=== PATIENT | female | born 1960 | race Caucasian/White ===

== ENCOUNTER 2022-02-28 18:04 | Outpatient (REF) | payer OTHER, SELFPAY ==
[2022-02-28 19:07] LABS: Influenza A PCR NEGATIVE (Negative); Influenza B PCR NEGATIVE (Negative); Resp Syncy Virus RNA Qual PCR NEGATIVE (Negative); SARS COV2 PCR INHOUSE NEGATIVE (Negative)
== END 2022-02-28 18:05 | disposition home or self-care (01) ==
LOC: HO.LNP 18:04
PROVIDERS: Visit Provider Internal Medicine
DX: Z20.822 Contact with and (suspected) exposure to COVID-19 (principal); R43.9 Unspecified disturbances of smell and taste
CPT/HCPCS: 0241U

== ENCOUNTER 2022-10-02 08:54 | Outpatient (AMB) | payer OTHER, SELFPAY ==
--- NOTE | 2022-10-02 09:44 | AM.OFFWIN_ITS ---
Intake Vital Signs 10/02/22 09:46 Height 5 ft 6 in BP 120/66 Blood Pressure Location Rt brachial Position Sitting Pulse 54 Pulse Source Pulse Oximeter Temp 96.7 F L Temp Source Temporal Artery Scan Pulse Oximetry (%) 98 Oxygen Delivery Method Room Air Intake Visit Reasons: EP, Left Leg Dog Bite, Med Review [phone] Intake Note: Pt is here c/o left leg dog bite. Pt is also requesting a refill on Synthroid, Folic acid and Amlodipine. Pt has a new pt appointment in October with a New Primary Care Doctor. Patient Tobacco Use Status: Never used Tobacco Allergies No Known Allergies Allergy (Verified 10/02/22 10:19) Medication List - Last Reconciled 10/02/22 by Rodriguez Christensen MD amlodipine (Norvasc) 5 mg PO DAILY benzonatate 100 mg PO BID-TID PRN cyclobenzaprine 10 mg PO TID PRN 7 days folic acid 10 mg PO DAILY folic acid 1 mg PO DAILY glipizide 5 mg PO DAILY hydrocortisone 1% (Anti-Itch (hydrocortisone)) 1 appl topical TID PRN hydroxyzine HCl 25 mg PO BEDTIME indapamide 2.5 mg PO QAM insulin NPH and regular human 100 unit/mL (70-30) (Humulin 70/30 U-100 Insulin) 98 units (0.98 mL) subcut DAILY insulin regular human (Humulin R Regular U-100 Insulin) 30 units subcut BID insulin syringe-needle U-100 (BD Insulin Syringe Ultra-Fine) Use 1 needle four times a day levothyroxine (Synthroid) 75 mcg PO DAILY levothyroxine 75 mcg PO DAILY losartan (Cozaar) 100 mg PO DAILY metformin 500 mg PO BID oseltamivir (Tamiflu) 75 mg PO BID 5 days sertraline (Zoloft) 25 mg PO DAILY Do you need a note to return to daycare/school/sports/work: No HPI EP, Left Leg Dog Bite, Med Review [phone] HPI Details 61-year-old female presents to the office for a sick visit. Patient is relocating from [place]. Patient had a dog bite on September 04, she receives stitches and antibiotics for the same. Now she would like the wound reviewed. In addition she would like to get some of her regular medications refilled. She is trying to establish care with a new provider and her appointment is in October. History of thyroid disease and diabetes. [facility] Social History Patient Tobacco Use Status: Never used Tobacco Physical Exam Vital Signs: Last Vital Signs Temp 96.7 F L 10/02/22 09:46 Pulse 54 10/02/22 09:46 BP 120/66 10/02/22 09:46 Pulse Ox 98 10/02/22 09:46 Oxygen Delivery Method Room Air 10/02/22 09:46 Const General: cooperative and healthy appearing Nutritional Appearance: well nourished Orientation/consciousness: patient oriented x3 Limitations: no limitations HEENT Head: Yes normal to inspection Eyes General: appearance normal, both eyes and all related structures Neck Neck: Yes normal visual inspection Chest Chest palpation & inspection: normal palpation of entire chest wall Resp Effort & Inspection: normal respiratory effort Neuro General: patient oriented x3 Extrem Other: Left foot: Dorsum: Healing wound. No surrounding erythema or tenderness. Assessment & Plan Assessment & Plan (1) Diabetes mellitus: Code(s): E11.9 - Type 2 diabetes mellitus without complications Plan: Synthroid, cholesterol medication and needles prescribed. Patient was encouraged to follow-up with her primary care in October. (2) Wound, open, foot: Code(s): S91.309A - Unspecified open wound, unspecified foot, initial encounter Plan: The wound should heal on its own. No further antibiotics are needed. Coding Level of Care Code Est Pt Level 4 (38646) Diagnoses Diabetes mellitus E11.9 Wound, open, foot S91.309A
[2022-10-02 09:46] VITALS: BP 120/66; PULSE 54; TEMP 35.9; O2SAT 98
== END 2022-10-02 10:29 | disposition home or self-care (01) ==
PROVIDERS: PCP Nurse Practitioner Family; Visit Provider Internal Medicine
DX: E11.9 Type 2 diabetes mellitus without complications (principal); S91.309A Unspecified open wound, unspecified foot, initial encounter
CPT/HCPCS: 99214

== ENCOUNTER 2022-11-03 09:19 | Outpatient (AMB) | payer OTHER, SELFPAY ==
--- NOTE | 2022-11-03 09:57 | MHC.OFFWIV ---
Intake Vital Signs 11/03/22 10:02 BP 122/72 Blood Pressure Location Rt brachial Position Sitting Pulse 60 Pulse Source Pulse Oximeter Pulse Oximetry (%) 97 Oxygen Delivery Method Room Air Intake Visit Reasons: EP, diabetic med review Intake Note: Patient here because she needs refills on diabetic meds as she does not have an appt with PCP until next month. Patient Tobacco Use Status: Never used Tobacco Allergies No Known Allergies Allergy (Verified 11/03/22 09:58) Do you need a note to return to daycare/school/sports/work: No PFSH Social History Patient Tobacco Use Status: Never used Tobacco Review of Systems Const Details: Constitutional : No Weight loss, No Fever, No Chills, No Fatigue, No Malaise ENT/Mouth : No sore throat, No Rhinorrhea Eyes: No Eye Pain, No Swelling, No Redness Cardiovascular : No Chest Pain, No SOB, No Dyspnea on Exertion, No Orthopnea, No Edema, No Palpitations Respiratory : No Cough, No Sputum, No Wheezing Gastrointestinal : No Nausea, No Vomiting, No Diarrhea, No Constipation, No abdominal Pain, No Hematochezia, No Melena Genitourinary : No Dysuria, No Urinary Frequency, No Hematuria, Musculoskeletal : No joint pain, No Myalgias, No Joint Swelling Skin : No Skin Lesions, No rash Neuro : No Weakness, No Numbness, No Dizziness, No Headache Psych : No Anxiety/Panic, No Depression All other systems reviewed and are negative All systems reviewed & are unremarkable except as noted in HPI and below Physical Exam Vital Signs: Last Vital Signs Pulse 60 11/03/22 10:02 BP 122/72 11/03/22 10:02 Pulse Ox 97 11/03/22 10:02 Oxygen Delivery Method Room Air 11/03/22 10:02 vss Appearance: Alert.? Oriented X3.? No acute distress.? Head: Normocephalic, atraumatic, no step-offs or deformities Eyes: Pupils equal, round and reactive to light.? Neck: Normal inspection.? Neck supple.? CVS: Pulses normal.? Respiratory: No respiratory distress. Skin: Skin warm and dry.? Normal skin color.? Normal skin turgor.? Extremities: No lower extremity edema.? No calf ttp. 5/5 strength to bilateral upper and lower extremities Neuro: Oriented X 3.? No motor deficit.? No sensory deficit. CN 2-12 intact Assessment & Plan Assessment & Plan (1) Medication refill: Code(s): Z76.0 - Encounter for issue of repeat prescription Plan Take your medications as prescribed. If you were prescribed antibiotics today, it is important that you take your medication to their entirety, do not skip any doses, do not finish them early. Follow-up with your primary care provider this week. Return to the emergency department with new or worsening symptoms. Such as fevers, chills, chest pain, shortness of breath, nausea, vomiting, dizziness, headache, vision changes, lethargy In case of emergency call 911 Medications: New glipizide 5 mg PO DAILY 30 tabs 0RF insulin lispro (Humalog KwikPen (U-100) Insulin) 8 units (0.08 mL) subcut TID 15 mL 0RF Changed From metformin 500 mg PO BID To metformin 500 mg PO BID 30 days 60 tabs 0RF Refilled ezetimibe 10 mg PO DAILY 30 tabs 1RF levothyroxine (Synthroid) 75 mcg PO DAILY 30 tabs 0RF insulin syringe-needle U-100 (BD Insulin Syringe Ultra-Fine) Use 1 needle four times a day 100 ea 6RF E11.9 - Type 2 diabetes mellitus without complications amlodipine (Norvasc) 5 mg PO DAILY 30 tabs 0RF losartan (Cozaar) 100 mg PO DAILY 30 tabs 0RF Coding Level of Care Code Est Pt Level 3 (56577) Diagnoses Medication refill Z76.0
[2022-11-03 10:02] VITALS: BP 122/72; PULSE 60; O2SAT 97
== END 2022-11-03 12:50 | disposition home or self-care (01) ==
PROVIDERS: PCP Nurse Practitioner Family; Visit Provider Physician Assistant
DX: Z76.0 Encounter for issue of repeat prescription (principal)
CPT/HCPCS: 99213

== ENCOUNTER 2022-11-06 09:16 | Outpatient (AMB) | payer OTHER, SELFPAY ==
[2022-11-06 09:29] VITALS: BP 146/68; PULSE 73; TEMP 36.8; O2SAT 98; BMI 30.8
--- NOTE | 2022-11-06 09:29 | AM.OFFWIN_ITS ---
Intake Vital Signs 11/06/22 09:29 Height 5 ft 6 in Weight 191 lb BMI 30.8 BP 146/68 H Blood Pressure Location Rt brachial Position Sitting Pulse 73 Pulse Source Pulse Oximeter Temp 98.2 F Temp Source Oral Pulse Oximetry (%) 98 Oxygen Delivery Method Room Air Intake Visit Reasons: MED review DM Medication Patient Tobacco Use Status: Never used Tobacco Allergies No Known Allergies Allergy (Verified 11/06/22 10:15) Medication List - Last Reconciled 11/06/22 by Rodriguez Christensen MD amlodipine (Norvasc) 5 mg PO DAILY benzonatate 100 mg PO BID-TID PRN cyclobenzaprine 10 mg PO TID PRN 7 days ezetimibe 10 mg PO DAILY folic acid 10 mg PO DAILY folic acid 1 mg PO DAILY glipizide 5 mg PO DAILY hydrocortisone 1% (Anti-Itch (hydrocortisone)) 1 appl topical TID PRN hydroxyzine HCl 25 mg PO BEDTIME indapamide 2.5 mg PO QAM insulin lispro (Humalog KwikPen (U-100) Insulin) 8 units (0.08 mL) subcut TID insulin NPH and regular human 100 unit/mL (70-30) (Humulin 70/30 U-100 Insulin) 98 units (0.98 mL) subcut DAILY insulin regular human (Humulin R Regular U-100 Insulin) 30 units subcut BID insulin syringe-needle U-100 (BD Insulin Syringe Ultra-Fine) Use 1 needle four times a day levothyroxine 75 mcg PO DAILY levothyroxine (Synthroid) 75 mcg PO DAILY losartan (Cozaar) 100 mg PO DAILY metformin 500 mg PO BID 30 days oseltamivir (Tamiflu) 75 mg PO BID 5 days pen needle, diabetic (Comfort EZ Pen [place]) As directed sertraline (Zoloft) 50 mg PO DAILY Do you need a note to return to daycare/school/sports/work: No HPI MED review DM Medication HPI Details 61-year-old female presents to the [facility] for a sick visit. She was seen last week for refill on her diabetes and thyroid medications. She is yet to establish care with a primary care provider. The needles and Synthroid were not prescribed correctly. Patient has to get a 90 day supply of Synthroid for the insurance to pay. Also she needed pen needles which are different than needles for syringes. Patient is now using the insulin pen. [facility] Social History Patient Tobacco Use Status: Never used Tobacco Physical Exam Vital Signs: Last Vital Signs Temp 98.2 F 11/06/22 09:29 Pulse 73 11/06/22 09:29 BP 146/68 H 11/06/22 09:29 Pulse Ox 98 11/06/22 09:29 Oxygen Delivery Method Room Air 11/06/22 09:29 BMI result Body Mass Index 30.8 Assessment & Plan Assessment & Plan (1) Diabetes mellitus: Code(s): E11.9 - Type 2 diabetes mellitus without complications Plan: Appropriate prescriptions were resent. Medications: New pen needle, diabetic (Comfort EZ Pen [place]) As directed 50 ea 0RF Refilled levothyroxine 75 mcg PO DAILY 90 caps 0RF Coding Level of Care Code Est Pt Level 3 (44589) Diagnoses Diabetes mellitus E11.9
== END 2022-11-06 10:19 | disposition home or self-care (01) ==
PROVIDERS: PCP Nurse Practitioner Family; Visit Provider Internal Medicine
DX: E11.9 Type 2 diabetes mellitus without complications (principal)
CPT/HCPCS: 99213

== ENCOUNTER 2022-12-13 08:18 | Outpatient (AMB) | payer OTHER, SELFPAY ==
[2022-12-13 08:36] VITALS: BP 124/62; PULSE 74; O2SAT 98; BMI 31.5
--- NOTE | 2022-12-13 08:36 | A.OFFPC_ITS ---
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) Allergies No Known Allergies Allergy (Verified 12/13/22 08:54) Medication List - Last Reconciled 12/13/22 by YONIS Whitney amlodipine (Norvasc) 5 mg PO DAILY ezetimibe 10 mg PO DAILY folic acid 1 mg PO DAILY glipizide 5 mg PO DAILY indapamide 2.5 mg PO QAM insulin glargine (Lantus Solostar U-100 Insulin) 18 units subcut QPM insulin lispro (Humalog KwikPen (U-100) Insulin) 8 units (0.08 mL) subcut TID insulin syringe-needle U-100 (BD Insulin Syringe Ultra-Fine) Use 1 needle four times a day levothyroxine (Synthroid) 75 mcg PO DAILY losartan (Cozaar) 100 mg PO DAILY metformin 500 mg PO BID 30 days pen needle, diabetic (Comfort EZ Pen [place]) As directed sertraline (Zoloft) 50 mg PO DAILY Tobacco use date assessed: 12/13/22 Dental Screening Dental Screen Date: 12/13/22 Did you have a dental visit in the last 12 months?: Yes Did you have a dental problem in the last 6 months where you did not have access to dental care?: No Was dental information given to patient?: Patient has dentist HPI 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 Previous PCP Dr. Thomas many years ago per patient. Medical history significant for diabetes, high cholesterol, anxiety, depression, hypertension, hypothyroidism. Patient reports that she is compliant with her medications and denies side effects. She checks her blood sugars at home although she does not remember numbers. Last eye exam 1 year ago, will refer for another diabetic eye exam. Patient denies shortness of breath or chest pain. Patient is a Lithuanian- speaking and her friend was helping with interpretation. Patient needs refills on her medications. [facility] Medical History Wound, open, foot Upper respiratory tract infection High cholesterol Anxiety Depression History of carpal tunnel syndrome Hypertension Surgical History H/O tubal ligation Family History Mother Hypertension Diabetes mellitus Arthritis Social History Housing: House Patient Tobacco Use Status: Never used Tobacco Current occupational status: unemployed Cognitive needs: No Hearing needs: No Vision needs: No Questionnaire PHQ-9 Over the last 2 weeks, how often have you been bothered by any of the following problems? 1. Little interest or pleasure in doing things: several days 2. Feeling down, depressed, or hopeless: several days 3. Trouble falling or staying asleep, or sleeping too much: several days 4. Feeling tired or having little energy: several days 5. Poor appetite or overeating: several days 6. Feeling bad about yourself - or that you are a failure or have let yourself or your family down: not at all 7. Trouble concentrating on things, such as reading the newspaper or watching television: several days 8. Moving or speaking so slowly that other people could have noticed. Or the opposite - being so fidgety or restless that you have been moving around a lot more than usual: several days 9. Thoughts that you would be better off or of hurting yourself in some way: not at all Total score: 7 Depression Screening Interpretation: Negative Depression Screening Done: Yes 66069 - PHQ-9 Billing: Yes Source: Developed by Drs. Giles Magallanes, Maye Mcfarlane, Jose M Trejo and colleagues, with an educational natacha from [employer]. Thrive Questionnaire Date Thrive assessed: 12/13/22 I am a: Patient What is your living situation today?: I have a steady place to live Within the past 12 months, did the food you bought not last and you didn't have the money to get more?: Never true Within the past 12 months, did you worry whether your food would run out before you got money to buy more?: Never true Do you have trouble paying for medicines?: No Do you have trouble getting transportation to medical appointments?: No Do you have trouble paying your heating and electricity bill?: No Do you have trouble taking care of your child, family member or friend?: No Do you have trouble with day-to-day activities such as bathing, preparing meals, shopping, managing finances, etc.?: No Are you currently unemployed and looking for a job?: No Are you interested in more education?: No Please select the resources that you would like help with: None Currently or been in a relationship where the following occur: no concerns reported AUDIT C Alcohol Use Questionnaire (AUDIT-C) 1. How often do you have a drink containing alcohol?: Never Total Score: 0 Score Reviewed/Action Taken: No YENI-7 AMB Questionnaire YENI-7 Date YENI - 7 assessed: 12/13/22 Feeling nervous, anxious, or on edge: 1 = Several days Not being able to stop or control worryin = Several days Worrying too much about different things: 1 = Several days Trouble relaxin = Several days Being so restless that it is hard to sit still: 1 = Several days Becoming easily annoyed or irritable: 1 = Several days Feeling afraid as if something awful might happen: 1 = Several days Total YENI-7 score (0-4 normal; 5-9 mild; 10-14 moderate; 15-21 severe): 7 Source: Developed by Drs. Giles Magallanes, Maye Mcfarlane, Jose M Trejo and colleagues, with an educational natacha from [employer]. YENI-7 Assessment Billing YENI-7 Assessment Tool: YENI-7 Assessment 27384 Review of Systems Const Denies body aches, Denies chills, Denies fever(s) and Denies headache(s) ENT Denies dizziness, Denies otalgia, Denies headache(s), Denies nasal discharge, Denies sinus pain and Denies sore throat Card Denies chest pain, Denies edema, Denies lightheadedness and Denies dyspnea Resp Denies cough, Denies dyspnea and Denies wheezing GI Denies abdominal pain Denies dysuria Musc Denies myalgias Skin/Breast Denies rash Neuro Denies dizziness and Denies headache(s) Aller/Immun Denies wheezing Physical exam (Primary Care) Vital Signs: Last Vital Signs Pulse 74 12/13/22 08:36 BP 124/62 12/13/22 08:36 Pulse Ox 98 12/13/22 08:36 Oxygen Delivery Method Room Air 12/13/22 08:36 BMI result Body Mass Index 31.5 Tobacco/Smoking Status: Tobacco use Status Tobacco use date assessed 12/13/22 12/13/22 08:38 Patient Tobacco Use Status Never used Tobacco 12/13/22 08:38 PHQ-9: PHQ-9 Score PHQ-9: Total score 7 12/13/22 08:53 Depression Screening Interpretation: Negative Thrive Assessment: Date of Thrive Assessment Date Thrive assessed 12/13/22 12/13/22 08:38 Currently or been in a relationship where the following occur: no concerns reported Const General: cooperative and no acute distress Orientation/consciousness: patient oriented x3 HENMT Head: Yes normocephalic and Yes atraumatic Ears: TM's normal bilaterally Face and sinus: Yes sinuses nontender Mouth: oropharynx normal and moist mucous membranes Throat: Yes posterior oropharynx normal Eyes General: appearance normal, both eyes and all related structures Pupils: Equal, round and reactive pupils present Neck Neck: Yes normal visual inspection, Yes full ROM and Yes no lymphadenopathy Thyroid: Thyroid normal Resp Effort & Inspection: normal respiratory effort and able to speak in complete sentences Auscultation: clear to auscultation bilaterally, no crackles, no rales, no rhonchi and no wheezes Cardio Rate: regular rate Rhythm: regular rhythm Heart sounds: S1 normal heart sound present, S2 normal heart sound present and no murmurs GI Palpation (GI): Soft to palpation, not firm, nontender, no guarding, not rigid and no hepatosplenomegaly Auscultation: normal bowel sounds Skin General skin exam: no rashes or lesions noted Neuro General: patient oriented x3 Cranial nerves: Yes Equal, round and reactive pupils present Gait exam (Neuro): Normal gait present Extrem General: Yes full ROM and No edema Results AMB Hemoglobin A1c AMB Hemoglobin A1c 12.4 % Last Edit by RADHIKA Santillan on 12/13/22 08:53 Results Reviewed Results Reviewed: Laboratory Last Values Hgb A1c (Clinic) 12.4 % (4.0-6.0) H 12/13/22 08:38 Assessment and Plan Assessment & Plan (1) Diabetes mellitus: Code(s): E11.9 - Type 2 diabetes mellitus without complications Plan: A1c 12.4 today, goal less than 7 Increase Lantus to 22 units at bedtime Continue Humalog, metformin, glipizide Reinforced low-carbohydrate diet Ophthalmology referral Endocrinology referral Patient declined referral for diabetes Education (2) Encounter to establish care: Code(s): Z76.89 - Persons encountering health services in other specified circumstances (3) Hypothyroidism: Code(s): E03.9 - Hypothyroidism, unspecified Plan: Continue levothyroxine 75 mcg daily Blood work ordered (4) Hypertension: Code(s): I10 - Essential (primary) hypertension Plan: Goal BP equal or less than 140/90 Continue losartan, idapamide, amlodipine Low-sodium diet (5) Depression: Code(s): F32.A - Depression, unspecified Qualifiers: Depression Type: other depression Qualified Code(s): F32.89 - Other specified depressive episodes Plan: Stable with sertraline 50 mg daily Counseling referral (6) Anxiety: Code(s): F41.9 - Anxiety disorder, unspecified Plan: Same as above (7) High cholesterol: Code(s): E78.00 - Pure hypercholesterolemia, unspecified Plan: On Zetia Low-cholesterol diet Plan Follow-up in 2 months for PE and labs Orders: Orders Vitamin B12 and Folate Today E11.9 - Type 2 diabetes mellitus without complications TSH reflex Free T4 Today E11.9 - Type 2 diabetes mellitus without complications Lipid Panel Today E78.00 - Pure hypercholesterolemia, unspecified AMB Hemoglobin A1c Today E11.9 - Type 2 diabetes mellitus without complications Vitamin D 25-OH Total Today E11.9 - Type 2 diabetes mellitus without complications Comprehensive [place]. Panel Fast Today E11.9 - Type 2 diabetes mellitus without complications Complete Blood Count Auto Diff Today E11.9 - Type 2 diabetes mellitus without complications Microalbumin, Random (w Creat) Today E11.9 - Type 2 diabetes mellitus without complications Referrals Endocrinology Referral E11.9 - Type 2 diabetes mellitus without complications Counseling Referral F32.A - Depression, unspecified, F41.9 - Anxiety disorder, unspecified Ophthalmology Referral E11.9 - Type 2 diabetes mellitus without complications Medications: New insulin glargine (Lantus Solostar U-100 Insulin) 22 units (0.22 mL) subcut QPM 15 mL 2RF E11.9 - Type 2 diabetes mellitus without complications glipizide 5 mg PO DAILY 90 tabs 0RF E11.9 - Type 2 diabetes mellitus without complications sertraline (Zoloft) 50 mg PO DAILY 90 tabs 0RF F32.A - Depression, unspecified, F41.9 - Anxiety disorder, unspecified pen needle, diabetic (BD Ultra-Fine [place] Pen Needle) As directed 100 ea 3RF E11.9 - Type 2 diabetes mellitus without complications Changed From metformin 500 mg PO BID 30 days 60 tabs 0RF E11.9 - Type 2 diabetes mellitus without complications To metformin 500 mg PO BID 90 days 180 tabs 0RF E11.9 - Type 2 diabetes mellitus without complications Refilled indapamide 2.5 mg PO QAM 90 tabs 0RF I10 - Essential (primary) hypertension losartan (Cozaar) 100 mg PO DAILY 90 tabs 0RF I10 - Essential (primary) hypertension amlodipine (Norvasc) 5 mg PO DAILY 90 tabs 0RF I10 - Essential (primary) hypertension ezetimibe 10 mg PO DAILY 90 tabs 1RF E78.00 - Pure hypercholesterolemia, unspecified levothyroxine (Synthroid) 75 mcg PO DAILY 90 tabs 0RF E03.9 - Hypothyroidism, unspecified Coding Level of Care Code New Pt Level 4 (18262) Diagnoses Diabetes mellitus E11.9 Encounter to establish care Z76.89 Hypothyroidism E03.9 Hypertension I10 Other depression F32.89 Depression Type: other depression Anxiety F41.9 High cholesterol E78.00 Additional Codes YENI-7 Assessment Billing - YENI-7 Assessment Tool: YENI-7 Assessment [id number] ([id number])
== END 2022-12-13 09:21 | disposition home or self-care (01) ==
PROVIDERS: PCP Nurse Practitioner Family; Visit Provider Nurse Practitioner Family
DX: E11.9 Type 2 diabetes mellitus without complications (principal); E03.9 Hypothyroidism, unspecified; I10 Essential (primary) hypertension; F32.89 Other specified depressive episodes; E78.00 Pure hypercholesterolemia, unspecified
CPT/HCPCS: 83036; 96127; 99204

== ENCOUNTER 2022-12-20 11:38 | Outpatient (REF) | payer OTHER, SELFPAY ==
[2022-12-20 11:52] LABS: MANUAL DIFF FLAG NO
[2022-12-20 12:09] LABS: Basophils Percent Auto 0.5 % (0-2); Eosinophils Absolute Auto 0.4 X10*3/uL (0.0-0.4); Eosinophils Percent Auto 5.8 % (0-4); Hematocrit 36.3 % (37.0-47.0); Hemoglobin 12.6 g/dl (12.0-16.0); Imm Gran Abs Auto 0.04 X10*3/uL (0.00-0.03); Imm Gran Pct Auto 0.5 % (0.0-0.4); Lymphocytes Absolute Auto 2.8 X10*3/uL (1.2-4.9); Lymphocytes Percent Auto 37.1 % (20-40); Mean Corpuscular HGB Conc 34.7 g/dl (31.0-35.0); Mean Corpuscular Hemoglobin 28.7 pg (27.0-33.0); Mean Corpuscular Volume 82.7 fL (80.0-98.0); Mean Platelet Volume 9.3 fL (9.4-12.3); Monocytes Absolute Auto 0.7 X10*3/uL (0.1-1.2); Neutrophils Absolute Auto 3.5 x10*3/uL (2.0-8.3); Neutrophils Percent Auto 47.1 % (45-73); Platelet Count 338 X10*3/uL (160-400); Red Blood Count 4.39 X10*6/uL (4.20-5.50); Red Cell Distribution Width 12.5 % (11.0-16.0); White Blood Count 7.4 X10*3/uL (4.8-10.8)
[2022-12-20 12:39] LABS: Alanine Aminotransferase 10 U/L (0-31); Albumin Level 3.9 g/dL (3.5-5.0); Alkaline Phosphatase 113 U/L (39-117); Anion Gap 14 (12-20); Aspartate Amino Transferase 15 U/L (5-31); Bilirubin Total 0.7 mg/dL (0.0-1.0); Blood Urea Nitrogen 19 mg/dL (9-16); Calcium 9.8 mg/dL (8.4-10.2); Carbon Dioxide 26 mmol/L (22-29); Chloride 103 mmol/L (96-108); Cholesterol 225 mg/dL (<200); Estimated Glomerular Filt Rate 45; Glucose Fasting 219 mg/dL (60-99); HDL Cholesterol 36 mg/dL (>40); LDL Cholesterol Calculated 142 mg/dL (<100); Potassium 4.4 mmol/L (3.3-5.1); Sodium 139 mmol/L (135-145); Total Protein 7.4 g/dL (6.5-8.0); Triglycerides 239 mg/dL (<150)
[2022-12-20 12:54] LABS: Vitamin D 25-OH Total 27.6 ng/mL (>30)
[2022-12-20 13:07] LABS: Folate 17.3 ng/mL (> or = 4.0); Vitamin B12 446 pg/mL (200-900)
[2022-12-20 13:58] LABS: Creatinine Urine 151.48 mg/dL; Microalbum/Creatinine Ratio Ur 314.2 ug/mg cr (<30)
== END 2022-12-20 11:39 | disposition home or self-care (01) ==
LOC: HO.LAB 11:38
PROVIDERS: PCP Nurse Practitioner Family; Visit Provider Nurse Practitioner Family
DX: E11.9 Type 2 diabetes mellitus without complications (principal); E78.00 Pure hypercholesterolemia, unspecified
CPT/HCPCS: 36415; 80053; 80061; 82043; 82306; 82570; 82607; 82746; 84443; 85025

== ENCOUNTER 2023-01-16 15:21 | Outpatient (AMB) | payer OTHER, SELFPAY ==
[2023-01-16 15:21] VITALS: BP 142/76; PULSE 72; O2SAT 98; BMI 32.6
--- NOTE | 2023-01-16 15:21 | MHC.OFFVIS ---
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 CV was accompanied by her daughter was able to translate. She has longstanding history of diabetes mellitus blood sugar has been poorly controlled. She has been noncompliant with her diet according to her daughter. Patient does not exercise. [facility] Medical History Wound, open, foot Upper respiratory tract infection High cholesterol Anxiety Depression History of carpal tunnel syndrome Hypertension Surgical History H/O tubal ligation Family History Mother Hypertension Diabetes mellitus Arthritis Social History Housing: House Patient Tobacco Use Status: Never used Tobacco Current occupational status: unemployed Cognitive needs: No Hearing needs: No Vision needs: No Review of Systems Const Denies anorexia, Denies fever(s) and Denies weakness Eyes Denies blurry vision Card Denies no additional complaints and Denies dyspnea Resp Reports no additional complaints, Reports cough and Denies dyspnea GI Denies melena and Denies diarrhea Denies hematuria Musc Denies tingling Skin/Breast Denies rash Neuro Denies focal weakness, Denies tingling, Denies tremor(s) and Denies weakness Physical Exam Vital Signs: Last Vital Signs Pulse 72 01/16/23 15:21 BP 142/76 H 01/16/23 15:21 Pulse Ox 98 01/16/23 15:21 Oxygen Delivery Method Room Air 01/16/23 15:21 BMI result Body Mass Index 32.6 Const General: comfortable Nutritional Appearance: well nourished Orientation/consciousness: patient oriented x3 HEENT Head: No normal to inspection Mouth: moist mucous membranes Neck Neck: Yes supple and Yes no JVD Resp Auscultation: clear to auscultation bilaterally, no rales and rub present Cardio Jugular venous distension: no JVD Palpation: no palpable S3 and no palpable S4 Heart sounds: no rubs GI Palpation (GI): Soft to palpation and nontender Percussion: No Fluid wave present General: Yes no CVA tenderness Back/Spine/Pelvis Back: no CVA tenderness Skin General skin exam: no rashes or lesions noted Neuro General: patient oriented x3 Extrem General: Yes no pedal edema and No clubbing Results Reviewed Results Reviewed: All lab results were reviewed. Serum creatinine 1.2 with EGFR of 40 mL/minute. Urine microalbumin creatinine ratio 314 Assessment & Plan Assessment & Plan (1) CKD (chronic kidney disease): Code(s): N18.9 - Chronic kidney disease, unspecified Plan: Middle-aged woman with longstanding diabetes mellitus hypertension with mild CKD. She has stage III CKD most likely due to hypertensive diabetic kidney disease. Goal also slow the progression of renal disease. Continue with Dominick inhibition. She will benefit from SGLT-2 inhibitor. Discussed importance of tight control blood sugar and blood pressure. Continue to avoid nephrotoxic agents including NSAIDs. (2) Microalbuminuria: Code(s): R80.9 - Proteinuria, unspecified Plan: Due to underlying diabetic kidney disease. Continue with Dominick inhibitors (3) Hypertension: Code(s): I10 - Essential (primary) hypertension Plan: Initial blood pressure was elevated but repeat blood pressure was acceptable. Goal is to maintain blood pressure less than 130/80. Continue current regimen. She should stay on low-sodium diet and she requires weight loss which we had discussed Orders: Orders Blood Urea Nitrogen 4 Weeks N18.9 - Chronic kidney disease, unspecified Creatinine 4 Weeks N18.9 - Chronic kidney disease, unspecified Calcium 4 Weeks N18.9 - Chronic kidney disease, unspecified Electrolytes 4 Weeks N18.9 - Chronic kidney disease, unspecified US renal BI 4 Weeks N18.9 - Chronic kidney disease, unspecified Coding Level of Care Code New Pt Level 5 (96059) Diagnoses CKD (chronic kidney disease) N18.9 Microalbuminuria R80.9 Hypertension I10
== END 2023-01-16 15:48 | disposition home or self-care (01) ==
PROVIDERS: PCP Nurse Practitioner Family; Visit Provider Internal Medicine Hypertension Specialist
DX: I12.9 Hypertensive chronic kidney disease with stage 1 through stage 4 chronic kidney disease, or unspecified chronic kidney disease (principal); E11.22 Type 2 diabetes mellitus with diabetic chronic kidney disease; N18.30 Chronic kidney disease, stage 3 unspecified; R80.9 Proteinuria, unspecified
CPT/HCPCS: 99204

== ENCOUNTER → 2023-01-16 15:21 | Outpatient (BNVA) | payer OTHER, SELFPAY | PROVIDERS: PCP Nurse Practitioner Family; Visit Provider Internal Medicine Hypertension Specialist | DX: I12.9 Hypertensive chronic kidney disease with stage 1 through stage 4 chronic kidney disease, or unspecified chronic kidney disease (principal); N18.9 Chronic kidney disease, unspecified; R80.9 Proteinuria, unspecified | CPT/HCPCS: 99202 ==

== ENCOUNTER 2023-02-16 09:35 | Outpatient (REF) | payer OTHER, SELFPAY ==
--- NOTE | ~2023-02-16 | US_ITS ---
EXAMINATION: US RETROPERITONEAL LIMITED (RENAL ONLY) CLINICAL INFORMATION: Chronic kidney disease, unspecified. COMPARISON: None available. TECHNIQUE: Real-time imaging of the kidneys. FINDINGS: RIGHT KIDNEY: 9.6 x 4.9 x 5.2 cm (SAG x AP x TRV). The kidney is normal in size, contour, and echogenicity. Renal cortical thickness is normal. No calculi or focal parenchymal lesions. No hydronephrosis. LEFT KIDNEY: 10.4 x 5.5 x 5.8 cm (SAG x AP x TRV). The kidney is normal in size, contour, and echogenicity. Renal cortical thickness is normal. No calculi or focal parenchymal lesions. No hydronephrosis. US/US renal BI IMPRESSION: Normal renal ultrasound.
== END 2023-02-16 09:36 | disposition home or self-care (01) ==
LOC: HO.US 09:35
PROVIDERS: PCP Nurse Practitioner Family; Visit Provider Internal Medicine Hypertension Specialist
DX: N18.9 Chronic kidney disease, unspecified (principal)
CPT/HCPCS: 76775

== ENCOUNTER 2023-02-27 11:01 | Outpatient (AMB) | payer OTHER, SELFPAY ==
--- NOTE | 2023-02-27 11:04 | HO.NEPHOV ---
HPI HPI Comments History of Present Illness Details Middle-aged woman with a history of longstanding diabetes mellitus hypertension has been referred for evaluation of CKD and proteinuria. CV was accompanied by her daughter was able to translate. She has longstanding history of diabetes mellitus blood sugar has been poorly controlled. She has been noncompliant with her diet according to her daughter. Patient does not exercise. 02/27/23 Here for follow up No new issues Gave up soda Labs not done yet PFS Medical History Wound, open, foot Upper respiratory tract infection High cholesterol Anxiety Depression History of carpal tunnel syndrome Hypertension Surgical History H/O tubal ligation Family History Mother Hypertension Diabetes mellitus Arthritis Social History Housing: House Patient Tobacco Use Status: Never used Tobacco Current occupational status: unemployed Cognitive needs: No Hearing needs: No Vision needs: No Vital Signs 02/27/23 11:05 Height 5 ft 6 in Weight 207 lb 8 oz BMI 33.5 BP 150/70 H Blood Pressure Location Rt brachial Position Sitting Pulse 66 Pulse Source Pulse Oximeter Pulse Oximetry (%) 98 Oxygen Delivery Method Room Air Physical Exam Vital Signs: Last Vital Signs Pulse 66 02/27/23 11:05 BP 150/70 H 02/27/23 11:05 Pulse Ox 98 02/27/23 11:05 Oxygen Delivery Method Room Air 02/27/23 11:05 BMI result Body Mass Index 33.5 Const General: comfortable Nutritional Appearance: well nourished Orientation/consciousness: patient oriented x3 HEENT Head: No normal to inspection Mouth: moist mucous membranes Neck Neck: Yes supple and Yes no JVD Resp Auscultation: clear to auscultation bilaterally, no rales and rub present Cardio Jugular venous distension: no JVD Palpation: no palpable S3 and no palpable S4 Heart sounds: no rubs GI Palpation (GI): Soft to palpation and nontender Percussion: No Fluid wave present General: Yes no CVA tenderness Back/Spine/Pelvis Back: no CVA tenderness Skin General skin exam: no rashes or lesions noted Neuro General: patient oriented x3 Extrem General: Yes no pedal edema and No clubbing Assessment & Plan Assessment & Plan (1) Microalbuminuria: Code(s): R80.9 - Proteinuria, unspecified Plan: Due to underlying diabetic kidney disease. Continue with ARB (2) CKD (chronic kidney disease): Code(s): N18.9 - Chronic kidney disease, unspecified Plan: Middle-aged woman with longstanding diabetes mellitus hypertension with mild CKD. She has stage III CKD most likely due to hypertensive diabetic kidney disease. Goal also slow the progression of renal disease. Continue with Dominick inhibition. She will benefit from SGLT-2 inhibitor. Discussed importance of tight control blood sugar and blood pressure. Continue to avoid nephrotoxic agents including NSAIDs. (3) Hypertension: Code(s): I10 - Essential (primary) hypertension Plan: Initial blood pressure was elevated but repeat blood pressure was acceptable. Goal is to maintain blood pressure less than 130/80. Continue current regimen. She should stay on low-sodium diet and she requires weight loss which we had discussed Orders: Orders Electrolytes Today N18.9 - Chronic kidney disease, unspecified, R80.9 - Proteinuria, unspecified Blood Urea Nitrogen Today N18.9 - Chronic kidney disease, unspecified, R80.9 - Proteinuria, unspecified Creatinine Today N18.9 - Chronic kidney disease, unspecified, R80.9 - Proteinuria, unspecified Calcium Today N18.9 - Chronic kidney disease, unspecified, R80.9 - Proteinuria, unspecified UA and rflx microscopic Today N18.9 - Chronic kidney disease, unspecified, R80.9 - Proteinuria, unspecified Total Protein Urine Random Today N18.9 - Chronic kidney disease, unspecified, R80.9 - Proteinuria, unspecified Creatinine Urine Today N18.9 - Chronic kidney disease, unspecified, R80.9 - Proteinuria, unspecified Coding Level of Care Code Est Pt Level 4 (18964) Diagnoses Microalbuminuria R80.9 CKD (chronic kidney disease) N18.9 Hypertension I10 Results Reviewed Results Reviewed: Jan 2023: RIGHT KIDNEY: 9.6 x 4.9 x 5.2 cm (SAG x AP x TRV). The kidney is normal in size, contour, and echogenicity. Renal cortical thickness is normal. No calculi or focal parenchymal lesions. No hydronephrosis. LEFT KIDNEY: 10.4 x 5.5 x 5.8 cm (SAG x AP x TRV). The kidney is normal in size, contour, and echogenicity. Renal cortical thickness is normal. No calculi or focal parenchymal lesions. No hydronephrosis. US/US renal BI IMPRESSION: Normal renal ultrasound. Nephrology Results: Hgb 12.6 g/dl (12.0-16.0) 12/20/22 WBC 7.4 X10*3/uL (4.8-10.8) 12/20/22 Plt Count 338 X10*3/uL (160-400) 12/20/22 Sodium 139 mmol/L (135-145) 12/20/22 Potassium 4.4 mmol/L (3.3-5.1) 12/20/22 Chloride 103 mmol/L (96-108) 12/20/22 Carbon Dioxide 26 mmol/L (22-29) 12/20/22 BUN 19 mg/dL (9-16) H 12/20/22 Creatinine 1.21 mg/dL (0.5-1.4) 12/20/22 Calcium 9.8 mg/dL (8.4-10.2) 12/20/22 Urine Creatinine 151.48 mg/dL 12/20/22 Renal US 02/16/23
[2023-02-27 11:05] VITALS: BP 150/70; PULSE 66; O2SAT 98; BMI 33.5
== END 2023-02-27 11:23 | disposition home or self-care (01) ==
PROVIDERS: PCP Nurse Practitioner Family; Visit Provider Internal Medicine Hypertension Specialist
DX: R80.9 Proteinuria, unspecified (principal); I12.9 Hypertensive chronic kidney disease with stage 1 through stage 4 chronic kidney disease, or unspecified chronic kidney disease; N18.9 Chronic kidney disease, unspecified
CPT/HCPCS: 99214

== ENCOUNTER 2023-02-27 11:01 | Outpatient (REF) | payer OTHER, SELFPAY ==
[2023-02-27 13:33] LABS: Anion Gap 12 (12-20); Blood Urea Nitrogen 28 mg/dL (9-16); Calcium 10.2 mg/dL (8.4-10.2); Carbon Dioxide 26 mmol/L (22-29); Chloride 103 mmol/L (96-108); Estimated Glomerular Filt Rate 41; Potassium 4.2 mmol/L (3.3-5.1); Sodium 137 mmol/L (135-145)
[2023-02-27 15:38] LABS: Appearance Urine Clear; Color Urine Yellow; Glucose Urine UA Negative (Negative); Leukocyte Esterase Urine Negative (Negative); Nitrite Urine Negative (Negative); PH 5.5 (5.0-9.0); Specific Gravity - Urine 1.015 (1.005-1.025); UMIC TRIGGER UA YES; Urine Blood Negative (Negative); Urine Ketones Negative (Negative); Urine Protein 100 (2+) mg/dL (Neg-Trace)
[2023-02-27 15:55] LABS: Bacteria Urine None Seen (None Seen); Hyaline Casts Urine 0-2 /LPF (0-2); Other Crystals Urine Present; RBC Urine 0-2 /HPF (0-2); Squamous Epithelial Cell Urine 0-2 /HPF (0-2); WBC Urine 0-5 /HPF (0-5)
[2023-02-27 16:37] LABS: Creatinine Urine 87.02 mg/dL; Total Protein Urine Random 59 mg/dL (<12)
== END 2023-02-27 11:02 | disposition home or self-care (01) ==
LOC: HO.LAB 11:01
PROVIDERS: PCP Nurse Practitioner Family; Visit Provider Internal Medicine Hypertension Specialist
DX: R80.9 Proteinuria, unspecified (principal); I12.9 Hypertensive chronic kidney disease with stage 1 through stage 4 chronic kidney disease, or unspecified chronic kidney disease; N18.9 Chronic kidney disease, unspecified
CPT/HCPCS: 36415; 80051; 81001; 82310; 82565; 82570; 84156; 84520; 99212

== ENCOUNTER 2023-07-19 08:46 | Outpatient (REF) | payer OTHER, SELFPAY ==
[2023-07-19 09:28] LABS: Appearance Urine Cloudy; Color Urine Yellow; Glucose Urine UA Negative (Negative); Leukocyte Esterase Urine Moderate (2+) (Negative); Nitrite Urine Negative (Negative); PH 6.5 (5.0-9.0); Specific Gravity - Urine 1.015 (1.005-1.025); UMIC TRIGGER UA YES; Urine Blood Negative (Negative); Urine Ketones Negative (Negative); Urine Protein 100 (2+) mg/dL (Neg-Trace)
[2023-07-19 09:58] LABS: Anion Gap 13 (12-20); Blood Urea Nitrogen 18 mg/dL (9-16); Calcium 9.3 mg/dL (8.4-10.2); Carbon Dioxide 27 mmol/L (22-29); Chloride 106 mmol/L (96-108); Estimated Glomerular Filt Rate 42; Potassium 3.7 mmol/L (3.3-5.1); Sodium 142 mmol/L (135-145)
[2023-07-19 10:00] LABS: Creatinine Urine 127.73 mg/dL; Total Protein Urine Random 110 mg/dL (<12)
[2023-07-19 10:16] LABS: Bacteria Urine 2+ (None Seen); Hyaline Casts Urine 0-2 /LPF (0-2); RBC Urine 0-2 /HPF (0-2); WBC Urine 0-5 /HPF (0-5)
== END 2023-07-19 08:47 | disposition home or self-care (01) ==
LOC: HO.LAB 08:46
PROVIDERS: PCP Internal Medicine; Visit Provider Internal Medicine Hypertension Specialist
DX: N18.9 Chronic kidney disease, unspecified (principal); R80.9 Proteinuria, unspecified
CPT/HCPCS: 36415; 80051; 81001; 82310; 82565; 82570; 84156; 84520; 99212

== ENCOUNTER 2023-07-19 11:22 | Outpatient (AMB) | payer OTHER, SELFPAY ==
--- NOTE | 2023-07-19 11:29 | HO.NEPHOV ---
Vital Signs 07/19/23 11:30 Height 5 ft 6 in Weight 210 lb BMI 33.9 BP 146/64 H Blood Pressure Location Rt brachial Position Sitting Pulse 70 Pulse Source Pulse Oximeter Pulse Oximetry (%) 97 Oxygen Delivery Method Room Air Intake Visit Reasons: CKD May FU/ Confirmed Ammonium Nitrate Neutralizer Required: No Accompanied by: Daughter Allergies No Known Allergies Allergy (Verified 07/19/23 11:32) HPI Comments Details: Middle-aged woman with a history of longstanding diabetes mellitus hypertension has been referred for evaluation of CKD and proteinuria. CV was accompanied by her daughter was able to translate. She has longstanding history of diabetes mellitus blood sugar has been poorly controlled. She has been noncompliant with her diet according to her daughter. Patient does not exercise. Doing better today. She does not drink soda anymore. Metformin has been discontinued. No new issues today [facility] Medical History Wound, open, foot Upper respiratory tract infection High cholesterol Anxiety Depression History of carpal tunnel syndrome Hypertension Surgical History H/O tubal ligation Family History Mother Hypertension Diabetes mellitus Arthritis Social History Housing: House Patient Tobacco Use Status: Never used Tobacco Current occupational status: unemployed Cognitive needs: No Hearing needs: No Vision needs: No Physical Exam Vital Signs: Last Vital Signs Pulse 70 07/19/23 11:30 BP 146/64 H 07/19/23 11:30 Pulse Ox 97 07/19/23 11:30 Oxygen Delivery Method Room Air 07/19/23 11:30 BMI result Body Mass Index 33.9 Const General: comfortable Nutritional Appearance: well nourished Orientation/consciousness: patient oriented x3 HEENT Head: No normal to inspection Mouth: moist mucous membranes Neck Neck: Yes supple and Yes no JVD Resp Auscultation: clear to auscultation bilaterally, no rales and rub present Cardio Jugular venous distension: no JVD Palpation: no palpable S3 and no palpable S4 Heart sounds: no rubs GI Palpation (GI): Soft to palpation and nontender Percussion: No Fluid wave present General: Yes no CVA tenderness Back/Spine/Pelvis Back: no CVA tenderness Skin General skin exam: no rashes or lesions noted Neuro General: patient oriented x3 Extrem General: Yes no pedal edema and No clubbing Results Reviewed Nephrology Results: Hgb 12.6 g/dl (12.0-16.0) 12/20/22 WBC 7.4 X10*3/uL (4.8-10.8) 12/20/22 Plt Count 338 X10*3/uL (160-400) 12/20/22 Sodium 142 mmol/L (135-145) 07/19/23 Potassium 3.7 mmol/L (3.3-5.1) 07/19/23 Chloride 106 mmol/L (96-108) 07/19/23 Carbon Dioxide 27 mmol/L (22-29) 07/19/23 BUN 18 mg/dL (9-16) H 07/19/23 Creatinine 1.28 mg/dL (0.5-1.4) 07/19/23 Calcium 9.3 mg/dL (8.4-10.2) 07/19/23 Urine Protein 100 (2+) mg/dL (Neg-Trace) H 07/19/23 Urine Creatinine 127.73 mg/dL 07/19/23 Renal US 02/16/23 Assessment & Plan Assessment & Plan (1) CKD (chronic kidney disease): Code(s): N18.9 - Chronic kidney disease, unspecified Category: Medical Plan: Middle-aged woman with longstanding diabetes mellitus hypertension with mild CKD. She has stage III CKD most likely due to hypertensive diabetic kidney disease. Goal also slow the progression of renal disease. Continue with Dominick inhibition. She will benefit from SGLT-2 inhibitor. Discussed importance of tight control blood sugar and blood pressure. Continue to avoid nephrotoxic agents including NSAIDs. . (2) Microalbuminuria: Code(s): R80.9 - Proteinuria, unspecified Category: Medical Plan: Due to underlying diabetic kidney disease. Continue with ARB . (3) Hypertension: Code(s): I10 - Essential (primary) hypertension Category: Medical Plan: Initial blood pressure was elevated but repeat blood pressure was acceptable. Goal is to maintain blood pressure less than 130/80. Continue current regimen. She should stay on low-sodium diet and she requires weight loss which we had discussed . Orders: Orders Basic Metabolic Panel 4 Months N18.9 - Chronic kidney disease, unspecified Total Protein Urine Random 4 Months N18.9 - Chronic kidney disease, unspecified Creatinine Urine 4 Months N18.9 - Chronic kidney disease, unspecified Coding Level of Care Code Est Pt Level 4 (42597) Diagnoses CKD (chronic kidney disease) N18.9 Microalbuminuria R80.9 Hypertension I10
[2023-07-19 11:30] VITALS: BP 146/64; PULSE 70; O2SAT 97; BMI 33.9
== END 2023-07-19 11:51 | disposition home or self-care (01) ==
PROVIDERS: PCP Nurse Practitioner Family; Visit Provider Internal Medicine Hypertension Specialist
DX: I12.9 Hypertensive chronic kidney disease with stage 1 through stage 4 chronic kidney disease, or unspecified chronic kidney disease (principal); N18.9 Chronic kidney disease, unspecified; R80.9 Proteinuria, unspecified
CPT/HCPCS: 99214

== ENCOUNTER 2023-07-26 09:01 | Outpatient (AMB) | payer OTHER, SELFPAY ==
--- NOTE | 2023-07-26 09:03 | A.OFFPC_ITS ---
Vital Signs 07/26/23 09:06 Height 5 ft 6 in Weight 209 lb BMI 33.7 BP 130/72 Blood Pressure Location Lt brachial Position Sitting Pulse 75 Pulse Source Pulse Oximeter Pulse Oximetry (%) 96 Oxygen Delivery Method Room Air Intake Visit Reasons: PE w/ labs- needs A1C Intake Note: Patient is here today for a physical. Ambulance Officer Required: Yes Ambulance Officer Language: Farmworker Machine Name: Sarah (Daughter) Information Interpreted: non-clinical & clinical Transformation Analyst: Present Accompanied by: Daughter Allergies No Known Allergies Allergy (Verified 07/26/23 09:05) Tobacco use date assessed: 07/26/23 Dental Screening Dental Screen Date: 07/26/23 Did you have a dental visit in the last 12 months?: Yes Did you have a dental problem in the last 6 months where you did not have access to dental care?: No Was dental information given to patient?: Patient has dentist HPI PE w/ labs- needs A1C HPI Details 62-year-old female presents to the offic e wishing to establish her care. She has also requesting an annual physical. Patient has poorly controlled diabetes. She is accompanied on this visit by her daughter. Patient is complaining of a trigger finger in the right hand. When she makes a fist and opens her fingers she feels a clicking sound in the right index finger which is painful. vp information technology stiffness present. Not compliant with diet or exercise. [facility] Medical History (Updated 07/26/23 @ 09:59 by Rodriguez Christensen MD) CKD (chronic kidney disease) Diabetes mellitus High cholesterol Anxiety Depression History of carpal tunnel syndrome Hypertension Surgical History H/O tubal ligation Family History Mother Hypertension Diabetes mellitus Arthritis Other Mental health disorder Social History Housing: House Alcohol intake: current Alcohol intake frequency: a few times a month Patient Tobacco Use Status: Never used Tobacco e-Cigarette/Vaping Use: Never Used Second Hand Smoke Exposure: No service: No Current occupational status: unemployed Cognitive needs: No Hearing needs: No Vision needs: No Questionnaire PHQ-9 Over the last 2 weeks, how often have you been bothered by any of the following problems? 1. Little interest or pleasure in doing things: several days 2. Feeling down, depressed, or hopeless: several days 3. Trouble falling or staying asleep, or sleeping too much: several days 4. Feeling tired or having little energy: several days 5. Poor appetite or overeating: not at all 6. Feeling bad about yourself - or that you are a failure or have let yourself or your family down: not at all 7. Trouble concentrating on things, such as reading the newspaper or watching television: several days 8. Moving or speaking so slowly that other people could have noticed. Or the opposite - being so fidgety or restless that you have been moving around a lot more than usual: not at all 9. Thoughts that you would be better off or of hurting yourself in some way: not at all Total score: 5 Depression Screening Interpretation: Positive Depression Screening Done: Yes Source: Developed by Drs. Giles Magallanes, Maye Mcfarlane, Jose M Trejo and colleagues, with an educational natacha from [employer]. Thrive Questionnaire Date Thrive assessed: 07/26/23 I am a: Patient What is your living situation today?: I have a steady place to live Within the past 12 months, did the food you bought not last and you didn't have the money to get more?: Never true Within the past 12 months, did you worry whether your food would run out before you got money to buy more?: Never true Do you have trouble paying for medicines?: No Do you have trouble getting transportation to medical appointments?: No Do you have trouble paying your heating and electricity bill?: No Do you have trouble taking care of your child, family member or friend?: No Do you have trouble with day-to-day activities such as bathing, preparing meals, shopping, managing finances, etc.?: No Are you currently unemployed and looking for a job?: No Are you interested in more education?: No Currently or been in a relationship where the following occur: no concerns reported THRIVE Score: 0 AUDIT C Alcohol Use Questionnaire (AUDIT-C) 1. How often do you have a drink containing alcohol?: Never Total Score: 0 YENI-7 AMB Questionnaire YENI-7 Date YENI - 7 assessed: 07/26/23 Feeling nervous, anxious, or on edge: 1 = Several days Not being able to stop or control worryin = Several days Worrying too much about different things: 1 = Several days Trouble relaxin = Several days Being so restless that it is hard to sit still: 0 = Not at all Becoming easily annoyed or irritable: 0 = Not at all Feeling afraid as if something awful might happen: 0 = Not at all Total YENI-7 score (0-4 normal; 5-9 mild; 10-14 moderate; 15-21 severe): 4 Source: Developed by Drs. Giles Magallanes, Maye Mcfarlane, Jose M Trejo and colleagues, with an educational natacha from [employer]. Physical exam (Primary Care) Vital Signs: Last Vital Signs Pulse 75 07/26/23 09:06 BP 130/72 07/26/23 09:06 Pulse Ox 96 07/26/23 09:06 Oxygen Delivery Method Room Air 07/26/23 09:06 BMI result Body Mass Index 33.7 Tobacco/Smoking Status: Tobacco use Status Tobacco use date assessed 07/26/23 07/26/23 09:22 Patient Tobacco Use Status Never used Tobacco 07/26/23 09:22 e-Cigarette/Vaping Use Never Used 07/26/23 09:22 PHQ-9: PHQ-9 Score PHQ-9: Total score 5 07/26/23 09:27 Depression Screening Interpretation: Positive Thrive Assessment: Date of Thrive Assessment Date Thrive assessed 07/26/23 07/26/23 09:22 Currently or been in a relationship where the following occur: no concerns reported Const General: cooperative and healthy appearing Nutritional Appearance: well nourished Orientation/consciousness: patient oriented x3 Limitations: no limitations HENMT Head: Yes normal to inspection Eyes General: appearance normal, both eyes and all related structures Neck Neck: Yes normal visual inspection Chest Chest palpation & inspection: normal palpation of entire chest wall Resp Effort & Inspection: normal respiratory effort Neuro General: patient oriented x3 Results AMB Hemoglobin A1c AMB Hemoglobin A1c 10.1 % Last Edit by RADHIKA Swartz on 07/26/23 09:2 6 Results Reviewed Results Reviewed: Laboratory Last Values Hgb A1c (Clinic) 10.1 % (4.0-6.0) H 07/26/23 09:03 Assessment and Plan Assessment & Plan (1) Diabetes mellitus: Code(s): E11.9 - Type 2 diabetes mellitus without complications Plan: Poor blood sugar control. Lantus dosage increased to 30 units. Short-acting insulin increased to 10 units 3 times daily. (2) CKD (chronic kidney disease): Code(s): N18.9 - Chronic kidney disease, unspecified Plan: Kidney functions are deteriorating. Nephrology note reviewed. Farxiga added to the regimen. (3) Annual physical exam: Code(s): Z00.00 - Encounter for general adult medical examination without abnormal findings Plan: Screening mammogram ordered. Patient had a colonoscopy 5 years ago in [place]. She has scheduled for an annual Pap exam at in a few months. Orders: Orders AMB Hemoglobin A1c Today E11.9 - Type 2 diabetes mellitus without complications Basic Metabolic Panel Today E11.9 - Type 2 diabetes mellitus without complications Complete Blood Count no Diff Today E11.9 - Type 2 diabetes mellitus without complications Lipid Panel Today E11.9 - Type 2 diabetes mellitus without complications Thyroid Stimulating Hormone Today E11.9 - Type 2 diabetes mellitus without complications MM screening mammo BI Today Z12.31 - Encounter for screening mammogram for malignant neoplasm of breast Liver Panel Today E11.9 - Type 2 diabetes mellitus without complications UA and rflx microscopic Today E11.9 - Type 2 diabetes mellitus without complications Medications: New dapagliflozin propanediol (Farxiga) 10 mg PO DAILY 90 tabs 1RF Changed From insulin glargine (Lantus Solostar U-100 Insulin) 22 units (0.22 mL) subcut QPM 15 mL 2RF E11.9 - Type 2 diabetes mellitus without complications To insulin glargine (Lantus Solostar U-100 Insulin) 30 units (0.3 mL) subcut QPM 15 mL 2RF E11.9 - Type 2 diabetes mellitus without complications From insulin lispro (Humalog KwikPen (U-100) Insulin) 8 units (0.08 mL) subcut TID 15 mL 0RF To insulin lispro (Humalog KwikPen (U-100) Insulin) 10 units (0.1 mL) subcut TID 15 mL 0RF Refilled sertraline (Zoloft) 50 mg PO DAILY 90 tabs 1RF F32.A - Depression, unspecified, F41.9 - Anxiety disorder, unspecified insulin syringe-needle U-100 (BD Insulin Syringe Ultra-Fine) Use 1 needle four times a day 100 ea 6RF E11.9 - Type 2 diabetes mellitus without complications amlodipine (Norvasc) 5 mg PO DAILY 90 tabs 3RF I10 - Essential (primary) hypertension folic acid 1 mg PO DAILY 90 tabs 3RF levothyroxine (Synthroid) 75 mcg PO DAILY 90 tabs 0RF E03.9 - Hypothyroidism, unspecified cholecalciferol (vitamin D3) 25 mcg PO DAILY 90 tabs 3RF R79.89 - Other specified abnormal findings of blood chemistry pen needle, diabetic (Comfort EZ Pen [place]) As directed 50 ea 0RF pen needle, diabetic (BD Ultra-Fine Chen Pen Needle) As directed 100 ea 3RF E11.9 - Type 2 diabetes mellitus without complications losartan (Cozaar) 100 mg PO DAILY 90 tabs 3RF I10 - Essential (primary) hypertension ezetimibe 10 mg PO DAILY 90 tabs 1RF E78.00 - Pure hypercholesterolemia, unspecified indapamide 2.5 mg PO QAM 90 tabs 3RF I10 - Essential (primary) hypertension Coding Level of Care Code Est Pt Level 4 (32057) Est Pt Prev Care 40-64y(00178) Diagnoses Diabetes mellitus E11.9 CKD (chronic kidney disease) N18.9 Annual physical exam Z00.00
[2023-07-26 09:06] VITALS: BP 130/72; PULSE 75; O2SAT 96; BMI 33.7
== END 2023-07-26 09:46 | disposition home or self-care (01) ==
PROVIDERS: PCP Internal Medicine; Visit Provider Internal Medicine
DX: Z00.00 Encounter for general adult medical examination without abnormal findings (principal); E11.22 Type 2 diabetes mellitus with diabetic chronic kidney disease; N18.30 Chronic kidney disease, stage 3 unspecified; M65.321 Trigger finger, right index finger
CPT/HCPCS: 83036; 99214; 99396

== ENCOUNTER 2024-03-07 08:45 | Outpatient (REF) | payer OTHER, SELFPAY ==
[2024-03-07 09:43] LABS: Hematocrit 36.2 % (37.0-47.0); Hemoglobin 12.4 g/dl (12.0-16.0); Mean Corpuscular HGB Conc 34.3 g/dl (31.0-35.0); Mean Corpuscular Hemoglobin 28.4 pg (27.0-33.0); Mean Platelet Volume 10.1 fL (9.4-12.3); Platelet Count 310 X10*3/uL (160-400); Red Blood Count 4.36 X10*6/uL (4.20-5.50); White Blood Count 8.6 X10*3/uL (4.8-10.8)
[2024-03-07 09:55] LABS: Appearance Urine Cloudy; Color Urine Yellow; Glucose Urine UA 100 mg/dL (Negative); Leukocyte Esterase Urine Small (1+) (Negative); Nitrite Urine Negative (Negative); PH 5.5 (5.0-9.0); UMIC TRIGGER UA YES; Urine Blood Trace (Negative); Urine Ketones Negative (Negative); Urine Protein 300 (3+) mg/dL (Neg-Trace)
[2024-03-07 10:00] LABS: Bacteria Urine 3+ (None Seen); Hyaline Casts Urine 0-2 /LPF (0-2); RBC Urine 0-2 /HPF (0-2)
[2024-03-07 10:30] LABS: Creatinine Urine 113.02 mg/dL
[2024-03-07 10:37] LABS: Alanine Aminotransferase 11 U/L (0-31); Albumin Level 3.6 g/dL (3.5-5.0); Alkaline Phosphatase 116 U/L (39-117); Anion Gap 9 (12-20); Aspartate Amino Transferase 15 U/L (5-31); Bilirubin Direct 0.1 mg/dL (0.0-0.5); Bilirubin Total 0.4 mg/dL (0.0-1.0); Blood Urea Nitrogen 19 mg/dL (9-16); Calcium 8.8 mg/dL (8.4-10.2); Carbon Dioxide 25 mmol/L (22-29); Chloride 108 mmol/L (96-108); Cholesterol 156 mg/dL (<200); Estimated Glomerular Filt Rate 42; Glucose Random 217 mg/dL (60-115); HDL Cholesterol 40 mg/dL (>40); LDL Cholesterol Calculated 86 mg/dL (<100); Potassium 3.9 mmol/L (3.3-5.1); Sodium 138 mmol/L (135-145); Total Protein 7.1 g/dL (6.5-8.0); Triglycerides 153 mg/dL (<150)
[2024-03-07 10:41] LABS: Total Protein Urine Random 224 mg/dL (<12)
[2024-03-07 10:46] LABS: Thyroid Stimulating Hormone 2.14 uIU/mL (0.32-4.0)
== END 2024-03-07 08:46 | disposition home or self-care (01) ==
LOC: HO.LAB 08:45
PROVIDERS: Absent Provider Internal Medicine Hypertension Specialist; PCP Internal Medicine; Visit Provider Internal Medicine
DX: N18.9 Chronic kidney disease, unspecified (principal); E11.9 Type 2 diabetes mellitus without complications
CPT/HCPCS: 36415; 80048; 80061; 80076; 81001; 82570; 84156; 84443; 85027

== ENCOUNTER 2024-03-10 14:10 | Outpatient (AMB) | payer OTHER, SELFPAY ==
[2024-03-10 14:13] VITALS: BP 150/70; PULSE 71; O2SAT 98; BMI 33.6
--- NOTE | 2024-03-10 14:13 | HO.NEPHOV_ITS ---
Vital Signs 03/10/24 14:13 03/10/24 14:27 Height 5 ft 6 in Weight 208 lb BMI 33.6 BP 150/70 H 140/70 H Blood Pressure Location Lt brachial Lt brachial Position Sitting Sitting Pulse 71 Pulse Source Pulse Oximeter Pulse Oximetry (%) 98 Oxygen Delivery Method Room Air Intake Visit Reasons: FU-Conf Shipping Services Sales Representative Required: No Accompanied by: Daughter Allergies No Known Allergies Allergy (Verified 03/10/24 14:15) Medication List - Last Reconciled 03/10/24 by Leonardo Robbins MD amlodipine (Norvasc) 5 mg PO DAILY blood-glucose sensor (FreeStyle Griffin 2 Plus Sensor device) As directed cholecalciferol (vitamin D3) 25 mcg PO DAILY dapagliflozin propanediol (Farxiga) 10 mg PO DAILY ezetimibe 10 mg PO DAILY folic acid 1 mg PO DAILY [Freestyle Griffin 2 As directed] [Freestyle griffin 2 test strips As directed] indapamide 2.5 mg PO QAM insulin glargine (Lantus Solostar U-100 Insulin) 30 units (0.3 mL) subcut QPM insulin lispro (Humalog KwikPen (U-100) Insulin) 10 units (0.1 mL) subcut TID insulin syringe-needle U-100 (BD Insulin Syringe Ultra-Fine) Use 1 needle four times a day levothyroxine (Synthroid) 75 mcg PO DAILY losartan (Cozaar) 100 mg PO DAILY pen needle, diabetic (Comfort EZ Pen [place]) As directed pen needle, diabetic (BD Ultra-Fine Chen Pen Needle) As directed sertraline (Zoloft) 50 mg PO DAILY HPI Comments Details: Middle-aged woman with a history of longstanding diabetes mellitus hypertension has been referred for evaluation of CKD and proteinuria. CV was accompanied by her daughter was able to translate. She has longstanding history of diabetes mellitus blood sugar has been poorly controlled. She has been noncompliant with her diet according to her daughter. Patient does not exercise. Doing better today. She does not drink soda anymore. Metformin has been discontinued. No new issues today 03/10/24 Doing well. Farxiga was added - but she has not started it yet- ? why She ran out of losartan for the past 1 month [facility] Medical History (Updated 07/26/23 @ 09:59 by Rodriguez Christensen MD) CKD (chronic kidney disease) Diabetes mellitus High cholesterol Anxiety Depression History of carpal tunnel syndrome Hypertension Surgical History H/O tubal ligation Family History Mother Hypertension Diabetes mellitus Arthritis Other Mental health disorder Social History Housing: House Alcohol intake: current Alcohol intake frequency: a few times a month Patient Tobacco Use Status: Never used Tobacco e-Cigarette/Vaping Use: Never Used Second Hand Smoke Exposure: No service: No Current occupational status: unemployed Cognitive needs: No Hearing needs: No Vision needs: No Physical Exam Vital Signs: Last Vital Signs Pulse 71 03/10/24 14:13 BP 140/70 H 03/10/24 14:27 Pulse Ox 98 03/10/24 14:13 Oxygen Delivery Method Room Air 03/10/24 14:13 BMI result Body Mass Index 33.6 Comfortable Neck supple no JVD. Lungs entry equal no rales. Heart S1-S2 heard no gallop or rub. Abdomen soft nontender. Neuro alert awake oriented. No asterixis. Extremities no edema. Results Reviewed Nephrology Results: Hgb 12.4 g/dl (12.0-16.0) 03/07/24 WBC 8.6 X10*3/uL (4.8-10.8) 03/07/24 Plt Count 310 X10*3/uL (160-400) 03/07/24 Sodium 138 mmol/L (135-145) 03/07/24 Potassium 3.9 mmol/L (3.3-5.1) 03/07/24 Chloride 108 mmol/L (96-108) 03/07/24 Carbon Dioxide 25 mmol/L (22-29) 03/07/24 BUN 19 mg/dL (9-16) H 03/07/24 Creatinine 1.29 mg/dL (0.5-1.4) 03/07/24 Calcium 8.8 mg/dL (8.4-10.2) 03/07/24 Urine Protein 300 (3+) mg/dL (Neg-Trace) H 03/07/24 Urine Creatinine 113.02 mg/dL 03/07/24 Renal US 02/16/23 Assessment & Plan Assessment & Plan (1) CKD (chronic kidney disease): Code(s): N18.9 - Chronic kidney disease, unspecified Category: Medical Plan: Middle-aged woman with longstanding diabetes mellitus hypertension with mild CKD. She has stage III CKD most likely due to hypertensive diabetic kidney disease. Goal also slow the progression of renal disease. Continue with Dominick inhibition. She will benefit from SGLT-2 inhibitor. Restarted Farxiga Discussed importance of tight control blood sugar and blood pressure. Continue to avoid nephrotoxic agents including NSAIDs. . (2) Microalbuminuria: Code(s): R80.9 - Proteinuria, unspecified Category: Medical Plan: Due to underlying diabetic kidney disease. Continue with ARB Refilled losartan . (3) Hypertension: Code(s): I10 - Essential (primary) hypertension Category: Medical Plan: Initial blood pressure was elevated but repeat blood pressure was acceptable. Goal is to maintain blood pressure less than 130/80. Continue current regimen. She should stay on low-sodium diet and she requires weight loss which we had discussed Blood pressure is suboptimal today because she did not take losartan. Once we restart losartan expect the blood pressure to optimize. Shall watch . Orders: Orders Basic Metabolic Panel 4 Months N18.9 - Chronic kidney disease, unspecified Medications: Refilled dapagliflozin propanediol (Farxiga) 10 mg PO DAILY 90 tabs 1RF losartan (Cozaar) 100 mg PO DAILY 90 tabs 3RF I10 - Essential (primary) hypertension Coding Level of Care Code Est Pt Level 4 (57339) Diagnoses CKD (chronic kidney disease) N18.9 Microalbuminuria R80.9 Hypertension I10
[2024-03-10 14:27] VITALS: BP 140/70
== END 2024-03-10 14:30 | disposition home or self-care (01) ==
PROVIDERS: PCP Internal Medicine; Visit Provider Internal Medicine Hypertension Specialist
DX: I12.9 Hypertensive chronic kidney disease with stage 1 through stage 4 chronic kidney disease, or unspecified chronic kidney disease (principal); N18.9 Chronic kidney disease, unspecified; R80.9 Proteinuria, unspecified
CPT/HCPCS: 99214

== ENCOUNTER → 2024-03-10 14:10 | Outpatient (BNVA) | payer OTHER, SELFPAY | PROVIDERS: PCP Internal Medicine; Visit Provider Internal Medicine Hypertension Specialist | DX: E11.22 Type 2 diabetes mellitus with diabetic chronic kidney disease (principal); I12.9 Hypertensive chronic kidney disease with stage 1 through stage 4 chronic kidney disease, or unspecified chronic kidney disease; N18.30 Chronic kidney disease, stage 3 unspecified; R80.9 Proteinuria, unspecified | CPT/HCPCS: 99212 ==

== ENCOUNTER 2024-03-11 15:12 | Outpatient (AMB) | payer OTHER, SELFPAY ==
--- NOTE | 2024-03-11 15:13 | MHC.OFFVIS ---
Vital Signs 03/11/24 15:16 Height 5 ft 6 in Weight 208 lb 12.444 oz BMI 33.7 BP 132/72 Blood Pressure Location Rt brachial Position Sitting Pulse 72 Pulse Source Pulse Oximeter Intake Visit Reasons: DM Intake Note: New patient present today for T2DM. Last Diabetic Eye exam: Has an appointment in June 2024, Has yearly appointments Last Podiatry Visit: Does not see a Nursing Home Physician Random Glucose: 100 mg/dl HgA1C: 9.4% 03/11/2024 Automated Access Systems Technician Required: Yes Automated Access Systems Technician Language: Gold Wheel Blocker And Polisher Services: Automated Access Systems Technician Offered & Declined Information Interpreted: non-clinical & clinical Accompanied by: Daughter Allergies No Known Allergies Allergy (Verified 03/11/24 15:18) Medication List - Last Reconciled 03/11/24 by NARCISA Whelan amlodipine (Norvasc) 5 mg PO DAILY blood sugar diagnostic (FreeStyle Lite Strips) As directed to check glucose 3 times daily. blood-glucose meter (FreeStyle Lite Meter kit) As directed to check blood glucose 3 times daily. blood-glucose meter,continuous (FreeStyle Griffin 3 [place]) Use daily to monitor blood glucose levels continuously. blood-glucose sensor (FreeStyle Griffin 3 Plus Sensor device) Apply 1 new sensor every 14-15 days as directed to monitor blood glucose continuously. cholecalciferol (vitamin D3) 25 mcg PO DAILY dapagliflozin propanediol (Farxiga) 10 mg PO DAILY ezetimibe 10 mg PO DAILY folic acid 1 mg PO DAILY glucose (Dex4 Glucose Quick Dissolve) 16 grams (4 x 4 gram) PO Q15M PRN indapamide 2.5 mg PO QAM insulin glargine (Lantus Solostar U-100 Insulin) 36 units subcut QPM insulin lispro (Humalog KwikPen (U-100) Insulin) 10 units subcut TID insulin syringe-needle U-100 (BD Insulin Syringe Ultra-Fine) Use 1 needle four times a day lancets (FreeStyle Lancets) Use to monitor blood glucose 3 times daily. levothyroxine (Synthroid) 75 mcg PO DAILY losartan (Cozaar) 100 mg PO DAILY pen needle, diabetic (Comfort EZ Pen [place]) As directed pen needle, diabetic (BD Ultra-Fine Chen Pen Needle) As directed semaglutide (Ozempic) 0.25 mg (0.368 mL) subcut QWEEK sertraline (Zoloft) 50 mg PO DAILY HPI Comments Details: This is a 63-year-old female with a past medical history of type 2 diabetes, hyperlipidemia, hypertension, CKD III, depression with anxiety, hypothyroidism and obesity presenting for diabetic management. This is her initial consult. She is here with her daughter, Estelle, who interprets. She declined an staff occupational therapist. She was diagnosed with diabetes some 15 years ago. Her mother and sister had type 2 diabetes. Hemoglobin a1c 9.4% today 03/11/2024. She does not have a glucometer or sensor. Current medication regimen: Farxiga 10 mg daily, Lantus 36 units every evening, Humalog 10 units 3 times daily before meals Past medication: Metformin discontinued due to side effects. Compliance issues: Farxiga was originally prescribed by her PCP, but it was never dispensed from the pharmacy. Her director craft center prescribed it yesterday, and they picked it up. She took her 1st dose this morning. She sometimes administers Humalog after she eats. Diet: Breakfast-coffee with some sugar, coffee with milk, sometimes bread Lunch-rice and milk, singaporean noodle soap, salad Dinner-rice, beans Snacks/desserts: cheeto and corn snacks, cereal with milk Sometimes soda and juice Drinks a lot of water Hypoglycemia symptoms: occasional episodes where she feels weak and hungry Hyperglycemia symptoms: thirsty, blurry vision Eye exam: [facility] Microvascular complications: neuropathy in both feet (pins and needles), nephropathy (CKD III, microalbuminuria), retinopathy (OU nonproliferative retinopathy) Macrovascular complications: none Hypertension: treated with amlodipine 5 mg, indapamide 2.5 mg, losartan 100 mg. Hyperlipidemia: treated with Zetia 10 mg. LDL at goal <100. ROS: Constitutional: No unexplained weight loss, fever, chills, fatigue or night sweats. Respiratory: No shortness of breath, cough or sputum production. Cardiovascular: No chest pain, chest pressure or chest discomfort. No palpitations or pedal edema. Gastrointestinal: No anorexia, nausea, vomiting or diarrhea. No abdominal pain or blood in stool. Neurologic: +neuropathy in her feet. No headache, dizziness or syncope. Skin: No rash or wounds. Endocrine: No cold or heat intolerance. No polyuria or polydipsia. Physical exam: Constitutional: Alert, in no distress. Eyes: Pupils are equal, round and reactive to light. Extraocular muscles intact. Neck: Supple, Full range of motion. No lymphadenopathy. No palpable thyroid masses. Respiratory: Clear to auscultation. Cardiovascular: S1 S2 regular. No murmurs. Right foot: Warm and well perfused. No clubbing, cyanosis or edema. Palpable DP pulse. Decreased vibratory sensation. Intact sensation to monofilament. No open wounds. Left foot: Warm and well perfused. No clubbing, cyanosis or edema. Palpable DP pulse. Decreased vibratory sensation. Intact sensation to monofilament. No open wounds. [facility] Medical History (Updated 03/11/24 @ 16:22 by NARCISA Whelan) At risk for foot problem Type II diabetes with termite helper use of insulin CKD (chronic kidney disease) Diabetes mellitus High cholesterol Anxiety Depression History of carpal tunnel syndrome Hypertension Surgical History H/O tubal ligation Family History Mother Hypertension Diabetes mellitus Arthritis Other Mental health disorder Social History Housing: House Alcohol intake: current Alcohol intake frequency: a few times a month Patient Tobacco Use Status: Never used Tobacco e-Cigarette/Vaping Use: Never Used Second Hand Smoke Exposure: No service: No Current occupational status: unemployed Cognitive needs: No Hearing needs: No Vision needs: No Physical Exam Vital Signs: Last Vital Signs Pulse 72 03/11/24 15:16 BP 132/72 03/11/24 15:16 BMI result Body Mass Index 33.7 Results AMB Hemoglobin A1c AMB Hemoglobin A1c 9.4 % Last Edit by RADHIKA Mcgraw on 03/11/24 15:44 Results Reviewed Results Reviewed: Laboratory Last Values Glucose (Clinic) 100 mg/dL (60-115) 03/11/24 15:31 Laboratory Tests 12/13/22 12/20/22 12/20/22 08:38 11:51 Unknown Creatinine Estimated GFR Hgb A1c (Clinic) 12.4 H AST ALT Triglycerides Cholesterol LDL Cholesterol, Calc HDL Cholesterol Vitamin B12 446 TSH Urine Creatinine Urine Microalbumin 476.0 Microalb/Creat Ratio 314.2 H 07/19/23 07/26/23 03/07/24 09:02 09:03 08:12 Creatinine 1.28 Estimated GFR 42 Hgb A1c (Clinic) 10.1 H AST ALT Triglycerides Cholesterol LDL Cholesterol, Calc HDL Cholesterol Vitamin B12 TSH Urine Creatinine 113.02 Urine Microalbumin Microalb/Creat Ratio 03/07/24 09:13 Creatinine 1.29 Estimated GFR 42 Hgb A1c (Clinic) AST 15 ALT 11 Triglycerides 153 H Cholesterol 156 LDL Cholesterol, Calc 86 HDL Cholesterol 40 L Vitamin B12 TSH 2.14 Urine Creatinine Urine Microalbumin Microalb/Creat Ratio Assessment & Plan Assessment & Plan (1) Type II diabetes with termite helper use of insulin: Code(s): E11.9 - Type 2 diabetes mellitus without complications; Z79.4 - termite helper (current) use of insulin Category: Medical Plan In summary this is a 63-year-old female with uncontrolled type 2 diabetes on basal bolus insulin and Farxiga started today. Ordered Maison [employer] Lite glucometer and supplies. Patient will be able to qualify for a CGM given insulin dependence. Ordered Griffin 3 Plus. Discussed lifestyle modifications and diabetic diet. Referred to public health educator and dietitian. Refer to podiatry for neuropathy and foot care. Continue Lantus 36 units in the evening. Administer Humalog 10 units 15 minutes before meals. Continue Farxiga 10 mg daily. Denies contraindications to GLP 1. Start Ozempic 0.25 mg weekly. Patient advised not to start Ozempic until she is using the glucometer or CGM. Reviewed treatment of hypo/hyperglycemia. Written instructions given in Kyrgyz and [place]an. If you experience low blood sugar, treat this by eating a chewable fruit candy like skittles or jelly beans (about 8 pieces), 4 ounces (1/2 cup) of fruit juice (not diet), 1 tablespoon of honey or 4 glucose tablets. If your blood sugar is under 50, take double the amount of one of the above. Recheck your blood sugar in 15 minutes. Follow up in 3-4 weeks for type 2 diabetes. Orders: Orders AMB Hemoglobin A1c Today E11.9 - Type 2 diabetes mellitus without complications Referrals Diabetes Education Referral E11.65 - Type 2 diabetes mellitus with hyperglycemia Podiatry Referral E11.9 - Type 2 diabetes mellitus without complications, Z79.4 - termite helper (current) use of insulin, Z91.89 - Other specified personal risk factors, not elsewhere classified Switch Inspector Nutrition Referral E11.65 - Type 2 diabetes mellitus with hyperglycemia Medications: New blood-glucose meter (FreeStyle Lite Meter kit) As directed to check blood glucose 3 times daily. 1 ea 0RF glucose (Dex4 Glucose Quick Dissolve) until symptoms of low blood sugar are controlled 16 grams (4 x 4 gram) PO Q15M PRN 10 tabs 3RF hypoglycemia blood-glucose sensor (FreeStyle Griffin 3 Plus Sensor device) Apply 1 new sensor every 14-15 days as directed to monitor blood glucose continuously. 2 ea 11RF blood-glucose meter,continuous (FreeStyle Griffin 3 [place]) Use daily to monitor blood glucose levels continuously. 1 ea 0RF blood sugar diagnostic (FreeStyle Lite Strips) As directed to check glucose 3 times daily. 200 ea 5RF lancets (FreeStyle Lancets) Use to monitor blood glucose 3 times daily. 200 ea 5RF semaglutide (Ozempic) for 4 weeks 0.25 mg (0.368 mL) subcut QWEEK 3 mL 0RF Discontinued [Freestyle Griffin 2] Discontinued Reason: Doctor's Order As directed 1 ea 0RF [Freestyle griffin 2 test strips] Discontinued Reason: Doctor's Order As directed 1 ea 0RF blood-glucose sensor (FreeStyle Griffin 2 Plus Sensor device) Discontinued Reason: Doctor's Order As directed 1 ea 5RF E11.9 - Type 2 diabetes mellitus without complications Patient Instructions: Continue Lantus 36 units in the evening. Administer Humalog 10 units 15 minutes before meals. Restart Farxiga 10 mg daily. Start Ozempic 0.25 mg weekly. This may need a prior authorizaiton. I sent libre3 sensors and reader to the pharmacy. It may require a prior authorization. You should be able to pickle pumper the glucose meter, lancets and test strips. If you experience low blood sugar, treat this by eating a chewable fruit candy like skittles or jelly beans (about 8 pieces), 4 ounces (1/2 cup) of fruit juice (not diet), 1 tablespoon of honey or 4 glucose tablets. If your blood sugar is under 50, take double the amount of one of the above. Recheck your blood sugar in 15 minutes. You will be contacted to schedule an appointment with the public health educator and android platform developer. Continuar con Lantus 36 unidades por la noche. Administrar Humalog 10 unidades 15 minutos antes de las comidas. Reinicie Farxiga 10 mg al d?a. Inicie Ozempic con 0,25 mg semanales. Parc puede necesitar alda autorizaci?n previa. Envi? sensores y lector libre3 a la farmacia. Puede requerir alda autorizaci?n previa. Deber?a poder coger el medidor de glucosa, las lancetas y las tiras reactivas. Si experimenta un nivel bajo de az?car en la jessa, tr?telo comiendo un natasha de fruta masticable sivakumar bolos o gominolas (aproximadamente 8 piezas), 4 onzas (1/2 taza) de jugo de fruta (no diet?marcia), 1 cucharada de miel o 4 tabletas de glucosa. . Si andre nivel de az?car en jessa es inferior a 50, tome el doble de daya de los anteriores. Vuelva a controlar andre nivel de az?car en la jessa en 15 minutos. Se le comunicar? para programar alda gwendolyn con el educador en diabetes y el dietista. Coding Level of Care Code New Pt Level 5 (68520) Complex EM visit Add On G2211 Diagnoses Type II diabetes with termite helper use of insulin E11.9; Z79.4 Time Spent (min) 61 Comment Chart review, direct patient care, completing documentation
[2024-03-11 15:16] VITALS: BP 132/72; PULSE 72; BMI 33.7
[2024-03-11 15:36] LABS: Glucose, Whole Blood 100 mg/dL (60-115)
--- OUTSIDE RECORDS SUMMARY | 2024-03-11 17:09 | XMS_ITS | Encounter Summary ---
Author Organization [facility] Address [address] [place] [address] Care Team Providers Care Police Shift Commander Name Role Phone Charity Hughes MD Primary Care Provider [phone] Reason for Visit * Reason Onset Date Comments PRIOR AUTHORIZATION 02/11/2024 Encounter Details Date Type Department Care Team ([facility] Contact Info) Description 02/11/2024 Telephone Endocrinology - [place] [address] [place] [address] Domi Novoa PA [address] [place] [address] PRIOR AUTHORIZATION Social History Tobacco Use Types Packs/Day Years Used Date Smoking Tobacco: Former Alcohol Use Standard Drinks/Week Comments Never 0 (1 standard drink = 0.6 oz pur e alcohol) Sex and Gender Information Value Date Recorded Sex Assigned at Not on file Gender Identity Not on file Sexual Orientation Not on file documented as of this encounter Progress Notes * Ana Rivers - 02/27/2024 3:06 PM EST Message left on to call back and book a follow up, overdue to see Domi Novoa. * NARCISA Lentz - 02/25/2024 9:33 PM EST Patient not seen since January of 2023, needs visit schedule for PA to be done, please call patient and schedule appt. * Roslyn Forrest - 02/11/2024 12:12 PM EST Prior Authorization for Medication-do not complete and send this encounter unless you have the fax from the pharmacy. Is this a Cover My Meds request: Yes -- Trejo Code [id number] Name of Medication Freestyle Griffin 2 Sensor Dose of Medication What is the RX # from the faxed refill? How does patient take this med? Use one sensor every 14 days What Pharmacy did the fax come from: Not listed on fax Pharmacy fax #: Not listed on fax documented in this encounter Plan of Treatment Upcoming Encounters Date Type Department Care Team (Late st Contact Info) Description 06/04/2024 11:15 AM EDT Office Visit Obstetrics & Gynecology - [address] [id number] Marivel Betzaida, [facility] [address] [place] [id number] documented as of this encounter Visit Diagnoses Not on filedocumented in this encounter Care Teams Police Shift Commander Relationship Specialty Start Date End Date Charity Hughes MD [address] [place] [address] , [facility] [address] [facility] D[facility] [place], [place] PCP - General Internal Medicine 10/12/21 documented as of this encounter
--- OUTSIDE RECORDS SUMMARY | 2024-03-11 17:09 | XMS_ITS | Clinical Summary ---
Author Organization [facility] Address [address] [place] [address] Care Team Providers Care Ditto Machine Operator Name Role Phone Charity Hughes MD Primary Care Provider [phone] Allergies No known active allergies Medications Medication Sig Dispensed Refills Start Date End Date Status metFORMIN (GLUCOPHAGE) 500 mg tablet TAKE 1 TABLET BY MOUTH TWICE A DAY 10/16/2023 Active pen needle, diabetic 32 gauge x 5/32 needle USE UP TO 4 TIMES A DAY WITH INSULIN PEN. 10/03/2023 Active flash glucose scanning reader (FreeStyle Griffin 2 Ault) misc by Does not apply route. Active sertraline (ZOLOFT) 50 mg tablet Take 1 Tablet by mouth daily. 12/13/2022 Active levothyroxine (SYNTHROID, LEVOTHROID) 75 mcg tablet Take 1 Tablet by mouth daily. 12/13/2022 Active folic acid (FOLVITE) 1 mg tablet Take 1 Tablet by mouth daily. 01/02/2023 Active cholecalciferol (VITAMIN D-3) 25 mcg (1,000 unit) tablet Take 1 Tablet by mouth daily. 01/02/2023 Active ezetimibe (ZETIA) 10 mg tablet Take 1 Tablet by mouth daily. 12/13/2022 Active flash glucose sensor (FreeStyle Griffin 2 Sensor) kit 1 Each by Does not apply route See Admin Instructions. Use one sensor every 14 days. 02/08/2023 Active insulin glargine-yfgn 100 unit/mL (3 mL) injection Inject 24 Units into the skin at bedtime. 02/08/2023 Active insulin lispro (HumaLOG KwikPen) 100 unit/mL injection pen Inject 4-16 Units into the skin 3 times daily. <70: 0 units, 71-100: 4 units, 101-150: 6 units, 151-200: 8 units, 201-250: 10 units, 251-300: 12 units, 301-350: 14 units, 351-400: 15 units, >400: 16 units and call me 02/08/2023 Active amLODIPine (NORVASC) 5 mg tablet Take 1 Tablet by mouth daily. 10/31/2021 Active hydrOXYzine HCL (ATARAX) 25 mg tablet TAKE 1 TABLET BY MOUTH EVERYDAY AT BEDTIME 10/31/2021 Active indapamide (LOZOL) 2.5 mg tablet TAKE 1 TABLET BY MOUTH EVERY DAY IN THE MORNING 12/09/2021 Active losartan (COZAAR) 100 mg tablet Take 1 Tablet by mouth daily. 10/31/2021 Active Active Problems Problem Noted Date Diagnosed Date Type 2 diabetes mellitus wit h diabetic nephropathy, with long-term current use of insulin 01/30/2024 Encounters Date Type Department Care Team Description 02/11/2024 Telephone [id number] [place] [address] Domi Novoa PA PRIOR AUTHORIZATION from Last 3 Months Surgical History Surgery Date Site/Laterality Comments TUBAL LIGATION PROCEDURE: HISTORICAL TUBAL LIGATION CHOLECYSTECTOMY PROCEDURE: FL CHOLECYSTECTOMY Medical History Medical History Date Comments DM (diabetes mellitus) (CMS/HCC) DX:DM (diabetes mellitus) (HCC) HTN (hypertension) DX:HTN (hyper tension) Disorder of thyroid DX:Disorder of thyroid Social History Tobacco Use Types Packs/Day Years Used Date Smoking Tobacco: Former Alcohol Use Standard Drinks/Week Comments Never 0 (1 standard drink = 0.6 oz pur e alcohol) Sex and Gender Information Value Date Recorded Sex Assigned at Not on file Gender Identity Not on file Sexual Orientation Not on file Obstetrics History Last Filed Vital Signs Vital Sign Reading Time Taken Comments Blood Pressure 130/72 02/08/2023 10:53 AM EST Pulse 64 02/08/2023 10:53 AM EST Temperature - - Respiratory Rate - - Oxygen Saturation - - Inhaled Oxygen Concentration - - Weight 93.4 kg (206 lb) 02/08/2023 10:53 AM EST Height 167.6 cm (5' 6 ) 12/19/2021 10:14 AM EDT Body Mass Index 33.25 12/19/2021 10:14 AM EDT Plan of Treatment Upcoming Encounters Date Type Department Care Team ([facility] st Contact Info) Description 06/04/2024 11:15 AM EDT Office Visit Obstetrics & Gynecology - [address] [address] Betzaida Orta, CNM [address] [place] [address] Health Maintenance Due Date Last Done Comments Breast Cancer Screening 1960 Diabetes: Annual GFR (Glomer ular Filtration Rate) 1960 Pneumococcal Vaccine: Pediat rics (0 to 5 Years) and At-Risk Patients (6 to 64 Years) (1 of 2 - PCV) 12/27/1967 Diabetes: Annual Foot Exam 12/27/1971 Diabetes: Annual Retina Eye Exam 12/27/1971 DTaP,Tdap,and Td Vaccines (1 - Tdap) 1980 Zoster Vaccines (1 of 2) 12/27/2011 RSV Immunization Patients 60 + Years Old (1 - Risk 60-74 years 1-dose series) 2021 Cholesterol Screening (Lipid Panel) 01/22/2022 Colorectal Cancer Screening: Colonoscopy 01/22/2022 Depression Screening 01/22/2022 Social Influencers of Health Screening 01/22/2022 COVID-19 Vaccine ( - 2023-2 5 season) 2023 Influenza Vaccine (#1) 2023 Diabetes: Annual Urine Albumin-Creatinine Ratio (uACR) 12/03/2023 Diabetes: Blood Sugar Contro l Test (HGBA1C) 12/03/2023 Cervical Cancer Screening: HPV 12/20/2027 12/19/2022 HIV Screening Completed 12/19/2021 Hepatitis C Screening Completed 12/19/2021 HIB Vaccines Aged Out No longer eligi ble based on patient's age to complete this topic HPV Vaccines Aged Out No longer eligi ble based on patient's age to complete this topic Hepatitis A Vaccines Aged Out No long er eligible based on patient's age to complete this topic Hepatitis B Vaccines Aged Out No long er eligible based on patient's age to complete this topic IPV Vaccines Aged Out No longer eligi ble based on patient's age to complete this topic MMR Vaccines Aged Out No longer eligi ble based on patient's age to complete this topic Meningococcal ACWY Vaccine Aged Out N o longer eligible based on patient's age to complete this topic RSV Immunization Patients Un jolene 20 months Aged Out No longer eligible b ased on patient's age to complete this topic Varicella Vaccines Aged Out No longer eligible based on patient's age to complete this topic Procedures Procedure Name Priority Date/Time Associated Diagnosis Comments HPV Routine 12/19/2022 HEPATITIS C SCREENING Routine 12/19/2021 HIV SCREENING Routine 12/19/2021 from Last 3 Months or Most Recently Relevant to Health Maintenance Results * Cervical Cancer Screening: HPV (12/19/2022) Cervical Cancer Screening: HPV abstracted, no interpretation Historical Provider [facility] * HIV Screening (12/19/2021) HIV Screening abstracted Historical Provider [facility] * Hepatitis C Screening (12/19/2021) Hepatitis C Screening abstracted Historical Provider [facility] from Last 3 Months or Most Recently Relevant to Health Maintenance Care Teams Ditto Machine Operator Relationship Specialty Start Date End Date Charity Hughes MD [address] [place] [address] , [address] [facility] [place] [facility] PCP - General Internal Medicine 10/12/21
== END 2024-03-11 16:20 | disposition home or self-care (01) ==
PROVIDERS: PCP Internal Medicine; Visit Provider Physician Assistant Medical
DX: E11.9 Type 2 diabetes mellitus without complications (principal); Z79.4 Long term (current) use of insulin

== ENCOUNTER → 2024-03-11 15:12 | Outpatient (BNVA) | payer OTHER, SELFPAY | PROVIDERS: PCP Internal Medicine; Visit Provider Physician Assistant Medical | DX: E11.22 Type 2 diabetes mellitus with diabetic chronic kidney disease (principal); E11.65 Type 2 diabetes mellitus with hyperglycemia; I12.9 Hypertensive chronic kidney disease with stage 1 through stage 4 chronic kidney disease, or unspecified chronic kidney disease; N18.30 Chronic kidney disease, stage 3 unspecified; E78.5 Hyperlipidemia, unspecified; E03.9 Hypothyroidism, unspecified; E66.9 Obesity, unspecified; Z68.33 Body mass index [BMI] 33.0-33.9, adult; Z79.4 Long term (current) use of insulin | CPT/HCPCS: 82947; 83036; 99202 ==

== ENCOUNTER 2024-04-01 09:39 | Outpatient (AMB) | payer OTHER, SELFPAY ==
--- NOTE | 2024-04-01 10:09 | MHC.AMDMED ---
Intake Intake Visit Reasons: Type 2 diabetes mellitus with hyperglycemia Instructional Support Specialist Required: Yes Instructional Support Specialist Services: Instructional Support Specialist Offered & Declined Instructional Support Specialist Name: Pt's Daughter Information Interpreted: non-clinical & clinical Accompanied by: Daughter Allergies No Known Allergies Allergy (Verified 03/11/24 15:18) HPI Comprehensive Diabetes Asmnt Most Recent Diabetes Results: Microalb/Creat Ratio 314.2 ug/mg cr (<30) H 12/20/22 Cholesterol 156 mg/dL (<200) 03/07/24 HDL Cholesterol 40 mg/dL (>40) L 03/07/24 Triglycerides 153 mg/dL (<150) H 03/07/24 Creatinine 1.29 mg/dL (0.5-1.4) 03/07/24 Blood Urea Nitrogen 19 mg/dL (9-16) H 03/07/24 Sodium 138 mmol/L (135-145) 03/07/24 Potassium 3.9 mmol/L (3.3-5.1) 03/07/24 Chloride 108 mmol/L (96-108) 03/07/24 Carbon Dioxide 25 mmol/L (22-29) 03/07/24 Calcium 8.8 mg/dL (8.4-10.2) 03/07/24 AST 15 U/L (5-31) 03/07/24 ALT 11 U/L (0-31) 03/07/24 Total Protein 7.1 g/dL (6.5-8.0) 03/07/24 Albumin 3.6 g/dL (3.5-5.0) 03/07/24 [facility] Medical History (Updated 03/11/24 @ 16:22 by NARCISA Whelan) At risk for foot problem Type II diabetes with custodial use of insulin CKD (chronic kidney disease) Diabetes mellitus High cholesterol Anxiety Depression History of carpal tunnel syndrome Hypertension Surgical History H/O tubal ligation Family History Mother Hypertension Diabetes mellitus Arthritis Other Mental health disorder Social History Housing: House Alcohol intake: current Alcohol intake frequency: a few times a month Patient Tobacco Use Status: Never used Tobacco e-Cigarette/Vaping Use: Never Used Second Hand Smoke Exposure: No service: No Current occupational status: unemployed Cognitive needs: No Hearing needs: No Vision needs: No Assessment & Plan Assessment & Plan (1) Type II diabetes with intermediate teacher use of insulin: Code(s): E11.9 - Type 2 diabetes mellitus without complications; Z79.4 - MCFP (current) use of insulin Plan: Diabetes self-management education and support participation record Assessment/scale: 1= needs instructed? 2= needs review? 3= comprehend keep point? 4= demonstrates understanding/ competent? NC= Not Covered Topics Learning Objective: Initial visit Initial or post srvc Initial or post srvc Initial or post srvc Initial or post srvc Initial or post srvc Post srvc Comments Pre Edu-assessment/plan Outcome or reassess Outcome or reassess Outcome or reassess Outcome or reassess Outcome or reassess Outcome or reassess Diabetes pathophysiology 1 Healthy eating 1 Being active 1 Taking medication 1 Monitoring glucose 1 Acute complication Chronic complicated 1 Lifestyle and healthy coping 1 Diabetes distress in support ?Diabetes pathophysiology: ?Defined diabetes med identify own type of diabetes; list 3 options for treating diabetes Healthy eating: ?Described effect of type, amount and ?timing of food on blood glucose; list 3 methods for planning meal Being active: ?State effect of exercise on blood glucose level Taking medication: ?State effect of diabetes medications on diabetes; name diabetes medications taking, action and side effects Monitoring glucose: ?Identify recommended blood glucose targets and personal target Acute complication: ?List symptoms and treatment of hyper and hypoglycemia, DKA, sick day guidelines and guidelines for severe weather or situations of crisis and diabetes supply manage Chronic complication: ?To find the relationship of blood glucose levels to long-term complications of diabetes in screening and preventative measures Lifestyle and healthy coping: ?Described lifestyle and healthy coping strategies to rule out diabetes self-management Diabetes to stress and support: ?Recognize Diabetes to stress and be able to identified support options Learning objectives: The patient was provided with verbal and written education on the following topics as outlined below. The patient met all learning objectives and was able to verbalize understanding and provide teach back of education topics discussed . The patient was provided with the opportunity to ask questions and all questions were answered. Patient Assessment Assess patient education level/literacy/barriers Patient reports having diabetes for approximately 15 years, last A1c on 03/11/2024 9.4% Patient is currently on Trulicity 0.75 mg/dL weekly Lantus 36 units daily Humalog prescribed 10 units t.i.d., at today's visit reports she takes Humalog 18 units 15 minutes before meals Patient is also on Farxiga 10 mg daily, this was prescribed by design engineering specialist Patient has several episodes of postprandial hypoglycemia, recommended to patient and her daughter that she reduce Humalog dose to 16 units before meals, if she continues to have postprandial hypoglycemia reduce again to 14 units Explained to portion the importance of keeping meals consistent with carbohydrate when using fixed dose of Humalog What is Diabetes? Pathophysiology How the body produces and uses insulin Identify type of DM Risk factors Signs of Diabetes Brief overview of Diabetes Management Monitoring blood sugar Following a meal plan Regular exercise Maintaining a healthy weight Taking medication as needed Members of the care team (PCP, RN, MA, RD, CDE, dining room captain) Blood glucose monitoring When/how often to test Target blood sugar ranges Patient uses freestyle Griffin 3 Patient's average glucose for the past 2 weeks 165 mg/dL Above target 31% At target 68% Below target 1% Introduction to Nutrition Importance of healthy diet in managing DM Diet is personalized to individual preference Review patient?s regular diet/food preferences Who prepares meals/does food shopping/ Dining out?/ Barriers? How diet effects glucose Eating 3 balanced meals a day with small, healthy snacks between meals Review food groups Carbohydrates: What is a carbohydrate/Which food/food groups are considered carbohydrates Effect of carbohydrates on blood glucose Portion sizes Reading food labels Basic carb counting (if applicable per nursing assessment) Plate method Meal planning Recommendations: Follow plate method, consistent carbs and read nutritional labels. Smart Goal: Patient will identify foods and current meal plan that contain carbohydrates Educational Materials: The patient was provided with the following written educational materials: Planning Healthy Meals Handout Patient Response to instructions: Comprehension of Instructions: Fair Readiness to make changes: Contemplation How confident they feel about making changes: fair Portions of this note were created using voice recognition software, please excuse any words or phrases that may have been misinterpreted. Patient Instructions: Incluir actividad diaria regular. ADA recomienda 30 minutos de ejercicio 5 d?as a la semana. P?rdida de peso, hable con el PCP o el cardi?logo antes de comenzar un nuevo plan. Mida el nivel de az?car en la jessa seg?n las indicaciones; Ayuno y comida m?s arielle de 2hpp. Observe las tendencias en los resultados. Utilice los resultados y eval?e c?mo los alimentos, la actividad f?twan y los medicamentos afectan los resultados de az?car en la jessa. Lleve el gluc?metro o CGM a la pr?xima visita. Conocer los medicamentos para la diabetes, andre acci?n, los efectos secundarios, la eficacia, la toxicidad, la dosis prescrita, el momento y la frecuencia de administraci?n apropiados, el efecto de las dosis olvidadas y retrasadas y las instrucciones de almacenamiento, viaje y seguridad. T?cnicas de resoluci?n de problemas para el seguimiento de episodios de hipo/hiperglucemia y tratamientos. Reducir los comportamientos de reducci?n de riesgos, dejar de fumar, ex?menes regulares de ojos, pies y dentales. Coding Level of Care Code Est Pt Level 1 (29683) Diagnoses Type II diabetes with custodial use of insulin E11.9; Z79.4
== END 2024-04-01 10:18 | disposition home or self-care (01) ==
PROVIDERS: PCP Internal Medicine; Visit Provider Registered Nurse Diabetes Educator
DX: E11.9 Type 2 diabetes mellitus without complications (principal); Z79.4 Long term (current) use of insulin

== ENCOUNTER → 2024-04-01 09:39 | Outpatient (BNVA) | payer OTHER, SELFPAY | PROVIDERS: PCP Internal Medicine; Visit Provider Registered Nurse Diabetes Educator | DX: E11.9 Type 2 diabetes mellitus without complications (principal); Z79.4 Long term (current) use of insulin | CPT/HCPCS: 99211 ==

== ENCOUNTER 2024-04-08 09:01 | Outpatient (AMB) | payer OTHER, SELFPAY ==
--- NOTE | 2024-04-08 09:12 | MHC.OFFVIS ---
Vital Signs 04/08/24 09:19 Height 5 ft 6 in Weight 207 lb 10.807 oz BMI 33.5 BP 132/70 Blood Pressure Location Lt brachial Position Sitting Pulse 61 Pulse Source Pulse Oximeter Pulse Oximetry (%) 96 Oxygen Delivery Method Room Air Intake Visit Reasons: Type II diabetes Intake Note: Patient present today to follow up on Type 2 Diabetes Mellitus. Last Diabetic Eye exam: Has an appointment in June 2024, Has yearly appointments Last Podiatry Visit: Does not see a Railroad Wheels And Axle Inspector Random Glucose: 191 mg/dl HgA1C: 9.4% 03/11/2024 Supervisor Concrete Block Plant Required: Yes Supervisor Concrete Block Plant Language: Sales Ledger Administrator Services: Supervisor Concrete Block Plant Offered & Declined Information Interpreted: non-clinical & clinical Accompanied by: Daughter Allergies No Known Allergies Allergy (Verified 04/08/24 09:20) HPI Comments Details: This is a 63-year-old female with a past medical history of type 2 diabetes, hyperlipidemia, hypertension, CKD III, depression with anxiety, hypothyroidism and obesity presenting for diabetic management. She is here with her daughter, sEtelle, who interprets. She declined an verification clerk. She was diagnosed with diabetes some 15 years ago. Her mother and sister had type 2 diabetes. Hemoglobin a1c 9.4% 03/11/2024. Reviewed Griffin 3 download CGM active 87% Average glucose 142 G AR 6.7% Glucose variability 34.1% High 15% Very high 4% Target range 78% Low 3% Very low 0% There is a pattern of postprandial hypoglycemia in the late morning, afternoon and evening. Current medication regimen: Farxiga 10 mg daily, Trulicity 0.75 mg, Lantus 36 units every evening, Humalog 14 (reduced from 18) units 3 times daily before meals Past medication: Metformin discontinued due to side effects. Compliance issues: none Hypoglycemia symptoms: Shaky, weak, hungry. Her insurance would not cover glucose tablets, so they purchased glucose gel which effectively treats episodes. Hyperglycemia symptoms: none recently (previously blurry vision and polydipsia) Eye exam: [facility] Microvascular complications: neuropathy in both feet (pins and needles), nephropathy (CKD III, microalbuminuria), retinopathy (OU nonproliferative retinopathy) Macrovascular complications: none Hypertension: treated with amlodipine 5 mg, indapamide 2.5 mg, losartan 100 mg. Hyperlipidemia: treated with Zetia 10 mg. LDL at goal <100. ROS: Constitutional: No unexplained weight loss, fever, chills, fatigue or night sweats. Respiratory: No shortness of breath, cough or sputum production. Cardiovascular: No chest pain, chest pressure or chest discomfort. No palpitations or pedal edema. Gastrointestinal: No anorexia, nausea, vomiting or diarrhea. No abdominal pain or blood in stool. Neurologic: +neuropathy in her feet. No headache, dizziness or syncope. Skin: No rash or wounds. Endocrine: No cold or heat intolerance. No polyuria or polydipsia. Physical exam: Constitutional: Alert, in no distress. Respiratory: Clear to auscultation. Cardiovascular: S1 S2 regular. No murmurs. 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 CKD (chronic kidney disease) Diabetes mellitus High cholesterol Anxiety Depression History of carpal tunnel syndrome Hypertension Surgical History H/O tubal ligation Family History Mother Hypertension Diabetes mellitus Arthritis Other Mental health disorder Social History Housing: House Alcohol intake: current Alcohol intake frequency: a few times a month Patient Tobacco Use Status: Never used Tobacco e-Cigarette/Vaping Use: Never Used Second Hand Smoke Exposure: No service: No Current occupational status: unemployed Cognitive needs: No Hearing needs: No Vision needs: No Physical Exam Vital Signs: BMI result Body Mass Index 33.5 Office Procedures Glucose Monitoring Details Details: See [facility] [address] - Glucose monitoring, continuous-physician I&R Procedure code (CPT) selection complete Results Reviewed Results Reviewed: Laboratory Tests 12/13/22 12/20/22 12/20/22 08:38 11:51 Unknown Creatinine Estimated GFR Hgb A1c (Clinic) 12.4 H AST ALT Triglycerides Cholesterol LDL Cholesterol, Calc HDL Cholesterol Vitamin B12 446 TSH Urine Creatinine Urine Microalbumin 476.0 Microalb/Creat Ratio 314.2 H 07/19/23 07/26/23 03/07/24 09:02 09:03 08:12 Creatinine 1.28 Estimated GFR 42 Hgb A1c (Clinic) 10.1 H AST ALT Triglycerides Cholesterol LDL Cholesterol, Calc HDL Cholesterol Vitamin B12 TSH Urine Creatinine 113.02 Urine Microalbumin Microalb/Creat Ratio 03/07/24 09:13 Creatinine 1.29 Estimated GFR 42 Hgb A1c (Clinic) AST 15 ALT 11 Triglycerides 153 H Cholesterol 156 LDL Cholesterol, Calc 86 HDL Cholesterol 40 L Vitamin B12 TSH 2.14 Urine Creatinine Urine Microalbumin Microalb/Creat Ratio Assessment & Plan Assessment & Plan (1) Type II diabetes with 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 Patient is seeing nutrition educator and dietitian. Place new referral to Podiatry at [facility] for neuropathy and foot care. [facility] podiatry does not take her insurance. Continue Lantus 36 units in the evening. Decrease Humalog to 10 units 15 minutes before meals. If episodes of hypoglycemia persist decrease to 6 units 3 times a day before meals. Continue Farxiga 10 mg daily. Continue Trulicity 0.75 mg weekly. Reviewed treatment of hypo/hyperglycemia. She has written instructions in Nepalese and Wallisian. If you experience low blood sugar, treat this by eating a chewable fruit candy like skittles or jelly beans (about 8 pieces), 4 ounces (1/2 cup) of fruit juice (not diet), 1 tablespoon of honey or 4 glucose tablets or 15 g packet of glucose gel. If your blood sugar is under 55, take double the amount of one of the above. Recheck your blood sugar in 15 minutes. Follow up in 2 weeks for type 2 diabetes. Orders: Orders AMB Glucose Monitoring Today E11.9 - Type 2 diabetes mellitus without complications Medications: New dextrose (TRUEplus Glucose) until symptoms of low blood sugar are controlled 15 grams (32 mL) PO Q15M PRN 128 mL 3RF hypoglycemia Patient Instructions: Continue Lantus 36 units nightly Continue Farxiga 10 mg daily Continue Trulicity 0.75 mg weekly Decrease Humalog to 10 units Administer 15 minutes before meals three times daily If you have further episodes of blood sugar under 70, decrease Humalog to 6 units before meals Continuar Lantus 36 unidades todas las noches. Continuar con Farxiga 10 mg al d?a Continuar con Trulicity 0.75 mg semanalmente Disminuir Humalog a 10 unidades. Administrar 15 minutos antes de las comidas david veces al d?a. Si tiene m?s episodios de az?car en jessa por debajo de 70, reduzca Humalog a 6 unidades antes de las comidas. Coding Level of Care Code Est Pt Level 4 (97456) Diagnoses Type II diabetes with buttermilk drier operator use of insulin E11.9; Z79.4 CPT Codes Details - CPT: 29362 - Glucose monitoring, continuous-physician I&R ([id number])
[2024-04-08 09:19] VITALS: BP 132/70; PULSE 61; O2SAT 96; BMI 33.5
[2024-04-08 09:29] LABS: Glucose, Whole Blood 191 mg/dL (60-115)
--- OUTSIDE RECORDS SUMMARY | 2024-04-08 09:30 | XMS_ITS | Clinical Summary ---
Author Organization [facility] Address [address] [place] [address] Care Team Providers Care Surgical Scrub Technician Name Role Phone Cahrity Hughes MD Primary Care Provider [phone] Allergies No known active allergies Medications metFORMIN (GLUCOPHAGE) 500 mg tablet TAKE 1 TABLET BY MOUTH TWICE A DAY 10/16/2023 Active pen needle, diabetic 32 gauge x 5/32 needle USE UP TO 4 TIMES A DAY WITH INSULIN PEN. 10/03/2023 Active flash glucose scanning reader (FreeStyle Griffin 2 Craig) misc by Does not apply route. Active [...] Type Department Care Team Description 02/11/[address] [address] Domi Novoa PA PRIOR AUTHORIZATION from Last 3 Months Surgical History Surgery Date Site/Laterality Comments TUBAL LIGATION PROCEDURE: HISTORICAL TUBAL LIGATION CHOLECYSTECTOMY PROCEDURE: MO CHOLECYSTECTOMY Medical History Medical History Date Comments DM (diabetes mellitus) (CMS/HCC) DX:DM (diabetes mellitus) (HCC) HTN (hypertension) DX:HTN (hyper tension) Disorder of thyroid DX:Disorder of thyroid Social History Tobacco Use Types Packs/Day Years Used Date Smoking Tobacco: Former Alcohol Use Standard Drinks/Week Comments Never 0 (1 standard drink = 0.6 oz pur e alcohol) Comments Unknown Sex and Gender Information Value Date Recorded Sex Assigned at Not on file Legal Sex Female 2:27 AM EST Gender Identity Not on file Sexual Orientation [...] EDT Office Visit Obstetrics & Gynecology - [address] [address] Betzaida Orta, CNM [address] [place] [address] Health Maintenance Due Date Last Done Comments Breast Cancer Screening 1961 Diabetes: Annual GFR (Glomer ular Filtration Rate) 1961 Diabetes: Annual Foot Exam 12/27/1971 Diabetes: Annual Retina Eye Exam 12/27/1971 DTaP,Tdap,and Td Vaccines (1 - Tdap) 1980 Pneumococcal Vaccine: 50+ Ye ars (1 of 2 - PCV) 1980 Pneumococcal Vaccine: Pediat rics (0 to 5 Years) and At-Risk Patients (6 to 64 Years) (1 of 2 - PCV) 1980 Zoster Vaccines (1 of 2) 12/27/2011 RSV Immunization Patients 60 + Years Old (1 - Risk 60-74 years 1-dose series) 2021 Cholesterol Screening (Lipid Panel) 01/22/2022 Colorectal Cancer Screening: Colonoscopy 01/22/2022 Depression Screening 01/22/2022 Social Influencers of Health Screening 01/22/2022 COVID-19 Vaccine (1 - 2023-2 5 season) 2023 Influenza Vaccine [...] patient's age to complete this topic Meningococcal B Vacine Aged Out No lo nger eligible based on patient's age to complete [...] Results * Cervical Cancer Screening: HPV (12/19/2022) Pathologist [facility] Cervical Cancer Screening: HPV abstracted, no interpretation [facility] Provider HEALTH MAINTENANCE Final Result * HIV Screening (12/19/2021) [facility] HIV Screening abstracted [facility] Provider HEALTH MAINTENANCE Final Result * Hepatitis C Screening (12/19/2021) Pathologist [facility] Hepatitis C Screening abstracted [facility] Provider HEALTH MAINTENANCE Final Result from Last 3 Months or Most Recently Relevant to Health Maintenance Care Teams Surgical Scrub Technician Relationship Specialty Start Date End Date Charity Hughes MD [address] [place] [address] , [address] [facility] Physician [facility] D/B/A: [facility] [place] [facility] PCP - General Internal Medicine 10/12/21
--- OUTSIDE RECORDS SUMMARY | 2024-04-08 09:30 | XMS_ITS | Encounter Summary ---
Author Organization [facility] Address [address] [place] [address] Care Team Providers Care Set Up Mechanic Coating Machines Name Role Phone Charity Hughes MD Primary Care Provider [phone] Reason for Visit * Reason Onset Date Comments PRIOR AUTHORIZATION 02/11/2024 Encounter Details Date Type Department Care Team ([facility] Contact Info) Description 02/11/2024 Telephone Endocrinology - [address] [place] [address] Domi Novoa PA [address] [place] [address] PRIOR AUTHORIZATION Social History Tobacco Use Types [...] My Meds request: Yes -- Trejo Code [id number] Name of Medication Freestyle Griffin 2 Sensor [...] EDT Office Visit Obstetrics & Gynecology - [address] [phone] Betzaida Orta, [facility] [address] [place] [id number] documented as of this encounter Visit Diagnoses Not on filedocumented in this encounter Care Teams Set Up Mechanic Coating Machines Relationship Specialty Start Date End Date Charity Hughes MD [address] [place] [address] , [address] Physician Associ D[facility]B/A: [facility] [place] PCP - General Internal Medicine 10/12/21 documented as of this encounter
== END 2024-04-08 09:47 | disposition home or self-care (01) ==
PROVIDERS: PCP Internal Medicine; Visit Provider Physician Assistant Medical
DX: E11.9 Type 2 diabetes mellitus without complications (principal); Z79.4 Long term (current) use of insulin

== ENCOUNTER → 2024-04-08 09:01 | Outpatient (BNVA) | payer OTHER, SELFPAY | PROVIDERS: PCP Internal Medicine; Visit Provider Physician Assistant Medical | DX: E11.22 Type 2 diabetes mellitus with diabetic chronic kidney disease (principal); E78.5 Hyperlipidemia, unspecified; I12.9 Hypertensive chronic kidney disease with stage 1 through stage 4 chronic kidney disease, or unspecified chronic kidney disease; N18.30 Chronic kidney disease, stage 3 unspecified; E66.9 Obesity, unspecified; Z68.33 Body mass index [BMI] 33.0-33.9, adult; Z79.4 Long term (current) use of insulin | CPT/HCPCS: 82947; 99212 ==

== ENCOUNTER 2024-05-02 09:03 | Outpatient (AMB) | payer OTHER, SELFPAY ==
--- NOTE | 2024-05-02 09:08 | MHC.OFFVIS ---
Vital Signs 05/02/24 09:11 Height 5 ft 6 in Weight 207 lb 0.225 oz BMI 33.4 BP 116/60 Blood Pressure Location Rt brachial Position Sitting Pulse 67 Pulse Source Pulse Oximeter Pulse Oximetry (%) 96 Oxygen Delivery Method Room Air Intake Visit Reasons: Type II diabetes Intake Note: Patient present today to follow up on Type 2 Diabetes Mellitus. Last Diabetic Eye exam: Has an appointment in June 2024, Has yearly appointments Last Podiatry Visit: Does not see a Drywall Taper Helper Random Glucose: 71 mg/dl 9:18 am, 63 mg/dL, 09:31 AM, 89 mg/dl 9:49am. HgA1C: 9.4% 03/11/2025 Geospatial Image Analyst Required: Yes Geospatial Image Analyst Language: Cigarette Packing Machine Operator Services: Geospatial Image Analyst Offered & Declined Accompanied by: Daughter Allergies No Known Allergies Allergy (Verified 05/02/24 09:12) HPI Comments Details: This is a 63-year-old female with a past medical history of type 2 diabetes, hyperlipidemia, hypertension, CKD III, depression with anxiety, hypothyroidism and obesity presenting for diabetic management. She is here with her daughter, Estelle, who interprets. She declined an molded goods operator. Her blood sugar initially was 71. She denied symptoms of hypoglycemia. She told me she took 10 units of insulin this morning, but she did not eat or drink anything. She was given francesca any, and CGM alerted to low glucose. Blood glucose was rechecked and was 63. She reported feeling hot. She was diagnosed with diabetes some 15 years ago. Her mother and sister had type 2 diabetes. Hemoglobin a1c 9.4% 03/11/2024. Reviewed LP Amina 3 download CGM active 64% Average glucose 162 mg/dL GMI 7.2% Glucose variability 34.6% Very high 7% High 23% Target range 68% Low 2% Very low 0% There is a pattern of postprandial hypoglycemia. She also experiences hyperglycemia overnight and in the afternoon. Current medication regimen: Farxiga 10 mg daily, Trulicity 0.75 mg, Lantus 30 units (she decreased from 36 due to low sugars) every evening, Humalog 10 units 3 times daily before meals. Past medication: Metformin discontinued due to side effects. Compliance issues: She has been administering Humalog sometimes even when she does not eat a meal. Hypoglycemia symptoms: Shaky, weak, hungry. Her insurance would not cover glucose tablets, so they purchased glucose gel which treats episodes. She will also treat with juice or soda. Hyperglycemia symptoms: none recently (previously blurry vision and polydipsia) Eye exam: [facility] Microvascular complications: neuropathy in both feet (pins and needles), nephropathy (CKD III, microalbuminuria), retinopathy (OU nonproliferative retinopathy) Macrovascular complications: none Hypertension: treated with amlodipine 5 mg, indapamide 2.5 mg, losartan 100 mg. Hyperlipidemia: treated with Zetia 10 mg. LDL at goal <100. ROS: Constitutional: No unexplained weight loss, fever, chills, fatigue or night sweats. Respiratory: No shortness of breath, cough or sputum production. Cardiovascular: No chest pain, chest pressure or chest discomfort. No palpitations or pedal edema. Gastrointestinal: No anorexia, nausea, vomiting or diarrhea. No abdominal pain or blood in stool. Neurologic: +neuropathy in her feet. No headache, dizziness or syncope. Skin: No rash or wounds. Endocrine: No cold or heat intolerance. No polyuria or polydipsia. Physical exam: Constitutional: Alert, in no distress. Eyes: Pupils are equal, round and reactive to light. Extraocular muscles intact. Neck: Supple, Full range of motion. No lymphadenopathy. Respiratory: Clear to auscultation. Cardiovascular: S1 S2 regular. No murmurs Neurologic: No focal neurological deficits. Skin: Warm and dry Extremities: Warm and well perfused. No clubbing, cyanosis or edema. Psychiatric: Normal mood and affect [facility] Medical History (Updated 05/02/24 @ 12:48 by NARCISA Whelan) Hypoglycemia At risk for foot problem Type II diabetes with fpc use of insulin CKD (chronic kidney disease) Diabetes mellitus High cholesterol Anxiety Depression History of carpal tunnel syndrome Hypertension Surgical History H/O tubal ligation Family History Mother Hypertension Diabetes mellitus Arthritis Other Mental health disorder Social History Housing: House Alcohol intake: current Alcohol intake frequency: a few times a month Patient Tobacco Use Status: Never used Tobacco e-Cigarette/Vaping Use: Never Used Second Hand Smoke Exposure: No service: No Current occupational status: unemployed Cognitive needs: No Hearing needs: No Vision needs: No Physical Exam Vital Signs: Last Vital Signs Pulse 67 05/02/24 09:11 BP 116/60 05/02/24 09:11 Pulse Ox 96 05/02/24 09:11 Oxygen Delivery Method Room Air 05/02/24 09:11 BMI result Body Mass Index 33.4 Office Procedures Glucose Monitoring Details Details: See HPI 24019 - Glucose monitoring, continuous-physician I&R Procedure code (CPT) selection complete Results Reviewed Results Reviewed: Laboratory Last Values Glucose (Clinic) 89 mg/dL (60-115) 05/02/24 09:49 Laboratory Tests 12/13/22 12/20/22 12/20/22 08:38 11:51 Unknown Creatinine Estimated GFR Hgb A1c (Clinic) 12.4 H AST ALT Triglycerides Cholesterol LDL Cholesterol, Calc HDL Cholesterol Vitamin B12 446 TSH Urine Creatinine Urine Microalbumin 476.0 Microalb/Creat Ratio 314.2 H 07/19/23 07/26/23 03/07/24 09:02 09:03 08:12 Creatinine 1.28 Estimated GFR 42 Hgb A1c (Clinic) 10.1 H AST ALT Triglycerides Cholesterol LDL Cholesterol, Calc HDL Cholesterol Vitamin B12 TSH Urine Creatinine 113.02 Urine Microalbumin Microalb/Creat Ratio 03/07/24 09:13 Creatinine 1.29 Estimated GFR 42 Hgb A1c (Clinic) AST 15 ALT 11 Triglycerides 153 H Cholesterol 156 LDL Cholesterol, Calc 86 HDL Cholesterol 40 L Vitamin B12 TSH 2.14 Urine Creatinine Urine Microalbumin Microalb/Creat Ratio Assessment & Plan Assessment & Plan (1) Type II diabetes with terminal worker use of insulin: Code(s): E11.9 - Type 2 diabetes mellitus without complications; Z79.4 - 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 Decrease Lantus to 24 units every evening. Do not administer Humalog before meals unless blood sugar before eating is >180. If blood sugar is >180 before eating administer 5 units of Humalog 15 minutes before eating. If you are still getting low sugars stop using Humalog. Increase Trulicity to 1.5 mg weekly. Continue Farxiga 10 mg daily. Reviewed treatment of hypo/hyperglycemia. She has written instructions in Ghanaian and Jamaican. If you experience low blood sugar, treat this by eating a chewable fruit candy like skittles or jelly beans (about 8 pieces), 4 ounces (1/2 cup) of fruit juice (not diet), 1 tablespoon of honey or 4 glucose tablets or 15 g packet of glucose gel. If your blood sugar is under 55, take double the amount of one of the above. Recheck your blood sugar in 15 minutes. Follow up in 2 weeks for type 2 diabetes. (2) Hypoglycemia: Code(s): E16.2 - Hypoglycemia, unspecified Category: Medical Plan: Her blood sugar initially was 71. She denied symptoms of hypoglycemia. She told me she took 10 units of insulin this morning, but she did not eat or drink anything. She was given francesca any, and CGM alerted to low glucose. Blood glucose was rechecked and was 63. She reported feeling hot. She was given an additional can of francesca any, Stanislaw crackers and for glucose tablets. After 15 minutes her blood sugar increased to 89. Symptoms of hypoglycemia resolved. Educated patient that if she administers Humalog she needs to eat. It should only be administered about 15 minutes before meals. She understands. Orders: Orders AMB Glucose Monitoring Today E11.9 - Type 2 diabetes mellitus without complications Medications: New dulaglutide (Trulicity) 1.5 mg (0.5 mL) subcut QWEEK 2 mL 1RF Discontinued dulaglutide (Trulicity) Discontinued Reason: Doctor's Order 0.75 mg (0.5 mL) subcut QWEEK 2 mL 3RF Patient Instructions: Decrease Lantus to 24 units in the evening. Do not administer Humalog before meals unless blood sugar before eating is >180. If blood sugar is >180 before eating administer 5 units of Humalog 15 minutes before eating. If you are still getting low sugars stop using Humalog. Increase Trulicity to 1.5 mg weekly. Continue Farxiga 10 mg daily. Coding Level of Care Code Est Pt Level 5 (75218) Diagnoses Type II diabetes with fpc use of insulin E11.9; Z79.4 Hypoglycemia E16.2 CPT Codes Details - CPT: 63759 - Glucose monitoring, continuous-physician I&R ([id number]) Time Spent (min) 45 Comment Direct patient care and documentation
[2024-05-02 09:11] VITALS: BP 116/60; PULSE 67; O2SAT 96; BMI 33.4
[2024-05-02 09:22] LABS: Glucose, Whole Blood 71 mg/dL (60-115)
[2024-05-02 09:35] LABS: Glucose, Whole Blood 63 mg/dL (60-115)
--- OUTSIDE RECORDS SUMMARY | 2024-05-02 09:36 | XMS_ITS | Clinical Summary ---
Author Organization [facility] Address [address] [place] [address] Care Team Providers Care Member Of Parliament Name Role Phone Charity Hughes MD Primary Care Provider [phone] Allergies No known active allergies Medications metFORMIN (GLUCOPHAGE) 500 mg tablet TAKE 1 TABLET BY MOUTH TWICE A DAY 10/16/2023 Active pen needle, diabetic 32 gauge x 5/32 needle USE UP TO 4 TIMES A DAY WITH INSULIN PEN. 10/03/2023 Active flash glucose scanning reader (FreeStyle Griffin 2 [place]) misc by Does not apply route. Active [...] Type Department Care Team Description 02/11/[address] [address] Domi Novoa PA PRIOR AUTHORIZATION from Last 3 Months Surgical History Surgery Date Site/Laterality Comments TUBAL LIGATION PROCEDURE: HISTORICAL TUBAL LIGATION CHOLECYSTECTOMY PROCEDURE: NE CHOLECYSTECTOMY Medical History Medical History Date Comments [...] EDT Office Visit Obstetrics & Gynecology - [address] [address] Betzaida Orta, CNM [address] [place] [address] Health Maintenance Due Date Last Done Comments [...] * Cervical Cancer Screening: HPV (12/19/2022) Pathologist [facility] Cervical Cancer Screening: HPV abstracted, no interpretation [facility] Provider MD HEALTH MAINTENANCE Final Result * HIV Screening (12/19/2021) [facility] HIV Screening abstracted [facility] Provider MD HEALTH MAINTENANCE Final Result * Hepatitis C Screening (12/19/2021) Pathologist [facility] Hepatitis C Screening abstracted [facility] Provider HEALTH MAINTENANCE Final Result from Last 3 Months or Most Recently Relevant to Health Maintenance Insurance [facility] Care Teams Member Of Parliament Relationship Specialty Start Date End Date Charity Hughes MD 2 [facility] , [address] Physician Associ D/B/A: [facility] [place] [facility] PCP - General Internal Medicine 10/12/21
[2024-05-02 09:53] LABS: Glucose, Whole Blood 89 mg/dL (60-115)
== END 2024-05-02 09:50 | disposition home or self-care (01) ==
LOC: HO.ENCR 09:04
PROVIDERS: PCP Internal Medicine; Visit Provider Physician Assistant Medical
DX: E11.649 Type 2 diabetes mellitus with hypoglycemia without coma (principal); Z79.4 Long term (current) use of insulin

== ENCOUNTER → 2024-05-02 09:03 | Outpatient (BNVA) | payer OTHER, SELFPAY | PROVIDERS: PCP Internal Medicine; Visit Provider Physician Assistant Medical | DX: E11.22 Type 2 diabetes mellitus with diabetic chronic kidney disease (principal); E11.649 Type 2 diabetes mellitus with hypoglycemia without coma; I12.9 Hypertensive chronic kidney disease with stage 1 through stage 4 chronic kidney disease, or unspecified chronic kidney disease; E78.5 Hyperlipidemia, unspecified; E03.9 Hypothyroidism, unspecified; E66.9 Obesity, unspecified; N18.30 Chronic kidney disease, stage 3 unspecified; Z68.33 Body mass index [BMI] 33.0-33.9, adult | CPT/HCPCS: 82947; 99212 ==

== ENCOUNTER 2024-05-23 15:35 | Outpatient (AMB) | payer OTHER, SELFPAY ==
--- NOTE | 2024-05-23 15:37 | MHC.OFFVIS ---
Vital Signs 05/23/24 15:41 Height 5 ft 6 in Weight 204 lb 12.951 oz BMI 33.1 BP 106/64 Blood Pressure Location Lt brachial Position Sitting Pulse 65 Pulse Source Pulse Oximeter Pulse Oximetry (%) 95 Oxygen Delivery Method Room Air Intake Visit Reasons: Type II diabetes Intake Note: Patient present today to follow up on Type 2 Diabetes Mellitus. Last Diabetic Eye exam: Has an appointment in June 2024, Has yearly appointments Last Podiatry Visit: Does not see a wine cellar stock clerk Random Glucose: 59 mg/dl 3:47 pm, 108 4:14 mg/dl HgA1C: 9.4% 03/11/2024 Data Technician Required: Yes Data Technician Language: Hotel Associate Services: Data Technician Offered & Declined Accompanied by: Daughter Allergies No Known Allergies Allergy (Verified 05/02/24 09:12) HPI Comments Details: This is a 63-year-old female with a past medical history of type 2 diabetes, hyperlipidemia, hypertension, CKD III, depression with anxiety, hypothyroidism and obesity presenting for diabetic management. She is here with her daughter, Estelle, who interprets. She declined an bucket wash operator. Her initial blood sugar today is 59. She denied symptoms of hypoglycemia. Patient says she ate pancakes a few hours ago and had a coffee today, but that is all she has eaten. She was diagnosed with diabetes some 15 years ago. Her mother and sister had type 2 diabetes. Hemoglobin a1c 9.4% 03/11/2024. Reviewed Griffin 3 download CGM active 64% Average glucose 162 mg/dL GMI 7.2% Glucose variability 34.6% Very high 7% High 23% Target range 68% Low 2% Very low 0% Reviewed Griffin 3 download CGM active 72% Average glucose 159 Glucose management indicator 7.1% Glucose variability 36.8% Very high 8% High 20% Target range 71% Low 1% Very low 0% Patient has hyperglycemia occasionally between 09:00 and 21:00. She experiences hypoglycemia between 2 and 15:00 and overnight. Current medication regimen: Farxiga 10 mg daily, Trulicity 1.5 mg, Lantus 24 units (she decreased from 36 due to low sugars) every evening, Humalog 5 units 3 times daily before meals if blood sugars over 180. Past medication: Metformin discontinued due to side effects. Compliance issues: She did not decrease Lantus so she is still taking 30 units every evening. Hypoglycemia symptoms: In the past shaky, weak and hungry. Her insurance would not cover glucose tablets, so they purchased glucose gel which treats episodes. She will also treat with juice or soda. Hyperglycemia symptoms: none recently (previously blurry vision and polydipsia) Eye exam: [facility] Microvascular complications: neuropathy in both feet (pins and needles), nephropathy (CKD III, microalbuminuria), retinopathy (OU nonproliferative retinopathy) Macrovascular complications: none Hypertension: treated with amlodipine 5 mg, indapamide 2.5 mg, losartan 100 mg. Hyperlipidemia: treated with Zetia 10 mg. LDL at goal <100. ROS: Constitutional: No unexplained weight loss, fever, chills, fatigue or night sweats. Respiratory: No shortness of breath, cough or sputum production. Cardiovascular: No chest pain, chest pressure or chest discomfort. No palpitations or pedal edema. Gastrointestinal: No anorexia, nausea, vomiting or diarrhea. No abdominal pain or blood in stool. Neurologic: +neuropathy in her feet. No headache, dizziness or syncope. Skin: No rash or wounds. Endocrine: No cold or heat intolerance. No polyuria or polydipsia. Physical exam: Constitutional: Alert, in no distress. Eyes: Pupils are equal, round and reactive to light. Extraocular muscles intact. Neck: Supple, Full range of motion. No lymphadenopathy. Respiratory: Clear to auscultation. Cardiovascular: S1 S2 regular. No murmurs Neurologic: No focal neurological deficits. Skin: Warm and dry Extremities: Warm and well perfused. No clubbing, cyanosis or edema. Psychiatric: Normal mood and affect [facility] Medical History (Updated 05/02/24 @ 12:48 by NARCISA Whelan) Hypoglycemia At risk for foot problem Type II diabetes with long term acute care registered nurse use of insulin CKD (chronic kidney disease) Diabetes mellitus High cholesterol Anxiety Depression History of carpal tunnel syndrome Hypertension Surgical History H/O tubal ligation Family History Mother Hypertension Diabetes mellitus Arthritis Other Mental health disorder Social History Housing: House Alcohol intake: current Alcohol intake frequency: a few times a month Patient Tobacco Use Status: Never used Tobacco e-Cigarette/Vaping Use: Never Used Second Hand Smoke Exposure: No service: No Current occupational status: unemployed Cognitive needs: No Hearing needs: No Vision needs: No Physical Exam Vital Signs: Last Vital Signs Pulse 65 05/23/24 15:41 BP 106/64 05/23/24 15:41 Pulse Ox 95 05/23/24 15:41 Oxygen Delivery Method Room Air 05/23/24 15:41 BMI result Body Mass Index 33.1 Office Procedures Glucose Monitoring Details Details: See [facility] [address] - Glucose monitoring, continuous-physician I&R Procedure code (CPT) selection complete Results Reviewed Results Reviewed: Laboratory Last Values Glucose (Clinic) 108 mg/dL (60-115) 05/23/24 16:14 Laboratory Tests 12/13/22 12/20/22 12/20/22 08:38 11:51 Unknown Creatinine Estimated GFR Hgb A1c (Clinic) 12.4 H AST ALT Triglycerides Cholesterol LDL Cholesterol, Calc HDL Cholesterol Vitamin B12 446 TSH Urine Creatinine Urine Microalbumin 476.0 Microalb/Creat Ratio 314.2 H 07/19/23 07/26/23 03/07/24 09:02 09:03 08:12 Creatinine 1.28 Estimated GFR 42 Hgb A1c (Clinic) 10.1 H AST ALT Triglycerides Cholesterol LDL Cholesterol, Calc HDL Cholesterol Vitamin B12 TSH Urine Creatinine 113.02 Urine Microalbumin Microalb/Creat Ratio 03/07/24 09:13 Creatinine 1.29 Estimated GFR 42 Hgb A1c (Clinic) AST 15 ALT 11 Triglycerides 153 H Cholesterol 156 LDL Cholesterol, Calc 86 HDL Cholesterol 40 L Vitamin B12 TSH 2.14 Urine Creatinine Urine Microalbumin Microalb/Creat Ratio Assessment & Plan Assessment & Plan (1) Type II diabetes with retirement use of insulin: Code(s): E11.9 - Type 2 diabetes mellitus without complications; Z79.4 - terminal superintendent (current) use of insulin Category: Medical Plan: Patient is seeing extension educator and dietitian. Decrease Lantus to 20 units every evening. Do not administer Humalog before meals unless blood sugar before eating is > 200. If blood sugar is > 200 before eating administer 4 units of Humalog 15 minutes before eating. Continue Trulicity to 1.5 mg weekly. Continue Farxiga 10 mg daily. Reviewed treatment of hypo/hyperglycemia. She has written instructions in Serbian and Hebrew. If you experience low blood sugar, treat this by eating a chewable fruit candy like skittles or jelly beans (about 8 pieces), 4 ounces (1/2 cup) of fruit juice (not diet), 1 tablespoon of honey or 4 glucose tablets or 15 g packet of glucose gel. If your blood sugar is under 55, take double the amount of one of the above. Recheck your blood sugar in 15 minutes. Requested follow up in 2 weeks, but they wanted to schedule in 4 weeks so I will see her in a month for diabetes. (2) Hypoglycemia: Code(s): E16.2 - Hypoglycemia, unspecified Category: Medical Plan: Her blood sugar initially was 59. She denied symptoms of hypoglycemia. She was given francesca any and for glucose tablets. After 15 minutes her blood sugar increase to 108. They were advised to call if she has continued episodes of hypoglycemia after decreasing insulin. Orders: Orders AMB Glucose Monitoring Today E11.9 - Type 2 diabetes mellitus without complications Medications: New alcohol swabs 1 pad topical QID 200 ea 5RF E11.9 - Type 2 diabetes mellitus without complications, Z79.4 - intermediate (current) use of insulin Changed From insulin glargine (Lantus Solostar U-100 Insulin) 36 units subcut QPM E11.9 - Type 2 diabetes mellitus without complications To insulin glargine (Lantus Solostar U-100 Insulin) 20 units (0.2 mL) subcut .every evening 15 mL 5RF E11.9 - Type 2 diabetes mellitus without complications From insulin lispro (Humalog KwikPen (U-100) Insulin) 10 units (0.1 mL) subcut TID 15 mL 3RF To insulin lispro (Humalog KwikPen (U-100) Insulin) 4 units (0.04 mL) subcut TID 15 mL 5RF Refilled blood-glucose sensor (FreeStyle Griffin 3 Plus Sensor device) Apply 1 new sensor every 14-15 days as directed to monitor blood glucose continuously. 2 ea 11RF dulaglutide (Trulicity) 1.5 mg (0.5 mL) subcut QWEEK 2 mL 1RF lancets (FreeStyle Lancets) Use to monitor blood glucose 3 times daily. 200 ea 5RF Patient Instructions: Decrease Lantus to 20 units every evening. Do not administer Humalog before meals unless blood sugar before eating is >200. If blood sugar is >200 before eating administer 4 units of Humalog 15 minutes before eating. Continue Trulicity to 1.5 mg weekly. Continue Farxiga 10 mg daily. Reduzca la dosis de Lantus a 20 unidades cada noche. No administre Humalog antes de las comidas, a menos que andre nivel de glucosa en jessa antes de comer sea >200. Si andre nivel de glucosa en jessa es >200 antes de comer, administre 4 unidades de Humalog 15 minutos antes de comer. Contin?e con Trulicity a 1,5 mg semanales. Contin?e con Farxiga 10 mg diarios. Coding Level of Care Code Est Pt Level 4 (77549) Diagnoses Type II diabetes with retirement use of insulin E11.9; Z79.4 Hypoglycemia E16.2 CPT Codes Details - CPT: 45456 - Glucose monitoring, continuous-physician I&R ([id number])
[2024-05-23 15:41] VITALS: BP 106/64; PULSE 65; O2SAT 95; BMI 33.1
[2024-05-23 16:18] LABS: Glucose, Whole Blood 59 mg/dL (60-115)
[2024-05-23 16:18] LABS: Glucose, Whole Blood 108 mg/dL (60-115)
--- OUTSIDE RECORDS SUMMARY | 2024-05-23 16:45 | XMS_ITS | Clinical Summary ---
Author Organization [facility] Address [address] [place] [address] Care Team Providers Care Associate Doctor Name Role Phone Charity Hughes MD Primary Care Provider Allergies No known active allergies Medications metFORMIN (GLUCOPHAGE) 500 mg tablet TAKE 1 TABLET BY MOUTH TWICE A DAY 10/16/2023 Active pen needle, diabetic 32 gauge x 5/32 needle USE UP TO 4 TIMES A DAY WITH INSULIN PEN. 10/03/2023 Active flash glucose scanning reader (FreeStyle Griffin 2 [place]) misc by Does not apply route. Active [...] with long-term current use of insulin 01/30/2024 Surgical History Surgery Date Site/Laterality Comments TUBAL LIGATION PROCEDURE: HISTORICAL TUBAL LIGATION CHOLECYSTECTOMY PROCEDURE: NC CHOLECYSTECTOMY Medical History Medical History Date Comments [...] Office Visit Obstetrics & Gynecology - [address] [id number] Betzaida Orat, CNM [address] [place] [address] Health Maintenance Due Date Last Done Comments [...] Vaccines (1 of 2) 12/27/2011 RSV Immunization Adult Patie nts (1 - Risk 60-74 years 1-dose series) [...] Cervical Cancer Screening: HPV abstracted, no interpretation [facility] Provider HEALTH MAINTENANCE Final Result * HIV Screening (12/19/2021) Pathologist [facility] HIV Screening abstracted [facility] Provider MD HEALTH MAINTENANCE Final Result * Hepatitis C Screening (12/19/2021) Hepatitis C Screening abstracted [facility] Provider HEALTH MAINTENANCE Final Result from Last 3 Months or Most Recently Relevant to Health Maintenance Insurance [facility] [facility] Care Teams Associate Doctor Relationship Specialty Start Date End Date Charity Hughes MD [address] [place] [address] , [address] [facility] D/B[facility]A: [facility] [place] PCP - General Internal Medicine 10/12/21
== END 2024-05-23 16:17 | disposition home or self-care (01) ==
LOC: HO.ENCR 15:35
PROVIDERS: PCP Internal Medicine; Visit Provider Physician Assistant Medical
DX: E11.9 Type 2 diabetes mellitus without complications (principal); Z79.4 Long term (current) use of insulin; E16.2 Hypoglycemia, unspecified

== ENCOUNTER → 2024-05-23 15:35 | Outpatient (BNVA) | payer OTHER, SELFPAY | PROVIDERS: PCP Internal Medicine; Visit Provider Physician Assistant Medical | DX: E11.649 Type 2 diabetes mellitus with hypoglycemia without coma (principal); Z79.4 Long term (current) use of insulin | CPT/HCPCS: 82947; 99212 ==

== ENCOUNTER 2024-05-27 19:40 | Inpatient (IN) | payer OTHER, SELFPAY ==
[2024-05-27] VITALS (9 sets, daily range): BP systolic 143–177; BP diastolic 57–79; PULSE 93–106; RESP 18–25; TEMP 37.3–38.8; O2SAT 92–98; BMI 31.3
--- NOTE | ~2024-05-27 | US_ITS ---
EXAMINATION: US LOWER EXTREMITY VEINS BILATERAL HISTORY: b/l PE COMPARISON: There are no prior studies for comparison. TECHNIQUE: Duplex and color Doppler sonographic examination of the deep venous system of the bilateral lower extremities was performed. FINDINGS: The right common femoral, superficial femoral, and popliteal veins are patent demonstrating normal compressibility, spontaneous flow, and augmentation. There is a septation in the mid femoral vein suggestive of previous thrombosis. There is a normal color and spectral Doppler waveform appearance of the visualized deep venous system above the knee. The posterior tibial and peroneal veins are patent. The left common femoral, superficial femoral, and popliteal veins are patent demonstrating normal compressibility, spontaneous flow, and augmentation. There is a normal color and spectral Doppler waveform appearance of the visualized deep venous system above the knee. The posterior tibial and peroneal veins are patent. US/US venous duplex LE BI IMPRESSION: Findings suggestive of previous thrombus in the right mid femoral vein. No evidence of acute DVT in the bilateral lower extremities. Electronically signed by: Giles Min MD 05/29/2024 11:08 AM EDT
--- NOTE | ~2024-05-27 | XR_ITS ---
CLINICAL HISTORY: cough, shortness of breath 2 view chest x-ray Comparison: None Findings: Mild interstitial prominence in both lungs and possible tiny bilateral pleural effusions. Heart size is normal. No acute fracture. IMPRESSION: Mild interstitial prominence in both lungs and possible tiny bilateral pleural effusions. Findings are concerning for pulmonary vascular congestion /mild pulmonary edema. This document has been electronically signed by: Carlitos Marino MD on 05/27/2024 20:37:36
--- NOTE | ~2024-05-27 | NM_ITS ---
EXAMINATION: NM LUNG PERFUSION HISTORY: sob. TECHNIQUE: A pulmonary perfusion scan was performed following the intravenous administration of 4.0 mCi technetium 99m-MAA. The patient was imaged in multiple projections. COMPARISON: Correlation is made with PA and lateral views of the chest performed 05/27/2024. FINDINGS: There is a segmental perfusion defect involving the superior segment of the right lower lobe. Additional segmental perfusion defects is seen in the basilar segments of the right lower lobe. The left lung demonstrates heterogeneous uptake with a subsegmental perfusion defect involving the apical posterior segment of the upper lobe. No definite segmental perfusion defect is seen on the left. NM/NM pul perfusion IMPRESSION: Multiple segmental perfusion defects on the right and an additional subsegmental perfusion defect on the left, as described. It is not possible to determine whether these regions are normally ventilated without a ventilation scan. However, findings are highly suspicious for PE given clear lungs on the accompanying chest x-ray. Electronically signed by: Giles Min MD 05/28/2024 10:47 AM EDT
--- NOTE | 2024-05-27 19:43 | ED_ITS ---
HPI - General Adult General Chief complaint: General Medical Stated complaint: high blood sugar/shaking and dizzy Time Seen by Provider: 05/27/24 21:56 Source: patient and family Limitations: language barrier History of Present Illness ED Provider: Jennifer Victoria PA-C HPI narrative: 63-year-old female with a history of hypertension, hyperlipidemia, diabetes, hypothyroidism, chronic kidney disease who presents with cough and cold symptoms times 2-3 days. Associated shortness of breath with productive cough, poor oral intake. Patient notes her blood sugars have been elevated as well. Denies chest pain, nausea vomiting. Unknown if she had fevers at home. Related Data Previous Rx's ?Medication ?Instructions ?Recorded amlodipine 5 mg tablet (Norvasc) 5 mg PO DAILY #90 tabs 07/26/23 cholecalciferol (vitamin D3) 25 25 mcg PO DAILY #90 tabs 07/26/23 mcg (1,000 unit) tablet insulin syringe-needle U-100 0.5 #100 ea 07/26/23 mL 31 gauge x 5/16 (BD Insulin Syringe Ultra-Fine) pen needle, diabetic 32 gauge x #50 ea 07/26/2302/22 (Comfort EZ Pen [place]) pen needle, diabetic 32 gauge x #100 ea 07/26/23 (BD Ultra-Fine Chen Pen Needle) sertraline 50 mg tablet (Zoloft) 50 mg PO DAILY #90 tabs 07/26/23 indapamide 2.5 mg tablet 2.5 mg PO QAM #90 tabs 02/29/24 dapagliflozin propanediol 10 mg 10 mg PO DAILY #90 tabs 03/10/24 tablet (Farxiga) losartan 100 mg tablet (Cozaar) 100 mg PO DAILY #90 tabs 03/10/24 blood sugar diagnostic (FreeStyle #200 ea 03/11/24 Lite Strips) blood-glucose meter (FreeStyle #1 ea 03/11/24 Lite Meter kit) blood-glucose,fluid designer,cont #1 ea 03/11/24 (FreeStyle Griffin 3 [place]) glucose 4 gram chewable tablet 16 g (4 x 4 gram) PO Q15M PRN 03/11/24 (Dex4 Glucose Quick Dissolve) hypoglycemia #10 tabs atorvastatin 10 mg tablet (Lipitor) 10 mg PO BEDTIME 90 days #90 tabs 03/18/24 dextrose 15 gram/32 mL oral gel 15 g (32 mL) PO Q15M PRN 04/08/24 packet (TRUEplus Glucose) hypoglycemia #128 mL ezetimibe 10 mg tablet 10 mg PO DAILY #90 tabs 04/13/24 folic acid 1 mg tablet 1 mg PO DAILY #90 tabs 04/23/24 levothyroxine 75 mcg tablet 75 mcg PO DAILY #90 tabs 04/23/24 (Synthroid) alcohol swabs 1 pad topical QID #200 ea 05/23/24 blood-glucose sensor (FreeStyle #2 ea 05/23/24 Griffin 3 Plus Sensor device) dulaglutide 1.5 mg/0.5 mL 1.5 mg (0.5 mL) subcut QWEEK #2 mL 05/23/24 subcutaneous pen injector (Trulicity) insulin glargine 100 unit/mL (3 20 unit (0.2 mL) subcut .every 05/23/24 mL) subcutaneous pen (Lantus evening #15 mL Solostar U-100 Insulin) insulin lispro 100 unit/mL 4 unit (0.04 mL) subcut TID #15 mL 05/23/24 subcutaneous pen (Humalog KwikPen (U-100) Insulin) lancets 28 gauge (FreeStyle #200 ea 05/23/24 Lancets) Allergies Allergy/AdvReac Type Severity Reaction Status Date / Time No Known Allergies Allergy Verified 05/27/24 19:47 Review of Systems 2 Review of Systems: Yes all other systems are reviewed and are negative Constitutional: Constitutional: Reports fatigue, Denies fever(s) and Reports malaise Cardiovascular: Cardiovascular: Denies chest pain and Reports dyspnea Respiratory: Respiratory: Reports chest congestion, Reports cough, Reports dyspnea and Denies wheezing Gastrointestinal: Gastrointestinal: Denies abdominal pain, Denies diarrhea, Denies nausea and Denies vomiting Endocrine: Endocrine: Reports fatigue Allergic/Immunologic: Allergic/Immunologic: Denies wheezing PMFSH Past Medical History Attestation statement: The following information was validated with the patient. Medical History (Updated 05/28/24 @ 03:31 by NARCISA Hinds) Hypoglycemia At risk for foot problem Type II diabetes with shelter use of insulin CKD (chronic kidney disease) Diabetes mellitus High cholesterol Anxiety Depression History of carpal tunnel syndrome Hypertension Surgical History H/O tubal ligation Family History Family History Mother Hypertension Diabetes mellitus Arthritis Other Mental health disorder Social History Social History Housing: House Alcohol intake: current Alcohol intake frequency: a few times a month Patient Tobacco Use Status: Never used Tobacco Smoked in Last 30 Days: No e-Cigarette/Vaping Use: Never Used Second Hand Smoke Exposure: No Advance Directives: No Advance Directives Information Provided: No Do you have a plan to hurt others: No Plan service: No Current occupational status: unemployed Cognitive needs: No Hearing needs: No Vision needs: No Physical Exam ED Vital Signs: Vital Signs - 24 hr 05/27/24 19:42 05/27/24 20:23 05/27/24 21:57 Temperature 99.3 F Pulse Rate 106 H 98 104 H Respiratory Rate 20 18 21 H Blood Pressure 152/79 H 151/69 H 174/73 H Pulse Oximetry 92 93 92 Oxygen Delivery Method Room Air Room Air Oxygen Flow Rate 05/27/24 22:00 05/27/24 22:34 05/27/24 22:51 Temperature 102 F H Pulse Rate 99 97 105 H Respiratory Rate 24 H 25 H 19 Blood Pressure 173/79 H 177/66 H 155/75 H Pulse Oximetry 98 98 96 Oxygen Delivery Method Nasal Cannula Nasal Cannula Nasal Cannula Oxygen Flow Rate 5 5 5 05/27/24 23:18 05/27/24 23:29 05/27/24 23:44 Temperature 99.1 F 100.9 F H Pulse Rate 96 93 93 Respiratory Rate 24 H 25 H 18 Blood Pressure 154/64 H 153/57 H 143/65 H Pulse Oximetry 95 96 93 Oxygen Delivery Method Nasal Cannula Nasal Cannula Nasal Cannula Oxygen Flow Rate 5 5 2 05/28/24 00:11 05/28/24 01:19 Temperature Pulse Rate 88 80 Respiratory Rate 20 24 H Blood Pressure 142/65 H 144/62 H Pulse Oximetry 93 95 Oxygen Delivery Method Nasal Cannula Nasal Cannula Oxygen Flow Rate 2 2 BMI result Body Mass Index 31.3 Const Other: Alert ill-appearing Orientation/consciousness: patient oriented x3 Resp Other: Tachypneic, crackles posterior monteiro, active wet cough, no wheeze Cardio Other: Normal peripheral perfusion Skin Other: Warm dry no rash Neuro General: patient oriented x3, gait normal, no focal motor deficits and CN's II- XI intact bilaterally Psych Other: Cooperative Course Reevaluation(s) Reevaluation #1: sepsis identified just picking up the patient, blood cultures and lactic acid already in process, adding weight based IV fluid and antibiotics Time: 22:01 Reevaluation #2: I am d/c some of the IVF boluses, she is hypertensive, CrCl is 23, she can not receive unnecessary boluses of fluid given her new acute kidney injury Time: 22:38 Medications Administered Discontinued Medications Generic Name Dose Route Start Last Admin Trade Name Freq PRN Reason Stop Dose Admin Acetaminophen 975 mg 05/27/24 22:11 05/27/24 22:27 Acetaminophen 325 Mg Tablet PO 05/27/24 22:12 975 mg ONCE ONE Administration Ceftriaxone Sodium 2 gm 05/27/24 22:02 05/27/24 22:27 Ceftriaxone Sodium 2 Gm Vial IVPUSH 05/27/24 22:03 2 gm ONCE ONE Administration Lactated Ringer's 2,556 mls @ 2,556 mls/hr 05/27/24 21:59 05/27/24 22:58 Lr 30 ml/kg infuse over 1 hr (2556 ml) 05/27/24 22:58 Not Given IV .Q1H ONE Azithromycin 500 mg/ Sodium 250 mls @ 125 mls/hr 05/27/24 22:02 05/27/24 22:27 Chloride IV 05/28/24 00:01 125 mls/hr ONCE ONE Administration Lactated Ringer's 1,000 mls @ 999 mls/hr 05/27/24 22:45 05/27/24 23:17 Lr IV 05/27/24 23:45 Infused .Q1H1M MILLI Infusion Medical Decision Making Medical Decision Making [facility] Narrative: 63-year-old female with a history of hypertension, hyperlipidemia, diabetes, hypothyroidism, chronic kidney disease who presents with cough and cold symptoms times 2-3 days. Associated shortness of breath with productive cough, poor oral intake. Patient notes her blood sugars have been elevated as well. Denies chest pain, nausea vomiting. Unknown if she had fevers at home. Problem: Diabetes, chronic kidney disease History: Per patient I have considered the following differential diagnoses: Sepsis, pneumonia, PE, bronchitis, viral syndrome Plan:sepsis identified. The patient has a acute kidney injury, she was hypoxic she is febrile. in addition to screening labs, blood cultures and lactic acid already in process, viral panel pending, chest x-ray obtained. The read indicates pleural effusion with a pulmonary edema, her clinical picture states otherwise. She is febrile rectally, with a an active productive cough. She has no history of heart failure, furthermore the cardiac silhouette is normal. This is not consistent with new failure. adding weight based IV fluid and antibiotics. We will add a D-dimer to rule out PE. Adding on a VBG as well. I have independently reviewed the following tests: Labs: Leukocytosis with left shift, not anemic, corrected serum sodium 139, no gap, acute kidney injury noted at 2.13, glucose 452, lactic acid 2.5, repeat 2.1, beta hydroxy 0.52, dimer 830 Chest x-ray: MPRESSION: Mild interstitial prominence in both lungs and possible tiny bilateral pleural effusions. Findings are concerning for pulmonary vascular congestion /mild pulmonary edema. Given the patient's acute kidney injury and she is also diabetic, with poor creatinine clearance, she will have to be admitted for a V/Q scan. Lab Data 05/27/24 20:03 05/27/24 20:03 Labs: Lab Results 05/27/24 05/27/24 05/27/24 Range/Units 20:03 20:10 22:34 WBC 13.4 H (4.8-10.8) X10*3/uL RBC 4.23 (4.20-5.50) X10*6/uL Hgb 12.0 (12.0-16.0) g/dl Hct 34.5 L (37.0-47.0) % MCV 81.6 (80.0-98.0) fL MCH 28.4 (27.0-33.0) pg MCHC 34.8 (31.0-35.0) g/dl RDW 13.4 (11.0-16.0) % Plt Count 258 (160-400) X10*3/uL MPV 9.6 (9.4-12.3) fL Immature Gran % (Auto) 0.8 H (0.0-0.4) % Neut % (Auto) 78.2 H (45-73) % Lymph % (Auto) 9.0 L (20-40) % [place] % (Auto) 11.8 H (2-11) % Eos % (Auto) 0.0 (0-4) % Baso % (Auto) 0.2 (0-2) % Lymph # (Auto) 1.2 (1.2-4.9) X10*3/uL [place] # (Auto) 1.6 H (0.1-1.2) X10*3/uL Eos # (Auto) 0.0 (0.0-0.4) X10*3/uL Baso # (Auto) 0.0 (0.0-0.2) X10*3/uL Abs Immat Gran (auto) 0.11 H (0.00-0.03) X10*3/uL Absolute Neuts (auto) 10.5 H (2.0-8.3) x10*3/uL Absolute Nucleated RBC 0.000 (0.0-0.012) X10*3/uL Nucleated RBC % (auto) 0.0 (0.0-0.2) /100WBC Smear Tech's Comments VERIFIED D-Dimer High Sensitivty NG/ML VBG pH 7.40 (7.32-7.43) VBG pCO2 38 mmHg VBG pO2 32 mmHg VBG HCO3 23 (22-26) mmol/L VBG O2 Saturation 43.0 % VBG Base Excess -0.6 mmol/L Sodium 131 L (135-145) mmol/L Potassium 4.3 (3.3-5.1) mmol/L Chloride 98 (96-108) mmol/L Carbon Dioxide 21 L (22-29) mmol/L Anion Gap 16 (12-20) BUN 46 H (9-16) mg/dL Creatinine 2.13 H (0.5-1.4) mg/dL Estim Creat Clear Calc 29.5 Estimated GFR 23 Random Glucose 452 H* (60-115) mg/dL Lactic Acid 2.5 H* (0.5-2.0) mmol/L Lactic Acid F/U @ 2Hr 2.1 H* (0.5-2.0) mmol/L Lactic Acid F/U @ 4Hr (0.5-2.0) mmol/L Calcium 9.2 (8.4-10.2) mg/dL Total Bilirubin 0.8 (0.0-1.0) mg/dL AST 19 (5-31) U/L ALT 10 (0-31) U/L Alkaline Phosphatase 127 H (39-117) U/L Total Protein 7.8 (6.5-8.0) g/dL Albumin 3.8 (3.5-5.0) g/dL Lipase 25 (8-78) U/L Beta-Hydroxybutyrate 0.52 H (0.02-0.27) mmol/L Influenza Type A (PCR) NEGATIVE (Negative) Influenza Type B (PCR) NEGATIVE (Negative) RSV RNA Qual (PCR) NEGATIVE (Negative) SARS-CoV-2 RNA (RT-PCR) NEGATIVE (Negative) S. pyogenes GrpA ONESIMO Negative (Negative) 05/27/24 05/28/24 Range/Units 23:27 01:23 WBC (4.8-10.8) X10*3/uL RBC (4.20-5.50) X10*6/uL Hgb (12.0-16.0) g/dl Hct (37.0-47.0) % MCV (80.0-98.0) fL MCH (27.0-33.0) pg MCHC (31.0-35.0) g/dl RDW (11.0-16.0) % Plt Count (160-400) X10*3/uL MPV (9.4-12.3) fL Immature Gran % (Auto) (0.0-0.4) % Neut % (Auto) (45-73) % Lymph % (Auto) (20-40) % [place] % (Auto) (2-11) % Eos % (Auto) (0-4) % Baso % (Auto) (0-2) % Lymph # (Auto) (1.2-4.9) X10*3/uL [place] # (Auto) (0.1-1.2) X10*3/uL Eos # (Auto) (0.0-0.4) X10*3/uL Baso # (Auto) (0.0-0.2) X10*3/uL Abs Immat Gran (auto) (0.00-0.03) X10*3/uL Absolute Neuts (auto) (2.0-8.3) x10*3/uL Absolute Nucleated RBC (0.0-0.012) X10*3/uL Nucleated RBC % (auto) (0.0-0.2) /100WBC Smear Tech's Comments D-Dimer High Sensitivty 830 NG/ML VBG pH (7.32-7.43) VBG pCO2 mmHg VBG pO2 mmHg VBG HCO3 (22-26) mmol/L VBG O2 Saturation % VBG Base Excess mmol/L Sodium (135-145) mmol/L Potassium (3.3-5.1) mmol/L Chloride (96-108) mmol/L Carbon Dioxide (22-29) mmol/L Anion Gap (12-20) BUN (9-16) mg/dL Creatinine (0.5-1.4) mg/dL Estim Creat Clear Calc Estimated GFR Random Glucose (60-115) mg/dL Lactic Acid (0.5-2.0) mmol/L Lactic Acid F/U @ 2Hr (0.5-2.0) mmol/L Lactic Acid F/U @ 4Hr 1.1 (0.5-2.0) mmol/L Calcium (8.4-10.2) mg/dL Total Bilirubin (0.0-1.0) mg/dL AST (5-31) U/L ALT (0-31) U/L Alkaline Phosphatase (39-117) U/L Total Protein (6.5-8.0) g/dL Albumin (3.5-5.0) g/dL Lipase (8-78) U/L Beta-Hydroxybutyrate (0.02-0.27) mmol/L Influenza Type A (PCR) (Negative) Influenza Type B (PCR) (Negative) RSV RNA Qual (PCR) (Negative) SARS-CoV-2 RNA (RT-PCR) (Negative) S. pyogenes GrpA ONESIMO (Negative) Discharge Plan Discharge Clinical Impression: Hypoxia, Pneumonia, Sepsis, Acute kidney injury Patient Disposition: Admitted As Inpatient
[2024-05-27 20:14] LABS: VBG Base Excess -0.6 mmol/L; VBG HCO3 23 mmol/L (22-26); VBG pCO2 38 mmHg; VBG pO2 32 mmHg
[2024-05-27 20:14] LABS: Basophils Percent Auto 0.2 % (0-2); Hematocrit 34.5 % (37.0-47.0); Imm Gran Abs Auto 0.11 X10*3/uL (0.00-0.03); Imm Gran Pct Auto 0.8 % (0.0-0.4); Lymphocytes Absolute Auto 1.2 X10*3/uL (1.2-4.9); MANUAL DIFF FLAG SCAN; Mean Corpuscular HGB Conc 34.8 g/dl (31.0-35.0); Mean Corpuscular Hemoglobin 28.4 pg (27.0-33.0); Mean Corpuscular Volume 81.6 fL (80.0-98.0); Mean Platelet Volume 9.6 fL (9.4-12.3); Monocytes Absolute Auto 1.6 X10*3/uL (0.1-1.2); Monocytes Percent Auto 11.8 % (2-11); Neutrophils Absolute Auto 10.5 x10*3/uL (2.0-8.3); Neutrophils Percent Auto 78.2 % (45-73); Platelet Count 258 X10*3/uL (160-400); Red Blood Count 4.23 X10*6/uL (4.20-5.50); Red Cell Distribution Width 13.4 % (11.0-16.0); SCAN SMEAR FLAG 1; White Blood Count 13.4 X10*3/uL (4.8-10.8)
[2024-05-27 20:15] LABS: Venous Blood Gas Refer to POC result
[2024-05-27 20:21] LABS: IDNOW Serial# 58CA691E; Strep A Nucleic Acid Negative (Negative)
--- NOTE | 2024-05-27 20:21 | PC.NURSE ---
Per daughter, patient started with cough on Sunday which progressively got worse over the weekend. Patient has been struggling with high blood sugar this week. c/o malaise, and dizziness. Also not eating with elevated blood sugar. Respirations even and non-labored. Pox 94%
[2024-05-27 20:32] LABS: Lactic Acid 2.5 mmol/L (0.5-2.0)
[2024-05-27 20:33] LABS: Alanine Aminotransferase 10 U/L (0-31); Albumin Level 3.8 g/dL (3.5-5.0); Alkaline Phosphatase 127 U/L (39-117); Anion Gap 16 (12-20); Aspartate Amino Transferase 19 U/L (5-31); Bilirubin Total 0.8 mg/dL (0.0-1.0); Blood Urea Nitrogen 46 mg/dL (9-16); Calcium 9.2 mg/dL (8.4-10.2); Carbon Dioxide 21 mmol/L (22-29); Chloride 98 mmol/L (96-108); Creatinine Clr Calc Pharmacy 29.5; Estimated Glomerular Filt Rate 23; Glucose Random 452 mg/dL (60-115); Lipase 25 U/L (8-78); Potassium 4.3 mmol/L (3.3-5.1); Sodium 131 mmol/L (135-145); Total Protein 7.8 g/dL (6.5-8.0)
--- OUTSIDE RECORDS SUMMARY | 2024-05-27 20:34 | XMS_ITS | Clinical Summary ---
Author Organization [facility] Address [address] [place] [address] Phone Care Team Providers Care Propeller Tester Name Role Phone Charity Hughes MD Primary Care Provider [phone] Allergies No known active allergies Medications metFORMIN (GLUCOPHAGE) 500 mg tablet TAKE 1 TABLET BY MOUTH TWICE A DAY 10/16/2023 Active pen needle, diabetic 32 gauge x 5/32 needle USE UP TO 4 TIMES A DAY WITH INSULIN PEN. 10/03/2023 Active flash glucose scanning reader (FreeStyle Griffin 2 [place]) misc by Does not apply route. Active [...] LIGATION PROCEDURE: HISTORICAL TUBAL LIGATION CHOLECYSTECTOMY PROCEDURE: [place] CHOLECYSTECTOMY Medical History Medical History Date Comments [...] EDT Office Visit Obstetrics & Gynecology - [address] [place] [address] Betzaida Orta, CNM [address] [place] [address] Health Maintenance Due Date Last Done Comments [...] age to complete this topic Meningococcal B Vaccine Aged Out No l onger eligible based on patient's age to complete [...] * Cervical Cancer Screening: HPV (12/19/2022) Pathologist [facility] Cervical Cancer Screening: HPV abstracted, no interpretation [facility] Provider HEALTH MAINTENANCE Final Result * HIV Screening (12/19/2021) [facility] HIV Screening abstracted [facility] Provider HEALTH MAINTENANCE Final Result * Hepatitis C Screening (12/19/2021) Pathologist [facility] Hepatitis C Screening abstracted [facility] Provider HEALTH MAINTENANCE Final Result from Last 3 Months or Most Recently Relevant to Health Maintenance Insurance [facility] Care Teams Propeller Tester Relationship Specialty Start Date End Date Charity Hughes MD [address] [place] [address] , [address] [facility] D[facility]A: [facility] [place] [facility] PCP - General Internal Medicine 10/12/21
[2024-05-27 20:35] LABS: Beta-Hydroxybutyrate 0.52 mmol/L (0.02-0.27)
[2024-05-27 20:49] LABS: Influenza A PCR NEGATIVE (Negative); Influenza B PCR NEGATIVE (Negative); Resp Syncy Virus RNA Qual PCR NEGATIVE (Negative); SARS COV2 PCR INHOUSE NEGATIVE (Negative)
[2024-05-27 20:54] LABS: SLIDE REVIEW VERIFIED
[2024-05-27 22:09] LABS: Reflex Lactate? Lactic Acid Added
[2024-05-27] MEDS: Lactated Ringers 1,000 ML 999 ML IV (22:16)
[2024-05-27] MEDS: Acetaminophen 325 MG TABLET 975 MG PO (22:27)
[2024-05-27] MEDS: cefTRIAXone sodium 2 GM VIAL IVPUSH (22:27)
[2024-05-27] MEDS: Azithromycin 500 MG in 0.9 % Sodium Chloride 250 ML 125 MG IV (22:27)
--- NOTE | 2024-05-27 22:53 | PC.NURSE ---
30 ml/kg sepsis fluid bolus discontinued per provider and patient will received the initial liter of fluids.
[2024-05-27 23:10] LABS: ~Lactic Acid-LAB USE ONLY 2.1 mmol/L (0.5-2.0)
[2024-05-27 23:47] LABS: D Dimer High Sensitivity 830 NG/ML
[2024-05-28] VITALS (11 sets, daily range): BP systolic 142–188; BP diastolic 62–85; PULSE 76–102; RESP 16–28; TEMP 36.3–37.1; O2SAT 93–97
[2024-05-28 00:37] LABS: Reflex Lactate? 2 Y
[2024-05-28 01:59] LABS: ~Lactic Acid-LAB USE ONLY 1.1 mmol/L (0.5-2.0)
[2024-05-28] MEDS: Lactated Ringers 1,000 ML 80 ML IVCONT (04:24)
[2024-05-28 05:23] LABS: Hematocrit 33.7 % (37.0-47.0); Hemoglobin 11.2 g/dl (12.0-16.0); Mean Corpuscular HGB Conc 33.2 g/dl (31.0-35.0); Mean Corpuscular Hemoglobin 27.7 pg (27.0-33.0); Mean Corpuscular Volume 83.4 fL (80.0-98.0); Mean Platelet Volume 9.7 fL (9.4-12.3); Platelet Count 236 X10*3/uL (160-400); Red Blood Count 4.04 X10*6/uL (4.20-5.50); Red Cell Distribution Width 13.4 % (11.0-16.0)
--- NOTE | 2024-05-28 05:34 | PM.IMHP ---
History of Present Illness Date of Service: 05/28/24 Chief Complaint: cough 63-year-old female with a past medical history of HTN, HLD, dm, CKD, anxiety, depression, hypothyroidism presented to the hospital today with a chief complaint of cough and shortness of breath. Patient reports that over the past 2-3 days she has been not feeling well; has been having cough with productive sputum. Reports that she has been short of breath especially on exertion. Denies any orthopnea or PND. Denies any fevers and chills. Denies any sick contacts. Day reports that she has a lot of cough and she has posttussive chest discomfort. Mentioned that she developed fevers of she came to the ER. Denies any GI or symptoms. Review of all other systems is negative except mentioned above ER course: Per ER team, patient on presentation was mildly hypoxic; chest x-ray showed findings concerning for CHF versus pneumonia. Empirically covered antibiotics. Also noted CHANTALE on CKD. D-dimer elevated. Patient was febrile in the ER. Blood cultures were sent. 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 CKD (chronic kidney disease) Diabetes mellitus High cholesterol Anxiety Depression History of carpal tunnel syndrome Hypertension Family History Mother Hypertension Diabetes mellitus Arthritis Other Mental health disorder Surgical History H/O tubal ligation Social History Housing: House Alcohol intake: current Alcohol intake frequency: a few times a month Patient Tobacco Use Status: Never used Tobacco Smoked in Last 30 Days: No e-Cigarette/Vaping Use: Never Used Second Hand Smoke Exposure: No Advance Directives: No Advance Directives Information Provided: No Do you have a plan to hurt others: No Plan service: No Current occupational status: unemployed Cognitive needs: No Hearing needs: No Vision needs: No Meds Allergies Allergy/AdvReac Type Severity Reaction Status Date / Time No Known Allergies Allergy Verified 05/27/24 19:47 Active Medications: Current Medications Acetaminophen (Acetaminophen 325 Mg Tablet) 650 mg PO Q6H PRN PRN Reason: Pain, Mild 1-3,fever,headache Calcium Carbonate (Calcium Carbonate 750 Mg Tab.Chew) 750 mg PO Q4H PRN PRN Reason: Heartburn Enoxaparin Sodium (Enoxaparin Sodium 30 Mg/0.3 Ml Syringe) 30 mg SUBCUT Q24H [facility] Lactated Ringer's (Lr) 1,000 mls @ 80 mls/hr IVCONT .[id number] [facility] Last Admin: 05/28/24 04:24 Dose: 80 mls/hr Levothyroxine Sodium (Levothyroxine Sodium 75 Mcg Tablet) 75 mcg PO DAILY@0600 [facility] Magnesium Hydroxide (Milk Of Magnesia 30 Ml Oral.Susp) 30 ml PO DAILY PRN PRN Reason: Constipation Melatonin (Melatonin 3 Mg Tablet) 6 mg PO BEDTIME PRN PRN Reason: Insomnia Sertraline HCl (Sertraline Hcl 50 Mg Tablet) 50 mg PO DAILY [facility] Sodium Chloride (0.9 % Sodium Chloride Flush 3 Ml Syringe) 3 ml IVFLUSH QSHIFT [facility] Physical Exam Vital Signs and Narrative: Vital Signs: Last Vital Signs Temp 98.7 F 05/28/24 05:30 Pulse 91 05/28/24 05:30 Resp 21 H 05/28/24 05:30 BP 160/72 H 05/28/24 05:30 Pulse Ox 96 05/28/24 05:30 O2 Del Method Nasal Cannula 05/28/24 05:30 O2 Flow Rate 2 05/28/24 05:30 BMI result Body Mass Index 31.3 Gen: Appears be in no acute distress HEENT: NCAT, Moist mucosa. Pulmonary: Coarse breath sounds CVS: Normal S1-S2 Abdomen: BS+, Soft, Nontender Extremities: Warm well perfused Neuro: Alert and awake. Results Labs 05/28/24 04:54 05/27/24 20:03 Labs: Laboratory Results - last 24 hr 05/27/24 05/27/24 05/27/24 20:03 20:10 22:34 MCV 81.6 MCH 28.4 MCHC 34.8 RDW 13.4 Plt Count 258 MPV 9.6 Immature Gran % (Auto) 0.8 H Neut % (Auto) 78.2 H Lymph % (Auto) 9.0 L Hopkins % (Auto) 11.8 H Eos % (Auto) 0.0 Baso % (Auto) 0.2 Lymph # (Auto) 1.2 Hopkins # (Auto) 1.6 H Eos # (Auto) 0.0 Baso # (Auto) 0.0 Abs Immat Gran (auto) 0.11 H Absolute Neuts (auto) 10.5 H Absolute Nucleated RBC 0.000 Nucleated RBC % (auto) 0.0 Smear Tech's Comments VERIFIED D-Dimer High Sensitivty VBG pH 7.40 VBG pCO2 38 VBG pO2 32 VBG HCO3 23 VBG O2 Saturation 43.0 VBG Base Excess -0.6 Anion Gap 16 Estim Creat Clear Calc 29.5 Estimated GFR 23 Random Glucose 452 H* Lactic Acid 2.5 H* Lactic Acid F/U @ 2Hr 2.1 H* Lactic Acid F/U @ 4Hr Calcium 9.2 Total Bilirubin 0.8 AST 19 ALT 10 Alkaline Phosphatase 127 H Total Protein 7.8 Albumin 3.8 Lipase 25 Beta-Hydroxybutyrate 0.52 H Influenza Type A (PCR) NEGATIVE Influenza Type B (PCR) NEGATIVE RSV RNA Qual (PCR) NEGATIVE SARS-CoV-2 RNA (RT-PCR) NEGATIVE S. pyogenes GrpA ONESIMO Negative 05/27/24 05/28/24 05/28/24 23:27 01:23 04:54 MCV 83.4 MCH 27.7 MCHC 33.2 RDW 13.4 Plt Count 236 MPV 9.7 Immature Gran % (Auto) Neut % (Auto) Lymph % (Auto) Hopkins % (Auto) Eos % (Auto) Baso % (Auto) Lymph # (Auto) Hopkins # (Auto) Eos # (Auto) Baso # (Auto) Abs Immat Gran (auto) Absolute Neuts (auto) Absolute Nucleated RBC 0.000 Nucleated RBC % (auto) 0.0 Smear Tech's Comments D-Dimer High Sensitivty 830 VBG pH VBG pCO2 VBG pO2 VBG HCO3 VBG O2 Saturation VBG Base Excess Anion Gap Estim Creat Clear Calc Estimated GFR Random Glucose Lactic Acid Lactic Acid F/U @ 2Hr Lactic Acid F/U @ 4Hr 1.1 Calcium Total Bilirubin AST ALT Alkaline Phosphatase Total Protein Albumin Lipase Beta-Hydroxybutyrate Influenza Type A (PCR) Influenza Type B (PCR) RSV RNA Qual (PCR) SARS-CoV-2 RNA (RT-PCR) S. pyogenes GrpA ONESIMO Assessment and Plan (1) Acute kidney injury: Status: Acute Plan 56-year-old female with a past medical history of HTN, HLD, anxiety, depression presented to the hospital with a chief complaint of abdominal pain. admitted for following sepsis: Patient was febrile, tachycardic, has leukocytosis and lactic acidosis. Received 30 cc/kg IV fluids in the ER. Shortness of breath: Likely in the setting of pneumonia. Chest x-ray showed findings concerning for pneumonia versus CHF. Empirically added ceftriaxone and azithromycin ProBNP pending Echocardiogram Elevated [id number]-iegui-ficw obtain V/Q scan. CHANTALE on CKD: Baseline creatinine around 1.2 Creatinine on presentation is 2.3 Likely prerenal Patient received IV fluids in the ER. Lactic acidosis: Improving Diabetes /hyperglycemia: Insulin sliding scale. Monitor fingerstick glucose. DVT prophylaxis: Lovenox Code status: Full code Quality Stroke Does the patient have a stroke diagnosis?: No VTE Prior VTE?: No VTE Risk Level:: Medical - moderate - high VTE Device Contraindication: Treatment Not Indicated VTE Drug Contraindication: N/A - Med Ordered
[2024-05-28 05:45] LABS: Alanine Aminotransferase 7 U/L (0-31); Albumin Level 3.4 g/dL (3.5-5.0); Alkaline Phosphatase 124 U/L (39-117); Anion Gap 15 (12-20); Aspartate Amino Transferase 28 U/L (5-31); Bilirubin Total 0.5 mg/dL (0.0-1.0); Blood Urea Nitrogen 44 mg/dL (9-16); Calcium 9.1 mg/dL (8.4-10.2); Carbon Dioxide 23 mmol/L (22-29); Chloride 103 mmol/L (96-108); Creatinine Clr Calc Pharmacy 33.6; Estimated Glomerular Filt Rate 27; Glucose Random 276 mg/dL (60-115); Potassium 3.9 mmol/L (3.3-5.1); Sodium 137 mmol/L (135-145); Total Protein 7.2 g/dL (6.5-8.0)
[2024-05-28 06:44] LABS: Lactic Acid 1.2 mmol/L (0.5-2.0)
--- NOTE | 2024-05-28 07:00 | CA_ITS ---
Transthoracic Echocardiogram Patient (Last, First, Middle): Charlee Patten, Gender: Female Date of : 1960 Age: 63 Procedure Date: 05/28/2024 Procedure Type: Transthoracic Echocardiogram Location: ER Height: 165.1 cm Weight: 84.82 kg BSA: 1.92 m2 Heart Rate: 100 bpm BP: 160 / 72 mmHg Cardiology Fellow: [facility] Referring MD: Philippe Sahni MD Symptoms: ?chf Study Quality: Adequate ECG Rhythm: Sinus Conclusions: - Normal left ventricular cavity size. There is moderately increased left ventricular wall thickness. The left ventricular systolic function is hyperdynamic. The visually estimated ejection fraction is >70%. - E/E prime ratio is between 8 and 15 consistent with indeterminate filling pressures. - Normal right ventricular cavity size and systolic function. - The inferior vena cava is collapsed, consistent with reduced intravascular volume. Findings Procedure Information Contrast agent, definity, is being given per protocol without apparent complications. Left Ventricle Normal left ventricular cavity size. There is moderately increased left ventricular wall thickness. The left ventricular systolic function is hyperdynamic. The visually estimated ejection fraction is >70%. Abnormal diastolic function is noted. Spectral Doppler is indicative of an impaired relaxation filling pattern. E/E prime ratio is between 8 and 15 consistent with indeterminate filling pressures. Right Ventricle Normal right ventricular cavity size and systolic function. Atria The left atrium is normal in size. The right atrium is normal in size. Aortic Valve Normal aortic valve structure and function. There is no aortic valve stenosis. There is no aortic valve regurgitation. Mitral Valve The mitral valve appears normal. There is no mitral valve regurgitation. There is no mitral valve stenosis. Tricuspid Valve The right ventricular systolic pressure is 40 mmHg. Low right atrial pressure. Mild pulmonary hypertension is present. Great Vessels All visible segments of the aorta are normal in size. Venous The inferior vena cava is collapsed, consistent with reduced intravascular volume. Pericardium/Pleural Prominent epicardial adipose tissue noted. There is no evidence of pericardial effusion. Prior Study Comparison No prior study available for comparison. Measurements 2D Linear Measurements IVSd: 1.29 0.6-0.9/0.6-1.0 cm LVIDd: 3.73 3.9-5.3/4.2-5.9 cm LVIDd Index: 1.94 2.4-3.2/2.2-3.1 cm/m2 LVIDs: 2.19 2.0-3.6 cm LVPWd: 1.26 0.7-1.1 cm LA Diam: 3.30 2.7-3.8/3.0-4.0 cm LAIDs Index: 1.72 1.5-2.3 cm/m2 LV Mass: 203.61 67-162/88-224 g LV Mass Index: 106.05 43-95/49-115 g/m2 LVOT Diam: 2.00 3.0+(-)1.3 cm Mitral Valve MV Pk E: 0.67 MV PK A: 1.29 MV Decel Time: 187.00 E/A: 0.50 E'Lateral: 7.94 E'Medial: 5.77 E/E' Med: 11.70 E/E' Lat: 8.50 PHT: 55.00 MVA PHT: 4.00 Decel Jessamine: 3.59 Aortic Valve AoV Pk Zaki: 2.01 AoV Mn Zaki: 1.25 AoV VTI: 0.30 AoV Pk Grad: 16.00 Aov Mn Grad: 8.00 LIZZ Cont.VTI: 2.17 LVOT LVOT Pk Zaki: 1.48 LVOT Mn Zaki: 0.94 LVOT VTI: 0.21 LVOT Pk Grad: 9.00 LVOT Mn Grad: 4.00 LVOT Diam: 2.00 LVOT Area: 3.14 Diastolic Function MV Pk E: 0.67 MV Pk A: 1.29 E/A: 0.50 E'Medial: 5.77 E/E' Med: 11.70 E' Laterial: 7.94 E/E' Lat: 8.50 Right Ventricle TAPSE (mm): 24.00 TVS' Zaki: 21.20 Tricuspid Valve TR Pk Zaki: 2.60 TR Pk Grad: 27.00 RA Press: 3.00 RVSP: 40.00 Great Vessels Aorta Sinus of Valsalva: 2.80 2.0-3.5 cm Pulmonary Valve PV Pk Zaki: 1.48 Peak PV Grad: 9.00 Updated in Other Vendor System with Status of Final Aleksandar Williamson MD electronically signed on 05/28/2024 2:09:05 PM with status of Final
[2024-05-28 07:24] LABS: Glucose, Whole Blood 245 mg/dL (60-115)
--- NOTE | 2024-05-28 07:33 | P.EN_ITS ---
Event Note Date of Service: 05/28/24 Event Note: 56-year-old female with a past medical history of HTN, HLD, anxiety, depression presented to the hospital with a chief complaint of abdominal pain. admitted for following Admitted this morning due to shortness of breath and cough. History obtained via language interpreter. At present patient complaining of sore throat, denies fever complaining of cough, provide history of dyspnea on exertion Vitals stable fever resolved mild tachypnea. Sepsis/likely due to pneumonia: Fever 102, tachycardic, has leukocytosis and lactic acidosis. Received 30 cc/kg IV fluids in the ER. Influenza, RSV, SARS negative Chest x-ray showed mild interstitial prominence in both lungs and possible tiny bilateral pleural effusion findings concerning for pulmonary vascular congestion/mild pulmonary edema on empiric iv ceftriaxone and azithromycin Clinically appears euvolemic WBC normalized, fever resolved ProBNP pending Echocardiogram showed EF greater than 70, normal right ventricular cavity size and systolic function, inferior vena cava is collapse consistent with reduced intravascular volume, abnormal diastolic function is noted No pericardial effusion Elevated D-dimer- V/Q scan highly suspicious for PE given clear lungs. Will place on Lovenox 1 mg per kg b.i.d. monitor renal function Add cough medication/cough drops Doppler study lower extremity CHANTALE on CKD 3: Baseline creatinine around 1.2 Creatinine on presentation 2.3 improved to 1.87 Likely prerenal , IV fluids hold nephrotoxins Acute Lactic acidosis: Resolved Hypertension elevated blood pressure will hold indapamide and losartan, give Norvasc 5 mg follow BP Diabetes /hyperglycemia: blood sugars 276 cont. Insulin sliding scale. Monitor fingerstick glucose, resume Lantus, hold Farxiga, Trulicity and scheduled pre meal insulin. DVT prophylaxis: Lovenox Code status: Full code Time Spent With Patient Time: Total time managing care of this patient today ____ minutes.
[2024-05-28] MEDS: 0.9 % Sodium Chloride Flush 3 ML SYRINGE IVFLUSH ×3 (07:44→21:48)
[2024-05-28] MEDS: Insulin Lispro 100 UNIT/ML 3 ML VIAL SUBCUT ×4 (07:44→21:42)
[2024-05-28] MEDS: Enoxaparin Sodium 40 MG/0.4 ML SYRINGE SUBCUT (08:22)
[2024-05-28] MEDS: Sertraline HCL 50 MG TABLET PO (08:23)
--- NOTE | 2024-05-28 10:00 | MHC.CM.PN ---
Attempted to meet with patient in regards to discharge planning. Patient currently at test. No family present. Will attempt to meet again. Continue to monitor for d/c needs.
--- NOTE | 2024-05-28 10:25 | PC.NURSE ---
pt back from vq scan, pharmacy aware that some meds are not verified and they are working on the med rec currently
[2024-05-28] MEDS: Acetaminophen 325 MG TABLET 650 MG PO ×2 (10:38→21:39)
--- NOTE | 2024-05-28 10:54 | PHA.MEDREC ---
Addendum entered by Trinidad Del Cid amber 05/28/24 11:13: REVIEWED Original Note: Pharmacy Consult ? Medication Reconciliation Pharmacy has completed the medication reconciliation. Tried to speak with patient through certified court/medical interpreter service, however Patient couldn't speak due to her throat hearting. Spoke to patient's daughter Estelle [phone] over the phone and she was able to confirm all of her mothers medications. Daughter states she brought in a list of patients medications. Daughter states patient is no longer taking Amlodipine 5 mg ( now on Losartan 100 mg ), Vitamin D2 1,000mg, and sertraline 50 mg. Daughter confirmed Trulicity 1.5 mg every Sunday, last dose 05/25/24, Lantus Solostar 20 units at bedtime, and Insulin lispro 5 unit PRN sugar >250.
[2024-05-28 11:36] LABS: Glucose, Whole Blood 276 mg/dL (60-115)
[2024-05-28] MEDS: Levothyroxine Sodium 75 MCG TABLET PO (11:44)
[2024-05-28] MEDS: Folic Acid 1 MG TABLET PO (11:44)
[2024-05-28] MEDS: Ezetimibe 10 MG TABLET PO (11:44)
--- NOTE | 2024-05-28 12:03 | MHC.CM.PN ---
Addendum entered by Patricia Perez 05/28/24 15:08: Copy of HCP obtained from PCP;s office. Original Note: Met with patient and professor of geography in regards to discharge planning. Patient is having difficulty speaking d/t laryngitis. Patient lives with her daughter, ambulates independently and had no services prior to coming to the hospital. No services anticipated to be needed because it does not appear patient is homebound. PCP verified. Patient is unsure if she has a HCP and requested CM speak with her daughter, Frida. Frida will transport patient home when medically stable. Spoke with Estelle via telephone at [phone]. Estelle states patient completed a HCP at her PCP's office. T/W is attempting to obtain a copy. Continue to monitor for d/c needs.
[2024-05-28] MEDS: Throat Lozenge, Medicated LOZENGE 1 LOZENGE MUCOUS MEM (16:00)
[2024-05-28] MEDS: amLODIPine Besylate 5 MG TABLET PO (16:00)
[2024-05-28] MEDS: guaiFENesin DM 200/20/10 ML 10 ML SYRUP PO ×2 (16:00→21:38)
[2024-05-28] MEDS: Lactated Ringers 1,000 ML 100 ML IVCONT (16:00)
[2024-05-28 16:18] LABS: INTERNATIONAL NORM RATIO 1.2 (0.9-1.1); Prothrombin Time 13.8 SEC (10.9-12.4)
[2024-05-28 16:20] LABS: Partial Thromboplastin Time 29.7 SEC (26.0-36.8)
[2024-05-28 16:37] LABS: Glucose, Whole Blood 232 mg/dL (60-115)
[2024-05-28] MEDS: Enoxaparin Sodium 100 MG/ML SYRINGE 90 MG SUBCUT (17:10)
[2024-05-28 21:17] LABS: Glucose, Whole Blood 316 mg/dL (60-115)
[2024-05-28] MEDS: Atorvastatin Calcium 10 MG TABLET PO (21:38)
[2024-05-28] MEDS: Melatonin 3 MG TABLET 6 MG PO (21:38)
[2024-05-28] MEDS: Azithromycin 500 MG in 0.9 % Sodium Chloride 250 ML 125 MG IV (21:41)
[2024-05-28] MEDS: cefTRIAXone sodium 1 GM VIAL IVPUSH (21:41)
[2024-05-28] MEDS: Insulin Glargine,Hum.rec.anlog 100 UNIT/ML 10 ML VIAL 20 UNIT SUBCUT (21:41)
[2024-05-29] VITALS (7 sets, daily range): BP systolic 135–165; BP diastolic 64–79; PULSE 62–78; RESP 16–20; TEMP 36.2–37.1; O2SAT 91–96
[2024-05-29] MEDS: Levothyroxine Sodium 75 MCG TABLET PO (06:17)
[2024-05-29 06:22] LABS: NT-proBNP 881 pg/mL (<125)
[2024-05-29] MEDS: Acetaminophen 325 MG TABLET 650 MG PO (06:25)
[2024-05-29] MEDS: Enoxaparin Sodium 100 MG/ML SYRINGE 90 MG SUBCUT ×2 (06:25→18:10)
[2024-05-29 07:13] LABS: Hematocrit 32.4 % (37.0-47.0); Hemoglobin 11.1 g/dl (12.0-16.0); Mean Corpuscular HGB Conc 34.3 g/dl (31.0-35.0); Mean Corpuscular Hemoglobin 28.5 pg (27.0-33.0); Mean Corpuscular Volume 83.1 fL (80.0-98.0); Mean Platelet Volume 9.7 fL (9.4-12.3); Platelet Count 254 X10*3/uL (160-400); Red Cell Distribution Width 13.5 % (11.0-16.0); White Blood Count 9.1 X10*3/uL (4.8-10.8)
[2024-05-29 07:30] LABS: Anion Gap 14 (12-20); Blood Urea Nitrogen 49 mg/dL (9-16); Calcium 9.2 mg/dL (8.4-10.2); Carbon Dioxide 24 mmol/L (22-29); Chloride 105 mmol/L (96-108); Creatinine Clr Calc Pharmacy 39.5; Estimated Glomerular Filt Rate 33; Glucose Random 222 mg/dL (60-115); Potassium 3.8 mmol/L (3.3-5.1); Sodium 139 mmol/L (135-145)
[2024-05-29 07:55] LABS: Glucose, Whole Blood 249 mg/dL (60-115)
[2024-05-29] MEDS: Insulin Lispro 100 UNIT/ML 3 ML VIAL SUBCUT ×3 (08:07→16:42)
[2024-05-29] MEDS: Sertraline HCL 50 MG TABLET PO (08:09)
[2024-05-29] MEDS: Ezetimibe 10 MG TABLET PO (08:09)
[2024-05-29] MEDS: guaiFENesin DM 200/20/10 ML 10 ML SYRUP PO ×4 (08:09→22:04)
[2024-05-29] MEDS: Folic Acid 1 MG TABLET PO (08:09)
[2024-05-29] MEDS: oxyCODONE HCl Immed Release 5 MG TABLET PO ×2 (08:10→22:25)
--- NOTE | 2024-05-29 09:41 | P.PNIM_ITS ---
Subjective Subjective Date of Service: 05/29/24 Interval History: Being followed for PE Complaining of shortness of breath cough productive of minimal phlegm lower rib discomfort with coughing denies fever, no chills, tolerating diet, sore throat has improved. Tolerating diet No acute events overnight Review of Systems All other system reviewed and are negative Physical Exam 2 Vital Signs: Vital Signs: Last Vital Signs Temp 97.4 F 05/29/24 07:51 Pulse 78 05/29/24 07:51 Resp 20 05/29/24 07:51 BP 153/67 H 05/29/24 07:51 Pulse Ox 94 05/29/24 07:51 O2 Del Method Nasal Cannula 05/29/24 07:51 O2 Flow Rate 2 05/29/24 07:51 BMI result Body Mass Index 31.3 Const: Other: General resting comfortably in no acute distress. Neck no JVD. CVS regular rate rhythm, Respiratory lungs coarse breath sounds, diminished at bases, no respiratory distress. Gastrointestinal abdomen soft, non tender, bowel sounds audible Extremities no edema. Neuro non focal Skin no rash Appropriate affect Objective Data Active Medications Acetaminophen (Acetaminophen 325 Mg Tablet) 650 mg PO Q6H PRN PRN Reason: Pain, Mild 1-3,fever,headache Last Admin: 05/29/24 06:25 Dose: 650 mg Documented By: MENDEZ Atorvastatin Calcium (Atorvastatin Calcium 10 Mg Tablet) 10 mg PO BEDTIME [facility] Last Admin: 05/28/24 21:38 Dose: 10 mg Documented By: VENTURA Benzocaine (Throat Lozenge, Medicated Lozenge) 1 lozenge MUCOUS MEM Q2H PRN PRN Reason: Sore Throat Last Admin: 05/28/24 16:00 Dose: 1 lozenge Documented By: DANILO Calcium Carbonate (Calcium Carbonate 750 Mg Tab.Chew) 750 mg PO Q4H PRN PRN Reason: Heartburn Ceftriaxone Sodium (Ceftriaxone Sodium 1 Gm Vial) 1 gm IVPUSH Q24H [facility] Last Admin: 05/28/24 21:41 Dose: 1 gm Documented By: VENTURA Dextrose (Dextrose 50 % 25 Gm/50 Ml Syringe) 25 gm IVPUSH Q15M PRN; Protocol PRN Reason: per Hypoglycemia Standing Ord. Ezetimibe (Ezetimibe 10 Mg Tablet) 10 mg PO DAILY [facility] Last Admin: 05/29/24 08:09 Dose: 10 mg Documented By: MENDEZ Enoxaparin Sodium (Enoxaparin Sodium 100 Mg/Ml Syringe) 90 mg 1 mg/kg (90 mg) SUBCUT Q12H [facility] Last Admin: 05/29/24 06:25 Dose: 90 mg Documented By: MENDEZ Folic Acid (Folic Acid 1 Mg Tablet) 1 mg PO DAILY [facility] Last Admin: 05/29/24 08:09 Dose: 1 mg Documented By: MENDEZ Glucose (Glucose Gel 15 Gm Gel..Gram.) 15 gm PO Q15M PRN; Protocol PRN Reason: per Hypoglycemia Standing Ord. Guaifenesin/Dextromethorphan (Guaifenesin Dm 200/20/10 Ml 10 Ml Syrup) 10 ml PO QID [facility] Last Admin: 05/29/24 08:09 Dose: 10 ml Documented By: MENDEZ Azithromycin 500 mg/ Sodium (Chloride) 250 mls @ 125 mls/hr IV Q24H [facility] Last Infusion: 05/29/24 00:11 Dose: Infused Documented By: VENTURA Insulin Glargine (Insulin Glargine,Hum.Rec.Anlog 100 Unit/Ml 10 Ml Vial) 20 unit SUBCUT BEDTIME [facility] Last Admin: 05/28/24 21:41 Dose: 20 unit Documented By: VENTURA Insulin Human Lispro (Insulin Lispro 100 Unit/Ml 3 Ml Vial) 0 unit SUBCUT QIDACHS [facility]; Protocol Last Admin: 05/29/24 08:07 Dose: 4 unit Documented By: MENDEZ Levothyroxine Sodium (Levothyroxine Sodium 75 Mcg Tablet) 75 mcg PO DAILY@0600 [facility] Last Admin: 05/29/24 06:17 Dose: 75 mcg Documented By: MENDEZ Magnesium Hydroxide (Milk Of Magnesia 30 Ml Oral.Susp) 30 ml PO DAILY PRN PRN Reason: Constipation Melatonin (Melatonin 3 Mg Tablet) 6 mg PO BEDTIME PRN PRN Reason: Insomnia Last Admin: 05/28/24 21:38 Dose: 6 mg Documented By: VENTURA Oxycodone HCl (Oxycodone Hcl Immed Release 5 Mg Tablet) 5 mg PO Q6H PRN PRN Reason: Pain, Moderate(Pain Scale 4-6) Last Admin: 05/29/24 08:10 Dose: 5 mg Documented By: MENDEZ Sertraline HCl (Sertraline Hcl 50 Mg Tablet) 50 mg PO DAILY [facility] Last Admin: 05/29/24 08:09 Dose: 50 mg Documented By: MENDEZ Sodium Chloride (0.9 % Sodium Chloride Flush 3 Ml Syringe) 3 ml IVFLUSH QSHIFT [facility] Last Admin: 05/29/24 08:35 Dose: Not Given Documented By: MENDEZ Non-Admin Reason: Previously Administered Labs 05/29/24 07:00 05/29/24 07:00 Labs: Laboratory Results - last 24 hr 05/28/24 05/28/24 05/28/24 04:54 11:30 16:01 MCV MCH MCHC RDW Plt Count MPV Absolute Nucleated RBC Nucleated RBC % (auto) PT 13.8 H INR 1.2 H APTT 29.7 Anion Gap Estim Creat Clear Calc Estimated GFR POC Glucose 276 H Random Glucose Calcium NT-Pro-B Natriuret Pep 881 H 05/28/24 05/28/24 05/29/24 16:33 21:09 07:00 MCV 83.1 MCH 28.5 MCHC 34.3 RDW 13.5 Plt Count 254 MPV 9.7 Absolute Nucleated RBC 0.000 Nucleated RBC % (auto) 0.0 PT INR APTT Anion Gap 14 Estim Creat Clear Calc 39.5 Estimated GFR 33 POC Glucose 232 H 316 H Random Glucose 222 H Calcium 9.2 NT-Pro-B Natriuret Pep 05/29/24 07:46 MCV MCH MCHC RDW Plt Count MPV Absolute Nucleated RBC Nucleated RBC % (auto) PT INR APTT Anion Gap Estim Creat Clear Calc Estimated GFR POC Glucose 249 H Random Glucose Calcium NT-Pro-B Natriuret Pep Microbiology Microbiology Results: Microbiology 05/27/24 21:26 Blood Culture - Preliminary Blood - Venous No growth after 24 hours. 05/27/24 20:03 Blood Culture - Preliminary Blood - Venous No growth after 24 hours. Assessment and Plan (1) Acute kidney injury: Status: Acute (2) Sepsis: Status: Acute (3) Pneumonia: Status: Acute (4) Hypoxia: Status: Acute (5) Pulmonary emboli: Status: Acute Plan 56-year-old female with a past medical history of HTN, HLD, anxiety, depression presented to the hospital with a chief complaint of shortness of breath and cough of 2-3 days' duration, shortness of breath worse with exertion with no associated orthopnea and PND and admitted for following medical issues Sepsis/likely due to pneumonia: Fever 102, tachycardic, has leukocytosis and lactic acidosis. Received 30 cc/kg IV fluids in the ER. Influenza, RSV, SARS negative Chest x-ray showed mild interstitial prominence in both lungs and possible tiny bilateral pleural effusion findings concerning for pulmonary vascular congestion/mild pulmonary edema ,on iv ceftriaxone and azithromycin For clinical pneumonia, appears euvolemic WBC normalized, fever resolved ProBNP 881 Echocardiogram showed EF greater than 70, normal right ventricular cavity size and systolic function, inferior vena cava is collapse consistent with reduced intravascular volume, abnormal diastolic function is noted No pericardial effusion Elevated D-dimer- V/Q scan highly suspicious for bilateral subsegmental PE, given clear lungs. on Lovenox 1 mg per kg b.i.d. monitor renal function Continue cough medication/cough drops Bilateral subsegmental PE Sedentary lifestyle, no recent prolonged embolization, quit smoking in January, not on hormone replacement therapy. Continue Lovenox subQ 90 mg b.i.d. Doppler study lower extremity showed history of previous thrombus in the right mid femoral vein, no evidence of acute DVT in bilateral lower extremities. Outpatient Hematology follow-up CHANTALE on CKD 3: Baseline creatinine around 1.2 , Creatinine on presentation 2.3 improved to 1.87 >1.59. Likely prerenal , dc ivf, encourage po intake Acute Lactic acidosis: Resolved Hypertension indapamide and losartan on hold due to chantale , started Norvasc 5 mg daily, follow BP Diabetes /hyperglycemia: blood sugars 200s cont. Insulin sliding scale, Monitor fingerstick glucose, on Lantus, hold Farxiga, Trulicity and scheduled pre meal insulin. DVT prophylaxis: Lovenox subq Code status: Full code In my clinical judgment patient requires continued inpatient hospitalization for management of Quality Stroke Does the patient have a stroke diagnosis?: No VTE Prior VTE?: No VTE Risk Level:: Medical - moderate - high VTE Device Contraindication: Treatment Not Indicated VTE Drug Contraindication: N/A - Med Ordered
[2024-05-29] MEDS: amLODIPine Besylate 5 MG TABLET PO (10:54)
[2024-05-29 11:43] LABS: Glucose, Whole Blood 255 mg/dL (60-115)
[2024-05-29 16:36] LABS: Glucose, Whole Blood 217 mg/dL (60-115)
[2024-05-29 17:01] LABS: INTERNATIONAL NORM RATIO 1.2 (0.9-1.1); Prothrombin Time 13.5 SEC (10.9-12.4)
[2024-05-29] MEDS: 0.9 % Sodium Chloride Flush 3 ML SYRINGE IVFLUSH ×2 (18:10→22:05)
[2024-05-29 21:17] LABS: Glucose, Whole Blood 149 mg/dL (60-115)
[2024-05-29] MEDS: Azithromycin 500 MG in 0.9 % Sodium Chloride 250 ML 125 MG IV (22:03)
[2024-05-29] MEDS: cefTRIAXone sodium 1 GM VIAL IVPUSH (22:04)
[2024-05-29] MEDS: Insulin Glargine,Hum.rec.anlog 100 UNIT/ML 10 ML VIAL 20 UNIT SUBCUT (22:04)
[2024-05-29] MEDS: Atorvastatin Calcium 10 MG TABLET PO (22:04)
[2024-05-30] VITALS (9 sets, daily range): BP systolic 148–173; BP diastolic 69–78; PULSE 66–84; RESP 16–18; TEMP 36–37.3; O2SAT 87–97
[2024-05-30] MEDS: Enoxaparin Sodium 100 MG/ML SYRINGE 90 MG SUBCUT ×2 (05:10→17:28)
[2024-05-30] MEDS: Levothyroxine Sodium 75 MCG TABLET PO (05:10)
[2024-05-30 08:01] LABS: Glucose, Whole Blood 170 mg/dL (60-115)
[2024-05-30 08:16] LABS: Anion Gap 13 (12-20); Blood Urea Nitrogen 45 mg/dL (9-16); Calcium 8.7 mg/dL (8.4-10.2); Carbon Dioxide 25 mmol/L (22-29); Chloride 104 mmol/L (96-108); Creatinine Clr Calc Pharmacy 47.3; Estimated Glomerular Filt Rate 40; Glucose Random 163 mg/dL (60-115); Potassium 3.4 mmol/L (3.3-5.1); Sodium 139 mmol/L (135-145)
[2024-05-30 08:32] LABS: Thyroid Stimulating Hormone 0.18 uIU/mL (0.32-4.0)
[2024-05-30] MEDS: guaiFENesin DM 200/20/10 ML 10 ML SYRUP PO ×4 (09:30→20:42)
[2024-05-30] MEDS: amLODIPine Besylate 5 MG TABLET PO (09:30)
[2024-05-30] MEDS: Folic Acid 1 MG TABLET PO (09:30)
[2024-05-30] MEDS: 0.9 % Sodium Chloride Flush 3 ML SYRINGE IVFLUSH ×3 (09:30→20:43)
[2024-05-30] MEDS: Sertraline HCL 50 MG TABLET PO (09:30)
[2024-05-30] MEDS: Ezetimibe 10 MG TABLET PO (09:30)
--- NOTE | 2024-05-30 10:56 | P.PNIM_ITS ---
Subjective Subjective Date of Service: 05/30/24 Interval History: Being followed for bilateral subsegmental PE and clinical pneumonia Feeling better this morning less shortness of breath and cough On 4 L of oxygen finger oximetry 96-97%, not on home O2 rib pain with coughing improving, no fevers, no chills Review of Systems All other system reviewed and are negative Physical Exam 2 Vital Signs: Vital Signs: Last Vital Signs Temp 99 F 05/30/24 07:23 Pulse 73 05/30/24 07:23 Resp 16 05/30/24 07:23 BP 148/69 H 05/30/24 07:23 Pulse Ox 95 05/30/24 07:23 O2 Del Method Nasal Cannula 05/30/24 07:23 O2 Flow Rate 3 05/30/24 07:23 BMI result Body Mass Index 31.3 Const: Other: General resting comfortably in no acute distress. Neck no JVD. CVS regular rate rhythm, Respiratory lungs coarse breath sounds, diminished at bases, no respiratory distress, no crackles. Gastrointestinal abdomen soft, non tender, bowel sounds audible Extremities no edema. Neuro non focal Skin no rash Appropriate affect Objective Data Active Medications Acetaminophen (Acetaminophen 325 Mg Tablet) 650 mg PO Q6H PRN PRN Reason: Pain, Mild 1-3,fever,headache Last Admin: 05/29/24 06:25 Dose: 650 mg Documented By: MENDEZ Amlodipine Besylate (Amlodipine Besylate 5 Mg Tablet) 5 mg PO DAILY [facility]; Protocol Last Admin: 05/30/24 09:30 Dose: 5 mg Documented By: GUILLERMO Atorvastatin Calcium (Atorvastatin Calcium 10 Mg Tablet) 10 mg PO BEDTIME [facility] Last Admin: 05/29/24 22:04 Dose: 10 mg Documented By: ROSALVA Benzocaine (Throat Lozenge, Medicated Lozenge) 1 lozenge MUCOUS MEM Q2H PRN PRN Reason: Sore Throat Last Admin: 05/28/24 16:00 Dose: 1 lozenge Documented By: DANILO Calcium Carbonate (Calcium Carbonate 750 Mg Tab.Chew) 750 mg PO Q4H PRN PRN Reason: Heartburn Ceftriaxone Sodium (Ceftriaxone Sodium 1 Gm Vial) 1 gm IVPUSH Q24H [facility] Last Admin: 05/29/24 22:04 Dose: 1 gm Documented By: ROSALVA Dextrose (Dextrose 50 % 25 Gm/50 Ml Syringe) 25 gm IVPUSH Q15M PRN; Protocol PRN Reason: per Hypoglycemia Standing Ord. Ezetimibe (Ezetimibe 10 Mg Tablet) 10 mg PO DAILY [facility] Last Admin: 05/30/24 09:30 Dose: 10 mg Documented By: GUILLERMO Enoxaparin Sodium (Enoxaparin Sodium 100 Mg/Ml Syringe) 90 mg 1 mg/kg (90 mg) SUBCUT Q12H [facility] Last Admin: 05/30/24 05:10 Dose: 90 mg Documented By: ROSALVA Folic Acid (Folic Acid 1 Mg Tablet) 1 mg PO DAILY [facility] Last Admin: 05/30/24 09:30 Dose: 1 mg Documented By: GUILLERMO Glucose (Glucose Gel 15 Gm Gel..Gram.) 15 gm PO Q15M PRN; Protocol PRN Reason: per Hypoglycemia Standing Ord. Guaifenesin/Dextromethorphan (Guaifenesin Dm 200/20/10 Ml 10 Ml Syrup) 10 ml PO QID [facility] Last Admin: 05/30/24 09:30 Dose: 10 ml Documented By: GUILLERMO Azithromycin 500 mg/ Sodium (Chloride) 250 mls @ 125 mls/hr IV Q24H [facility] Last Infusion: 05/30/24 00:14 Dose: Infused Documented By: ROSALVA Insulin Glargine (Insulin Glargine,Hum.Rec.Anlog 100 Unit/Ml 10 Ml Vial) 20 unit SUBCUT BEDTIME [facility] Last Admin: 05/29/24 22:04 Dose: 20 unit Documented By: ROSALVA Insulin Human Lispro (Insulin Lispro 100 Unit/Ml 3 Ml Vial) 0 unit SUBCUT QIDACHS [facility]; Protocol Last Admin: 05/30/24 09:22 Dose: Not Given Documented By: GUILLERMO Non-Admin Reason: No Insulin Coverage Levothyroxine Sodium (Levothyroxine Sodium 75 Mcg Tablet) 75 mcg PO DAILY@0600 [facility] Last Admin: 05/30/24 05:10 Dose: 75 mcg Documented By: ROSALVA Magnesium Hydroxide (Milk Of Magnesia 30 Ml Oral.Susp) 30 ml PO DAILY PRN PRN Reason: Constipation Melatonin (Melatonin 3 Mg Tablet) 6 mg PO BEDTIME PRN PRN Reason: Insomnia Last Admin: 05/28/24 21:38 Dose: 6 mg Documented By: VENTURA Oxycodone HCl (Oxycodone Hcl Immed Release 5 Mg Tablet) 5 mg PO Q6H PRN PRN Reason: Pain, Moderate(Pain Scale 4-6) Last Admin: 05/29/24 22:25 Dose: 5 mg Documented By: ROSALVA Sertraline HCl (Sertraline Hcl 50 Mg Tablet) 50 mg PO DAILY [facility] Last Admin: 05/30/24 09:30 Dose: 50 mg Documented By: GUILLERMO Sodium Chloride (0.9 % Sodium Chloride Flush 3 Ml Syringe) 3 ml IVFLUSH QSHIFT [facility] Last Admin: 05/30/24 09:30 Dose: 3 ml Documented By: GUILLERMO Labs 05/29/24 07:00 05/30/24 06:28 Labs: Laboratory Results - last 24 hr 05/29/24 05/29/24 05/29/24 11:16 15:54 16:32 Hold Purple Top PT 13.5 H INR 1.2 H Anion Gap Estim Creat Clear Calc Estimated GFR POC Glucose 255 H 217 H Random Glucose Calcium TSH 05/29/24 05/30/24 05/30/24 21:12 06:28 07:26 Hold Purple Top SEE NOTE PT INR Anion Gap 13 Estim Creat Clear Calc 47.3 Estimated GFR 40 POC Glucose 149 H 170 H Random Glucose 163 H Calcium 8.7 TSH 0.18 L Microbiology Microbiology Results: Microbiology 05/27/24 21:26 Blood Culture - Preliminary Blood - Venous No growth after 48 hours. 05/27/24 20:03 Blood Culture - Preliminary Blood - Venous No growth after 48 hours. Assessment and Plan (1) Pulmonary emboli: Status: Acute (2) Acute kidney injury: Status: Acute Plan 56-year-old female with a past medical history of HTN, HLD, anxiety, depression presented to the hospital with a chief complaint of shortness of breath and cough of 2-3 days' duration, shortness of breath worse with exertion with no associated orthopnea and PND and admitted for following medical issues Sepsis/likely due to pneumonia: Fever 102, tachycardic, leukocytosis and lactic acidosis. Received 30 cc/kg IV fluids in the ER. Influenza, RSV, SARS negative Chest x-ray showed mild interstitial prominence in both lungs and possible tiny bilateral pleural effusion findings concerning for pulmonary vascular congestion/mild pulmonary edema ,on iv ceftriaxone and azithromycin For clinical pneumonia, appears euvolemic WBC normalized, fever resolved ProBNP 881 likely elevated due to PE, no history of CHF Echocardiogram showed EF greater than 70, normal right ventricular cavity size and systolic function, inferior vena cava is collapse consistent with reduced intravascular volume, abnormal diastolic function is noted No pericardial effusion Elevated D-dimer- V/Q scan highly suspicious for bilateral subsegmental PE, given clear lungs. on Lovenox 1 mg per kg b.i.d. monitor renal function Continue cough medication/cough drops Bilateral subsegmental PE Sedentary lifestyle, no recent prolonged embolization, quit smoking in January, not on hormone replacement therapy. Unprovoked PE Continue Lovenox subQ 90 mg b.i.d. transition to Eliquis upon discharge Doppler study lower extremity showed evidence of previous thrombus in the right mid femoral vein, no evidence of acute DVT in bilateral lower extremities. Outpatient Hematology follow-up CHANTALE on CKD 3: Baseline creatinine around 1.2 , Creatinine on presentation 2.3 improved to 1.87 >1.59 > 1.33. Likely prerenal , dc ivf, encourage po intake Acute hypoxic respiratory failure likely due to PE will wean oxygen not on home O2 Acute Lactic acidosis: Resolved Hypothyroidism, TSH 0.18 , free T4 1.4 will lower dose of dose of Synthroid to 50 mcg daily, currently on 75 mcg daily, repeat TSH in 6 weeks. Hypertension indapamide and losartan on hold due to chantale , started Norvasc 5 mg daily, follow BP,will dc on norvasc and low dose losartan Diabetes /hyperglycemia: blood sugars 200s cont. Insulin sliding scale, Monitor fingerstick glucose, on Lantus, Farxiga, Trulicity and scheduled pre meal insulin on hold DVT prophylaxis: Lovenox subq Disposition lift on 4th floor , at baseline was ambulating without assisted device and was able to climb 4 flights of stairs without difficulty obtain PT eval. Code status: Full code In my clinical judgment patient requires continued inpatient hospitalization for management of Quality Stroke Does the patient have a stroke diagnosis?: No VTE Prior VTE?: No VTE Risk Level:: Medical - moderate - high VTE Device Contraindication: Treatment Not Indicated VTE Drug Contraindication: N/A - Med Ordered
[2024-05-30 11:40] LABS: Free T4 (Free Thyroxine) 1.46 ng/dL (0.71-1.85)
[2024-05-30 11:58] LABS: Glucose, Whole Blood 272 mg/dL (60-115)
[2024-05-30] MEDS: Insulin Lispro 100 UNIT/ML 3 ML VIAL SUBCUT ×2 (12:07→20:42)
[2024-05-30] MEDS: oxyCODONE HCl Immed Release 5 MG TABLET PO (15:34)
--- NOTE | 2024-05-30 15:38 | MHC.CM.PN ---
EMR reviewed and per MD rounds, pt is not medically cleared for discharge due to management of sepsis due to pneumonia.
[2024-05-30 16:44] LABS: Glucose, Whole Blood 135 mg/dL (60-115)
[2024-05-30 20:19] LABS: Glucose, Whole Blood 210 mg/dL (60-115)
[2024-05-30] MEDS: Atorvastatin Calcium 10 MG TABLET PO (20:42)
[2024-05-30] MEDS: cefTRIAXone sodium 1 GM VIAL IVPUSH (20:42)
[2024-05-30] MEDS: Insulin Glargine,Hum.rec.anlog 100 UNIT/ML 10 ML VIAL 20 UNIT SUBCUT (20:42)
[2024-05-30] MEDS: Azithromycin 500 MG in 0.9 % Sodium Chloride 250 ML 125 MG IV (20:44)
[2024-05-31 03:50] VITALS: BP 162/70; PULSE 75; RESP 14; TEMP 36.8; O2SAT 95
[2024-05-31] MEDS: Enoxaparin Sodium 100 MG/ML SYRINGE 90 MG SUBCUT (06:11)
[2024-05-31] MEDS: Levothyroxine Sodium 50 MCG TABLET PO (06:11)
[2024-05-31 07:34] LABS: Glucose, Whole Blood 144 mg/dL (60-115)
[2024-05-31 08:00] VITALS: BP 176/79; PULSE 74; RESP 16; TEMP 37.2; O2SAT 96
[2024-05-31] MEDS: amLODIPine Besylate 5 MG TABLET PO (09:46)
[2024-05-31] MEDS: Sertraline HCL 50 MG TABLET PO (09:46)
[2024-05-31] MEDS: Folic Acid 1 MG TABLET PO (09:46)
[2024-05-31] MEDS: 0.9 % Sodium Chloride Flush 3 ML SYRINGE IVFLUSH ×2 (09:46→16:34)
[2024-05-31] MEDS: guaiFENesin DM 200/20/10 ML 10 ML SYRUP PO ×4 (09:46→21:24)
[2024-05-31] MEDS: Ezetimibe 10 MG TABLET PO (09:46)
[2024-05-31] MEDS: Acetaminophen 325 MG TABLET 650 MG PO (09:53)
[2024-05-31 11:19] VITALS: BP 162/73; PULSE 68; RESP 16; TEMP 36.3; O2SAT 99
[2024-05-31 11:26] LABS: Glucose, Whole Blood 262 mg/dL (60-115)
[2024-05-31] MEDS: Insulin Lispro 100 UNIT/ML 3 ML VIAL SUBCUT ×3 (12:58→21:23)
--- NOTE | 2024-05-31 14:17 | HO.PM.IMPN ---
Subjective Subjective Date of Service: 05/31/24 Interval History: No acute issues overnight. Breathing at baseline. Weaning off O2 Review of Systems Denies chest pain Denies shortness of breath Denies nausea vomiting diarrhea Denies fever chills Physical Exam Vital Signs: Vital Signs: Last Vital Signs Temp 97.4 F 05/31/24 11:19 Pulse 68 05/31/24 11:19 Resp 16 05/31/24 11:19 BP 162/73 H 05/31/24 11:19 Pulse Ox 99 05/31/24 11:19 O2 Del Method Nasal Cannula 05/31/24 11:19 O2 Flow Rate 1 05/31/24 11:19 BMI result Body Mass Index 31.3 Const: Other: Awake alert oriented x3 in no acute distress Resp: Other: Diffuse expiratory wheezes throughout no rhonchi noted Cardio: Other: No S4; positive S1-S2; no S3 murmurs rubs or gallops GI: Other: Soft nontender nondistended normoactive bowel sounds Extrem: Other: No edema bilaterally Objective Data Active Medications Acetaminophen (Acetaminophen 325 Mg Tablet) 650 mg PO Q6H PRN PRN Reason: Pain, Mild 1-3,fever,headache Last Admin: 05/31/24 09:53 Dose: 650 mg Documented By: PETER Albuterol/Ipratropium (Albuterol/Iprat 2.5/0.5mg 3 Ml Ampul.Neb) 3 ml INHALE RQ4H WHILE AWAKE PRN PRN Reason: Wheezing Amlodipine Besylate (Amlodipine Besylate 5 Mg Tablet) 5 mg PO DAILY [facility]; Protocol Last Admin: 05/31/24 09:46 Dose: 5 mg Documented By: PETER Apixaban (Apixaban 5 Mg Tablet) 10 mg PO BID [facility] Stop: 06/07/24 21:01 Atorvastatin Calcium (Atorvastatin Calcium 10 Mg Tablet) 10 mg PO BEDTIME [facility] Last Admin: 05/30/24 20:42 Dose: 10 mg Documented By: ANTOINC Benzocaine (Throat Lozenge, Medicated Lozenge) 1 lozenge MUCOUS MEM Q2H PRN PRN Reason: Sore Throat Last Admin: 05/28/24 16:00 Dose: 1 lozenge Documented By: DANILO Calcium Carbonate (Calcium Carbonate 750 Mg Tab.Chew) 750 mg PO Q4H PRN PRN Reason: Heartburn Ceftriaxone Sodium (Ceftriaxone Sodium 1 Gm Vial) 1 gm IVPUSH Q24H [facility] Last Admin: 05/30/24 20:42 Dose: 1 gm Documented By: ANGELA Dextrose (Dextrose 50 % 25 Gm/50 Ml Syringe) 25 gm IVPUSH Q15M PRN; Protocol PRN Reason: per Hypoglycemia Standing Ord. Ezetimibe (Ezetimibe 10 Mg Tablet) 10 mg PO DAILY [facility] Last Admin: 05/31/24 09:46 Dose: 10 mg Documented By: PETER Folic Acid (Folic Acid 1 Mg Tablet) 1 mg PO DAILY [facility] Last Admin: 05/31/24 09:46 Dose: 1 mg Documented By: PETER Glucose (Glucose Gel 15 Gm Gel..Gram.) 15 gm PO Q15M PRN; Protocol PRN Reason: per Hypoglycemia Standing Ord. Guaifenesin/Dextromethorphan (Guaifenesin Dm 200/20/10 Ml 10 Ml Syrup) 10 ml PO QID [facility] Last Admin: 05/31/24 12:58 Dose: 10 ml Documented By: PETER Azithromycin 500 mg/ Sodium (Chloride) 250 mls @ 125 mls/hr IV Q24H [facility] Last Infusion: 05/30/24 23:01 Dose: Infused Documented By: ANGELA Insulin Glargine (Insulin Glargine,Hum.Rec.Anlog 100 Unit/Ml 10 Ml Vial) 20 unit SUBCUT BEDTIME [facility] Last Admin: 05/30/24 20:42 Dose: 20 unit Documented By: ANGELA Insulin Human Lispro (Insulin Lispro 100 Unit/Ml 3 Ml Vial) 0 unit SUBCUT QIDACHS [facility]; Protocol Last Admin: 05/31/24 12:58 Dose: 10 unit Documented By: PETER Levothyroxine Sodium (Levothyroxine Sodium 50 Mcg Tablet) 50 mcg PO DAILY@0600 [facility] Last Admin: 05/31/24 06:11 Dose: 50 mcg Documented By: ANGELA Magnesium Hydroxide (Milk Of Magnesia 30 Ml Oral.Susp) 30 ml PO DAILY PRN PRN Reason: Constipation Melatonin (Melatonin 3 Mg Tablet) 6 mg PO BEDTIME PRN PRN Reason: Insomnia Last Admin: 05/28/24 21:38 Dose: 6 mg Documented By: VENTURA Oxycodone HCl (Oxycodone Hcl Immed Release 5 Mg Tablet) 5 mg PO Q6H PRN PRN Reason: Pain, Moderate(Pain Scale 4-6) Last Admin: 05/30/24 15:34 Dose: 5 mg Documented By: GUILLERMO Sertraline HCl (Sertraline Hcl 50 Mg Tablet) 50 mg PO DAILY [facility] Last Admin: 05/31/24 09:46 Dose: 50 mg Documented By: PETER Sodium Chloride (0.9 % Sodium Chloride Flush 3 Ml Syringe) 3 ml IVFLUSH QSHIFT [facility] Last Admin: 05/31/24 09:46 Dose: 3 ml Documented By: PETER Labs 05/29/24 07:00 05/30/24 06:28 Labs: Laboratory Results - last 24 hr 05/30/24 05/30/24 05/31/24 16:21 20:15 07:15 POC Glucose 135 H 210 H 144 H 05/31/24 11:16 POC Glucose 262 H Assessment and Plan (1) Pneumonia: Status: Acute (2) Pulmonary emboli: Status: Acute Plan 56-year-old female with a past medical history of HTN, HLD, anxiety, depression presented to the hospital with a chief complaint of shortness of breath and cough of 2-3 days' duration, shortness of breath worse with exertion with no associated orthopnea and PND and admitted for following medical issues 1.Sepsis/likely due to pneumonia(sepsis resolved) -ceftriaxone/azithromycin (4) -add prednisone taper... Complete taper as outpatient 2.Bilateral subsegmental PE -DC Lovenox and favor Eliquis 10 mg b.i.d. x7 days then Eliquis 5 mg BID -outpatient follow up 3.CHANTALE on CKD 3 -responded to volume -follow renal/divalents 4.Hypertension -add losartan 50 mg daily -continue other current therapies -adjust as indicated 5.Diabetes Type II -acceptable control on current therapy -lispro correctional scale -adjust as indicated Full code Eloquis Quality Stroke Does the patient have a stroke diagnosis?: No VTE Prior VTE?: No VTE Risk Level:: Medical - moderate - high VTE Device Contraindication: Treatment Not Indicated VTE Drug Contraindication: N/A - Med Ordered
[2024-05-31] MEDS: Losartan Potassium 50 MG TABLET PO (15:06)
[2024-05-31 15:40] VITALS: BP 163/73; PULSE 71; RESP 18; TEMP 36.7; O2SAT 94
[2024-05-31 16:04] LABS: Glucose, Whole Blood 328 mg/dL (60-115)
[2024-05-31 19:18] VITALS: BP 169/80; PULSE 80; RESP 20; TEMP 37.1; O2SAT 98
[2024-05-31 20:36] LABS: Glucose, Whole Blood 201 mg/dL (60-115)
[2024-05-31] MEDS: Insulin Glargine,Hum.rec.anlog 100 UNIT/ML 10 ML VIAL 20 UNIT SUBCUT (21:23)
[2024-05-31] MEDS: Azithromycin 500 MG in 0.9 % Sodium Chloride 250 ML 125 MG IV (21:24)
[2024-05-31] MEDS: Atorvastatin Calcium 10 MG TABLET PO (21:25)
[2024-05-31] MEDS: cefTRIAXone sodium 1 GM VIAL IVPUSH (21:25)
[2024-05-31] MEDS: Milk of Magnesia 30 ML ORAL.SUSP PO (21:41)
[2024-05-31 23:18] VITALS: BP 150/70; PULSE 75; RESP 16; TEMP 37.3; O2SAT 96
[2024-06-01] MEDS: 0.9 % Sodium Chloride Flush 3 ML SYRINGE IVFLUSH ×2 (00:36→07:47)
[2024-06-01 03:28] VITALS: BP 158/76; PULSE 75; RESP 16; TEMP 37.1; O2SAT 94
[2024-06-01] MEDS: Levothyroxine Sodium 50 MCG TABLET PO (05:29)
[2024-06-01 07:09] VITALS: BP 166/74; PULSE 70; RESP 16; TEMP 36.8; O2SAT 96
[2024-06-01 07:12] LABS: Glucose, Whole Blood 168 mg/dL (60-115)
[2024-06-01] MEDS: guaiFENesin DM 200/20/10 ML 10 ML SYRUP PO (07:40)
[2024-06-01] MEDS: Insulin Lispro 100 UNIT/ML 3 ML VIAL SUBCUT (07:40)
[2024-06-01] MEDS: Folic Acid 1 MG TABLET PO (07:40)
[2024-06-01] MEDS: Apixaban 5 MG TABLET 10 MG PO (07:41)
[2024-06-01] MEDS: amLODIPine Besylate 5 MG TABLET PO (07:41)
[2024-06-01] MEDS: Losartan Potassium 50 MG TABLET PO (07:42)
[2024-06-01] MEDS: Ezetimibe 10 MG TABLET PO (07:42)
[2024-06-01] MEDS: Sertraline HCL 50 MG TABLET PO (07:42)
[2024-06-01 07:44] LABS: Basophils Absolute Auto 0.1 X10*3/uL (0.0-0.2); Basophils Percent Auto 0.7 % (0-2); Eosinophils Absolute Auto 0.2 X10*3/uL (0.0-0.4); Eosinophils Percent Auto 2.3 % (0-4); Hematocrit 29.9 % (37.0-47.0); Hemoglobin 9.6 g/dl (12.0-16.0); Imm Gran Pct Auto 3.8 % (0.0-0.4); Lymphocytes Absolute Auto 2.2 X10*3/uL (1.2-4.9); MANUAL DIFF FLAG SCAN; Mean Corpuscular HGB Conc 32.1 g/dl (31.0-35.0); Mean Corpuscular Hemoglobin 27.6 pg (27.0-33.0); Mean Corpuscular Volume 85.9 fL (80.0-98.0); Mean Platelet Volume 9.6 fL (9.4-12.3); Monocytes Absolute Auto 1.6 X10*3/uL (0.1-1.2); Monocytes Percent Auto 14.8 % (2-11); Neutrophils Percent Auto 57.4 % (45-73); Platelet Count 341 X10*3/uL (160-400); Red Blood Count 3.48 X10*6/uL (4.20-5.50); Red Cell Distribution Width 13.2 % (11.0-16.0); SCAN SMEAR FLAG 1; White Blood Count 10.5 X10*3/uL (4.8-10.8)
[2024-06-01 07:58] LABS: Alanine Aminotransferase 13 U/L (0-31); Albumin Level 2.8 g/dL (3.5-5.0); Alkaline Phosphatase 119 U/L (39-117); Anion Gap 12 (12-20); Aspartate Amino Transferase 25 U/L (5-31); Bilirubin Total 0.5 mg/dL (0.0-1.0); Blood Urea Nitrogen 32 mg/dL (9-16); Calcium 8.4 mg/dL (8.4-10.2); Carbon Dioxide 26 mmol/L (22-29); Chloride 105 mmol/L (96-108); Creatinine Clr Calc Pharmacy 62.2; Estimated Glomerular Filt Rate 56; Glucose Fasting 181 mg/dL (60-99); Potassium 3.3 mmol/L (3.3-5.1); Sodium 140 mmol/L (135-145); Total Protein 6.7 g/dL (6.5-8.0)
[2024-06-01 08:14] LABS: SLIDE REVIEW VERIFIED
[2024-06-01 10:51] VITALS: RESP 18
[2024-06-01 10:53] VITALS: BP 152/68; PULSE 74; TEMP 37; O2SAT 92
[2024-06-01 11:11] LABS: Glucose, Whole Blood 203 mg/dL (60-115)
--- NOTE | 2024-06-01 11:32 | PM.DS ---
DS: Providers Provider Date of Service: 06/01/24 Date of admission: 05/28/24 03:13 Date of discharge: 06/01/24 Primary care physician: Rodriguez Christensen MD DS: Diagnosis Discharge Diagnosis (1) Pneumonia: Status: Acute (2) Pulmonary emboli: Status: Acute DS: Summary Hospital Course Hospital Course: 63-year-old female with a past medical history of HTN, HLD, dm, CKD, anxiety, depression, hypothyroidism presented to the hospital today with a chief complaint of cough and shortness of breath. Patient reports that over the past 2-3 days she has been not feeling well; has been having cough with productive sputum. Reports that she has been short of breath especially on exertion. Denies any orthopnea or PND. Denies any fevers and chills. Denies any sick contacts. Day reports that she has a lot of cough and she has posttussive chest discomfort. Mentioned that she developed fevers of she came to the ER. Denies any GI or symptoms. Hospital Course Patient admitted to telemetry. CTA demonstrated a submassive PE. Patient was started on Lovenox and empiric antibiotics covered. Patient received a 2D echo while in-house which did not demonstrate any right ventricular strain pattern. She did well in response to antibiotics and her oxygen was subsequently weaned. She was switch to p.o. Eliquis without issue and on the day of discharge was satting without issue on room air. At this point in time she is medically acceptable for discharge to home. Time Attestation Discharge Coordination Time (in mins): 35 Quality: Safe Use of Opioids Does Pt have an Active Cancer Diagnosis on the Problem List?: No Quality: Stroke Does the patient have a stroke diagnosis?: No Physical Exam Vital Signs: Vital Signs: Last Vital Signs Temp 98.6 F 06/01/24 10:53 Pulse 74 06/01/24 10:53 Resp 18 06/01/24 10:51 BP 152/68 H 06/01/24 10:53 Pulse Ox 92 06/01/24 10:53 O2 Del Method Room Air 06/01/24 10:53 O2 Flow Rate 1 06/01/24 07:09 BMI result Body Mass Index 31.3 Const: Other: Awake alert oriented x3 in no acute distress Resp: Other: Diffuse expiratory wheezes throughout no rhonchi noted Cardio: Other: No S4; positive S1-S2; no S3 murmurs rubs or gallops GI: Other: Soft nontender nondistended normoactive bowel sounds Extrem: Other: No edema bilaterally DS: Data Data Completed and Pending Labs on day of discharge: Laboratory Results - last 24 hr 05/31/24 05/31/24 06/01/24 16:01 20:32 06:09 WBC 10.5 RBC 3.48 L Hgb 9.6 L Hct 29.9 L MCV 85.9 MCH 27.6 MCHC 32.1 RDW 13.2 Plt Count 341 D MPV 9.6 Immature Gran % (Auto) 3.8 H Neut % (Auto) 57.4 Lymph % (Auto) 21.0 [facility] % (Auto) 14.8 H Eos % (Auto) 2.3 Baso % (Auto) 0.7 Lymph # (Auto) 2.2 [facility] # (Auto) 1.6 H Eos # (Auto) 0.2 Baso # (Auto) 0.1 Abs Immat Gran (auto) 0.40 H Absolute Neuts (auto) 6.0 Absolute Nucleated RBC 0.000 Nucleated RBC % (auto) 0.0 Smear Tech's Comments VERIFIED Sodium 140 Potassium 3.3 Chloride 105 Carbon Dioxide 26 Anion Gap 12 BUN 32 H Creatinine 1.01 Estim Creat Clear Calc 62.2 Estimated GFR 56 POC Glucose 328 H 201 H Fasting Glucose 181 H Calcium 8.4 Total Bilirubin 0.5 AST 25 ALT 13 Alkaline Phosphatase 119 H Total Protein 6.7 Albumin 2.8 L 06/01/24 06/01/24 07:08 11:07 WBC RBC Hgb Hct MCV MCH MCHC RDW Plt Count MPV Immature Gran % (Auto) Neut % (Auto) Lymph % (Auto) [facility] % (Auto) Eos % (Auto) Baso % (Auto) Lymph # (Auto) [facility] # (Auto) Eos # (Auto) Baso # (Auto) Abs Immat Gran (auto) Absolute Neuts (auto) Absolute Nucleated RBC Nucleated RBC % (auto) Smear Tech's Comments Sodium Potassium Chloride Carbon Dioxide Anion Gap BUN Creatinine Estim Creat Clear Calc Estimated GFR POC Glucose 168 H 203 H Fasting Glucose Calcium Total Bilirubin AST ALT Alkaline Phosphatase Total Protein Albumin Preliminary micro results at discharge 05/27/24 21:26 Blood Culture - Preliminary Blood - Venous No growth after 48 hours. 05/27/24 20:03 Blood Culture - Preliminary Blood - Venous No growth after 48 hours. Discharge Plan Discharge Anticipated Discharge Date/Time: 06/01/24 11:15 Patient Disposition: Home Health Service Discharge Diagnosis: Acute pulmonary emboli Referrals: Rodriguez Christensen MD [Primary Care Provider] - 1 Week Discharge Medications: New amlodipine 5 mg Tablet 5 mg PO DAILY Qty: 30 0RF Protocol: Hold for SBP< HOLD for SBP < : 90 levothyroxine 50 mcg Tablet 50 mcg PO DAILY@0600 Qty: 30 0RF cefuroxime axetil 500 mg tablet 500 mg PO BID 7 Days Qty: 14 0RF prednisone 20 mg tablet See Rx Instructions .Route .COMPLEX Qty: 18 0RF Rx Instructions: 20 mg orally; 3 tabs daily for 3 days, 2 tabs daily for 3 days, 1 tab daily for 3 days Eliquis 5 mg tablet See Rx Instructions .ROUTE .COMPLEX Qty: 70 0RF Rx Instructions: 5 mg tabs:Two tabs (10 mg) q.12 hours x1 week; then 1 tab (5 mg) p.o. b.i.d. Continued atorvastatin [Lipitor] 10 mg tablet 10 mg PO BEDTIME 90 Days Qty: 90 1RF ezetimibe 10 mg tablet 10 mg PO DAILY Qty: 90 1RF folic acid 1 mg tablet 1 mg PO DAILY Qty: 90 3RF insulin glargine [Lantus Solostar U-100 Insulin] 100 unit/mL (3 mL) insulin pen 20 unit subcut BEDTIME dapagliflozin propanediol [Farxiga] 10 mg tablet 10 mg PO DAILY Trulicity 1.5 mg/0.5 mL pen injector 1.5 mg subcut GAGNON indapamide 2.5 mg tablet 2.5 mg PO DAILY insulin lispro [Humalog KwikPen Insulin] 100 unit/mL insulin pen 5 unit subcut TID PRN (Reason: for sugar >205 ) (DME) pen needle, diabetic [Comfort EZ Pen [place]] 32 gauge x 1/4 needle See Rx Instructions .ROUTE .MEDSUPPLY Qty: 50 0RF Rx Instructions: As directed (DME) pen needle, diabetic [BD Ultra-Fine Chen Pen Needle] 32 gauge x 5/32 needle See Rx Instructions .MEDSUPPLY Qty: 100 3RF Rx Instructions: As directed (DME) insulin syringe-needle U-100 [BD Insulin Syringe Ultra-Fine] 0.5 mL 31 gauge x 5/16 syringe See Rx Instructions .Route Qty: 100 6RF Rx Instructions: Use 1 needle four times a day losartan [Cozaar] 100 mg tablet 100 mg PO DAILY Qty: 90 3RF (DME) lancets [FreeStyle Lancets] 28 gauge misc See Rx Instructions .ROUTE .MEDSUPPLY Qty: 200 5RF Rx Instructions: Use to monitor blood glucose 3 times daily. (DME) FreeStyle Griffin 3 Plus Sensor Device See Rx Instructions .ROUTE .MEDSUPPLY Qty: 2 11RF Rx Instructions: Apply 1 new sensor every 14-15 days as directed to monitor blood glucose continuously. (DME) FreeStyle Griffin 3 [place] Misc See Rx Instructions .ROUTE .MEDSUPPLY Qty: 1 0RF Rx Instructions: Use daily to monitor blood glucose levels continuously. (DME) blood-glucose meter [FreeStyle Lite Meter] Kit See Rx Instructions .ROUTE .MEDSUPPLY Qty: 1 0RF Rx Instructions: As directed to check blood glucose 3 times daily. (DME) FreeStyle Lite Strips Strip See Rx Instructions .ROUTE .MEDSUPPLY Qty: 200 5RF Rx Instructions: As directed to check glucose 3 times daily. glucose [Dex4 Glucose Quick Dissolve] 4 gram tablet,chewable 16 g PO Q15M PRN (Reason: hypoglycemia) Qty: 10 3RF Rx Instructions: until symptoms of low blood sugar are controlled TRUEplus Glucose 15 gram/32 mL gel in packet 15 g PO Q15M PRN (Reason: hypoglycemia) Qty: 128 3RF Rx Instructions: until symptoms of low blood sugar are controlled Discontinued levothyroxine 75 mcg tablet 75 mcg PO DAILY@0600 Discharge Orders: Discharge Order (Routine); Ordered 06/01/24 Ordered By: Eduardo Menard Diet: Advance to usual diet Activity on Discharge: As tolerated Stand Alone Forms: Patient Portal Discharge page Print Language: Macedonian Care Plan Goals: Continue Eliquis as ordered. Follow instructions on label. You have been prescribed a prednisone taper as well as antibiotics. You need to complete these as outlined. Your thyroid dose has been reduced; take the new meds daily as ordered. Follow up with the PCP next available Health Concerns: Resume all other previous medications; amlodipine has been added for your blood pressure. Your PCP can decide going forward what if anything else is needed Plan of Treatment: [facility] will follow you for your saturations Assessment: See discharge summary
--- NOTE | 2024-06-01 11:38 | W.MHC.F2F ---
Service Date Service Date: 06/01/24 Encounter Date of encounter: 06/01/24 Encounter: Acute hospitalization Reasons for Services Signs and symptoms assessed: Assess respiratory status and med compliance Reason for shelter: medication management, teach disease management and other (Monitor oxygen saturation) Homebound: Leaving the home is medically contraindicated at this time without the asist of a device and/or another person due th the listed conditions above and below. Reason homebound: shortness of breath at rest and weakness related to hospital stay Certification: Based on the above findings, I certify that this patient is confined to the home and needs intermittent shelter care, physical therapy and/or speech therapy, or continues to need occupational therapy. The patient is under my care, and I have initiated the establishment of the plan of care. The patient will be followed by a physician who will periodically review the plan of care. Time Spent With Patient Time: Total time managing care of this patient today ____ minutes.
--- NOTE | 2024-06-01 11:46 | MHC.CM.PN ---
Pt has been medically cleared for DC, she will go home via family transport, and have home health services from [facility].
== END 2024-06-01 12:00 | disposition home health service (06) | DRG 720 ==
LOC: HO.ED 20:49 → HO.EDOVER 05-28 03:16 → HO.IMC 05-28 19:49
PROVIDERS: Hospitalist; Physician Assistant; Physician Assistant Medical; Admitting Provider Hospitalist; Emergency Provider Emergency Medicine; PCP Internal Medicine; Visit Provider Hospitalist
DX: A41.9 Sepsis, unspecified organism (principal); I26.94 Multiple subsegmental thrombotic pulmonary emboli without acute cor pulmonale; E87.21 Acute metabolic acidosis; J91.8 Pleural effusion in other conditions classified elsewhere; N17.9 Acute kidney failure, unspecified; E11.22 Type 2 diabetes mellitus with diabetic chronic kidney disease; I12.9 Hypertensive chronic kidney disease with stage 1 through stage 4 chronic kidney disease, or unspecified chronic kidney disease; N18.30 Chronic kidney disease, stage 3 unspecified; E11.65 Type 2 diabetes mellitus with hyperglycemia; Z20.822 Contact with and (suspected) exposure to COVID-19; Z87.891 Personal history of nicotine dependence; Z79.4 Long term (current) use of insulin; Z79.85 Long-term (current) use of injectable non-insulin antidiabetic drugs; Z79.890 Hormone replacement therapy; Z79.899 Other long term (current) drug therapy
CPT/HCPCS: 0241U; 36415; 71046; 78580; 80048; 80053; 82010; 82803; 82947; 83605; 83690; 83880; 84439; 84443; 85025; 85027; 85379; 85610; 85730; 87040; 87651; 93306; 93970; 97161; 99285; A9540; J0456; J0696; J1650; J7120; Q9957

== ENCOUNTER → 2024-05-27 19:43 | Outpatient (BNV) | payer OTHER, SELFPAY | PROVIDERS: PCP Internal Medicine; Visit Provider Student in an Organized Health Care Education/Training Program | DX: R05.9 Cough, unspecified (principal); R06.02 Shortness of breath | CPT/HCPCS: 71046 ==

== ENCOUNTER 2024-05-28 03:13 | Outpatient (BNV) | payer OTHER, SELFPAY | END 2024-05-28 10:05 | PROVIDERS: Admitting Provider Hospitalist; Emergency Provider Emergency Medicine; PCP Internal Medicine; Visit Provider Radiology Diagnostic Radiology | DX: J90 Pleural effusion, not elsewhere classified (principal) | CPT/HCPCS: 78580 ==

== ENCOUNTER 2024-05-28 03:13 | Outpatient (BNV) | payer OTHER, SELFPAY | END 2024-05-29 10:23 | PROVIDERS: Admitting Provider Hospitalist; Emergency Provider Emergency Medicine; PCP Internal Medicine; Visit Provider Radiology Diagnostic Radiology | DX: I82.411 Acute embolism and thrombosis of right femoral vein (principal) | CPT/HCPCS: 93970 ==

== ENCOUNTER 2024-05-28 03:13 | Outpatient (BNV) | payer OTHER, SELFPAY | END 2024-05-28 07:00 | PROVIDERS: Admitting Provider Hospitalist; Emergency Provider Emergency Medicine; PCP Internal Medicine; Visit Provider Internal Medicine Cardiovascular Disease | DX: I27.20 Pulmonary hypertension, unspecified (principal); I42.8 Other cardiomyopathies | CPT/HCPCS: 93306 ==

== ENCOUNTER → 2024-05-28 03:13 | Outpatient (BNV) | payer OTHER, SELFPAY | PROVIDERS: Admitting Provider Hospitalist; Emergency Provider Emergency Medicine; PCP Internal Medicine; Visit Provider Hospitalist | DX: J18.9 Pneumonia, unspecified organism (principal); I26.99 Other pulmonary embolism without acute cor pulmonale | CPT/HCPCS: 99233; 99239; G0180 ==

== ENCOUNTER 2024-06-11 07:27 | Outpatient (REF) | payer OTHER, SELFPAY ==
[2024-06-11 08:45] LABS: Anion Gap 15 (12-20); Blood Urea Nitrogen 40 mg/dL (9-16); Calcium 9.6 mg/dL (8.4-10.2); Carbon Dioxide 24 mmol/L (22-29); Chloride 102 mmol/L (96-108); Estimated Glomerular Filt Rate 36; Glucose Random 252 mg/dL (60-115); Potassium 3.9 mmol/L (3.3-5.1); Sodium 137 mmol/L (135-145)
[2024-06-11 08:56] LABS: Appearance Urine Cloudy; Color Urine Yellow; Glucose Urine UA >=1000 mg/dL (Negative); Leukocyte Esterase Urine Small (1+) (Negative); Nitrite Urine Negative (Negative); Specific Gravity - Urine 1.025 (1.005-1.025); UMIC TRIGGER UA YES; Urine Blood Negative (Negative); Urine Ketones Negative (Negative); Urine Protein 30 (1+) mg/dL (Neg-Trace)
[2024-06-11 09:11] LABS: Bacteria Urine 2+ (None Seen); Hyaline Casts Urine 0-2 /LPF (0-2); RBC Urine 0-2 /HPF (0-2); WBC Urine 0-5 /HPF (0-5)
== END 2024-06-11 07:28 | disposition home or self-care (01) ==
LOC: HO.LAB 07:27
PROVIDERS: PCP Internal Medicine; Visit Provider Internal Medicine Hypertension Specialist
DX: E11.9 Type 2 diabetes mellitus without complications (principal); R80.9 Proteinuria, unspecified; N18.9 Chronic kidney disease, unspecified
CPT/HCPCS: 36415; 80048; 81001

== ENCOUNTER 2024-06-12 11:26 | Outpatient (AMB) | payer OTHER, SELFPAY ==
[2024-06-12 11:25] VITALS: BP 134/88; PULSE 66; O2SAT 98; BMI 31.6
--- NOTE | 2024-06-12 11:25 | HO.NEPHOV ---
Vital Signs 06/12/24 11:25 Height 5 ft 6 in Weight 196 lb BMI 31.6 BP 134/88 Blood Pressure Location Rt brachial Position Sitting Pulse 66 Pulse Source Pulse Oximeter Pulse Oximetry (%) 98 Oxygen Delivery Method Room Air Intake Visit Reasons: CKD/ Conf Accompanied by: Daughter Allergies No Known Allergies Allergy (Verified 06/12/24 11:28) Medication List - Last Reconciled 06/12/24 by Leonardo Robbins MD amlodipine 5 mg PO DAILY amlodipine 5 mg See Protocol PO DAILY apixaban (Eliquis) 5 mg tabs:Two tabs (10 mg) q.12 hours x1 week; then 1 tab (5 mg) p.o. b.i.d. atorvastatin (Lipitor) 10 mg PO BEDTIME 90 days blood sugar diagnostic (FreeStyle Lite Strips) As directed to check glucose 3 times daily. blood-glucose meter (FreeStyle Lite Meter kit) As directed to check blood glucose 3 times daily. blood-glucose sensor (FreeStyle Griffin 3 Plus Sensor device) Apply 1 new sensor every 14-15 days as directed to monitor blood glucose continuously. blood-glucose,real estate closing coordinator,cont (FreeStyle Griffin 3 [place]) Use daily to monitor blood glucose levels continuously. dapagliflozin propanediol (Farxiga) 10 mg PO DAILY dextrose (TRUEplus Glucose) 15 grams (32 mL) PO Q15M PRN dulaglutide (Trulicity) 1.5 mg subcut GAGNON ezetimibe 10 mg PO DAILY folic acid 1 mg PO DAILY glucose (Dex4 Glucose Quick Dissolve) 16 grams (4 x 4 gram) PO Q15M PRN indapamide 2.5 mg PO DAILY insulin glargine (Lantus Solostar U-100 Insulin) 20 units subcut BEDTIME insulin lispro (Humalog KwikPen (U-100) Insulin) 5 units subcut TID PRN insulin syringe-needle U-100 (BD Insulin Syringe Ultra-Fine) Use 1 needle four times a day lancets (FreeStyle Lancets) Use to monitor blood glucose 3 times daily. levothyroxine 50 mcg PO DAILY losartan (Cozaar) 100 mg PO DAILY pen needle, diabetic (Comfort EZ Pen [place]) As directed pen needle, diabetic (BD Ultra-Fine Chen Pen Needle) As directed HPI Comments Details: Middle-aged woman with a history of longstanding diabetes mellitus hypertension has been referred for evaluation of CKD and proteinuria. CV was accompanied by her daughter was able to translate. She has longstanding history of diabetes mellitus blood sugar has been poorly controlled. She has been noncompliant with her diet according to her daughter. Patient does not exercise. Doing better today. She does not drink soda anymore. Metformin has been discontinued. No new issues today 03/10/24 Doing well. Farxiga was added - but she has not started it yet- ? why She ran out of losartan for the past 1 month 06/12/24 REcently in ER with dyspnea VQ scan showed VQ mismatch- NOw on Eliquis Still has cough NO urinary sypmtoms. NO edema PFSH Medical History Pulmonary emboli Pneumonia Hypoglycemia At risk for foot problem Type II diabetes with intermission coordinator use of insulin CKD (chronic kidney disease) Diabetes mellitus High cholesterol Anxiety Depression History of carpal tunnel syndrome Hypertension Surgical History H/O tubal ligation Family History Mother Hypertension Diabetes mellitus Arthritis Other Mental health disorder Social History Household Members: Children Housing: Apartment Alcohol intake: current Alcohol intake frequency: a few times a month Patient Tobacco Use Status: Never used Tobacco e-Cigarette/Vaping Use: Never Used Second Hand Smoke Exposure: No service: No Current occupational status: unemployed Cognitive needs: No Hearing needs: No Vision needs: No Physical Exam Vital Signs: Last Vital Signs Pulse 66 06/12/24 11:25 BP 134/88 06/12/24 11:25 Pulse Ox 98 06/12/24 11:25 Oxygen Delivery Method Room Air 06/12/24 11:25 BMI result Body Mass Index 31.6 Comfortable Neck supple no JVD. Lungs entry equal no rales. Heart S1-S2 heard no gallop or rub. Abdomen soft nontender. Neuro alert awake oriented. No asterixis. Extremities no edema. Results Reviewed Nephrology Results: Hgb 9.6 g/dl (12.0-16.0) L 06/01/24 WBC 10.5 X10*3/uL (4.8-10.8) 06/01/24 Plt Count 341 X10*3/uL (160-400) 06/01/24 Sodium 137 mmol/L (135-145) 06/11/24 Potassium 3.9 mmol/L (3.3-5.1) 06/11/24 Chloride 102 mmol/L (96-108) 06/11/24 Carbon Dioxide 24 mmol/L (22-29) 06/11/24 BUN 40 mg/dL (9-16) H 06/11/24 Creatinine 1.48 mg/dL (0.5-1.4) H 06/11/24 Calcium 9.6 mg/dL (8.4-10.2) 06/11/24 Urine Protein 30 (1+) mg/dL (Neg-Trace) H 06/11/24 Assessment & Plan Assessment & Plan (1) CKD (chronic kidney disease): Code(s): N18.9 - Chronic kidney disease, unspecified Category: Medical Plan: Middle-aged woman with longstanding diabetes mellitus hypertension with mild CKD. She has stage III CKD most likely due to hypertensive diabetic kidney disease. Superimposed CHANTALE ? hypoperfusion Goal also slow the progression of renal disease. Continue with Dominick inhibition. She will benefit from SGLT-2 inhibitor. on Farxiga Increase PO fluids Recheck labs in 1 weeks Discussed importance of tight control blood sugar and blood pressure. Continue to avoid nephrotoxic agents including NSAIDs. . (2) Microalbuminuria: Code(s): R80.9 - Proteinuria, unspecified Category: Medical Plan: Due to underlying diabetic kidney disease. Continue with ARB . (3) Hypertension: Code(s): I10 - Essential (primary) hypertension Category: Medical Plan: blood pressure was acceptable. Goal is to maintain blood pressure less than 130/80. Continue current regimen. She should stay on low-sodium diet and she requires weight loss which we had discussed . Coding Level of Care Code Est Pt Level 4 (27413) Diagnoses CKD (chronic kidney disease) N18.9 Microalbuminuria R80.9 Hypertension I10
--- OUTSIDE RECORDS SUMMARY | 2024-06-12 13:44 | XMS_ITS | Clinical Summary ---
Author Organization [facility] Address [address] [place] [address] Phone Care Team Providers Care Hot Oiler Name Role Phone Charity Hughes MD Primary Care Provider [phone] Allergies No known active allergies Medications metFORMIN (GLUCOPHAGE) 500 mg tablet TAKE 1 TABLET BY MOUTH TWICE A DAY 10/16/2023 Active pen needle, diabetic 32 gauge x 5/32 needle USE UP TO 4 TIMES A DAY WITH INSULIN PEN. 10/03/2023 Active flash glucose scanning reader (FreeStyle Griffin 2 [place]) misc by Does not apply route. Active [...] nephropathy, with long-term current use of insulin ([facility] V24, [facility] V28) 01/30/2024 Surgical History Surgery Date Site/Laterality Comments TUBAL LIGATION PROCEDURE: HISTORICAL TUBAL LIGATION CHOLECYSTECTOMY PROCEDURE: [place] CHOLECYSTECTOMY Medical History Medical History Date Comments DM (diabetes mellitus) ([facility] V24, [facility] V28) DX:DM (diabetes mellitus) (H CC) HTN (hypertension) DX:HTN (hyper tension) Disorder of [...] Sexual Orientation Not on file Obstetrics History Para Term AB IAB SAB Ectopic Multiple Livin g Live Births 14 4 4 Date Outcome GA Total Labor Labor/2nd/3rd Weight Sex Type Anes PTL [place] A1 A5 Name Clin Term Term Term Term Last Filed Vital Signs Vital Sign Reading [...] 12/19/2021 10:14 AM EDT Plan of Treatment Health Maintenance Due Date Last Done Comments [...] Vaccine ( - 2023-2 5 season) 2023 Diabetes: Annual Urine Albumin-Creatinine Ratio (uACR) 12/03/2023 Diabetes: Blood Sugar Contro l Test (HGBA1C) 12/03/2023 Influenza Vaccine (Season Ended) 2024 Cervical Cancer Screening: HPV 12/20/2027 12/19/2022 HIV [...] Cervical Cancer Screening: HPV abstracted, no interpretation [facility] Provider HEALTH MAINTENANCE Final Result * HIV Screening (12/19/2021) Pathologist [facility] HIV Screening abstracted [facility] Provider HEALTH MAINTENANCE Final Result * Hepatitis C Screening (12/19/2021) Pathologist [facility] Hepatitis C Screening abstracted [facility] Provider HEALTH MAINTENANCE Final Result from Last 3 Months or Most Recently Relevant to Health Maintenance Insurance [facility] [facility] Care Teams Hot Oiler Relationship Specialty Start Date End Date Charity Hughes MD [address] [place] [address] , [address] [facility] D/B/A: [facility] [place] [facility] PCP - General Internal Medicine 10/12/21
== END 2024-06-12 11:41 | disposition home or self-care (01) ==
LOC: HO.HKA 11:27
PROVIDERS: PCP Internal Medicine; Visit Provider Internal Medicine Hypertension Specialist
DX: R80.9 Proteinuria, unspecified (principal); I12.9 Hypertensive chronic kidney disease with stage 1 through stage 4 chronic kidney disease, or unspecified chronic kidney disease; E11.22 Type 2 diabetes mellitus with diabetic chronic kidney disease; N18.2 Chronic kidney disease, stage 2 (mild)
CPT/HCPCS: 99214

== ENCOUNTER → 2024-06-12 11:26 | Outpatient (BNVA) | payer OTHER, SELFPAY | PROVIDERS: PCP Internal Medicine; Visit Provider Internal Medicine Hypertension Specialist | DX: I12.9 Hypertensive chronic kidney disease with stage 1 through stage 4 chronic kidney disease, or unspecified chronic kidney disease (principal); N18.9 Chronic kidney disease, unspecified; R80.9 Proteinuria, unspecified | CPT/HCPCS: 96127; 99212 ==

== ENCOUNTER 2024-06-12 13:04 | Outpatient (AMB) | payer OTHER, SELFPAY ==
--- NOTE | 2024-06-12 13:28 | A.OFFPC_ITS ---
Vital Signs 06/12/24 13:29 Height 5 ft 6 in Weight 195 lb BMI 31.5 BP 120/72 Blood Pressure Location Rt brachial Position Sitting Pulse 71 Pulse Source Pulse Oximeter Temp 97.1 F Temp Source Temporal Artery Scan Pulse Oximetry (%) 98 Oxygen Delivery Method Room Air Intake Visit Reasons: [facility] 06/01 cough and high sugar Intake Note: Patient is here to follow-up after a visit the emergency department at [facility] on 05/27/24 [employer] Required: No Intermediate Manager: Present Accompanied by: Daughter Allergies No Known Allergies Allergy (Verified 06/12/24 17:21) Medication List - Last Reconciled 06/12/24 by Roslyn Horne PA-C albuterol sulfate 90 mcg/actuation 1 inh inhalation QID PRN amlodipine 5 mg PO DAILY amlodipine 5 mg See Protocol PO DAILY apixaban (Eliquis) 5 mg tabs:Two tabs (10 mg) q.12 hours x1 week; then 1 tab (5 mg) p.o. b.i.d. apixaban (Eliquis) 5 mg PO BID 90 days atorvastatin (Lipitor) 10 mg PO BEDTIME 90 days blood sugar diagnostic (FreeStyle Lite Strips) As directed to check glucose 3 times daily. blood-glucose meter (FreeStyle Lite Meter kit) As directed to check blood glucose 3 times daily. blood-glucose sensor (FreeStyle Griffin 3 Plus Sensor device) Apply 1 new sensor every 14-15 days as directed to monitor blood glucose continuously. blood-glucose,allergy nurse,cont (FreeStyle Griffin 3 [place]) Use daily to monitor blood glucose levels continuously. dapagliflozin propanediol (Farxiga) 10 mg PO DAILY dextrose (TRUEplus Glucose) 15 grams (32 mL) PO Q15M PRN dulaglutide (Trulicity) 1.5 mg subcut GAGNON ezetimibe 10 mg PO DAILY folic acid 1 mg PO DAILY glucose (Dex4 Glucose Quick Dissolve) 16 grams (4 x 4 gram) PO Q15M PRN indapamide 2.5 mg PO DAILY insulin glargine (Lantus Solostar U-100 Insulin) 20 units subcut BEDTIME insulin lispro (Humalog KwikPen (U-100) Insulin) 5 units subcut TID PRN insulin syringe-needle U-100 (BD Insulin Syringe Ultra-Fine) Use 1 needle four times a day lancets (FreeStyle Lancets) Use to monitor blood glucose 3 times daily. levothyroxine 50 mcg PO DAILY losartan (Cozaar) 100 mg PO DAILY pen needle, diabetic (Comfort EZ Pen [place]) As directed pen needle, diabetic (BD Ultra-Fine Chen Pen Needle) As directed Tobacco use date assessed: 06/12/24 Dental Screening Dental Screen Date: 06/12/24 Did you have a dental visit in the last 12 months?: Yes Did you have a dental problem in the last 6 months where you did not have access to dental care?: No Was dental information given to patient?: Patient has dentist HPI [facility] 06/01 cough and high sugar HPI Details The patient is a 63-year-old female presenting with a follow-up visit after being hospitalized for a pulmonary embolism. The embolism was identified during a hospital stay following an emergency room evaluation. The management plan initiated at the hospital included Eliquis at 5 mg taken twice daily for anticoagulation. The patient was discharged on this regimen with a starter package available but now needs continued therapy for six months or more. There have been changes in her thyroid medication for hypothyroidism?from 75 mcg to 50 mcg?and clarification regarding dosage adjustments is required. The underlying reason for adjustment has not been fully communicated, but it was suggested during hospitalization. This patient also has Type 2 Diabetes Mellitus with prednisone-induced elevations in glucose levels. 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 She noted a weight loss of about 6 pounds on follow-up, but denied gastrointestinal symptoms or non-specific signs relating to significant blood changes, maintaining no overt blood loss or sudden weight-related challenges post-hospital discharge. Social History - Exercise: Engages in walking regularly as part of her physical activity. COUNT INCLUDES THE [facility] Medical History (Updated 06/12/24 @ 17:25 by Roslyn Horne PA-C) Hospital discharge follow-up Pulmonary emboli Anticoagulated on Eliquis Pneumonia Hypoglycemia At risk for foot problem Type II diabetes with intermediate use of insulin CKD (chronic kidney disease) Diabetes mellitus High cholesterol Anxiety Depression History of carpal tunnel syndrome Hypertension Surgical History H/O tubal ligation Family History Mother Hypertension Diabetes mellitus Arthritis Other Mental health disorder Social History Household Members: Children Housing: Apartment Alcohol intake: current Alcohol intake frequency: a few times a month Patient Tobacco Use Status: Never used Tobacco e-Cigarette/Vaping Use: Never Used Second Hand Smoke Exposure: No service: No Current occupational status: unemployed Cognitive needs: No Hearing needs: No Vision needs: No Questionnaire PHQ-9 Over the last 2 weeks, how often have you been bothered by any of the following problems? 1. Little interest or pleasure in doing things: not at all 2. Feeling down, depressed, or hopeless: not at all 3. Trouble falling or staying asleep, or sleeping too much: not at all 4. Feeling tired or having little energy: not at all 5. Poor appetite or overeating: not at all 6. Feeling bad about yourself - or that you are a failure or have let yourself or your family down: not at all 7. Trouble concentrating on things, such as reading the newspaper or watching television: not at all 8. Moving or speaking so slowly that other people could have noticed. Or the opposite - being so fidgety or restless that you have been moving around a lot more than usual: not at all 9. Thoughts that you would be better off or of hurting yourself in some way: not at all Total score: 0 Depression Screening Interpretation: Negative Depression Screening Done: Yes 55689 - PHQ-9 Billing: Yes Source: Developed by Drs. Giles Magallanes, Maye Mcfarlane, Jose M Trejo and colleagues, with an educational natacha from [employer]. Thrive Questionnaire Date Thrive assessed: 05/28/24 AUDIT C Alcohol Use Questionnaire (AUDIT-C) 1. How often do you have a drink containing alcohol?: Never Total Score: 0 Score Reviewed/Action Taken: No YENI-7 AMB Questionnaire YENI-7 Date YENI - 7 assessed: 06/12/24 Feeling nervous, anxious, or on edge: 0 = Not at all Not being able to stop or control worryin = Not at all Worrying too much about different things: 0 = Not at all Trouble relaxin = Not at all Being so restless that it is hard to sit still: 0 = Not at all Becoming easily annoyed or irritable: 0 = Not at all Feeling afraid as if something awful might happen: 0 = Not at all Total YENI-7 score (0-4 normal; 5-9 mild; 10-14 moderate; 15-21 severe): 0 Source: Developed by Drs. Giles Magallanes, Maye Mcfarlane, Jose M Trejo and colleagues, with an educational natacha from [employer]. YENI-7 Assessment Billing YENI-7 Assessment Tool: YENI-7 Assessment 24145 Review of Systems Const Details: - General: Reports weight loss of approximately 6 pounds. - Cardiovascular: Denies chest pain or edema. - Respiratory: Currently asymptomatic, denies breathing difficulties post- hospitalization. - Gastrointestinal: Denies gastrointestinal bleeding or changes in bowel habits. - Endocrine: Reports elevated blood sugar levels, attributed to prednisone use. Physical exam (Primary Care) Vital Signs: Last Vital Signs Temp 97.1 F 06/12/24 13:29 Pulse 71 06/12/24 13:29 BP 120/72 06/12/24 13:29 Pulse Ox 98 06/12/24 13:29 Oxygen Delivery Method Room Air 06/12/24 13:29 Care Plan Goal for BP management: <130/90 at Goal BMI result Body Mass Index 31.5 Tobacco/Smoking Status: Tobacco use Status Tobacco use date assessed 06/12/24 06/12/24 13:32 Patient Tobacco Use Status Never used Tobacco 06/12/24 13:32 e-Cigarette/Vaping Use Never Used 06/12/24 13:32 PHQ-9: PHQ-9 Score PHQ-9: Total score 0 06/12/24 13:42 Depression Screening Interpretation: Negative Thrive Assessment: Date of Thrive Assessment Date Thrive assessed 05/28/24 06/12/24 13:32 Const Other: Appearance: Alert. Oriented X3. No acute distress. Head: Normal external exam. Normocephalic. Atraumatic. Eyes: Pupils are equal, round, and reactive to light. Extraocular movements intact. Conjunctiva and sclera normal. Eyelids normal. Ears: External auditory canal normal. Tympanic membranes normal. Throat: Pharynx normal. Uvula midline. Moist mucous membranes. Neck: Normal inspection. Neck supple. Full range of motion. Cardiovascular: Normal heart rate and rhythm. Heart sound normal. No murmurs noted. Pulses normal throughout. Her heart didn't show any right ventricular strain pattern. Respiratory: No respiratory distress. Painless inspiration. Breath sounds normal. No wheezes/rales/rhonchi noted. Chest nontender. No accessory muscle usage noted or decreased air movement noted. Abdomen: Soft and nontender. Bowel sounds normal in all 4 quadrants. No distention noted. No organomegaly noted. No visible injury noted. Back: No costovertebral angle tenderness. Full range of motion noted. Skin: Skin warm and dry. Normal skin color. Normal skin turgor. No rashes/lesions/lacerations noted. Extremities: No lower extremity edema. Extremities exhibit normal range of motion. Extremities nontender. No swelling or pain in the legs. Neuro: Oriented X 3. No motor deficit. No sensory deficit. Reflexes normal. Coding Level of Care Code Est Pt Level 4 (93172) Complex EM visit Add On G2211 Diagnoses Hospital discharge follow-up Z09 Pulmonary emboli I26.99 Anticoagulated on Eliquis Z79.01 Hypothyroidism E03.9 Hypertension I10 Type II diabetes with intermediate use of insulin E11.9; Z79.4 Additional Codes YENI-7 Assessment Billing - YENI-7 Assessment Tool: YENI-7 Assessment 25790 ([id number]) PHQ-9 - 69218 - PHQ-9 Billing: Yes ([id number]) Assessment & Plan Assessment & Plan (1) Hospital discharge follow-up: Code(s): Z09 - Encounter for follow-up examination after completed treatment for conditions other than malignant neoplasm Category: Medical (2) Pulmonary emboli: Code(s): I26.99 - Other pulmonary embolism without acute cor pulmonale Category: Medical Plan: Continued Eliquis treatment for anticoagulation is critical to managing her pulmonary embolism. Adherence to dosing schedules and the importance of monitoring for symptoms of bleeding or further embolic events were emphasized. Condition is new in stable will continue to monitor. (3) Anticoagulated on Eliquis: Code(s): Z79.01 - prison (current) use of anticoagulants Category: Medical Plan: Patient to continue Eliquis for pulmonary embolism and patient to follow-up with oncology/hematology. Pulmonary embolism is new unstable continue to monitor. (4) Hypothyroidism: Code(s): E03.9 - Hypothyroidism, unspecified Category: Medical Plan: Updated levothyroxine dosing from 75 mcg to 50 mcg is part of her therapy, with a recommended follow-up on thyroid function tests to refine her care. Condition is chronic and stable continue to monitor. (5) Hypertension: Code(s): I10 - Essential (primary) hypertension Category: Medical Plan: Amlodipine is maintained, and blood pressure will be monitored in subsequent visits, with the possibility of modifying the regimen based on evolving health needs. Condition is chronic and stable continue to monitor. 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 Condition is chronic and stable continue to monitor. Plan Plan Patient was informed and verbally consented to the use of an ambient scribe for clinic note documentation during this visit. 1. Pulmonary Embolism Continued Eliquis treatment for anticoagulation is critical to managing her pulmonary embolism. Adherence to dosing schedules and the importance of monitoring for symptoms of bleeding or further embolic events were emphasized. 2. Type 2 Diabetes Mellitus Coordination with her graphic design assistant is ongoing to manage steroid-induced glucose fluctuations, ensuring careful oversight regarding insulin adjustments. 3. Hypothyroidism Updated levothyroxine dosing from 75 mcg to 50 mcg is part of her therapy, with a recommended follow-up on thyroid function tests to refine her care. 4. Essential Hypertension Amlodipine is maintained, and blood pressure will be monitored in subsequent visits, with the possibility of modifying the regimen based on evolving health needs. 5. Prednisone-Induced Hyperglycemia The plan includes addressing hyperglycemia further with her medical team to balance steroid effects and diabetes treatment strategies. Throughout the visit, I discussed with the patient her diagnosis of pulmonary embolism and the necessity of continuing Eliquis therapy. The importance of medication adherence was highlighted to prevent recurrence. The management of her Type 2 Diabetes Mellitus was addressed, with particular focus on the effects of prednisone on her blood glucose levels. Coordination with her graphic design assistant was suggested for potential insulin adjustments, and no changes were made during this visit. We clarified her thyroid medication dosage to resolve any discrepancies, and the aspect of reducing her levothyroxine was confirmed following hospital instructions. I advised monitoring her condition through regular check-ups to adjust medication as required and emphasized follow-up appointments for comprehensive care, including attention to renal function assessed by nephrology. Orders: Orders MM screening mammo BI Today Z12.31 - Encounter for screening mammogram for malignant neoplasm of breast Referrals Hematology & Oncology Referral I26.99 - Other pulmonary embolism without acute cor pulmonale, Z79.01 - intermediate designer (current) use of anticoagulants Medications: New apixaban (Eliquis) 5 mg PO BID 90 days 180 tabs 1RF albuterol sulfate 90 mcg/actuation 1 inh inhalation QID PRN 6.7 grams 0RF shortness of breath or wheezing Patient Instructions: - Continue taking Eliquis 5 mg twice daily for 90 days, and check blood regularly. - Monitor blood sugar levels and report major fluctuations. - Follow up with your graphic design assistant regarding diabetes management. - Maintain your current blood pressure therapy and monitor as discussed. - Stick to the adjusted levothyroxine dosage and regularly update me about thyroid test results. - Schedule regular follow-ups to evaluate your overall treatment and make necessary adjustments.
[2024-06-12 13:29] VITALS: BP 120/72; PULSE 71; TEMP 36.2; O2SAT 98; BMI 31.5
--- OUTSIDE RECORDS SUMMARY | 2024-06-12 15:24 | XMS_ITS | Clinical Summary ---
Author Organization [facility] Address [address] [place] [address] Phone Care Team Providers Care Forge Operator Helper Name Role Phone Cahrity Hughes MD Primary Care Provider [phone] Allergies No known active allergies Medications metFORMIN (GLUCOPHAGE) 500 mg tablet TAKE 1 TABLET BY MOUTH TWICE A DAY 10/16/2023 Active pen needle, diabetic 32 gauge x 5/32 needle USE UP TO 4 TIMES A DAY WITH INSULIN PEN. 10/03/2023 Active flash glucose scanning reader (FreeStyle Griffin 2 [place]) misc by Does not apply route. Active [...] current use of insulin ([facility] V24, [facility] V28) 01/30/2024 Surgical History Surgery Date Site/Laterality Comments TUBAL LIGATION PROCEDURE: HISTORICAL TUBAL LIGATION CHOLECYSTECTOMY PROCEDURE: [place] CHOLECYSTECTOMY Medical History Medical History Date Comments DM (diabetes mellitus) ([facility] V24, [facility] V28) DX:DM (diabetes mellitus) (H [...] Cervical Cancer Screening: HPV abstracted, no interpretation [facility] Provider HEALTH MAINTENANCE Final Result * HIV Screening (12/19/2021) Pathologist [facility] HIV Screening abstracted [facility] Provider HEALTH MAINTENANCE Final Result * Hepatitis C Screening (12/19/2021) Pathologist [facility] Hepatitis C Screening abstracted [facility] Provider HEALTH MAINTENANCE Final Result from Last 3 Months or Most Recently Relevant to Health Maintenance Insurance [facility] [place] [address] Care Teams Forge Operator Helper Relationship Specialty Start Date End Date Charity Hughes MD [address] [place] [address] , [address] [facility] Physician Associ D/B/A: [facility] [place] [facility] PCP - General Internal Medicine 10/12/21
== END 2024-06-12 14:12 | disposition home or self-care (01) ==
LOC: HO.HMCH 13:05
PROVIDERS: PCP Internal Medicine; Visit Provider Physician Assistant Medical
DX: E11.9 Type 2 diabetes mellitus without complications (principal); I26.99 Other pulmonary embolism without acute cor pulmonale; Z79.4 Long term (current) use of insulin; Z09 Encounter for follow-up examination after completed treatment for conditions other than malignant neoplasm; Z79.01 Long term (current) use of anticoagulants; E03.9 Hypothyroidism, unspecified; I10 Essential (primary) hypertension

== ENCOUNTER 2024-06-18 15:48 | Outpatient (REF) | payer OTHER, SELFPAY ==
[2024-06-18 16:15] LABS: Appearance Urine Clear; Color Urine Yellow; Glucose Urine UA >=1000 mg/dL (Negative); Leukocyte Esterase Urine Small (1+) (Negative); Nitrite Urine Negative (Negative); Specific Gravity - Urine >= 1.030 (1.005-1.025); UMIC TRIGGER UA YES; Urine Blood Negative (Negative); Urine Ketones Negative (Negative); Urine Protein 30 (1+) mg/dL (Neg-Trace)
[2024-06-18 16:17] LABS: Bacteria Urine Trace (None Seen); Hyaline Casts Urine 0-2 /LPF (0-2); RBC Urine 0-2 /HPF (0-2)
== END 2024-06-18 15:49 | disposition home or self-care (01) ==
LOC: HO.LAB 15:48
PROVIDERS: PCP Internal Medicine; Visit Provider Internal Medicine Hypertension Specialist
DX: R80.9 Proteinuria, unspecified (principal); N18.9 Chronic kidney disease, unspecified
CPT/HCPCS: 81001

== ENCOUNTER 2024-06-20 15:29 | Outpatient (AMB) | payer OTHER, SELFPAY ==
--- OUTSIDE RECORDS SUMMARY | 2024-06-20 15:31 | XMS_ITS | Clinical Summary ---
Author Organization [facility] Address [address] [place] [address] Phone Care Team Providers Care Pipe Finishing Supervisor Name Role Phone Charity Hughes MD Primary Care Provider [phone] Allergies No known active allergies Medications metFORMIN (GLUCOPHAGE) 500 mg tablet TAKE 1 TABLET BY MOUTH TWICE A DAY 10/16/2023 Active pen needle, diabetic 32 gauge x 5/32 needle USE UP TO 4 TIMES A DAY WITH INSULIN PEN. 10/03/2023 Active flash glucose scanning reader (FreeStyle Griffin 2 [place]) misc by Does not apply route. Active [...] nephropathy, with long-term current use of insulin ([facility] V24, [facility] V28) 01/30/2024 Surgical History Surgery Date Site/Laterality Comments TUBAL LIGATION PROCEDURE: HISTORICAL TUBAL LIGATION CHOLECYSTECTOMY PROCEDURE: [place] CHOLECYSTECTOMY Medical History Medical History Date Comments DM (diabetes mellitus) ([facility] V24, [facility] V28) DX:DM (diabetes mellitus) (H CC) HTN [...] Cervical Cancer Screening: HPV abstracted, no interpretation [facility] Provider HEALTH MAINTENANCE Final Result * HIV Screening (12/19/2021) Pathologist [facility] HIV Screening abstracted [facility] Provider HEALTH MAINTENANCE Final Result * Hepatitis C Screening (12/19/2021) Pathologist [facility] Hepatitis C Screening abstracted [facility] Provider HEALTH MAINTENANCE Final Result from Last 3 Months or Most Recently Relevant to Health Maintenance Insurance [facility]AN Care Teams Pipe Finishing Supervisor Relationship Specialty Start Date End Date Charity Hughes MD [address] [place] [address] , [address] [facility] Physician Associ D/B/A: [facility] [place] [facility] PCP - General Internal Medicine 10/12/21
--- NOTE | 2024-06-20 15:36 | A.OFFVIS_ITS ---
Vital Signs 06/20/24 15:37 Height 5 ft 6 in Weight 202 lb 6.15 oz BMI 32.7 BP 122/52 L Blood Pressure Location Lt brachial Position Sitting Pulse 60 Pulse Source Pulse Oximeter Pulse Oximetry (%) 97 Oxygen Delivery Method Room Air Intake Visit Reasons: Type II diabetes Intake Note: Patient present today to follow up on Type 2 Diabetes Mellitus. Last Diabetic Eye exam: 06/2023 Last Podiatry Visit: Does not see a business change manager Random Glucose: 147 mg/dl HgA1C: 9.6% Supervisor Microwave Required: No Accompanied by: Grand Child Allergies No Known Allergies Allergy (Verified 06/20/24 15:43) Medication List - Last Reconciled 06/20/24 by NARCISA Whelan albuterol sulfate 90 mcg/actuation 1 inh inhalation QID PRN amlodipine 5 mg PO DAILY apixaban (Eliquis) 5 mg PO BID 90 days atorvastatin (Lipitor) 10 mg PO BEDTIME 90 days blood sugar diagnostic (FreeStyle Lite Strips) As directed to check glucose 3 times daily. blood-glucose meter (FreeStyle Lite Meter kit) As directed to check blood glucose 3 times daily. blood-glucose sensor (FreeStyle Griffin 3 Plus Sensor device) Apply 1 new sensor every 14-15 days as directed to monitor blood glucose continuously. blood-glucose,u.s. representative,cont (FreeStyle Griffin 3 [place]) Use daily to monitor blood glucose levels continuously. dapagliflozin propanediol (Farxiga) 10 mg PO DAILY dextrose (TRUEplus Glucose) 15 grams (32 mL) PO Q15M PRN dulaglutide (Trulicity) 3 mg (0.5 mL) subcut QWEEK ezetimibe 10 mg PO DAILY folic acid 1 mg PO DAILY glucose (Dex4 Glucose Quick Dissolve) 16 grams (4 x 4 gram) PO Q15M PRN indapamide 2.5 mg PO DAILY insulin glargine (Lantus Solostar U-100 Insulin) 10 units subcut BEDTIME insulin lispro (Humalog KwikPen (U-100) Insulin) subcutaneously 3 times a day PRN; per sliding scale insulin syringe-needle U-100 (BD Insulin Syringe Ultra-Fine) Use 1 needle four times a day lancets (FreeStyle Lancets) Use to monitor blood glucose 3 times daily. levothyroxine 50 mcg PO DAILY losartan (Cozaar) 100 mg PO DAILY pen needle, diabetic (Comfort EZ Pen [place]) As directed pen needle, diabetic (BD Ultra-Fine Chen Pen Needle) As directed HPI Comments Details: This is a 63-year-old female with a past medical history of type 2 diabetes, hyperlipidemia, hypertension, CKD III, depression with anxiety, hypothyroidism and obesity presenting for diabetic management. She is here with her granddaughter, Isaac, who interprets. 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 She was diagnosed with diabetes some 15 years ago. Her mother and sister had type 2 diabetes. Hemoglobin A1c 9.6% today 06/20/2024. Reviewed Griffin 3 download Average glucose 265 G IN 9.6% Glucose variability 33.9% Very high 51% High 30% Target range 19% 0% hypoglycemia She has a pattern of hyperglycemia throughout the day with worsening in the afternoon, evening and overnight. Data shows that her blood sugars are improving during the past week. She was recently hospitalized and diagnosed with bilateral pulmonary emboli and pneumonia. She is anticoagulated now on Eliquis and refer to Hematology. She was on prednisone, and her daughter Estelle called the office because her blood sugars were very high on this medicine. She temporarily increased Lantus to 26 units and began following a sliding scale of Humalog. She is doing better since then. She is off prednisone. Current medication regimen: Farxiga 10 mg daily, Trulicity 1.5 mg, Lantus 10 units every evening, Humalog per sliding scale: blood sugar under 150- give 0 units blood sugar 150-199- give 2 units blood sugar 200-249- give 4 units blood sugar 250-299 - give 6 units blood sugar 300-349- give 8 units blood sugar 350-399- give 10 units blood sugar >400 give 12 units Past medication: Metformin discontinued due to side effects. Hypoglycemia symptoms: Denies hypoglycemia since prior to hospitalization. Hyperglycemia symptoms: Blurry vision and polydipsia Eye exam: [facility] Microvascular complications: neuropathy in both feet (pins and needles), nephropathy (CKD III, microalbuminuria), retinopathy (OU nonproliferative retinopathy) Followed by Nephrology. Macrovascular complications: none ROS: Constitutional: No unexplained weight loss, fever, chills, fatigue or night sweats. Respiratory: Denies shortness of breath, hemoptysis, sputum production and wheezing. +residual dry cough. Cardiovascular: No chest pain, chest pressure or chest discomfort. No palpitations or pedal edema. Gastrointestinal: No anorexia, nausea, vomiting or diarrhea. No abdominal pain or blood in stool. Neurologic: +neuropathy in her feet. No headache, dizziness or syncope. Skin: No rash or wounds. Endocrine: No cold or heat intolerance. No polyuria or polydipsia. Physical exam: Constitutional: Alert, in no distress. Eyes: Pupils are equal, round and reactive to light. Extraocular muscles intact. Neck: Supple, Full range of motion. No lymphadenopathy. Respiratory: Clear to auscultation. Cardiovascular: S1 S2 regular. No murmurs Neurologic: No focal neurological deficits. Skin: Warm and dry Extremities: Warm and well perfused. No clubbing, cyanosis or edema. Psychiatric: Normal mood and affect [facility] Medical History (Updated 06/12/24 @ 17:25 by Roslyn Horne PA-C) Hospital discharge follow-up Pulmonary emboli Anticoagulated on Eliquis Pneumonia Hypoglycemia At risk for foot problem Type II diabetes with mcc use of insulin CKD (chronic kidney disease) Diabetes mellitus High cholesterol Anxiety Depression History of carpal tunnel syndrome Hypertension Surgical History H/O tubal ligation Family History Mother Hypertension Diabetes mellitus Arthritis Other Mental health disorder Social History Household Members: Children Housing: Apartment Alcohol intake: current Alcohol intake frequency: a few times a month Patient Tobacco Use Status: Never used Tobacco e-Cigarette/Vaping Use: Never Used Second Hand Smoke Exposure: No service: No Current occupational status: unemployed Cognitive needs: No Hearing needs: No Vision needs: No Physical Exam Vital Signs: Last Vital Signs Pulse 60 06/20/24 15:37 BP 122/52 L 06/20/24 15:37 Pulse Ox 97 06/20/24 15:37 Oxygen Delivery Method Room Air 06/20/24 15:37 BMI result Body Mass Index 32.7 Office Procedures Glucose Monitoring Details Details: see [facility] [address] - Glucose monitoring, continuous-physician I&R Procedure code (CPT) selection complete Results AMB Hemoglobin A1c AMB Hemoglobin A1c 9.6 % Last Edit by RADHIKA Carrasquillo on 06/20/24 15:54 Results Reviewed Results Reviewed: Laboratory Tests 12/13/22 12/20/22 12/20/22 08:38 11:51 Unknown Creatinine Estimated GFR Hgb A1c (Clinic) 12.4 H AST ALT Triglycerides Cholesterol LDL Cholesterol, Calc HDL Cholesterol Vitamin B12 446 TSH Urine Creatinine Urine Microalbumin 476.0 Microalb/Creat Ratio 314.2 H 07/19/23 07/26/23 03/07/24 09:02 09:03 08:12 Creatinine 1.28 Estimated GFR 42 Hgb A1c (Clinic) 10.1 H AST ALT Triglycerides Cholesterol LDL Cholesterol, Calc HDL Cholesterol Vitamin B12 TSH Urine Creatinine 113.02 Urine Microalbumin Microalb/Creat Ratio 03/07/24 09:13 Creatinine 1.29 Estimated GFR 42 Hgb A1c (Clinic) AST 15 ALT 11 Triglycerides 153 H Cholesterol 156 LDL Cholesterol, Calc 86 HDL Cholesterol 40 L Vitamin B12 TSH 2.14 Urine Creatinine Urine Microalbumin Microalb/Creat Ratio Laboratory Tests 06/11/24 07:56 Creatinine 1.48 H Estimated GFR 36 Assessment & Plan Assessment & Plan (1) Type II diabetes with mcc use of insulin: Code(s): E11.9 - Type 2 diabetes mellitus without complications; Z79.4 - care home (current) use of insulin Category: Medical Plan: In summary this is a 63-year-old female with a past medical history of uncontrolled type 2 diabetes with complications who was recently hospitalized with pulmonary emboli in his anticoagulated now on Eliquis. She was treated with prednisone during hospitalization which caused hyperglycemia. Blood sugars are improving. Patient is seeing clinical educator and dietitian. Continue Lantus 10 units in the evening. Continue Trulicity and increase to 3 mg weekly. Continue Farxiga 10 mg daily. Administer Humalog three times a day 15 minutes before meals Follow Humalog sliding scale: Blood sugar under 150: do not give humalog blood sugar 150-199- give 2 units blood sugar 200-249- give 4 units blood sugar 250-299 - give 6 units blood sugar 300-349- give 8 units blood sugar 350-399- give 10 units blood sugar >400 give 12 units Reviewed treatment of hypo/hyperglycemia. She has written instructions in Scottish and Mauritian. If you experience low blood sugar, treat this by eating a chewable fruit candy like skittles or jelly beans (about 8 pieces), 4 ounces (1/2 cup) of fruit juice (not diet), 1 tablespoon of honey or 4 glucose tablets or 15 g packet of glucose gel. If your blood sugar is under 55, take double the amount of one of the above. Recheck your blood sugar in 15 minutes. She will follow up at the end of the month for re-evaluation, and then she is leaving for [place] until the end of summer. Orders: Orders AMB Glucose Monitoring Today NARCISA Whelan E11.9 - Type 2 diabetes mellitus without complications AMB Hemoglobin A1c Today NARCISA Whelan E11.9 - Type 2 diabetes mellitus without complications, Z13.9 - Encounter for screening, unspecified, Z79.4 - care home (current) use of insulin Medications: New dulaglutide (Trulicity) 3 mg (0.5 mL) subcut QWEEK 2 mL 5RF NARCISA Whelan Changed From insulin glargine (Lantus Solostar U-100 Insulin) 20 units (0.2 mL) subcut BEDTIME 15 mL 2RF To insulin glargine (Lantus Solostar U-100 Insulin) 10 units subcut BEDTIME Rodriguez Christensen MD Patient Instructions: Continue Lantus 10 units in the evening. Continue Trulicity and increase to 3 mg weekly. Continue Farxiga 10 mg daily. Administer Humalog three times a day 15 minutes before meals Follow Humalog sliding scale: Blood sugar under 150: do not give humalog blood sugar 150-199- give 2 units blood sugar 200-249- give 4 units blood sugar 250-299 - give 6 units blood sugar 300-349- give 8 units blood sugar 350-399- give 10 units blood sugar >400 give 12 units Reviewed treatment of hypo/hyperglycemia. She has written instructions in Scottish and Mauritian. If you experience low blood sugar, treat this by eating a chewable fruit candy like skittles or jelly beans (about 8 pieces), 4 ounces (1/2 cup) of fruit juice (not diet), 1 tablespoon of honey or 4 glucose tablets or 15 g packet of glucose gel. If your blood sugar is under 55, take double the amount of one of the above. Recheck your blood sugar in 15 minutes. Coding Level of Care Code Est Pt Level 4 (65173) Diagnoses Type II diabetes with mcc use of insulin E11.9; Z79.4 CPT Codes Details - CPT: 92025 - Glucose monitoring, continuous-physician I&R ([id number])
[2024-06-20 15:37] VITALS: BP 122/52; PULSE 60; O2SAT 97; BMI 32.7
[2024-06-20 15:51] LABS: Glucose, Whole Blood 147 mg/dL (60-115)
== END 2024-06-20 16:09 | disposition home or self-care (01) ==
LOC: HO.ENCR 15:29
PROVIDERS: PCP Internal Medicine; Visit Provider Physician Assistant Medical
DX: Z13.9 Encounter for screening, unspecified (principal); E11.9 Type 2 diabetes mellitus without complications; Z79.4 Long term (current) use of insulin

== ENCOUNTER → 2024-06-20 15:29 | Outpatient (BNVA) | payer OTHER, SELFPAY | PROVIDERS: PCP Internal Medicine; Visit Provider Physician Assistant Medical | DX: E11.22 Type 2 diabetes mellitus with diabetic chronic kidney disease (principal); N18.30 Chronic kidney disease, stage 3 unspecified; E03.9 Hypothyroidism, unspecified; E66.9 Obesity, unspecified; Z68.32 Body mass index [BMI] 32.0-32.9, adult | CPT/HCPCS: 82947; 83036; 99212 ==

== ENCOUNTER → 2024-07-09 12:57 | Outpatient (BNV) | payer OTHER, SELFPAY | PROVIDERS: PCP Internal Medicine; Referring Provider Internal Medicine; Visit Provider Internal Medicine | DX: I26.99 Other pulmonary embolism without acute cor pulmonale (principal) | CPT/HCPCS: 99204 ==

== ENCOUNTER 2024-07-18 10:50 | Outpatient (AMB) | payer OTHER, SELFPAY ==
--- NOTE | 2024-07-18 10:53 | A.OFFVIS_ITS ---
Vital Signs 07/18/24 10:54 Height 5 ft 5 in Weight 199 lb 8.293 oz BMI 33.2 BP 110/60 Blood Pressure Location Rt brachial Position Sitting Pulse 76 Pulse Source Pulse Oximeter Pulse Oximetry (%) 97 Oxygen Delivery Method Room Air Intake Visit Reasons: T2DM Intake Note: Patient present today to follow up on Type 2 Diabetes Mellitus. Last Diabetic Eye exam: 06/2023 Last Podiatry Visit: Does not see a supervisor car and yard Random Glucose: 144 mg/dl HgA1C: 9.6% 06/20/2024 Triage Registered Nurse Services: Triage Registered Nurse Present Accompanied by: Daughter Allergies Seasonal Allergies Allergy (Verified 07/18/24 10:55) Sneezing HPI Comments Details: This is a 63-year-old female with a past medical history of type 2 diabetes, hyperlipidemia, hypertension, CKD III, depression with anxiety, hypothyroidism and obesity presenting for diabetic management. She is here with her daughter, Estelle, who interprets. She declined an interpreter for the deaf. She was diagnosed with diabetes some 15 years ago. Her mother and sister had type 2 diabetes. Hemoglobin A1c 9.6% today 06/20/2024. Reviewed glucometer download Reviewed Fave Mediastyle Griffin 3 CGM active 80% Average glucose 200 G MT 8.1% Very high 26% High 29% Target range 41% Low 4% She experiences both hypoglycemia and hyperglycemia. She had one low of 53 at noon this week. She remains off prednisone following a recent hospitalization. Current medication regimen: Farxiga 10 mg daily, Trulicity 1.5 mg, Lantus 10 units every evening, Humalog per sliding scale: blood sugar under 150- give 0 units blood sugar 150-199- give 2 units blood sugar 200-249- give 4 units blood sugar 250-299 - give 6 units blood sugar 300-349- give 8 units blood sugar 350-399- give 10 units blood sugar >400 give 12 units She has not been following her medication regimen. She is not taking Lantus every night. She is also not following the sliding scale of insulin. Estelle says she is administering 5 units sometimes and other times giving herself 18 units when her sugar is high. Past medication: Metformin discontinued due to side effects. Hypoglycemia symptoms: Shakiness, sweating Hyperglycemia symptoms: Blurry vision and polydipsia Eye exam: [facility] Microvascular complications: neuropathy in both feet (pins and needles), nephropathy (CKD III, microalbuminuria), retinopathy (OU nonproliferative retinopathy) Followed by Nephrology. Macrovascular complications: none ROS: Constitutional: No unexplained weight loss, fever, chills, fatigue or night sweats. Respiratory: Denies shortness of breath, hemoptysis, sputum production and wheezing. +dry cough. Cardiovascular: No chest pain, chest pressure or chest discomfort. No palpitations or pedal edema. Gastrointestinal: No anorexia, nausea, vomiting or diarrhea. No abdominal pain or blood in stool. Neurologic: +neuropathy in her feet. No headache, dizziness or syncope. Skin: No rash or wounds. Endocrine: No cold or heat intolerance. No polyuria or polydipsia. Physical exam: Constitutional: Alert, in no distress. Eyes: Pupils are equal, round and reactive to light. Extraocular muscles intact. Neck: Supple, Full range of motion. No lymphadenopathy. Respiratory: Clear to auscultation. Cardiovascular: S1 S2 regular. No murmurs Neurologic: No focal neurological deficits. Skin: Warm and dry Extremities: Warm and well perfused. No clubbing, cyanosis or edema. Psychiatric: Normal mood and affect [facility] Medical History Hospital discharge follow-up Pulmonary emboli Anticoagulated on Eliquis Pneumonia Hypoglycemia At risk for foot problem Type II diabetes with [facility] use of insulin CKD (chronic kidney disease) Diabetes mellitus High cholesterol Anxiety Depression History of carpal tunnel syndrome Hypertension Surgical History H/O tubal ligation Family History Mother Diabetes mellitus Arthritis Hypertension Other Esophageal abnormality Mental health disorder Social History Household Members: Children Housing: Apartment Alcohol intake: current Alcohol intake frequency: a few times a month Patient Tobacco Use Status: Former Tobacco user Tobacco use type: Cigarette e-Cigarette/Vaping Use: Never Used Second Hand Smoke Exposure: No service: No Current occupational status: unemployed Cognitive needs: No Hearing needs: No Vision needs: No Physical Exam Vital Signs: Last Vital Signs Pulse 76 07/18/24 10:54 BP 110/60 07/18/24 10:54 Pulse Ox 97 05/30/25 10:54 Oxygen Delivery Method Room Air 07/18/24 10:54 BMI result Body Mass Index 33.2 Results Reviewed Results Reviewed: Laboratory Tests 12/13/22 12/20/22 12/20/22 08:38 11:51 Unknown Creatinine Estimated GFR Hgb A1c (Clinic) 12.4 H AST ALT Triglycerides Cholesterol LDL Cholesterol, Calc HDL Cholesterol Vitamin B12 446 TSH Urine Creatinine Urine Microalbumin 476.0 Microalb/Creat Ratio 314.2 H 07/19/23 07/26/23 03/07/24 09:02 09:03 08:12 Creatinine 1.28 Estimated GFR 42 Hgb A1c (Clinic) 10.1 H AST ALT Triglycerides Cholesterol LDL Cholesterol, Calc HDL Cholesterol Vitamin B12 TSH Urine Creatinine 113.02 Urine Microalbumin Microalb/Creat Ratio 03/07/24 09:13 Creatinine 1.29 Estimated GFR 42 Hgb A1c (Clinic) AST 15 ALT 11 Triglycerides 153 H Cholesterol 156 LDL Cholesterol, Calc 86 HDL Cholesterol 40 L Vitamin B12 TSH 2.14 Urine Creatinine Urine Microalbumin Microalb/Creat Ratio Laboratory Tests 06/11/24 07:56 Creatinine 1.48 H Estimated GFR 36 Assessment & Plan Assessment & Plan (1) Type II diabetes with exterminator helper use of insulin: Code(s): E11.9 - Type 2 diabetes mellitus without complications; Z79.4 - [facility] (current) use of insulin Category: Medical Plan: In summary this is a 63-year-old female with a past medical history of uncontrolled type 2 diabetes with complications who was recently hospitalized with pulmonary emboli in his anticoagulated now on Eliquis. She was treated with prednisone during hospitalization which caused hyperglycemia. Blood sugars are improving. Patient is seeing development educator and dietitian. Strongly encouraged compliance with her medications and eating 3 meals daily. Switch Lantus to Tresiba 10 units nightly due to propensity for hypoglycemia. Continue Trulicity 3 mg weekly. Continue Farxiga 10 mg daily. Administer Humalog three times a day 15 minutes before meals Follow Humalog sliding scale: Blood sugar under 150: do not give humalog blood sugar 150-199- give 2 units blood sugar 200-249- give 4 units blood sugar 250-299 - give 6 units blood sugar 300-349- give 8 units blood sugar 350-399- give 10 units blood sugar >400 give 12 units Reviewed treatment of hypo/hyperglycemia. She has written instructions in Icelandic and Samoan. She is leaving for a trip to [place] until the end of September. She will schedule a follow up in October. Set reminder to have the nurse call her next week to check in before she leaves. Medications: New insulin degludec (Tresiba FlexTouch U-200 insulin) Replaces Lantus. 10 units (0.05 mL) subcut BEDTIME 9 mL 5RF insulin degludec (Tresiba FlexTouch U-200 insulin) Replaces Lantus. 10 units (0.05 mL) subcut BEDTIME 9 mL 5RF dapagliflozin propanediol (Farxiga) 10 mg PO DAILY 90 tabs 0RF Changed From insulin lispro (Humalog KwikPen (U-100) Insulin) subcutaneously 3 times a day PRN; per sliding scale for sugar >150 To insulin lispro (Humalog KwikPen (U-100) Insulin) subcutaneously 3 times a day PRN; per sliding scale blood sugar under 150- give 0 units blood sugar 150-199- give 2 units blood sugar 200-249- give 4 units blood sugar 250-299 - give 6 units blood sugar 300-349- give 8 units blood sugar 350-399- give 10 units blood sugar >400 give 12 units 15 mL 5RF for sugar >150 Refilled dulaglutide (Trulicity) 3 mg (0.5 mL) subcut QWEEK 2 mL 5RF Patient Instructions: Continue Lantus 10 units in the evening. When you get Tresiba, stop Lantus and start Tresiba 10 units nightly. Continue Trulicity and increase to 3 mg weekly. Continue Farxiga 10 mg daily. Administer Humalog three times a day 15 minutes before meals Follow Humalog sliding scale: Blood sugar under 150: do not give humalog blood sugar 150-199- give 2 units blood sugar 200-249- give 4 units blood sugar 250-299 - give 6 units blood sugar 300-349- give 8 units blood sugar 350-399- give 10 units blood sugar >400 give 12 units Coding Level of Care Code Est Pt Level 4 (85443) Diagnoses Type II diabetes with [facility] use of insulin E11.9; Z79.4
[2024-07-18 10:54] VITALS: BP 110/60; PULSE 76; O2SAT 97; BMI 33.2
[2024-07-18 11:08] LABS: Glucose, Whole Blood 144 mg/dL (60-115)
--- OUTSIDE RECORDS SUMMARY | 2024-07-18 11:41 | XMS_ITS | Clinical Summary ---
Author Organization [facility] Address [address] [place] [address] Phone Care Team Providers Care Ice Guard Inspector Name Role Phone Charity Hughes MD Primary Care Provider [phone] Allergies No known active allergies Medications metFORMIN (GLUCOPHAGE) 500 mg tablet TAKE 1 TABLET BY MOUTH TWICE A DAY 10/16/2023 Active pen needle, diabetic 32 gauge x 5/32 needle USE UP TO 4 TIMES A DAY WITH INSULIN PEN. 10/03/2023 Active flash glucose scanning reader (FreeStyle Griffin 2 [place]) misc by Does not apply route. Active [...] nephropathy, with long-term current use of insulin ([facility] V24, [facility] V28) 01/30/2024 Surgical History Surgery Date Site/Laterality Comments TUBAL LIGATION PROCEDURE: HISTORICAL TUBAL LIGATION CHOLECYSTECTOMY PROCEDURE: CA CHOLECYSTECTOMY Medical History Medical History Date Comments DM (diabetes mellitus) ([facility] V24, [facility] V28) DX:DM (diabetes mellitus) (H CC) HTN [...] Cervical Cancer Screening: HPV abstracted, no interpretation [facility] Provider HEALTH MAINTENANCE Final Result * HIV Screening (12/19/2021) Pathologist [facility] HIV Screening abstracted [facility] Provider HEALTH MAINTENANCE Final Result * Hepatitis C Screening (12/19/2021) Pathologist [facility] Hepatitis C Screening abstracted [facility] Provider HEALTH MAINTENANCE Final Result from Last 3 Months or Most Recently Relevant to Health Maintenance Insurance [facility] Care Teams Ice Guard Inspector Relationship Specialty Start Date End Date Charity Hughes MD [address] [place] [address] , [address] [facility] D/B/A: [facility] [place] [facility] PCP - General Internal Medicine 10/12/21
== END 2024-07-18 11:35 | disposition home or self-care (01) ==
LOC: HO.ENCR 10:50
PROVIDERS: PCP Internal Medicine; Visit Provider Physician Assistant Medical
DX: E11.9 Type 2 diabetes mellitus without complications (principal); Z79.4 Long term (current) use of insulin

== ENCOUNTER → 2024-07-18 10:50 | Outpatient (BNVA) | payer OTHER, SELFPAY | PROVIDERS: PCP Internal Medicine; Visit Provider Physician Assistant Medical | DX: E11.9 Type 2 diabetes mellitus without complications (principal); Z79.4 Long term (current) use of insulin | CPT/HCPCS: 82947; 99212 ==

== ENCOUNTER 2024-07-24 10:36 | Outpatient (AMB) | payer OTHER, SELFPAY ==
[2024-07-24 10:42] VITALS: BP 130/70; PULSE 58; O2SAT 96; BMI 32.8
--- NOTE | 2024-07-24 10:42 | HO.NEPHOV ---
Vital Signs 07/24/24 10:42 Height 5 ft 5 in Weight 197 lb BMI 32.8 BP 130/70 Blood Pressure Location Rt brachial Position Sitting Pulse 58 Pulse Source Pulse Oximeter Pulse Oximetry (%) 96 Oxygen Delivery Method Room Air Intake Visit Reasons: FU/ Conf Foundry Tender Required: No Foundry Tender Services: Foundry Tender Offered & Declined (Daughter will translate ) Allergies Seasonal Allergies Allergy (Verified 07/24/24 14:54) Sneezing Medication List - Last Reconciled 07/24/24 by Leonardo Robbins MD albuterol sulfate 90 mcg/actuation 1 inh inhalation QID PRN amlodipine 5 mg PO DAILY apixaban (Eliquis) 5 mg PO BID atorvastatin (Lipitor) 10 mg PO BEDTIME 90 days blood sugar diagnostic (FreeStyle Lite Strips) As directed to check glucose 3 times daily. blood-glucose meter (FreeStyle Lite Meter kit) As directed to check blood glucose 3 times daily. blood-glucose sensor (Maidou InternationalStyle Griffin 3 Plus Sensor device) Apply 1 new sensor every 14-15 days as directed to monitor blood glucose continuously. blood-glucose,coagulating drying supervisor,cont (FreeStyle Griffin 3 [place]) Use daily to monitor blood glucose levels continuously. dapagliflozin propanediol (Farxiga) 10 mg PO DAILY dextrose (TRUEplus Glucose) 15 grams (32 mL) PO Q15M PRN dulaglutide (Trulicity) 3 mg (0.5 mL) subcut QWEEK ezetimibe 10 mg PO DAILY folic acid 1 mg PO DAILY glucose (Dex4 Glucose Quick Dissolve) 16 grams (4 x 4 gram) PO Q15M PRN indapamide 2.5 mg PO DAILY insulin degludec (Tresiba FlexTouch U-200 insulin) 10 units (0.05 mL) subcut BEDTIME insulin lispro (Humalog KwikPen (U-100) Insulin) subcutaneously 3 times a day PRN; per sliding scale blood sugar under 150- give 0 units blood sugar 150-199- give 2 units blood sugar 200-249- give 4 units blood sugar 250-299 - give 6 units blood sugar 300-349- give 8 units blood sugar 350-399- give 10 units blood sugar >400 give 12 units insulin syringe-needle U-100 (BD Insulin Syringe Ultra-Fine) Use 1 needle four times a day lancets (FreeStyle Lancets) Use to monitor blood glucose 3 times daily. levothyroxine 50 mcg PO DAILY losartan (Cozaar) 100 mg PO DAILY pen needle, diabetic (Comfort EZ Pen [place]) As directed pen needle, diabetic (BD Ultra-Fine Chen Pen Needle) As directed HPI Comments Details: Middle-aged woman with a history of longstanding diabetes mellitus hypertension has been referred for evaluation of CKD and proteinuria. Charlee was accompanied by her daughter was able to translate. She has longstanding history of diabetes mellitus blood sugar has been poorly controlled. She has been noncompliant with her diet according to her daughter. Patient does not exercise. Doing better today. She does not drink soda anymore. Metformin has been discontinued. No new issues today 03/10/24 Doing well. Farxiga was added - but she has not started it yet- ? why She ran out of losartan for the past 1 month 06/12/24 REcently in ER with dyspnea VQ scan showed VQ mismatch- NOw on Eliquis Still has cough NO urinary sypmtoms. NO edema 07/24/24 63-year-old female presenting with chronic kidney disease, diabetes, and hypertension management. She reports that her kidney function remains low based on recent bloodwork, with no noted changes in urinary output or medication alterations. Her diabetes management, involving an insulin pump, is stable with reported blood glucose levels ranging from 120-180 mg/dL. Hypertension is managed with losartan without recent modifications to the treatment regimen. There are no new or worsening symptoms related to her chronic conditions reported at this time. [facility] Medical History Hospital discharge follow-up Pulmonary emboli Anticoagulated on Eliquis Pneumonia Hypoglycemia At risk for foot problem Type II diabetes with moth exterminator use of insulin CKD (chronic kidney disease) Diabetes mellitus High cholesterol Anxiety Depression History of carpal tunnel syndrome Hypertension Surgical History H/O tubal ligation Family History Mother Diabetes mellitus Arthritis Hypertension Other Esophageal abnormality Mental health disorder Social History Household Members: Children Housing: Apartment Alcohol intake: current Alcohol intake frequency: a few times a month Patient Tobacco Use Status: Former Tobacco user Tobacco use type: Cigarette e-Cigarette/Vaping Use: Never Used Second Hand Smoke Exposure: Yes service: No Current occupational status: unemployed Cognitive needs: No Hearing needs: No Vision needs: No Physical Exam Vital Signs: Last Vital Signs Pulse 58 07/24/24 10:42 BP 130/70 07/24/24 10:42 Pulse Ox 96 07/24/24 10:42 Oxygen Delivery Method Room Air 07/24/24 10:42 BMI result Body Mass Index 32.8 Comfortable Neck supple no JVD. Lungs entry equal no rales. Heart S1-S2 heard no gallop or rub. Abdomen soft nontender. Neuro alert awake oriented. No asterixis. Extremities no edema. Results Reviewed Nephrology Results: Hgb 11.6 g/dl (12.0-16.0) L 07/09/24 WBC 9.4 X10*3/uL (4.8-10.8) 07/09/24 Plt Count 372 X10*3/uL (160-400) 07/09/24 Urine Protein 30 (1+) mg/dL (Neg-Trace) H 06/18/24 Assessment & Plan Assessment & Plan (1) CKD (chronic kidney disease): Code(s): N18.9 - Chronic kidney disease, unspecified Category: Medical Plan: Middle-aged woman with longstanding diabetes mellitus hypertension with mild CKD. She has stage III CKD most likely due to hypertensive diabetic kidney disease. Goal also slow the progression of renal disease. Continue with Dominick inhibition. She will benefit from SGLT-2 inhibitor. on Cr is up to 1.48 as of May _ this may be related ot hypoperfusion vs due to SGLT-2 inh Recheck today Increase PO fluid intake Avoid hypotension and NSAIDS REassured Shall follow closely . (2) Microalbuminuria: Code(s): R80.9 - Proteinuria, unspecified Category: Medical Plan: Due to underlying diabetic kidney disease. Continue with ARB . (3) Hypertension: Code(s): I10 - Essential (primary) hypertension Category: Medical Plan: blood pressure was acceptable. Goal is to maintain blood pressure less than 130/80. Continue current regimen. She should stay on low-sodium diet and she requires weight loss which we had discussed . Orders: Orders Basic Metabolic Panel Today N18.9 - Chronic kidney disease, unspecified Basic Metabolic Panel 2 Months N18.9 - Chronic kidney disease, unspecified Coding Level of Care Code Est Pt Level 4 (89342) Diagnoses CKD (chronic kidney disease) N18.9 Microalbuminuria R80.9 Hypertension I10
--- OUTSIDE RECORDS SUMMARY | 2024-07-24 12:27 | XMS_ITS | Clinical Summary ---
Author Organization [facility] Address [address] [place] [address] Phone Care Team Providers Care Long Winder Tender Name Role Phone Charity Hughes MD Primary Care Provider [phone] Allergies No known active allergies Medications metFORMIN (GLUCOPHAGE) 500 mg tablet TAKE 1 TABLET BY MOUTH TWICE A DAY 10/16/2023 Active pen needle, diabetic 32 gauge x 5/32 needle USE UP TO 4 TIMES A DAY WITH INSULIN PEN. 10/03/2023 Active flash glucose scanning reader (FreeStyle Griffin 2 [place]) misc by Does not apply route. Active [...] nephropathy, with long-term current use of insulin ([facility] V24, [facility] V28) 01/30/2024 Surgical History Surgery Date Site/Laterality Comments TUBAL LIGATION PROCEDURE: HISTORICAL TUBAL LIGATION CHOLECYSTECTOMY PROCEDURE: [place] CHOLECYSTECTOMY Medical History Medical History Date Comments DM (diabetes mellitus) ([facility] V24, [facility] V28) DX:DM (diabetes mellitus) (H [...] Cervical Cancer Screening: HPV abstracted, no interpretation [facility] Provider HEALTH MAINTENANCE Final Result * HIV Screening (12/19/2021) Pathologist [facility] HIV Screening abstracted [facility] Provider HEALTH MAINTENANCE Final Result * Hepatitis C Screening (12/19/2021) Pathologist [facility] Hepatitis C Screening abstracted [facility] Provider HEALTH MAINTENANCE Final Result from Last 3 Months or Most Recently Relevant to Health Maintenance Insurance [facility] Care Teams Long Winder Tender Relationship Specialty Start Date End Date Charity Hughes MD [address] [place] [address] , [address] [facility] Physician Associ D/B/A: [facility] [place] [facility] PCP - General Internal Medicine 10/12/21
== END 2024-07-24 10:55 | disposition home or self-care (01) ==
LOC: HO.HKA 10:37
PROVIDERS: PCP Internal Medicine; Visit Provider Internal Medicine Hypertension Specialist
DX: I12.9 Hypertensive chronic kidney disease with stage 1 through stage 4 chronic kidney disease, or unspecified chronic kidney disease (principal); N18.9 Chronic kidney disease, unspecified; R80.9 Proteinuria, unspecified
CPT/HCPCS: 99214

== ENCOUNTER → 2024-07-24 10:36 | Outpatient (BNVA) | payer OTHER, SELFPAY | PROVIDERS: PCP Internal Medicine; Visit Provider Internal Medicine Hypertension Specialist | DX: I12.9 Hypertensive chronic kidney disease with stage 1 through stage 4 chronic kidney disease, or unspecified chronic kidney disease (principal); I26.99 Other pulmonary embolism without acute cor pulmonale; E11.22 Type 2 diabetes mellitus with diabetic chronic kidney disease; N18.30 Chronic kidney disease, stage 3 unspecified; E03.9 Hypothyroidism, unspecified; R80.9 Proteinuria, unspecified | CPT/HCPCS: 99212 ==

== ENCOUNTER 2024-07-24 14:43 | Outpatient (AMB) | payer OTHER, SELFPAY ==
--- NOTE | 2024-07-24 14:49 | MHC.PC.OV ---
Vital Signs 07/24/24 14:54 Height 5 ft 5 in Weight 194 lb 2 oz BMI 32.3 BP 140/60 H Blood Pressure Location Lt brachial Position Sitting Pulse 56 Pulse Source Pulse Oximeter Temp 97.1 F Temp Source Temporal Artery Scan Pulse Oximetry (%) 98 Oxygen Delivery Method Room Air Intake Visit Reasons: Follow Up Intake Note: Patient is here to follow up on DM, CKD, HTN, Hypothyroidism. Cement Mason Required: Yes Cement Mason Language: Housing Counselor Name: Estelle (daughter) Information Interpreted: non-clinical & clinical (pt decline presser and shaper knitted goods service, prefer daughter to translate for her.) Senior Consumer Insights Consultant: Present Accompanied by: Daughter Allergies Seasonal Allergies Allergy (Verified 07/24/24 14:54) Sneezing Tobacco use date assessed: 07/24/24 Dental Screening Dental Screen Date: 06/12/24 [facility] Medical History Hospital discharge follow-up Pulmonary emboli Anticoagulated on Eliquis Pneumonia Hypoglycemia At risk for foot problem Type II diabetes with care home use of insulin CKD (chronic kidney disease) Diabetes mellitus High cholesterol Anxiety Depression History of carpal tunnel syndrome Hypertension Surgical History H/O tubal ligation Family History Mother Diabetes mellitus Arthritis Hypertension Other Esophageal abnormality Mental health disorder Social History Household Members: Children Housing: Apartment Alcohol intake: current Alcohol intake frequency: a few times a month Patient Tobacco Use Status: Former Tobacco user Tobacco use type: Cigarette e-Cigarette/Vaping Use: Never Used Second Hand Smoke Exposure: Yes service: No Current occupational status: unemployed Cognitive needs: No Hearing needs: No Vision needs: No Questionnaire PHQ-9 Over the last 2 weeks, how often have you been bothered by any of the following problems? 1. Little interest or pleasure in doing things: several days 2. Feeling down, depressed, or hopeless: not at all 3. Trouble falling or staying asleep, or sleeping too much: several days 4. Feeling tired or having little energy: more than half the days 5. Poor appetite or overeating: not at all 6. Feeling bad about yourself - or that you are a failure or have let yourself or your family down: not at all 7. Trouble concentrating on things, such as reading the newspaper or watching television: more than half the days 8. Moving or speaking so slowly that other people could have noticed. Or the opposite - being so fidgety or restless that you have been moving around a lot more than usual: several days 9. Thoughts that you would be better off or of hurting yourself in some way: not at all Total score: 7 Depression Screening Interpretation: Positive Depression Screening Done: Yes Source: Developed by Drs. Giles Magallanes, Maye Mcfarlane, Jose M Trejo and colleagues, with an educational natacha from [employer]. Thrive Questionnaire Date Thrive assessed: 05/28/24 I am a: Patient What is your living situation today?: I choose not to answer this question Within the past 12 months, did the food you bought not last and you didn't have the money to get more?: Never true Within the past 12 months, did you worry whether your food would run out before you got money to buy more?: Never true Do you have trouble paying for medicines?: I choose not to answer this question Do you have trouble getting transportation to medical appointments?: No Do you have trouble paying your heating and electricity bill?: I choose not to answer this question Do you have trouble taking care of your child, family member or friend?: I choose not to answer this question Do you have trouble with day-to-day activities such as bathing, preparing meals, shopping, managing finances, etc.?: I choose not to answer this question Are you currently unemployed and looking for a job?: No Are you interested in more education?: No Please select the resources that you would like help with: None Currently or been in a relationship where the following occur: I choose not to answer THRIVE Score: 0 AUDIT C Alcohol Use Questionnaire (AUDIT-C) 1. How often do you have a drink containing alcohol?: Never Total Score: 0 YENI-7 AMB Questionnaire YENI-7 Date YENI - 7 assessed: 07/24/24 Feeling nervous, anxious, or on edge: 1 = Several days Not being able to stop or control worryin = Several days Worrying too much about different things: 1 = Several days Trouble relaxin = Several days Being so restless that it is hard to sit still: 1 = Several days Becoming easily annoyed or irritable: 0 = Not at all Feeling afraid as if something awful might happen: 1 = Several days Total YENI-7 score (0-4 normal; 5-9 mild; 10-14 moderate; 15-21 severe): 6 Source: Developed by Drs. Giles Magallanes, Maye Mcfarlane, Jose M Trejo and colleagues, with an educational natacha from [employer]. Physical exam (Primary Care) Vital Signs: Last Vital Signs Temp 97.1 F 07/24/24 14:54 Pulse 56 07/24/24 14:54 BP 140/60 H 07/24/24 14:54 Pulse Ox 98 07/24/24 14:54 Oxygen Delivery Method Room Air 07/24/24 14:54 BMI result Body Mass Index 32.3 Tobacco/Smoking Status: Tobacco use Status Tobacco use date assessed 07/24/24 07/24/24 15:03 Patient Tobacco Use Status Former Tobacco user 07/24/24 14:50 Tobacco use type Cigarette 07/24/24 14:50 e-Cigarette/Vaping Use Never Used 07/24/24 14:50 PHQ-9: PHQ-9 Score PHQ-9: Total score 7 07/24/24 15:05 Depression Screening Interpretation: Positive Thrive Assessment: Date of Thrive Assessment Date Thrive assessed 05/28/24 07/24/24 14:50 Currently or been in a relationship where the following occur: I choose not to answer Coding Level of Care Code Est Pt Level 4 (11504) Complex EM visit Add On G2211 Diagnoses Pulmonary emboli I26.99 Diabetes mellitus E11.9 Assessment & Plan Assessment & Plan (1) Pulmonary emboli: Code(s): I26.99 - Other pulmonary embolism without acute cor pulmonale Category: Medical Plan: Travelling to [facility] Wants a three month supply. Prescription written. (2) Diabetes mellitus: Code(s): E11.9 - Type 2 diabetes mellitus without complications Category: Medical Plan: Very poor control. Patient sees an data communications technician. They are adjusting her medications. Agreed to sign the handicapped license form. Plan History of Present Illness - The patient is a 63-year-old female presenting for prescription refills for anticoagulation and diabetes management in preparation for travel. - The anticoagulation regimen for atrial fibrillation, currently on Eliquis, requires an extended supply for anticipated travel and stay in [place]. - Recent hospitalization has exacerbated uncontrolled diabetes, demonstrated by increased blood glucose levels. Adjustments include an increased dose of Trulicity and a new prescription for fast-acting insulin Humalog. - Breathing difficulties during physical activity point towards possible COPD, impacting the patient's functional mobility. - The patient currently follows with a sales professional bilingual indicating concerns of possible chronic kidney disease. Social History - The patient does not drive and relies on friend or family support for transportation needs. - The patient has expressed plans to travel to [place], impacting medical management due to travel duration. Review of Systems - Cardiovascular: Reports atrial fibrillation requiring anticoagulation. - Endocrine: Reports poor glycemic control post-hospitalization. - Respiratory: Reports breathing difficulties and exacerbated coughing with walking. Physical Exam General: Cooperative and healthy appearing Nutritional Appearance: Well nourished Orientation/consciousness: Patient oriented x3 Limitations: No limitations Head: Normal to inspection General: Appearance normal, both eyes and all related structures Neck: Normal visual inspection Chest: Normal palpation of entire chest wall Respiratory: Patient experiences difficulty breathing and coughing when walking. ormal respiratory effort Neurology: Patient oriented x3 Results Plan 1. Atrial Fibrillation - Extend Eliquis prescription to cover the travel duration. 2. Type 2 Diabetes Mellitus - Maintain increased Trulicity dose; prescribe Humalog. - Regular blood glucose monitoring advised. 3. Possible Chronic Obstructive Pulmonary Disease Copd - Assessment of mobility limitations and symptom management upon return. 4. Chronic Kidney Disease Suspected - Nephrology follow-up as per current routine; pre-travel blood work for kidney function. Discussion Notes During the visit, we discussed the need to extend the prescription for Eliquis to ensure adequate anticoagulation management during the patient?s two-month stay in [place]. This adjustment will entail a prescription of 180 tablets. I also addressed the patient's concerns about poorly controlled diabetes post-hospitalization; we reviewed her current regimen and agreed to continue with the adjusted dose of Trulicity as per the hr specialist?s recommendation and prescribed Humalog for better glycemic control. The patient exhibits breathing difficulty suggestive of possible COPD, though no acute changes or interventions were discussed. The patient?s current renal status will be monitored with recommended blood work prior to travel, as part of routine chronic disease management. Patient Instructions - Take Eliquis as prescribed; ensure supply covers your entire travel period. - Follow your diabetes management plan, using blood glucose monitors consistently. - Adjust your insulin as instructed by your diabetes care team. - Plan follow-up appointments with your specialists, including your sales professional bilingual, post-travel. - Report any unusual symptoms like increased coughing or shortness of breath immediately. - Ensure all medical appointments and medications align with your travel plans. Medications: Refilled apixaban (Eliquis) 5 mg PO BID 180 tabs 1RF
[2024-07-24 14:54] VITALS: BP 140/60; PULSE 56; TEMP 36.2; O2SAT 98; BMI 32.3
== END 2024-07-24 15:25 | disposition home or self-care (01) ==
LOC: HO.HMCH 14:44
PROVIDERS: PCP Internal Medicine; Visit Provider Internal Medicine
DX: I26.99 Other pulmonary embolism without acute cor pulmonale (principal); E11.9 Type 2 diabetes mellitus without complications

== ENCOUNTER 2024-07-25 09:16 | Outpatient (REF) | payer OTHER, SELFPAY ==
--- OUTSIDE RECORDS SUMMARY | 2024-07-25 09:49 | XMS_ITS | Clinical Summary ---
Author Organization [facility] Address [address] [place] [address] Phone Care Team Providers Care Site Interpreter Name Role Phone Charity Hughes MD Primary Care Provider [phone] Allergies No known active allergies Medications metFORMIN (GLUCOPHAGE) 500 mg tablet TAKE 1 TABLET BY MOUTH TWICE A DAY 10/16/2023 Active pen needle, diabetic 32 gauge x 5/32 needle USE UP TO 4 TIMES A DAY WITH INSULIN PEN. 10/03/2023 Active flash glucose scanning reader (FreeStyle Griffin 2 [place]) misc by Does not apply route. Active [...] nephropathy, with long-term current use of insulin ([facility] V24, [facility] V28) 01/30/2024 Surgical History Surgery Date Site/Laterality Comments TUBAL LIGATION PROCEDURE: HISTORICAL TUBAL LIGATION CHOLECYSTECTOMY PROCEDURE: [place] CHOLECYSTECTOMY Medical History Medical History Date Comments DM (diabetes mellitus) ([facility] V24, [facility] V28) DX:DM (diabetes mellitus) ([facility]) HTN [...] Cervical Cancer Screening: HPV abstracted, no interpretation [facility] Provider HEALTH MAINTENANCE Final Result * HIV Screening (12/19/2021) Pathologist [facility] HIV Screening abstracted [facility] Provider HEALTH MAINTENANCE Final Result * Hepatitis C Screening (12/19/2021) [facility]ologist [facility] Hepatitis C Screening abstracted [facility] Provider HEALTH MAINTENANCE Final Result from Last 3 Months or Most Recently Relevant to Health Maintenance Insurance [facility] Care Teams Site Interpreter Relationship Specialty Start Date End Date Chariyt Hughes MD [address] [place] [address] , [address] [facility] Physician Associ D/B/A: [facility] [place] [facility] PCP - General Internal Medicine 10/12/21
[2024-07-25 10:29] LABS: Anion Gap 14 (12-20); Blood Urea Nitrogen 31 mg/dL (9-16); Calcium 9.5 mg/dL (8.4-10.2); Carbon Dioxide 26 mmol/L (22-29); Chloride 102 mmol/L (96-108); Estimated Glomerular Filt Rate 32; Glucose Random 235 mg/dL (60-115); Potassium 3.7 mmol/L (3.3-5.1); Sodium 138 mmol/L (135-145)
== END 2024-07-25 09:17 | disposition home or self-care (01) ==
LOC: HO.LAB 09:16
PROVIDERS: PCP Internal Medicine; Visit Provider Internal Medicine Hypertension Specialist
DX: N18.9 Chronic kidney disease, unspecified (principal)
CPT/HCPCS: 36415; 80048

== ENCOUNTER 2024-10-05 12:34 | Inpatient (IN) | payer OTHER, SELFPAY ==
--- NOTE | ~2024-10-05 | US_ITS ---
CLINICAL HISTORY: LT lower extremity swelling hx PE Left lower extremity duplex venous Doppler Comparison: US/SR - US LOWER EXTREMITY VEINS BILATERAL - 05/29/24 10:22 EDT Technique: Grayscale/Color/Duplex Doppler sonographic evaluation of the deep venous system within the left lower extremity. Findings: Left lower extremity Common femoral vein: Patent bilaterally CFV/GSV junction: Patent Femoral vein: Patent Popliteal vein: Patent Infrapopliteal veins: Patent where seen Soft tissue: No focal abnormality Impression: 1. Negative for left lower extremity DVT. 2. No Vail's cyst This document has been electronically signed by: Yamil Mejia MD on 10/05/2024 16:26:39
--- NOTE | ~2024-10-05 | XR_ITS ---
CLINICAL HISTORY: lt foot pain 3 views left foot Comparison: None Findings: No fractures, subluxations or dislocations. No periostitis or bony destruction. Joint intervals are preserved. No marginal erosions or overhanging osteophytes. Calcaneus and subtalar joint intact. No significant arthritic change. Plantar calcaneal enthesophyte Normal bone mineralization and soft tissues. Normal pre-Achilles fat pad. No radiopaque foreign body. Impression: 1. No acute osseous abnormality This document has been electronically signed by: Yamil Mejia MD on 10/05/2024 15:00:04
--- NOTE | ~2024-10-05 | XR_ITS ---
CLINICAL HISTORY: left ankle pain 3 views left ankle Comparison: None Findings: No fractures, subluxations or dislocations. Ankle mortise intact. Normal plafond. No osteochondral lesions. Calcaneus and subtalar joint intact. No significant arthritic change. Posterior and plantar calcaneal enthesophytes Normal bone mineralization and soft tissues. Normal pre-Achilles fat pad. No radiopaque foreign body. Impression: 1. No acute osseous abnormality This document has been electronically signed by: Yamil Mejia MD on 10/05/2024 15:03:05
--- NOTE | ~2024-10-05 | US_ITS ---
EXAMINATION: US ABDOMEN LIMITED HISTORY: RUQ US; elevated alk phos, ALT/AST elevated TECHNIQUE: Real-time grayscale ultrasound imaging of the liver was performed and images were reviewed. COMPARISON: There are no prior studies available for comparison. FINDINGS: Liver: The right lobe of the liver measures 12.2 cm in size. The left lobe of the liver measures 11.3 cm in size. The liver demonstrates normal homogeneous echotexture. No focal mass or intrahepatic biliary ductal dilatation is identified. There is normal hepatopedal flow in the portal vein. Gallbladder and biliary tree: The gallbladder is surgically absent. The common bile duct is normal in caliber measuring 4 mm. There is no free fluid in the right upper quadrant. US/US abdomen limited IMPRESSION: Enlargement of the left lobe of the liver. Status post cholecystectomy. Otherwise unremarkable right upper quadrant ultrasound. Electronically signed by: Giles Min MD 10/07/2024 07:01 AM EDT
--- NOTE | 2024-10-05 12:38 | ECG_ITS ---
Test Reason : EXTREMITY Blood Pressure : */* mmHG Vent. Rate : 61 BPM Atrial Rate : 61 BPM P-R Int : 162 ms QRS Dur : 84 ms QT Int : 454 ms P-R-T Axes : 35 25 52 degrees QTcB Int : 457 ms Normal sinus rhythm Septal infarct , age undetermined Abnormal ECG No previous ECGs available Referred By: Riccardo Clark Electronically Signed By: SCOTT TORRES MD
--- NOTE | 2024-10-05 12:45 | ED.GENADULT ---
HPI - General Adult General Chief complaint: Extremity Problem Stated complaint: DIFFICULTY WALKING DIZZINESS Time Seen by Provider: 10/05/24 12:51 Source: patient and EMS Mode of arrival: EMS Limitations: no limitations History of Present Illness ED Provider: NARCISA Clark HPI narrative: This is a 63-year-old female past medical history significant for pulmonary embolism anticoagulated on Eliquis, type 2 diabetes, CKD, hypothyroidism, hypertension, depression, anxiety, hyperlipidemia presenting to the emergency department with 5 days of left lower extremity pain particularly to the left foot she reports the outer aspect of her left foot is extremely tender and is now turning red, she reports she is having difficulty bearing weight on her left lower extremity. She reports that her foot look swollen and the pain is traveling into her calf. She reports that she is med compliant with her anticoagulation. Denies fevers, chills, chest pain, shortness breath, nausea, vomiting, abdominal pain, headache, vision changes, dizziness and weakness. She did make a comment on the ambulance said she got dizzy at some point she only reports she gets dizzy when she gets severe pain in her foot. Dizziness has not currently present. Neurological assessment on arrival nonfocal. Cerebellar intact Related Data Home Medications ?Medication ?Instructions ?Recorded ?Confirmed indapamide 2.5 mg tablet 2.5 mg PO DAILY 05/28/24 07/24/24 Previous Rx's ?Medication ?Instructions ?Recorded insulin syringe-needle U-100 0.5 #100 ea 07/26/23 mL 31 gauge x 5/16 (BD Insulin Syringe Ultra-Fine) pen needle, diabetic 32 gauge x #50 ea 07/26/2302/22 (Comfort EZ Pen [place]) pen needle, diabetic 32 gauge x #100 ea 07/26/23 (BD Ultra-Fine Chen Pen Needle) losartan 100 mg tablet (Cozaar) 100 mg PO DAILY #90 tabs 03/10/24 blood sugar diagnostic (FreeStyle #200 03/11/24 Lite Strips) blood-glucose meter (FreeStyle #1 03/11/24 Lite Meter kit) blood-glucose,planting machine operator,cont #1 03/11/24 (FreeStyle Griffin 3 [place]) glucose 4 gram chewable tablet 16 g (4 x 4 gram) PO Q15M PRN 03/11/24 (Dex4 Glucose Quick Dissolve) hypoglycemia #10 tabs dextrose 15 gram/32 mL oral gel 15 g (32 mL) PO Q15M PRN 04/08/24 packet (TRUEplus Glucose) hypoglycemia #128 mL folic acid 1 mg tablet 1 mg PO DAILY #90 tabs 04/23/24 blood-glucose sensor (FreeStyle #2 ea 05/23/24 Griffin 3 Plus Sensor device) lancets 28 gauge (FreeStyle #200 ea 05/23/24 Lancets) amlodipine 5 mg tablet 5 mg PO DAILY #90 tabs 06/03/24 levothyroxine 50 mcg tablet 50 mcg PO DAILY #90 tabs 06/03/24 dulaglutide 3 mg/0.5 mL 3 mg (0.5 mL) subcut QWEEK #2 mL 07/18/24 subcutaneous pen injector (Trulicity) insulin degludec 200 unit/mL (3 10 unit (0.05 mL) subcut BEDTIME 07/18/24 mL) subcutaneous pen (Tresiba #9 mL FlexTouch U-200 insulin) insulin lispro 100 unit/mL See Rx Instructions subcut TID PRN 07/18/24 subcutaneous pen (Humalog KwikPen for sugar >150 #15 mL (U-100) Insulin) apixaban 5 mg tablet (Eliquis) 5 mg PO BID #180 tabs 07/24/24 atorvastatin 10 mg tablet 10 mg PO BEDTIME #90 tabs 08/25/24 ezetimibe 10 mg tablet 10 mg PO DAILY #90 tabs 08/26/24 albuterol sulfate 90 mcg/actuation 1 inh inhalation QID PRN shortness 10/01/24 aerosol inhaler of breath or wheezing #6.7 grams dapagliflozin propanediol 10 mg 10 mg PO DAILY #90 tabs 10/02/24 tablet (Farxiga) Allergies Allergy/AdvReac Type Severity Reaction Status Date / Time Seasonal Allergies Allergy Sneezing Verified 10/05/24 12:57 Review of Systems Review of Systems: Yes all other systems are reviewed and are negative PMFSH Past Medical History Attestation statement: The following information was validated with the patient. Source: old records reviewed and nursing notes reviewed Medical History Hospital discharge follow-up Pulmonary emboli Anticoagulated on Eliquis Pneumonia Hypoglycemia At risk for foot problem Type II diabetes with medical terminologist use of insulin CKD (chronic kidney disease) Diabetes mellitus High cholesterol Anxiety Depression History of carpal tunnel syndrome Hypertension Surgical History H/O tubal ligation Family History Family History Mother Diabetes mellitus Arthritis Hypertension Other Esophageal abnormality Mental health disorder Social History Social History Household Members: Children Housing: Apartment Alcohol intake: current Alcohol intake frequency: a few times a month Patient Tobacco Use Status: Former Tobacco user Tobacco use type: Cigarette e-Cigarette/Vaping Use: Never Used Second Hand Smoke Exposure: Yes Advance Directives: No Advance Directives Information Provided: No service: No Current occupational status: unemployed Cognitive needs: No Hearing needs: No Vision needs: No Physical Exam ED Exam Exam: Appearance: Alert.? Oriented X3.? No acute distress.? Head: Normocephalic, atraumatic, no step-offs or deformities Eyes: Pupils equal, round and reactive to light.? ENT: Pharynx normal.? Neck: Normal inspection.? Neck supple.? CVS: Normal heart rate and rhythm.? Pulses normal.? Respiratory: No respiratory distress.? Breath sounds normal.? Abdomen: Soft and nontender.? Skin: Skin warm and dry.? Normal skin color.? Normal skin turgor.? Extremities: No lower extremity edema.? No calf ttp. 5/5 strength to bilateral upper and lower extremities + painful range of motion to left ankle, lateral aspect of left foot appears erythematous and with overlying warmth. No streaking. No tenderness to palpation of left calf negative Homans sign. I do not appreciate significant edema to either extremity. 2+ dorsalis pedis, anterior tibialis and posterior tibialis pulses equal bilateral. Back: No midline tenderness, no C-spine tenderness, full range of motion, no CVA tenderness bilaterally Neuro: Oriented X 3.? No motor deficit.? No sensory deficit. CN 2-12 intact Vital Signs: Vital Signs - 24 hr 10/05/24 12:55 10/05/24 13:40 10/05/24 14:43 Temperature 98.3 F 97.8 F Pulse Rate 68 54 Respiratory Rate 16 18 18 Blood Pressure 127/92 H 188/77 H Pulse Oximetry 98 98 Oxygen Delivery Method Room Air Room Air BMI result Body Mass Index 33.1 vss Course Reevaluation(s) Reevaluation #1: CBC with a normocytic anemia chemistry with baseline CHANTALE. Lactic acid negative. CRP 6.68, ESR 49. Foot x-ray no acute osseous abnormality, ankle x-ray no acute osseous findings. DVT study done I looked at it it appears negative however waiting for the final read US pending Time: 16:05 Reevaluation #2: Discuss this case with ortho no further recommendations. I will start patient on antibiotics. Plan is hospital admission for cellulitis patient can not bear weight. She is diabetic. Time: 16:42 Reevaluation #3: Discuss this case with the hospitalist patient will be admitted likely gout with concomitant cellulitis Time: 16:49 Medications Administered Discontinued Medications Generic Name Dose Route Start Last Admin Trade Name Freq PRN Reason Stop Dose Admin Morphine Sulfate 4 mg 10/05/24 13:35 10/05/24 13:40 Morphine Sulfate 4 Mg/Ml Cartridge IVPUSH 10/05/24 13:36 4 mg ONCE ONE Administration Protocol Ondansetron HCl 4 mg 10/05/24 14:32 10/05/24 15:12 Ondansetron Hcl 4 Mg/2 Ml Vial IVPUSH 10/05/24 14:33 4 mg ONCE ONE Administration Medical Decision Making Medical Decision Making [facility] Narrative: 63-year-old female presents with left lower extremity pain ongoing for 5 days. Progressively worsening anticoagulated on Eliquis. Physical exam + painful range of motion to left ankle, lateral aspect of left foot appears erythematous and with overlying warmth. No streaking. No tenderness to palpation of left calf negative Homans sign. I do not appreciate significant edema to either extremity. 2+ dorsalis pedis, anterior tibialis and posterior tibialis pulses equal bilateral. History and physical exam concerning for cellulitis. Less likely osteomyelitis. Low suspicion for DVT as patient is anticoagulated and med compliant. Palpable pulses extremity is warm, normal color unlikely that this is an arterial occlusion. History and physical exam not consistent with septic joint Plan labs, imaging. Differential Diagnosis Differential Diagnoses: The differential diagnosis associated with the presentation includes (History and physical exam concerning for cellulitis. Less likely osteomyelitis. Low suspicion for DVT as patient is anticoagulated and med compliant. Palpable pulses extremity is warm, normal color unlikely that this is an arterial occlusion. History and physical exam not consistent with septic ) Admission/Observation Consideration of admission/observation: Escalation of care including admission/observation considered Lab Data MDM Lab Attestation statement: I reviewed the patient's lab results. 10/05/24 13:25 10/05/24 13:25 Labs: Lab Results 10/05/24 10/05/24 Range/Units 13:25 14:58 WBC 9.0 (4.8-10.8) X10*3/uL RBC 4.13 L (4.20-5.50) X10*6/uL Hgb 11.8 L (12.0-16.0) g/dl Hct 34.1 L (37.0-47.0) % MCV 82.6 (80.0-98.0) fL MCH 28.6 (27.0-33.0) pg MCHC 34.6 (31.0-35.0) g/dl RDW 13.1 (11.0-16.0) % Plt Count 306 (160-400) X10*3/uL MPV 9.7 (9.4-12.3) fL Immature Gran % (Auto) 0.3 (0.0-0.4) % Neut % (Auto) 55.5 (45-73) % Lymph % (Auto) 29.4 (20-40) % [place] % (Auto) 8.2 (2-11) % Eos % (Auto) 6.0 H (0-4) % Baso % (Auto) 0.6 (0-2) % Lymph # (Auto) 2.7 (1.2-4.9) X10*3/uL [place] # (Auto) 0.7 (0.1-1.2) X10*3/uL Eos # (Auto) 0.5 H (0.0-0.4) X10*3/uL Baso # (Auto) 0.1 (0.0-0.2) X10*3/uL Abs Immat Gran (auto) 0.03 (0.00-0.03) X10*3/uL Absolute Neuts (auto) 5.0 (2.0-8.3) x10*3/uL Absolute Nucleated RBC 0.000 (0.0-0.012) X10*3/uL Nucleated RBC % (auto) 0.0 (0.0-0.2) /100WBC ESR 49 H (0-20) MM/HR D-Dimer High Sensitivty < 150 NG/ML Sodium 138 (135-145) mmol/L Potassium 4.1 (3.3-5.1) mmol/L Chloride 101 (96-108) mmol/L Carbon Dioxide 23 (22-29) mmol/L Anion Gap 18 (12-20) BUN 35 H (9-16) mg/dL Creatinine 1.62 H (0.5-1.4) mg/dL Estim Creat Clear Calc 40.0 Estimated GFR 32 Random Glucose 281 H (60-115) mg/dL Lactic Acid 1.8 (0.5-2.0) mmol/L Uric Acid 10.5 H (2.4-5.7) mg/dL Calcium 9.7 (8.4-10.2) mg/dL Magnesium 2.1 (1.6-2.6) mg/dL Total Bilirubin 1.0 (0.0-1.0) mg/dL AST 17 (5-31) U/L ALT 16 (0-31) U/L Alkaline Phosphatase 158 H (39-117) U/L Troponin I High Sens 2.9 (<3.5-17.0) ng/L C-Reactive Protein 6.68 H (< or = 0.50) mg/dL Total Protein 7.4 (6.5-8.0) g/dL Albumin 4.1 (3.5-5.0) g/dL Ethyl Alcohol < 10 mg/dL Independent Interpretation I performed an independent interpretation of an: EKG and Plain X-Ray Radiology Impression Discussion of test interpretation with radiology: I have reviewed the radiologist's reading. Independent Historian Clinical information obtained from an independent historian. History obtained from or confirmed by: EMS External Record Review External record reviewed: Inpatient record, Office record, Outpatient record, Prior outpatient labs, Prior outpatient radiology, Primary care record and Outside ED record Critical Care Time Critical Care Time Critical Care Time: Yes Total Critical Care Time: 35 Attestation: I attest to this time spent taking care of the patient, obtaining history, physical, reviewing labs, imaging, treatment of patients condition +/- specialist/hospitalist consult +/- procedure Discharge Plan Discharge Clinical Impression: Cellulitis of foot, left, Gout, Ankle pain, left, Impaired range of motion of left ankle Patient Disposition: Admitted As Inpatient Print Language: Azerbaijani
[2024-10-05 12:55] VITALS: BP 127/92; BP 140/82; PULSE 68; PULSE 72; RESP 16; TEMP 36.8; O2SAT 98; O2SAT 99; BMI 33.1
--- NOTE | 2024-10-05 13:10 | PC.NURSE ---
Patient away for xray at this time. Plan to obtain labs and IV access upon return.
--- OUTSIDE RECORDS SUMMARY | 2024-10-05 13:21 | XMS_ITS | Clinical Summary ---
Author Organization [facility] Address [address] [place] [address] Phone Care Team Providers Care Mechanical System Technician Name Role Phone Charity Hughes MD Primary Care Provider [phone] Allergies No known active allergies Medications metFORMIN (GLUCOPHAGE) 500 mg tablet TAKE 1 TABLET BY MOUTH TWICE A DAY 10/16/2023 Active pen needle, diabetic 32 gauge x 5/32 needle USE UP TO 4 TIMES A DAY WITH INSULIN PEN. 10/03/2023 Active flash glucose scanning reader (FreeStyle Griffin 2 [place]) misc by Does not apply route. Active [...] nephropathy, with long-term current use of insulin ([facility] V24, [facility] V28) 01/30/2024 Surgical History Surgery Date Site/Laterality Comments TUBAL LIGATION PROCEDURE: HISTORICAL TUBAL LIGATION CHOLECYSTECTOMY PROCEDURE: ID CHOLECYSTECTOMY Medical History Medical History Date Comments DM (diabetes mellitus) ([facility] V24, [facility] V28) DX:DM (diabetes mellitus) (H [facility]) HTN [...] ars (1 of 2 - PCV) 1980 Zoster Vaccines (1 of 2) 12/27/2011 RSV Immunization Adult Patie nts (1 - Risk 60-74 years 1-dose series) 2021 Cholesterol Screening (Lipid Panel) 01/22/2022 Colorectal Cancer Screening: Colonoscopy 01/22/2022 Social Influencers of Health Screening 01/22/2022 COVID-19 Vaccine ( - 2023-2 5 season) 2023 Diabetes: Annual Urine Albumin-Creatinine Ratio (uACR) 12/03/2023 Diabetes: Blood Sugar Contro l Test (HGBA1C) 12/03/2023 Depression Screening 02/20/2024 Influenza Vaccine (#1) 2024 Cervical Cancer Screening: HPV 12/20/2027 12/19/2022 [...] Cervical Cancer Screening: HPV abstracted, no interpretation [facility] Provider HEALTH MAINTENANCE Final Result * HIV Screening (12/19/2021) Pathologist [facility] HIV Screening abstracted [facility] Provider HEALTH MAINTENANCE Final Result * Hepatitis C Screening (12/19/2021) Pathologist [facility] Hepatitis C Screening abstracted [facility] Provider HEALTH MAINTENANCE Final Result from Last 3 Months or Most Recently Relevant to Health Maintenance Insurance [facility] [place] [address] Care Teams Mechanical System Technician Relationship Specialty Start Date End Date Charity Hughes MD [address] [place] [address] , [address] [facility] [place] PCP - General Internal Medicine 10/12/21
[2024-10-05 13:30] LABS: MANUAL DIFF FLAG NO
[2024-10-05 13:31] LABS: Hematocrit 34.1 % (37.0-47.0); Hemoglobin 11.8 g/dl (12.0-16.0); Imm Gran Abs Auto 0.03 X10*3/uL (0.00-0.03); Imm Gran Pct Auto 0.3 % (0.0-0.4); Lymphocytes Absolute Auto 2.7 X10*3/uL (1.2-4.9); Mean Corpuscular HGB Conc 34.6 g/dl (31.0-35.0); Mean Corpuscular Hemoglobin 28.6 pg (27.0-33.0); Mean Corpuscular Volume 82.6 fL (80.0-98.0); NRBC Abs Auto 0.000 X10*3/uL (0.0-0.012); NRBC Pct Auto 0.0 /100WBC (0.0-0.2); Platelet Count 306 X10*3/uL (160-400); Red Blood Count 4.13 X10*6/uL (4.20-5.50); White Blood Count 9.0 X10*3/uL (4.8-10.8)
[2024-10-05 13:40] VITALS: RESP 18
[2024-10-05 13:41] LABS: D Dimer High Sensitivity < 150 NG/ML
[2024-10-05 13:57] LABS: Alanine Aminotransferase 16 U/L (0-31); Albumin Level 4.1 g/dL (3.5-5.0); Alkaline Phosphatase 158 U/L (39-117); Anion Gap 18 (12-20); Aspartate Amino Transferase 17 U/L (5-31); Blood Urea Nitrogen 35 mg/dL (9-16); Calcium 9.7 mg/dL (8.4-10.2); Carbon Dioxide 23 mmol/L (22-29); Chloride 101 mmol/L (96-108); Creatinine Clr Calc Pharmacy 40.0; Estimated Glomerular Filt Rate 32; Magnesium 2.1 mg/dL (1.6-2.6); Potassium 4.1 mmol/L (3.3-5.1); Sodium 138 mmol/L (135-145); Total Protein 7.4 g/dL (6.5-8.0)
[2024-10-05 14:04] LABS: Troponin-I High Sensitivity 2.9 ng/L (<3.5-17.0)
[2024-10-05 14:43] VITALS: BP 188/77; PULSE 54; RESP 18; TEMP 36.6; O2SAT 98
--- NOTE | 2024-10-05 14:44 | MHC.EDTECH ---
patient c/o nausea. Nurse aware and provider ordering zofran
[2024-10-05 16:28] LABS: Uric Acid 10.5 mg/dL (2.4-5.7)
--- NOTE | 2024-10-05 16:42 | PC.NURSE ---
Continue to await urine specimen. Provider aware.
--- NOTE | 2024-10-05 16:43 | PC.NURSE ---
Dr. Cameron (hospitalist) at bedside speaking with patient and family at this time.
--- NOTE | 2024-10-05 16:58 | P.HPHOSP_ITS ---
History of Present Illness Date of Service: 10/05/24 Chief Complaint: left ankle pain 63F PMH paroxysmal AFib, pulmonary embolism May 2024 unprovoked on apixaban, diabetes, hypertension, hypothyroid, CKD 3, mood disorder presented with left ankle pain. Patient states pain has been going on for about 1 week. Left ankle, inability to bear weight or ambulate. Denies any fever or chills. Reports having similar episodes in the past attributes it to previous dog bite years ago. Denies any history of inflammatory arthritis. In ED no signs of sepsis, x-ray and Doppler unremarkable, CRP elevated uric acid elevated at 10.5. Review of Systems 2 Review of Systems: Yes all other systems are reviewed and are negative [facility] Medical History (Updated 10/05/24 @ 17:01 by Paolo Cameron MD) Acute gout Hospital discharge follow-up Pulmonary emboli Anticoagulated on Eliquis Pneumonia Hypoglycemia At risk for foot problem Type II diabetes with senior care use of insulin CKD (chronic kidney disease) Diabetes mellitus High cholesterol Anxiety Depression History of carpal tunnel syndrome Hypertension Family History Mother Diabetes mellitus Arthritis Hypertension Other Esophageal abnormality Mental health disorder Surgical History H/O tubal ligation Social History Household Members: Children Housing: Apartment Alcohol intake: current Alcohol intake frequency: a few times a month Patient Tobacco Use Status: Former Tobacco user Tobacco use type: Cigarette e-Cigarette/Vaping Use: Never Used Second Hand Smoke Exposure: Yes Advance Directives: No Advance Directives Information Provided: No service: No Current occupational status: unemployed Cognitive needs: No Hearing needs: No Vision needs: No Meds Allergies Allergy/AdvReac Type Severity Reaction Status Date / Time Seasonal Allergies Allergy Sneezing Verified 10/05/24 12:57 Active Medications: Current Medications Dextrose (Dextrose 50 % 25 Gm/50 Ml Syringe) 25 gm IVPUSH Q15M PRN; Protocol PRN Reason: per Hypoglycemia Standing Ord. Glucose (Glucose Gel 15 Gm Gel..Gram.) 15 gm PO Q15M PRN; Protocol PRN Reason: per Hypoglycemia Standing Ord. Piperacillin Sod/Tazobactam (Sod 3.375 gm/ Sodium Chloride) 50 mls @ 100 mls/hr IV ONCE ONE Stop: 10/05/24 17:11 Vancomycin HCl (Vancomycin/Ns) 2,000 mg in 500 mls @ 250 mls/hr IV ONCE ONE Stop: 10/05/24 18:59 Insulin Human Lispro (Insulin Lispro 100 Unit/Ml 3 Ml Vial) 0 unit SUBCUT QIDACHS MILLI; Protocol Pharmacy Consult (Consult Rx Vancomycin Dosing) 1 each MISCELLANE DAILY PRN PRN Reason: Consult order Prednisone (Prednisone 20 Mg Tablet) 40 mg PO DAILY [facility] Home Medications ?Medication ?Instructions ?Recorded ?Confirmed ?Last Taken ?Type indapamide 2.5 mg tablet 2.5 mg PO DAILY 05/28/2407/1305/27/24 History Physical Exam 2 Vital Signs and Narrative: Vital Signs: Last Vital Signs Temp 97.8 F 10/05/24 14:43 Pulse 54 10/05/24 14:43 Resp 18 10/05/24 14:43 BP 188/77 H 10/05/24 14:43 Pulse Ox 98 10/05/24 14:43 O2 Del Method Room Air 10/05/24 14:43 BMI result Body Mass Index 33.1 General: AO X 3, no acute distress Resp: CTA bilateral, no accessory muscles used CVS: S1,S2,RRR GI: soft, non tender, non distended Neuro: motor grossly intact, alert Psych: appropriate affect, appropriate insight Left ankle very tender, swollen, overlying erythema Results Labs 10/05/24 13:25 10/05/24 13:25 Labs: Laboratory Results - last 24 hr 10/05/24 10/05/24 13:25 14:58 MCV 82.6 MCH 28.6 MCHC 34.6 RDW 13.1 Plt Count 306 MPV 9.7 Immature Gran % (Auto) 0.3 Neut % (Auto) 55.5 Lymph % (Auto) 29.4 [place] % (Auto) 8.2 Eos % (Auto) 6.0 H Baso % (Auto) 0.6 Lymph # (Auto) 2.7 [place] # (Auto) 0.7 Eos # (Auto) 0.5 H Baso # (Auto) 0.1 Abs Immat Gran (auto) 0.03 Absolute Neuts (auto) 5.0 Absolute Nucleated RBC 0.000 Nucleated RBC % (auto) 0.0 ESR 49 H D-Dimer High Sensitivty < 150 Anion Gap 18 Estim Creat Clear Calc 40.0 Estimated GFR 32 Random Glucose 281 H Lactic Acid 1.8 Uric Acid 10.5 H Calcium 9.7 Magnesium 2.1 Total Bilirubin 1.0 AST 17 ALT 16 Alkaline Phosphatase 158 H C-Reactive Protein 6.68 H Total Protein 7.4 Albumin 4.1 Ethyl Alcohol < 10 Assessment and Plan (1) Acute gout: Status: Acute Plan 63F PMH paroxysmal AFib, pulmonary embolism May 2024 unprovoked on apixaban, diabetes, hypertension, hypothyroid, CKD 3, mood disorder presented with left ankle pain Left ankle pain Acute gout flare, can not rule out superimposed cellulitis Prednisone, and vancomycin Follow up cultures Paroxysmal AFib Continue Eliquis History of pulmonary embolism Continue Eliquis Diabetes Insulin sliding scale CKD 3 Stable Hypertension Continue losartan, amlodipine Full Code Quality Stroke Does the patient have a stroke diagnosis?: No VTE Prior VTE?: Yes VTE Risk Level:: Medical - moderate - high VTE Device Contraindication: Treatment Not Indicated VTE Drug Contraindication: N/A - Med Ordered
[2024-10-05 17:40] VITALS: BP 152/70; PULSE 55; RESP 18; TEMP 36.8
--- NOTE | 2024-10-05 18:45 | PHA.MEDREC ---
Pharmacy Consult ? Medication Reconciliation Pharmacy has completed the medication reconciliation.Med rec complete, spoke to patient with help of her daughter translating. Compared with pharmacy claims history
[2024-10-05] MEDS: vancomycin/NS 2,000 MG/500 ML PLAST..BAG 250 MG IV (19:33)
--- NOTE | 2024-10-05 20:16 | PHA.PROG ---
Admission Date/Time: October 05, 2024 16:41 Indication: SKIN Weight in k.265 kg Adjusted body weight in Kg: [place] body weight in Kg: Obesity Dosing Indication % IBW: Serum Creatinine - Last 168 Hours 10/05/24 13:25 Creatinine 1.62 H Estimated CrCl and GFR - Last 168 Hours 10/05/24 13:25 Estim Creat Clear Calc 40.0 Estimated GFR 32 Vancomycin Loading Dose: 2000 MG Current Vancomycin Dosing Regimen: 1000 MG Q24H Vancomycin Monitoring using AUC goal of 400 - 600 range with trough as surrogate marker: [id number] TROUGH=14 Date and Time for next Vancomycin Level to be drawn: 10/07/24 @1800 Pharmacist Comments on Vancomycin Plan: Vancomycin dosing will take advantage of [employer] as a clinical decision support tool that uses Bayesian modeling to calculate individual patient's pharmacokinetic parameters and forecast the patient's drug concentration time course with the target goal AUC 24 range of 400 - 600 mg/L/hr.
[2024-10-05 20:40] VITALS: BP 150/60; PULSE 56; RESP 20; TEMP 36.9; O2SAT 95
--- NOTE | 2024-10-05 20:48 | PC.NURSE ---
This repairer typewriter assumed care of this Pt at 1925. Pt A&Ox3, reports 8/10 left ankle pain. States she is able to ambulate with crutches to decrease placing pressure of foot. Left ankle noted to be red, mild swelling, + pedal pulse.
[2024-10-05 21:05] LABS: Glucose, Whole Blood 437 mg/dL (60-115)
[2024-10-05] MEDS: Insulin Glargine,Hum.rec.anlog 100 UNIT/ML 10 ML VIAL 15 UNIT SUBCUT (21:59)
--- NOTE | 2024-10-05 22:06 | PC.NURSE ---
9pm POC [id number], provider Yaritza Mcgill made aware verbal ordered to give 10 units of lispro and 15 units of Lantus.
[2024-10-05 22:32] VITALS: BP 161/70; PULSE 61; RESP 14; TEMP 36.8; O2SAT 94
[2024-10-05 22:35] VITALS: BMI 32.5
[2024-10-05] MEDS: 0.9 % Sodium Chloride Flush 3 ML SYRINGE IVFLUSH (23:22)
[2024-10-05 23:35] LABS: Cannabinoid Screen Urine Not Detected (Not Detect)
[2024-10-06 03:47] VITALS: BP 132/72; PULSE 58; RESP 18; TEMP 35.9; O2SAT 93
[2024-10-06 07:22] LABS: Hematocrit 34.3 % (37.0-47.0); Hemoglobin 11.6 g/dl (12.0-16.0); Mean Corpuscular HGB Conc 33.8 g/dl (31.0-35.0); Mean Corpuscular Hemoglobin 28.2 pg (27.0-33.0); Mean Corpuscular Volume 83.5 fL (80.0-98.0); NRBC Abs Auto 0.000 X10*3/uL (0.0-0.012); NRBC Pct Auto 0.0 /100WBC (0.0-0.2); Platelet Count 301 X10*3/uL (160-400); Red Blood Count 4.11 X10*6/uL (4.20-5.50); White Blood Count 8.2 X10*3/uL (4.8-10.8)
[2024-10-06 07:46] VITALS: BP 138/68; PULSE 53; RESP 16; TEMP 36.3; O2SAT 97
[2024-10-06 08:00] LABS: Alanine Aminotransferase 93 U/L (0-31); Albumin Level 3.9 g/dL (3.5-5.0); Alkaline Phosphatase 349 U/L (39-117); Anion Gap 16 (12-20); Aspartate Amino Transferase 92 U/L (5-31); Blood Urea Nitrogen 39 mg/dL (9-16); Calcium 9.2 mg/dL (8.4-10.2); Carbon Dioxide 22 mmol/L (22-29); Chloride 101 mmol/L (96-108); Creatinine Clr Calc Pharmacy 33.3; Estimated Glomerular Filt Rate 26; Magnesium 2.3 mg/dL (1.6-2.6); Potassium 4.3 mmol/L (3.3-5.1); Sodium 135 mmol/L (135-145); Total Protein 7.2 g/dL (6.5-8.0)
[2024-10-06 08:05] LABS: Glucose, Whole Blood 311 mg/dL (60-115)
[2024-10-06] MEDS: 0.9 % Sodium Chloride Flush 3 ML SYRINGE IVFLUSH ×3 (08:12→22:44)
[2024-10-06 11:06] LABS: Glucose, Whole Blood 292 mg/dL (60-115)
[2024-10-06 13:04] LABS: Appearance Urine Clear; Glucose Urine UA >=1000 mg/dL (Negative); PH 6.5 (5.0-9.0); Specific Gravity - Urine 1.025 (1.005-1.025); UMIC TRIGGER UACC YES
[2024-10-06 13:45] LABS: UACC Culture Trigger YES
--- NOTE | 2024-10-06 13:45 | MHC.CM.PN ---
DX Ankle pain, Gout Patient lives with her dtr/HCP/Frida She reports that she is independent with ADLs. She uses a walker for unsteady gait. DME [employer] +Walker No services HCP on file. PCP Laura Horne DP home with family assistance and transportion.
[2024-10-06 15:39] VITALS: BP 134/64; PULSE 58; RESP 18; TEMP 36.4; O2SAT 95
--- NOTE | 2024-10-06 16:44 | HO.PM.IMPN ---
Subjective Subjective Date of Service: 10/06/24 Interval History: Patient feels well overall today. Has no new complaints. Reports the ankle and foot feels significantly better than prior. Discussed elevated alk-phos and elevated AST ALT. The patient is asymptomatic without complaints of right upper quadrant pain. Review of Systems Review of Systems: Yes all other systems are reviewed and are negative Physical Exam Exam: Exam: General: A&O x3, oriented to time place person and situation, comfortable, no pain Cardiac: S1, S2 auscultated with no S3/4, no MRG. Well perfused. Respiratory: Normal breath sounds auscultated throughout all lung zones, without wheezing, rales. Normal rate. GI/ : No abdominal pain on palpation, no masses or distentions. MSK: Normal ambulation without pain at bony prominences or musculature. Left lateral dorsal aspect of the foot reveal a red erythematous area; mild tenderness to touch; dry. Neurological: Normal neurological examination on overview, without obvious CN II-XII abnormalities. Vital Signs: Vital Signs: Last Vital Signs Temp 97.5 F 10/06/24 15:39 Pulse 58 10/06/24 15:39 Resp 18 10/06/24 15:39 BP 134/64 10/06/24 15:39 Pulse Ox 95 10/06/24 15:39 O2 Del Method Room Air 10/06/24 15:39 BMI result Body Mass Index 32.5 Objective Data Active Medications Acetaminophen (Acetaminophen 325 Mg Tablet) 650 mg PO Q6H PRN PRN Reason: Pain, Mild 1-3,fever,headache Last Admin: 10/05/24 20:56 Dose: 650 mg Documented By: LORRAINE Albuterol Sulfate (Albuterol Sulfate 90 Mcg 8 Gm Inhaler) 1 puff INHALE QID PRN PRN Reason: shortness of breath or wheezing Apixaban (Apixaban 5 Mg Tablet) 5 mg PO BID [facility] Last Admin: 10/06/24 08:12 Dose: 5 mg Documented By: VANNESSA Atorvastatin Calcium (Atorvastatin Calcium 10 Mg Tablet) 10 mg PO DAILY [facility] Last Admin: 10/06/24 08:12 Dose: 10 mg Documented By: VANNESSA Calcium Carbonate (Calcium Carbonate 750 Mg Tab.Chew) 750 mg PO Q4H PRN PRN Reason: Heartburn Dextrose (Dextrose 50 % 25 Gm/50 Ml Syringe) 25 gm IVPUSH Q15M PRN; Protocol PRN Reason: per Hypoglycemia Standing Ord. Diphenhydramine HCl (Diphenhydramine Hcl 25 Mg Capsule) 50 mg PO Q6H PRN PRN Reason: itching,rash Last Admin: 10/05/24 23:22 Dose: 50 mg Documented By: LYSClaudette Ezetimibe (Ezetimibe 10 Mg Tablet) 10 mg PO DAILY [facility] Last Admin: 10/06/24 08:19 Dose: 10 mg Documented By: VANNESSA Folic Acid (Folic Acid 1 Mg Tablet) 1 mg PO DAILY [facility] Last Admin: 10/06/24 08:12 Dose: 1 mg Documented By: VANNESSA Glucose (Glucose Gel 15 Gm Gel..Gram.) 15 gm PO Q15M PRN; Protocol PRN Reason: per Hypoglycemia Standing Ord. Hydrochlorothiazide (Hydrochlorothiazide 50 Mg Tablet) 50 mg PO DAILY [facility] Last Admin: 10/06/24 08:18 Dose: 50 mg Documented By: VANNESSA Vancomycin HCl 1,000 mg/ (Sodium Chloride) 270 mls @ 270 mls/hr IV Q24H [facility] Insulin Glargine (Insulin Glargine,Hum.Rec.Anlog 100 Unit/Ml 10 Ml Vial) 15 unit SUBCUT BEDTIME [facility] Last Admin: 10/05/24 21:59 Dose: 15 unit Documented By: LORRAINE Insulin Human Lispro (Insulin Lispro 100 Unit/Ml 3 Ml Vial) 0 unit SUBCUT QIDACHS [facility]; Protocol Last Admin: 10/06/24 11:49 Dose: 6 unit Documented By: VANNESSA Losartan Potassium (Losartan Potassium 50 Mg Tablet) 100 mg PO DAILY [facility]; Protocol Last Admin: 10/06/24 08:19 Dose: 100 mg Documented By: VANNESSA Magnesium Hydroxide (Milk Of Magnesia 30 Ml Oral.Susp) 30 ml PO DAILY PRN PRN Reason: Constipation Melatonin (Melatonin 3 Mg Tablet) 6 mg PO BEDTIME PRN PRN Reason: Insomnia Pharmacy Consult (Consult Rx Vancomycin Dosing) 1 each MISCELLANE DAILY PRN PRN Reason: Consult order Prednisone (Prednisone 20 Mg Tablet) 40 mg PO DAILY [facility] Last Admin: 10/06/24 08:12 Dose: 40 mg Documented By: VANNESSA Sodium Chloride (0.9 % Sodium Chloride Flush 3 Ml Syringe) 3 ml IVFLUSH QSHIFT [facility] Last Admin: 10/06/24 08:12 Dose: 3 ml Documented By: VANNESSA Labs 10/06/24 06:20 10/06/24 06:20 Labs: Laboratory Results - last 24 hr 10/05/24 10/05/24 10/05/24 21:01 23:07 23:10 MCV MCH MCHC RDW Plt Count MPV Absolute Nucleated RBC Nucleated RBC % (auto) Anion Gap Estim Creat Clear Calc Estimated GFR POC Glucose 437 H* Random Glucose Calcium Magnesium Total Bilirubin Direct Bilirubin AST ALT Alkaline Phosphatase Total Protein Albumin Urine Color Yellow Urine Appearance Clear Urine pH 6.5 Ur Specific [place] 1.025 Urine Protein 30 (1+) H Urine Glucose (UA) >=1000 H Urine Ketones Negative Urine Blood Negative Urine Nitrite Negative Ur Leukocyte Esterase Small (1+) H Urine RBC 0-2 Urine WBC 0-5 Ur Squamous Epith Cells 6-10 Urine Bacteria Trace Hyaline Casts 0-2 Urine Yeast Present Urine Opiates Screen POSITIVE H Ur Buprenorphine Scrn Not Detected Ur Oxycodone Screen Not Detected Urine Methadone Screen Not Detected Urine Fentanyl Screen Not Detected Ur Barbiturates Screen Not Detected Ur Phencyclidine Scrn Not Detected Ur Amphetamines Screen Not Detected U Benzodiazepines Scrn Not Detected Urine Cocaine Screen Not Detected U Marijuana (THC) Screen Not Detected 10/06/24 10/06/24 10/06/24 06:20 08:01 11:03 MCV 83.5 MCH 28.2 MCHC 33.8 RDW 12.8 Plt Count 301 MPV 10.2 Absolute Nucleated RBC 0.000 Nucleated RBC % (auto) 0.0 Anion Gap 16 Estim Creat Clear Calc 33.3 Estimated GFR 26 POC Glucose 311 H 292 H Random Glucose 279 H Calcium 9.2 Magnesium 2.3 Total Bilirubin 0.8 Direct Bilirubin 0.3 AST 92 H ALT 93 H Alkaline Phosphatase 349 H Total Protein 7.2 Albumin 3.9 Urine Color Urine Appearance Urine pH Ur Specific [place] Urine Protein Urine Glucose (UA) Urine Ketones Urine Blood Urine Nitrite Ur Leukocyte Esterase Urine RBC Urine WBC Ur Squamous Epith Cells Urine Bacteria Hyaline Casts Urine Yeast Urine Opiates Screen Ur Buprenorphine Scrn Ur Oxycodone Screen Urine Methadone Screen Urine Fentanyl Screen Ur Barbiturates Screen Ur Phencyclidine Scrn Ur Amphetamines Screen U Benzodiazepines Scrn Urine Cocaine Screen U Marijuana (THC) Screen Assessment and Plan (1) Pulmonary emboli: Status: Acute (2) Anticoagulated on Eliquis: Status: Acute (3) Type II diabetes with group home use of insulin: Status: Acute (4) CKD (chronic kidney disease): Status: Acute (5) Cellulitis of foot, left: Status: Acute (6) Acute gout: Status: Acute Plan 63-year-old female with a history of paroxysmal atrial fibrillation, pulmonary embolism 06/13 on apixaban, type 2 diabetes mellitus, hypertension, hypothyroidism, CKD stage 3, presents with left ankle pain, admitted with acute gout flare and superimposed cellulitis. Left ankle pain Acute gout flare, can not rule out superimposed cellulitis Prednisone, and vancomycin Follow up cultures Paroxysmal AFib Continue Eliquis History of pulmonary embolism Continue Eliquis Diabetes Insulin sliding scale CKD 3 Stable Hypertension Continue losartan, amlodipine QUALITY METRICS - VTE: Apixaban 5 mg b.i.d. p.o. - CODE STATUS: Full code - DIET: Diabetic diet Quality Stroke Does the patient have a stroke diagnosis?: No VTE Prior VTE?: Yes VTE Risk Level:: Medical - moderate - high VTE Device Contraindication: Treatment Not Indicated VTE Drug Contraindication: N/A - Med Ordered
[2024-10-06 16:54] LABS: Glucose, Whole Blood 366 mg/dL (60-115)
[2024-10-06 19:41] VITALS: BP 149/70; PULSE 56; RESP 16; TEMP 36.3; O2SAT 96
[2024-10-06 21:02] LABS: Glucose, Whole Blood 277 mg/dL (60-115)
[2024-10-06] MEDS: Insulin Glargine,Hum.rec.anlog 100 UNIT/ML 10 ML VIAL 15 UNIT SUBCUT (22:28)
[2024-10-07 03:29] VITALS: BP 124/61; PULSE 51; RESP 18; TEMP 36.4; O2SAT 98
[2024-10-07 06:37] LABS: Creatinine Clr Calc Pharmacy 42.4; Estimated Glomerular Filt Rate 35
[2024-10-07 07:29] VITALS: BP 109/64; PULSE 52; RESP 16; TEMP 36.2; O2SAT 98
[2024-10-07 07:54] LABS: Glucose, Whole Blood 234 mg/dL (60-115)
[2024-10-07] MEDS: 0.9 % Sodium Chloride Flush 3 ML SYRINGE IVFLUSH (08:09)
[2024-10-07 10:19] LABS: Alanine Aminotransferase 59 U/L (0-31); Albumin Level 3.9 g/dL (3.5-5.0); Alkaline Phosphatase 280 U/L (39-117); Anion Gap 15 (12-20); Aspartate Amino Transferase 31 U/L (5-31); Blood Urea Nitrogen 49 mg/dL (9-16); Calcium 9.3 mg/dL (8.4-10.2); Carbon Dioxide 24 mmol/L (22-29); Chloride 102 mmol/L (96-108); Creatinine Clr Calc Pharmacy 40.8; Estimated Glomerular Filt Rate 33; Potassium 4.0 mmol/L (3.3-5.1); Sodium 137 mmol/L (135-145); Total Protein 7.2 g/dL (6.5-8.0)
[2024-10-07 11:09] LABS: Glucose, Whole Blood 343 mg/dL (60-115)
--- NOTE | 2024-10-07 11:23 | PM.DS ---
DS: Providers Provider Date of Service: 10/05/24 Date of admission: 10/05/24 16:41 Date of discharge: 10/07/24 Primary care physician: Roslyn Horne PA-C Attending physician on discharge: Ivis Jiang DS: Diagnosis Discharge Diagnosis (1) Pulmonary emboli: Status: Acute (2) Anticoagulated on Eliquis: Status: Acute (3) Type II diabetes with halfway use of insulin: Status: Acute (4) CKD (chronic kidney disease): Status: Acute (5) Cellulitis of foot, left: Status: Acute (6) Acute gout: Status: Acute DS: Summary Hospital Course Hospital Course: 63-year-old female with a history of paroxysmal atrial fibrillation, pulmonary embolism 06/13 on apixaban, type 2 diabetes mellitus, hypertension, hypothyroidism, CKD stage 3, presents with left ankle pain, admitted with acute gout flare and superimposed cellulitis. Patient states pain has been going on for about 1 week. Left ankle, inability to bear weight or ambulate. Denies any fever or chills. Reports having similar episodes in the past attributes it to previous dog bite years ago. Denies any history of inflammatory arthritis. In ED no signs of sepsis, x-ray and Doppler unremarkable, CRP elevated uric acid elevated at 10.5. During her admission, it was noted that she had elevated LFTs and elevated alkaline phosphatase. No complaints of right upper quadrant pain or pain postprandially. Right upper quadrant ultrasonography was conducted revealing the patient to be post cholecystectomy, with some enlargement of the left liver lobe. Follow-up is recommended in the outpatient setting to the patient, to which he agreed to. Follow up LFTs revealed progressive improvement of AST ALT and alk-phos. The patient was transitioned from IV antibiotics to oral antibiotics and requested to follow up in outpatient setting. Status at Discharge Cognitive/behavioral status at discharge: Baseline Functional status at discharge: independent ambulation Overall status at discharge: patient is back to baseline Time Attestation Total time managing care of this patient today: 35 mintues. Discharge Coordination Time (in mins): 15 Quality: Safe Use of Opioids Does Pt have an Active Cancer Diagnosis on the Problem List?: No Quality: Stroke Does the patient have a stroke diagnosis?: No Physical Exam Exam: Exam: General: A&O x3, oriented to time place person and situation, comfortable, no pain Cardiac: S1, S2 auscultated with no S3/4, no MRG. Well perfused. Respiratory: Normal breath sounds auscultated throughout all lung zones, without wheezing, rales. Normal rate. GI/ : No abdominal pain on palpation, no masses or distentions. MSK: Normal ambulation without pain at bony prominences or musculature Neurological: Normal neurological examination on overview, without obvious CN II-XII abnormalities. Vital Signs: Vital Signs: Last Vital Signs Temp 97.2 F 10/07/24 07:29 Pulse 52 10/07/24 07:29 Resp 16 10/07/24 07:29 BP 109/64 10/07/24 07:29 Pulse Ox 98 10/07/24 07:29 O2 Del Method Room Air 10/07/24 07:29 BMI result Body Mass Index 32.5 DS: Data Data Completed and Pending Labs on day of discharge: Laboratory Results - last 24 hr 10/05/24 10/06/24 10/06/24 23:07 16:49 20:44 Sodium Potassium Chloride Carbon Dioxide Anion Gap BUN Creatinine Estim Creat Clear Calc Estimated GFR POC Glucose 366 H* 277 H Random Glucose Calcium Total Bilirubin AST ALT Alkaline Phosphatase Total Protein Albumin Urine Color Yellow Urine Appearance Clear Urine pH 6.5 Ur Specific [place] 1.025 Urine Protein 30 (1+) H Urine Glucose (UA) >=1000 H Urine Ketones Negative Urine Blood Negative Urine Nitrite Negative Ur Leukocyte Esterase Small (1+) H Urine RBC 0-2 Urine WBC 0-5 Ur Squamous Epith Cells 6-10 Urine Bacteria Trace Hyaline Casts 0-2 Urine Yeast Present 10/07/24 10/07/24 10/07/24 06:01 07:34 08:53 Sodium 137 Potassium 4.0 Chloride 102 Carbon Dioxide 24 Anion Gap 15 BUN 49 H Creatinine 1.51 H 1.57 H Estim Creat Clear Calc 42.4 40.8 Estimated GFR 35 33 POC Glucose 234 H Random Glucose 338 H Calcium 9.3 Total Bilirubin 0.5 AST 31 ALT 59 H Alkaline Phosphatase 280 H Total Protein 7.2 Albumin 3.9 Urine Color Urine Appearance Urine pH Ur Specific [place] Urine Protein Urine Glucose (UA) Urine Ketones Urine Blood Urine Nitrite Ur Leukocyte Esterase Urine RBC Urine WBC Ur Squamous Epith Cells Urine Bacteria Hyaline Casts Urine Yeast 10/07/24 10:56 Sodium Potassium Chloride Carbon Dioxide Anion Gap BUN Creatinine Estim Creat Clear Calc Estimated GFR POC Glucose 343 H Random Glucose Calcium Total Bilirubin AST ALT Alkaline Phosphatase Total Protein Albumin Urine Color Urine Appearance Urine pH Ur Specific [place] Urine Protein Urine Glucose (UA) Urine Ketones Urine Blood Urine Nitrite Ur Leukocyte Esterase Urine RBC Urine WBC Ur Squamous Epith Cells Urine Bacteria Hyaline Casts Urine Yeast Preliminary micro results at discharge 10/05/24 14:58 Blood Culture - Preliminary Blood - Venous No growth after 24 hours. 10/05/24 14:58 Blood Culture - Preliminary Blood - Venous No growth after 24 hours. Discharge Plan Discharge Anticipated Discharge Date/Time: 10/07/24 11:27 Patient Disposition: Home, Self-Care Discharge Diagnosis: Acute gout flare with superimposed cellulitis of the left lateral dorsal aspect of the foot Referrals: Roslyn Horne PA-C [Primary Care Provider, Internal Medicine] - 1 Week Discharge Medications: New doxycycline monohydrate 100 mg capsule 100 mg PO BID Qty: 10 0RF Continued folic acid 1 mg tablet 1 mg PO DAILY Qty: 90 3RF ezetimibe 10 mg tablet 10 mg PO DAILY Qty: 90 1RF albuterol sulfate 90 mcg/actuation HFA aerosol inhaler 1 inh inhalation QID PRN (Reason: shortness of breath or wheezing) Qty: 6.7 0RF dapagliflozin propanediol [Farxiga] 10 mg tablet 10 mg PO DAILY Qty: 90 1RF indapamide 2.5 mg tablet 2.5 mg PO DAILY Trulicity 3 mg/0.5 mL pen injector 3 mg subcut GAGNON@0900 insulin lispro 100 unit/mL Insulin Pen 10 unit SUBCUT TIDAC atorvastatin 10 mg tablet 10 mg PO DAILY levothyroxine 50 mcg tablet 50 mcg PO DAILY@0600 (DME) pen needle, diabetic [Comfort EZ Pen Wing] 32 gauge x 1/4 needle See Rx Instructions .ROUTE .MEDSUPPLY Qty: 50 0RF Rx Instructions: As directed (DME) pen needle, diabetic [BD Ultra-Fine Chen Pen Needle] 32 gauge x 5/32 needle See Rx Instructions .MEDSUPPLY Qty: 100 3RF Rx Instructions: As directed (DME) insulin syringe-needle U-100 [BD Insulin Syringe Ultra-Fine] 0.5 mL 31 gauge x 5/16 syringe See Rx Instructions .Route Qty: 100 6RF Rx Instructions: Use 1 needle four times a day losartan [Cozaar] 100 mg tablet 100 mg PO DAILY Qty: 90 3RF (DME) lancets [FreeStyle Lancets] 28 gauge misc See Rx Instructions .ROUTE .MEDSUPPLY Qty: 200 5RF Rx Instructions: Use to monitor blood glucose 3 times daily. (DME) FreeStyle [place] 3 Plus Sensor Device See Rx Instructions .ROUTE .MEDSUPPLY Qty: 2 11RF Rx Instructions: Apply 1 new sensor every 14-15 days as directed to monitor blood glucose continuously. Eliquis 5 mg tablet 5 mg PO BID Qty: 180 1RF (DME) FreeStyle [place] 3 [place] Misc See Rx Instructions .ROUTE .MEDSUPPLY Qty: 1 0RF Rx Instructions: Use daily to monitor blood glucose levels continuously. (DME) blood-glucose meter [FreeStyle Lite Meter] Kit See Rx Instructions .ROUTE .MEDSUPPLY Qty: 1 0RF Rx Instructions: As directed to check blood glucose 3 times daily. (DME) FreeStyle Lite Strips Strip See Rx Instructions .ROUTE .MEDSUPPLY Qty: 200 5RF Rx Instructions: As directed to check glucose 3 times daily. glucose [Dex4 Glucose Quick Dissolve] 4 gram tablet,chewable 16 g PO Q15M PRN (Reason: hypoglycemia) Qty: 10 3RF Rx Instructions: until symptoms of low blood sugar are controlled TRUEplus Glucose 15 gram/32 mL gel in packet 15 g PO Q15M PRN (Reason: hypoglycemia) Qty: 128 3RF Rx Instructions: until symptoms of low blood sugar are controlled insulin degludec [Tresiba FlexTouch U-200] 200 unit/mL (3 mL) insulin pen 10 unit subcut BEDTIME Qty: 9 5RF Rx Instructions: Replaces Lantus. Discharge Orders: Discharge Order (Routine); Ordered 10/07/24 Ordered By: Ivis Jiang Diet: Advance to usual diet Activity on Discharge: As tolerated Stand Alone Forms: Patient Portal Discharge page Print Language: Chinese Care Plan Goals: - Follow with primary care provider within 7 days of discharge - Continue antibiotics until finished - follow-up liver function tests in outpatient setting within 7 days - consider medication induced transaminitis; statins Health Concerns: Type 2 diabetes Acute gout Acute cellulitis Transaminitis Plan of Treatment: As above Assessment: Patient is in fair condition on discharge; currently stable
[2024-10-07 12:50] VITALS: BP 141/65; PULSE 59; RESP 18; TEMP 36.1; O2SAT 94
--- NOTE | 2024-10-07 14:09 | MHC.CM.PN ---
Patient cleared to discharge today. She is discharged to home self care. She has arranged for private transportation home.
== END 2024-10-07 13:04 | disposition home or self-care (01) | DRG 351 ==
LOC: HO.ED 16:50 → HO.EDOVER 16:53 → HO.S3 21:36
PROVIDERS: Physician Assistant; Admitting Provider Internal Medicine; Emergency Provider Emergency Medicine; PCP Physician Assistant Medical; Visit Provider Hospitalist
DX: M10.9 Gout, unspecified (principal); E11.22 Type 2 diabetes mellitus with diabetic chronic kidney disease; L03.116 Cellulitis of left lower limb; E03.9 Hypothyroidism, unspecified; I12.9 Hypertensive chronic kidney disease with stage 1 through stage 4 chronic kidney disease, or unspecified chronic kidney disease; N18.30 Chronic kidney disease, stage 3 unspecified; I48.0 Paroxysmal atrial fibrillation; Z79.01 Long term (current) use of anticoagulants; Z87.891 Personal history of nicotine dependence; Z86.711 Personal history of pulmonary embolism; Z79.4 Long term (current) use of insulin; Z79.85 Long-term (current) use of injectable non-insulin antidiabetic drugs; Z79.890 Hormone replacement therapy; Z79.899 Other long term (current) drug therapy
CPT/HCPCS: 36415; 73610; 73630; 76705; 80048; 80053; 80076; 80307; 81001; 82565; 82947; 83605; 83735; 84484; 84550; 85025; 85027; 85379; 85652; 86140; 87040; 87086; 93005; 93971; 97162; 99221; 99285; J2270; J2405; J2543; J2919; J3373; J3374

== ENCOUNTER → 2024-10-05 12:38 | Outpatient (BNV) | payer OTHER, SELFPAY | PROVIDERS: Admitting Provider Internal Medicine; Emergency Provider Emergency Medicine; PCP Physician Assistant Medical; Visit Provider Internal Medicine Cardiovascular Disease | DX: R94.31 Abnormal electrocardiogram [ECG] [EKG] (principal) | CPT/HCPCS: 93010 ==

== ENCOUNTER → 2024-10-05 12:45 | Outpatient (BNV) | payer OTHER, SELFPAY | PROVIDERS: Emergency Provider Emergency Medicine; PCP Physician Assistant Medical; Visit Provider Radiology Diagnostic Radiology | DX: R22.42 Localized swelling, mass and lump, left lower limb (principal); M25.572 Pain in left ankle and joints of left foot; M79.672 Pain in left foot | CPT/HCPCS: 73610; 73630; 93971 ==

== ENCOUNTER 2024-10-05 16:41 | Outpatient (BNV) | payer OTHER, SELFPAY | END 2024-10-06 17:50 | PROVIDERS: Admitting Provider Internal Medicine; Emergency Provider Emergency Medicine; PCP Physician Assistant Medical; Visit Provider Radiology Diagnostic Radiology | DX: R94.5 Abnormal results of liver function studies (principal); R74.8 Abnormal levels of other serum enzymes; R16.0 Hepatomegaly, not elsewhere classified; Z90.49 Acquired absence of other specified parts of digestive tract | CPT/HCPCS: 76705 ==

== ENCOUNTER → 2024-10-05 16:41 | Outpatient (BNV) | payer OTHER, SELFPAY | PROVIDERS: Admitting Provider Internal Medicine; Emergency Provider Emergency Medicine; PCP Physician Assistant Medical; Visit Provider Internal Medicine | DX: M10.9 Gout, unspecified (principal) | CPT/HCPCS: 99223 ==

== ENCOUNTER 2024-10-21 10:14 | Outpatient (AMB) | payer OTHER, SELFPAY ==
[2024-10-21 10:17] VITALS: BP 116/78; PULSE 71; O2SAT 96; BMI 31.2
--- NOTE | 2024-10-21 10:17 | MHC.OFFVIS ---
Vital Signs 10/21/24 10:17 Height 5 ft 5 in Weight 187 lb 6.287 oz BMI 31.2 BP 116/78 Blood Pressure Location Rt brachial Position Sitting Pulse 71 Pulse Source Pulse Oximeter Pulse Oximetry (%) 96 Oxygen Delivery Method Room Air Intake Visit Reasons: type II diabetes follow up- repeat A1C Intake Note: Patient present today to follow up on Type 2 Diabetes Mellitus. Last Diabetic Eye exam: Needs a referral Last Podiatry Visit: Does not see a plastic parts fabricator trimmer Random Glucose: 157 mg/dL HgA1C: 10.1%, 10/21/2024 Administrative Assistant Receptionist Required: Yes Administrative Assistant Receptionist Language: Emission Specialist Services: Administrative Assistant Receptionist Offered & Declined Administrative Assistant Receptionist Name: Daughter Accompanied by: Daughter Allergies Seasonal Allergies Allergy (Verified 10/21/24 10:25) Sneezing HPI Comments Details: This is a 63-year-old female with a past medical history of type 2 diabetes, hyperlipidemia, hypertension, CKD III, depression with anxiety, hypothyroidism and obesity presenting for diabetic management. She is here with her daughter, Estelle, who interprets. She declined an diplomatic interpreter/translator. Estelle said she was recently at the emergency department with gout and on antibiotics and prednisone. She has an appointment with her PCP this . She was diagnosed with diabetes approximately 15 years ago. Her mother and sister had type 2 diabetes. Hemoglobin A1c is 10.1% today up from 9.6%. She just returned from a 2-1/ trip from [place]. She endorses noncompliance with her medication. She is not taking Humalog because she has not had a sensor and has not been checking her sugars with a fingerstick glucometer. She does not have a sensor or glucometer with her today. Denies symptoms of hyperglycemia. Denies interval episodes of hypoglycemia. Current medications: Tresiba 10 units nightly. Trulicity 3 mg weekly. Farxiga 10 mg daily. Humalog three times a day 15 minutes before meals per sliding scale: Blood sugar under 150: do not give humalog blood sugar 150-199- give 2 units blood sugar 200-249- give 4 units blood sugar 250-299 - give 6 units blood sugar 300-349- give 8 units blood sugar 350-399- give 10 units blood sugar >400 give 12 units Past medication: Metformin discontinued due to side effects. Lantus change to Tresiba due to propensity for hypoglycemia. Eye exam: [facility] Microvascular complications: neuropathy in both feet (pins and needles), nephropathy (CKD microalbuminuria followed by Dr. Robbins), retinopathy (OU nonproliferative retinopathy) Macrovascular complications: none ROS: Constitutional: No unexplained weight loss, fever, chills, fatigue or night sweats. Respiratory: Denies shortness of breath Cardiovascular: No chest pain, chest pressure or chest discomfort. No palpitations or pedal edema. Gastrointestinal: No anorexia, nausea, vomiting or diarrhea. No abdominal pain or blood in stool. Neurologic: +neuropathy in her feet. No headache, dizziness or syncope. Skin: No rash or wounds. Endocrine: No cold or heat intolerance. No polyuria or polydipsia. Physical exam: Constitutional: Alert, in no distress. Neck: Supple, Full range of motion. No lymphadenopathy. Respiratory: Clear to auscultation. Cardiovascular: S1 S2 regular. No murmurs Neurologic: No focal neurological deficits. Skin: Warm and dry Extremities: Warm and well perfused. No clubbing or cyanosis or erythema. Mild edema around the lateral malleolus of the left ankle. Psychiatric: Normal mood and affect [facility] Medical History (Updated 10/21/24 @ 12:39 by NARCISA Whelan) Acute gout Hospital discharge follow-up Pulmonary emboli Anticoagulated on Eliquis Pneumonia Hypoglycemia At risk for foot problem Type II diabetes with shelter use of insulin CKD (chronic kidney disease) Diabetes mellitus High cholesterol Anxiety Depression History of carpal tunnel syndrome Hypertension Surgical History H/O tubal ligation Family History Mother Diabetes mellitus Arthritis Hypertension Other Esophageal abnormality Mental health disorder Social History Household Members: Family Housing: Apartment Do you presently have visiting nurse or other home services: No Alcohol intake: never Patient Tobacco Use Status: Former Tobacco user Tobacco use type: Cigarette e-Cigarette/Vaping Use: Never Used Second Hand Smoke Exposure: Yes service: No Current occupational status: unemployed Cognitive needs: No Hearing needs: No Vision needs: No Physical Exam Vital Signs: Last Vital Signs Pulse 71 10/21/24 10:17 BP 116/78 10/21/24 10:17 Pulse Ox 96 10/21/24 10:17 Oxygen Delivery Method Room Air 10/21/24 10:17 BMI result Body Mass Index 31.2 Results AMB Hemoglobin A1c AMB Hemoglobin A1c 10.1 % Last Edit by RADHIKA Simeon on 10/21/24 10:45 Results Reviewed Results Reviewed: Laboratory Last Values Glucose (Clinic) 157 mg/dL (60-115) H 10/21/24 10:24 Laboratory Tests 10/07/24 10/21/24 08:53 10:32 Creatinine 1.57 H Estimated GFR 33 Hgb A1c (Clinic) 10.1 H Assessment & Plan Assessment & Plan (1) Type II diabetes with terminal gauger supervisor use of insulin: Code(s): E11.9 - Type 2 diabetes mellitus without complications; Z79.4 - intermediate designer (current) use of insulin Category: Medical Qualifiers: Diabetes mellitus complication status: with kidney complications Diabetes mellitus complication detail: with diabetic microalbuminuria Qualified Code(s): E11.29 - Type 2 diabetes mellitus with other diabetic kidney complication; R80.9 - Proteinuria, unspecified; Z79.4 - intermediate designer (current) use of insulin Plan: In summary this is a 63-year-old female with a past medical history of uncontrolled type 2 diabetes with complications. Patient seen by agricultural extension educator and dietitian. We reviewed the complications of type 2 diabetes. Strongly encouraged compliance with her medications and eating 3 meals daily. Increase Tresiba to 16 units nightly. Continue Trulicity 3 mg weekly. Continue Farxiga 10 mg daily. She agreed to start using Humalog again and merchandise pickup/receiving associate a sensor from the pharmacy. I sent refills. I asked them to contact the office if she is not able to get them by tomorrow. Administer Humalog three times a day 15 minutes before meals Follow Humalog sliding scale: Blood sugar under 150: do not give humalog blood sugar 150-199- give 2 units blood sugar 200-249- give 4 units blood sugar 250-299 - give 6 units blood sugar 300-349- give 8 units blood sugar 350-399- give 10 units blood sugar >400 give 12 units Reviewed treatment of hypo/hyperglycemia. She has written instructions in Citizen Of [place] and [place]. Plan Follow up in 1 month for type 2 diabetes. Orders: Orders AMB Hemoglobin A1c Today E11.9 - Type 2 diabetes mellitus without complications Medications: Changed From blood-glucose sensor (FreeStyle Griffin 3 Plus Sensor device) Apply 1 new sensor every 14-15 days as directed to monitor blood glucose continuously. 2 ea 11RF To blood-glucose sensor (FreeStyle Griffin 3 Plus Sensor device) Apply 1 new sensor every 15 days as directed to monitor blood glucose continuously. 2 ea 11RF From insulin degludec (Tresiba FlexTouch U-200 insulin) Replaces Lantus. 10 units (0.05 mL) subcut BEDTIME 9 mL 5RF To insulin degludec (Tresiba FlexTouch U-200 insulin) Replaces Lantus. 16 units (0.08 mL) subcut BEDTIME 9 mL 5RF Refilled blood sugar diagnostic (FreeStyle Lite Strips) As directed to check glucose 3 times daily. 200 ea 5RF lancets (FreeStyle Lancets) Use to monitor blood glucose 3 times daily. 200 ea 5RF Patient Instructions: Current medications: Increase Tresiba to 16 units nightly. Trulicity 3 mg weekly. Farxiga 10 mg daily. Humalog three times a day 15 minutes before meals per sliding scale: Blood sugar under 150: do not give humalog blood sugar 150-199- give 2 units blood sugar 200-249- give 4 units blood sugar 250-299 - give 6 units blood sugar 300-349- give 8 units blood sugar 350-399- give 10 units blood sugar >400 give 12 units If you experience low blood sugar, treat this by eating a chewable fruit candy like skittles or jelly beans (about 8 pieces), 4 ounces (1/2 cup) of fruit juice (not diet), 1 tablespoon of honey or 4 glucose tablets. If your blood sugar is under 50, take double the amount of one of the above. Recheck your blood sugar in 15 minutes. Coding Level of Care Code Est Pt Level 4 (22732) Complex EM visit Add On G2211 Diagnoses Type 2 diabetes mellitus with diabetic microalbuminuria, with long-term current use of insulin E11.29; R80.9; Z79.4 Diabetes mellitus complication status: with kidney complications Diabetes mellitus complication detail: with diabetic microalbuminuria
[2024-10-21 10:31] LABS: Glucose, Whole Blood 157 mg/dL (60-115)
--- OUTSIDE RECORDS SUMMARY | 2024-10-21 11:46 | XMS_ITS | Clinical Summary ---
Author Organization [facility] Address [address] [place] [address] Phone Care Team Providers Care Wood Cabinet Finisher Name Role Phone Charity Hughes MD Primary Care Provider [phone] Allergies No known active allergies Medications metFORMIN (GLUCOPHAGE) 500 mg tablet TAKE 1 TABLET BY MOUTH TWICE A DAY 10/16/2023 Active pen needle, diabetic 32 gauge x 5/32 needle USE UP TO 4 TIMES A DAY WITH INSULIN PEN. 10/03/2023 Active flash glucose scanning reader (FreeStyle Griffin 2 [place]) misc by Does not apply route. Active [...] nephropathy, with long-term current use of insulin ([facility] V24, [facility] V28) 01/30/2024 Surgical History Surgery Date Site/Laterality Comments TUBAL LIGATION PROCEDURE: HISTORICAL TUBAL LIGATION CHOLECYSTECTOMY PROCEDURE: [place] CHOLECYSTECTOMY Medical History Medical History Date Comments DM (diabetes mellitus) ([facility] V24, [facility] V28) DX:DM (diabetes mellitus) (H CC) HTN [...] 01/22/2022 Social Influencers of Health Screening 01/22/2022 Diabetes: Annual Urine Albumin-Creatinine Ratio (uACR) 12/03/2023 Diabetes: Blood Sugar Contro l Test (HGBA1C) 12/03/2023 Depression Screening 02/20/2024 COVID-19 Vaccine ( - 2023-2 5 season) 2024 Influenza Vaccine (#1) 2024 Cervical Cancer Screening: [...] Cervical Cancer Screening: HPV abstracted, no interpretation [facility] Provider HEALTH MAINTENANCE Final Result * HIV Screening (12/19/2021) Pathologist [facility] HIV Screening abstracted [facility] Provider HEALTH MAINTENANCE Final Result * Hepatitis C Screening (12/19/2021) Pathologist [facility] Hepatitis C Screening abstracted [facility] Provider HEALTH MAINTENANCE Final Result from Last 3 Months or Most Recently Relevant to Health Maintenance Insurance [facility] Care Teams Wood Cabinet Finisher Relationship Specialty Start Date End Date Charity Hughes MD [address] [place] [address] , [address] [facility] D[facility]B/A[facility] [place], [place] PCP - General Internal Medicine 10/12/21
== END 2024-10-21 10:57 | disposition home or self-care (01) ==
LOC: HO.ENCR 10:15
PROVIDERS: PCP Internal Medicine; Visit Provider Physician Assistant Medical
DX: E11.29 Type 2 diabetes mellitus with other diabetic kidney complication (principal); R80.9 Proteinuria, unspecified; Z79.4 Long term (current) use of insulin

== ENCOUNTER → 2024-10-21 10:14 | Outpatient (BNVA) | payer OTHER, SELFPAY | PROVIDERS: PCP Internal Medicine; Visit Provider Physician Assistant Medical | DX: E11.29 Type 2 diabetes mellitus with other diabetic kidney complication (principal); R80.9 Proteinuria, unspecified; Z79.4 Long term (current) use of insulin | CPT/HCPCS: 82947; 83036; 99212 ==

== ENCOUNTER 2024-10-23 09:18 | Outpatient (AMB) | payer OTHER, SELFPAY ==
--- NOTE | 2024-10-23 09:29 | MHC.PC.OV ---
Vital Signs 10/23/24 09:30 Height 5 ft 5 in Weight 186 lb BMI 30.9 BP 140/66 H Blood Pressure Location Lt brachial Position Sitting Pulse 76 Pulse Source Pulse Oximeter Temp 97.1 F Temp Source Temporal Artery Scan Pulse Oximetry (%) 96 Oxygen Delivery Method Room Air Intake Visit Reasons: ed follolw up Intake Note: Patient is here to follow-up after a visit the emergency department at [facility] on 10/05/24. Pt is requesting titles for TB. Administrator Of Home Health Required: Yes Administrator Of Home Health Language: Core Composer Machine Tender Name: Frida (daughter) Information Interpreted: non-clinical & clinical (Pt decline concession attendant service prefer daughter to translate.) Recycling Sorter: Present Accompanied by: Daughter Allergies Seasonal Allergies Allergy (Verified 10/23/24 09:29) Sneezing Tobacco use date assessed: 10/23/24 Dental Screening Dental Screen Date: 06/12/24 [facility] Medical History (Updated 10/21/24 @ 12:39 by NARCISA Whelan) Acute gout Hospital discharge follow-up Pulmonary emboli Anticoagulated on Eliquis Pneumonia Hypoglycemia At risk for foot problem Type II diabetes with fdc use of insulin CKD (chronic kidney disease) Diabetes mellitus High cholesterol Anxiety Depression History of carpal tunnel syndrome Hypertension Surgical History (Updated 10/23/24 @ 09:42 by RADHIKA Swartz) History of cholecystectomy H/O tubal ligation Family History Mother Diabetes mellitus Arthritis Hypertension Other Esophageal abnormality Mental health disorder Social History Household Members: Family Housing: Apartment Do you presently have visiting nurse or other home services: No Alcohol intake: never Patient Tobacco Use Status: Former Tobacco user Tobacco use type: Cigarette e-Cigarette/Vaping Use: Never Used Second Hand Smoke Exposure: Yes service: No Current occupational status: unemployed Cognitive needs: No Hearing needs: No Vision needs: No Questionnaire Thrive Questionnaire Date Thrive assessed: 07/24/24 I am a: Patient What is your living situation today?: I choose not to answer this question Within the past 12 months, did the food you bought not last and you didn't have the money to get more?: Never true Within the past 12 months, did you worry whether your food would run out before you got money to buy more?: Never true Do you have trouble paying for medicines?: I choose not to answer this question Do you have trouble getting transportation to medical appointments?: No Do you have trouble paying your heating and electricity bill?: I choose not to answer this question Do you have trouble taking care of your child, family member or friend?: I choose not to answer this question Do you have trouble with day-to-day activities such as bathing, preparing meals, shopping, managing finances, etc.?: I choose not to answer this question Are you currently unemployed and looking for a job?: No Are you interested in more education?: No Please select the resources that you would like help with: None Currently or been in a relationship where the following occur: I choose not to answer THRIVE Score: 0 YENI-7 AMB Questionnaire YENI-7 Date YENI - 7 assessed: 07/24/24 Source: Developed by Drs. Giles Magallanes, Maye Mcfarlane, Jose M Trejo and colleagues, with an educational natacha from [employer]. Physical exam (Primary Care) Vital Signs: Last Vital Signs Temp 97.1 F 10/23/24 09:30 Pulse 76 10/23/24 09:30 BP 140/66 H 10/23/24 09:30 Pulse Ox 96 10/23/24 09:30 Oxygen Delivery Method Room Air 10/23/24 09:30 BMI result Body Mass Index 30.9 Tobacco/Smoking Status: Tobacco use Status Tobacco use date assessed 10/23/24 10/23/24 09:34 Patient Tobacco Use Status Former Tobacco user 10/23/24 09:29 Tobacco use type Cigarette 10/23/24 09:29 e-Cigarette/Vaping Use Never Used 10/23/24 09:29 Thrive Assessment: Date of Thrive Assessment Date Thrive assessed 07/24/24 10/23/24 09:29 Currently or been in a relationship where the following occur: I choose not to answer Coding Level of Care Code Est Pt Level 4 (51413) Complex EM visit Add On G2211 Diagnoses Hospital discharge follow-up Z09 Assessment & Plan Assessment & Plan (1) Hospital discharge follow-up: Code(s): Z09 - Encounter for follow-up examination after completed treatment for conditions other than malignant neoplasm Category: Medical Plan: History of Present Illness - The patient is a 63-year-old female presenting with foot pain and redness. - Hospitalized for two days following an ER visit on the due to foot pain and redness. - History of a dog bite on the affected foot two years ago. - Completed a three-day course of antibiotics. - Issues with thyroid medication adjustments, alternating between 50 mcg and 75 mcg doses. - Liver inflammation possibly related to blood pressure medication. - Reports an abdominal mass causing discomfort, suspected to be related to calcium deposits. - Scheduled for a TB test as part of preventative care. Social History Review of Systems - Musculoskeletal: Reports foot pain and redness, history of dog bite. - Endocrine: Reports issues with thyroid medication dosage. - Gastrointestinal: Reports abdominal mass causing discomfort. Physical Exam General: Cooperative and healthy appearing Nutritional Appearance: Well nourished Orientation/consciousness: Patient oriented x3 Limitations: No limitations Head: Normal to inspection General: Appearance normal, both eyes and all related structures Neck: Normal visual inspection Chest: Normal palpation of entire chest wall Respiratory: N ormal respiratory effort Neurology: Patient oriented x3, but reports pain in the foot and stomach. Results Plan 1. Foot Pain And Redness - Follow-up for foot pain and redness post-ER visit, no further antibiotics needed. - Prescribed meloxicam for inflammation. 2. Thyroid Medication Adjustment - Review and adjust thyroid medication dosage as needed. 3. Liver Inflammation - Monitor liver function, consider medication review for hypertension. 4. Abdominal Mass - Evaluate abdominal mass, consider further imaging if symptoms persist. 5. Hypertension - Continue current antihypertensive therapy, monitor blood pressure regularly. 6. Preventative Care: Tb Test - Order and complete TB test as part of preventative care. Discussion Notes During the visit, we discussed the follow-up for foot pain and redness, confirming no further antibiotics are needed. Meloxicam was prescribed for inflammation. We reviewed the thyroid medication dosage and addressed concerns about liver inflammation potentially related to blood pressure medication. The abdominal mass was noted, and further evaluation was considered. A TB test was ordered as part of preventative care. Patient Instructions - Continue taking meloxicam as prescribed for inflammation. - Monitor thyroid medication dosage and report any issues. - Follow up on liver function tests and blood pressure monitoring. - Schedule and complete the TB test. Orders: Orders T Spot TB Today Z02.0 - Encounter for examination for admission to [facility]
[2024-10-23 09:30] VITALS: BP 140/66; PULSE 76; TEMP 36.2; O2SAT 96; BMI 30.9
--- OUTSIDE RECORDS SUMMARY | 2024-10-23 09:56 | XMS_ITS | Clinical Summary ---
Author Organization [facility] Address [address] [place] [address] Phone Care Team Providers Care Medical Affairs Leader Name Role Phone Charity Hughes MD Primary Care Provider [phone] Allergies No known active allergies Medications metFORMIN (GLUCOPHAGE) 500 mg tablet TAKE 1 TABLET BY MOUTH TWICE A DAY 10/16/2023 Active pen needle, diabetic 32 gauge x 5/32 needle USE UP TO 4 TIMES A DAY WITH INSULIN PEN. 10/03/2023 Active flash glucose scanning reader (FreeStyle Griffin 2 [place]) misc by Does not apply route. Active [...] nephropathy, with long-term current use of insulin ([facility] V24, [facility] V28) 01/30/2024 Surgical History Surgery Date Site/Laterality Comments TUBAL LIGATION PROCEDURE: HISTORICAL TUBAL LIGATION CHOLECYSTECTOMY PROCEDURE: [place] CHOLECYSTECTOMY Medical History Medical History Date Comments DM (diabetes mellitus) ([facility] V24, [facility] V28) DX:DM (diabetes mellitus) (H [...] Cervical Cancer Screening: HPV abstracted, no interpretation [facility] Provider HEALTH MAINTENANCE Final Result * HIV Screening (12/19/2021) Pathologist [facility] HIV Screening abstracted [facility] Provider HEALTH MAINTENANCE Final Result * Hepatitis C Screening (12/19/2021) Pathologist [facility] Hepatitis C Screening abstracted [facility] Provider HEALTH MAINTENANCE Final Result from Last 3 Months or Most Recently Relevant to Health Maintenance Insurance [facility] [employer] Care Teams Medical Affairs Leader Relationship Specialty Start Date End Date Charity Hughes MD [address] [place] [address] , [address] [facility] D/B/A: [facility] [place], [place] PCP - General Internal Medicine 10/12/21
== END 2024-10-23 10:16 | disposition home or self-care (01) ==
PROVIDERS: PCP Internal Medicine; Visit Provider Internal Medicine
DX: Z09 Encounter for follow-up examination after completed treatment for conditions other than malignant neoplasm (principal)

== ENCOUNTER 2024-10-23 10:25 | Outpatient (REF) | payer OTHER, SELFPAY ==
--- NOTE | ~2024-10-23 | MM_ITS ---
EXAMINATION: MM SCREENING DIGITAL BREAST TOMOSYNTHESIS, BILATERAL CLINICAL INFORMATION: Screening. Asymptomatic. COMPARISON: Mammography: Baseline. TECHNIQUE: Digital breast mammography with tomosynthesis is performed in both the craniocaudal and mediolateral oblique views along with computer-aided detection (CAD). FINDINGS: The breasts are heterogeneously dense, which may obscure small masses (ACR BI-RADS breast composition Category c). Right: Asymmetry superior breast anterior and middle depth on MLO view. No suspicious calcifications or other abnormal findings. Left: There are no significant masses, abnormal calcifications, or other abnormalities. MM/MM tomosynthesis screening BI IMPRESSION: Additional imaging is recommended ASSESSMENT: BI-RADS BI-RADS 0 - Incomplete: Needs additional Imaging. RECOMMENDATION: 1. Additional views of the right breast. 2. Targeted ultrasound if warranted after review of the additional views. 3. Radiology department staff will contact the patient for additional imaging. Additional Imaging required This examination should not preclude the clinical evaluation of a suspicious palpable abnormality. This patient's information was entered into a reminder system with a target due date for their next mammogram. Electronically signed by: Nikki Rowe DO 10/27/2024 09:00 AM EDT
== END 2024-10-23 10:26 | disposition home or self-care (01) ==
LOC: HO.MAMMO 10:25
PROVIDERS: PCP Internal Medicine; Visit Provider Physician Assistant Medical
DX: Z09 Encounter for follow-up examination after completed treatment for conditions other than malignant neoplasm (principal); Z12.31 Encounter for screening mammogram for malignant neoplasm of breast
CPT/HCPCS: 77063; 77067; 99212

== ENCOUNTER → 2024-10-23 11:30 | Outpatient (BNV) | payer OTHER, SELFPAY | PROVIDERS: PCP Internal Medicine; Visit Provider Internal Medicine | DX: Z12.31 Encounter for screening mammogram for malignant neoplasm of breast (principal) | CPT/HCPCS: 77063; 77067 ==

== ENCOUNTER 2024-10-31 15:05 | Outpatient (REF) | payer OTHER, SELFPAY ==
[2024-10-31 15:47] LABS: Anion Gap 12 (12-20); Blood Urea Nitrogen 37 mg/dL (9-16); Calcium 9.2 mg/dL (8.4-10.2); Carbon Dioxide 25 mmol/L (22-29); Chloride 107 mmol/L (96-108); Estimated Glomerular Filt Rate 27; Potassium 4.0 mmol/L (3.3-5.1); Sodium 140 mmol/L (135-145)
[2024-10-31 16:00] LABS: Appearance Urine Cloudy; Glucose Urine UA >=1000 mg/dL (Negative); PH 5.0 (5.0-9.0); Specific Gravity - Urine >= 1.030 (1.005-1.025); UMIC TRIGGER UA YES
--- OUTSIDE RECORDS SUMMARY | 2024-10-31 17:36 | XMS_ITS | Clinical Summary ---
Author Organization [facility] Address [address] [place] [address] Phone Care Team Providers Care Programs Manager Name Role Phone Charity Hughes MD Primary Care Provider [phone] Allergies No known active allergies Medications metFORMIN (GLUCOPHAGE) 500 mg tablet TAKE 1 TABLET BY MOUTH TWICE A DAY 10/16/2023 Active pen needle, diabetic 32 gauge x 5/32 needle USE UP TO 4 TIMES A DAY WITH INSULIN PEN. 10/03/2023 Active flash glucose scanning reader (FreeStyle Griffin 2 [place]) misc by Does not apply route. Active [...] nephropathy, with long-term current use of insulin ([facility] V24, [facility] V28) 01/30/2024 Surgical History Surgery Date Site/Laterality Comments TUBAL LIGATION PROCEDURE: HISTORICAL TUBAL LIGATION CHOLECYSTECTOMY PROCEDURE: [place] CHOLECYSTECTOMY Medical History Medical History Date Comments DM (diabetes mellitus) ([facility] V24, [facility] V28) DX:DM (diabetes mellitus) (H [...] Cervical Cancer Screening: HPV abstracted, no interpretation [facility] Provider HEALTH MAINTENANCE Final Result * HIV Screening (12/19/2021) Pathologist [facility] HIV Screening abstracted [facility] Provider HEALTH MAINTENANCE Final Result * Hepatitis C Screening (12/19/2021) Pathologist [facility] Hepatitis C Screening abstracted [facility] Provider HEALTH MAINTENANCE Final Result from Last 3 Months or Most Recently Relevant to Health Maintenance Insurance [facility] Care Teams Programs Manager Relationship Specialty Start Date End Date Charity Hughes MD [address] [place] [address] , [address] [facility] D/B/A: [facility] [place], [place] PCP - General Internal Medicine 10/12/21
[2024-11-03 13:53] LABS: TS Negative Control Passed; TS Panel A 0; TS Panel B 0; TS Positive Control Passed; TSpotTB Negative (Negative)
== END 2024-10-31 15:06 | disposition home or self-care (01) ==
LOC: HO.LAB 15:05
PROVIDERS: Absent Provider Internal Medicine Hypertension Specialist; PCP Internal Medicine; Visit Provider Internal Medicine
DX: Z11.1 Encounter for screening for respiratory tuberculosis (principal); Z02.0 Encounter for examination for admission to educational institution; N18.9 Chronic kidney disease, unspecified; R80.9 Proteinuria, unspecified
CPT/HCPCS: 36415; 80048; 81001; 81003; 86481

== ENCOUNTER → 2024-11-11 08:30 | Outpatient (BNV) | payer OTHER, SELFPAY | PROVIDERS: PCP Internal Medicine; Visit Provider Radiology Body Imaging | DX: R92.8 Other abnormal and inconclusive findings on diagnostic imaging of breast (principal) | CPT/HCPCS: 76642; 77061; 77065 ==

== ENCOUNTER 2024-11-11 08:35 | Outpatient (REF) | payer OTHER, SELFPAY ==
--- NOTE | ~2024-11-11 | MM_ITS ---
EXAMINATION(S): 1. MM DIAGNOSTIC DIGITAL BREAST TOMOSYNTHESIS, RIGHT 2. Targeted ultrasound of the right breast CLINICAL INFORMATION: Callback from baseline screening for right breast asymmetry in the superior breast in the anterior and middle depth on the MLO view. COMPARISON: October 23, 2024 TECHNIQUE: Digital breast tomosynthesis is performed in full field ML 90 degrees along with computer-aided detection (CAD). Synthesized 2D images are generated from the tomosynthesis. Spot compression tomosynthesis were obtained. FINDINGS: BREAST COMPOSITION: The breasts are heterogeneously dense, which may obscure small masses (ACR BI-RADS breast composition Category c). RIGHT BREAST: Asymmetry in the upper breast middle depth described on previous examination is pliable with spot compression. Targeted ultrasound was performed throughout the upper breast, from 9:00 to 3:00 positions. The survey did not reveal suspicious sonographic findings. MM/MM tomosynthesis added views R IMPRESSION: RIGHT BREAST: Pliable asymmetry in the upper breast middle depth on the MLO view. No suspicious sonographic correlate. Probably benign. A 6-month follow-up mammogram is recommended. ASSESSMENT: BI-RADS 3 - Probably benign finding(s) - 6 month follow-up suggested RECOMMENDATION: 6 Month F/U Results were provided to the patient at time of visit by the technologist. This patient's information was entered into a reminder system with a target due date for their next mammogram. Electronically signed by: Burke Saba MD 11/11/2024 09:32 AM EDT
--- OUTSIDE RECORDS SUMMARY | 2024-11-11 09:33 | XMS_ITS | Clinical Summary ---
Author Organization [facility] Address [address] [place] [address] Phone Care Team Providers Care Cryptozoologist Name Role Phone Charity Hughes MD Primary Care Provider [phone] Allergies No known active allergies Medications metFORMIN (GLUCOPHAGE) 500 mg tablet TAKE 1 TABLET BY MOUTH TWICE A DAY 10/16/2023 Active pen needle, diabetic 32 gauge x 5/32 needle USE UP TO 4 TIMES A DAY WITH INSULIN PEN. 10/03/2023 Active flash glucose scanning reader (FreeStyle Griffin 2 [place]) misc by Does not apply route. Active [...] nephropathy, with long-term current use of insulin ([facility] V24, [facility] V28) 01/30/2024 Surgical History Surgery Date Site/Laterality Comments TUBAL LIGATION PROCEDURE: HISTORICAL TUBAL LIGATION CHOLECYSTECTOMY PROCEDURE: VA CHOLECYSTECTOMY Medical History Medical History Date Comments DM (diabetes mellitus) ([facility] V24, [facility] V28) DX:DM (diabetes mellitus) (H CC) HTN [...] Cervical Cancer Screening: HPV abstracted, no interpretation [facility] Provider HEALTH MAINTENANCE Final Result * HIV Screening (12/19/2021) Pathologist [facility] HIV Screening abstracted [facility] Provider HEALTH MAINTENANCE Final Result * Hepatitis C Screening (12/19/2021) Pathologist [facility] Hepatitis C Screening abstracted [facility] Provider HEALTH MAINTENANCE Final Result from Last 3 Months or Most Recently Relevant to Health Maintenance Insurance [facility] Care Teams Cryptozoologist Relationship Specialty Start Date End Date Charity Hughes MD [address] [place] [address] , [address] [facility] D[facility] [place], [place] PCP - General Internal Medicine 10/12/21
== END 2024-11-11 08:36 | disposition home or self-care (01) ==
LOC: HO.MAMMO 08:35
PROVIDERS: PCP Internal Medicine; Visit Provider Internal Medicine
DX: N64.89 Other specified disorders of breast (principal)
CPT/HCPCS: 76642; 77061; 77065

== ENCOUNTER 2024-11-17 10:15 | Outpatient (AMB) | payer OTHER, SELFPAY ==
[2024-11-17 10:18] VITALS: BP 100/54; PULSE 68; O2SAT 98; BMI 31.3
--- NOTE | 2024-11-17 10:18 | HO.NEPHOV_ITS ---
Vital Signs 11/17/24 10:18 Height 5 ft 5 in Weight 188 lb BMI 31.3 BP 100/54 L Blood Pressure Location Lt brachial Position Sitting Pulse 68 Pulse Source Pulse Oximeter Pulse Oximetry (%) 98 Oxygen Delivery Method Room Air Intake Visit Reasons: FU-Conf Wound Care Center Consultant Required: No Wound Care Center Consultant Services: Wound Care Center Consultant Offered & Declined (Daughter will translate ) Accompanied by: Daughter Allergies Seasonal Allergies Allergy (Verified 11/17/24 10:20) Sneezing Medication List - Last Reconciled 11/17/24 by Leonardo Robbins MD albuterol sulfate 90 mcg/actuation 1 inh inhalation QID PRN apixaban (Eliquis) 5 mg PO BID atorvastatin 10 mg PO DAILY blood sugar diagnostic (FreeStyle Lite Strips) As directed to check glucose 3 times daily. blood-glucose meter (FreeStyle Lite Meter kit) As directed to check blood glucose 3 times daily. blood-glucose sensor (FreeStyle Griffin 3 Plus Sensor device) Apply 1 new sensor every 15 days as directed to monitor blood glucose continuously. blood-glucose,chemical processing equipment repairer,cont (FreeStyle Griffin 3 [place]) Use daily to monitor blood glucose levels continuously. dapagliflozin propanediol (Farxiga) 10 mg PO DAILY dextrose (TRUEplus Glucose) 15 grams (32 mL) PO Q15M PRN dulaglutide (Trulicity) 3 mg subcut GAGNON@0900 ezetimibe 10 mg PO DAILY folic acid 1 mg PO DAILY glucose (Dex4 Glucose Quick Dissolve) 16 grams (4 x 4 gram) PO Q15M PRN indapamide 2.5 mg PO DAILY insulin degludec (Tresiba FlexTouch U-200 insulin) 16 units (0.08 mL) subcut BEDTIME insulin lispro 10 units subcut TIDAC insulin syringe-needle U-100 (BD Insulin Syringe Ultra-Fine) Use 1 needle four times a day lancets (FreeStyle Lancets) Use to monitor blood glucose 3 times daily. levothyroxine 50 mcg PO DAILY@0600 losartan (Cozaar) 100 mg PO DAILY pen needle, diabetic (Comfort EZ Pen [place]) As directed pen needle, diabetic (BD Ultra-Fine Chen Pen Needle) As directed HPI Comments Details: Middle-aged woman with a history of longstanding diabetes mellitus hypertension has been referred for evaluation of CKD and proteinuria. Charlee was accompanied by her daughter was able to translate. She has longstanding history of diabetes mellitus blood sugar has been poorly controlled. She has been noncompliant with her diet according to her daughter. Patient does not exercise. Doing better today. She does not drink soda anymore. Metformin has been discontinued. No new issues today 03/10/24 Doing well. Farxiga was added - but she has not started it yet- ? why She ran out of losartan for the past 1 month 06/12/24 REcently in ER with dyspnea VQ scan showed VQ mismatch- NOw on Eliquis Still has cough NO urinary sypmtoms. NO edema 07/24/24 63-year-old female presenting with chronic kidney disease, diabetes, and hypertension management. She reports that her kidney function remains low based on recent bloodwork, with no noted changes in urinary output or medication alterations. Her diabetes management, involving an insulin pump, is stable with reported blood glucose levels ranging from 120-180 mg/dL. Hypertension is managed with losartan without recent modifications to the treatment regimen. There are no new or worsening symptoms related to her chronic conditions reported at this time. 11/17/24 History of Present Illness Follow up for CKD - Gout in the left leg for about a month, with intermittent pain. - Low blood pressure noted today; patient on diuretics. - No leg or facial swelling; continues water pills at night. - Cough with clear phlegm, worsens with exertion. - Decreased kidney function noted in recent labs, possibly due to diuretics. [facility] Medical History (Updated 10/21/24 @ 12:39 by NARCISA Whelan) Acute gout Hospital discharge follow-up Pulmonary emboli Anticoagulated on Eliquis Pneumonia Hypoglycemia At risk for foot problem Type II diabetes with half-way use of insulin CKD (chronic kidney disease) Diabetes mellitus High cholesterol Anxiety Depression History of carpal tunnel syndrome Hypertension Surgical History History of cholecystectomy H/O tubal ligation Family History Mother Diabetes mellitus Arthritis Hypertension Other Esophageal abnormality Mental health disorder Social History Household Members: Family Housing: Apartment Do you presently have visiting nurse or other home services: No Alcohol intake: never Patient Tobacco Use Status: Former Tobacco user Tobacco use type: Cigarette e-Cigarette/Vaping Use: Never Used Second Hand Smoke Exposure: Yes service: No Current occupational status: unemployed Cognitive needs: No Hearing needs: No Vision needs: No Physical Exam Vital Signs: Last Vital Signs Pulse 68 11/17/24 10:18 BP 100/54 L 11/17/24 10:18 Pulse Ox 98 11/17/24 10:18 Oxygen Delivery Method Room Air 11/17/24 10:18 BMI result Body Mass Index 31.3 Comfortable Neck supple no JVD. Lungs entry equal no rales. Heart S1-S2 heard no gallop or rub. Abdomen soft nontender. Neuro alert awake oriented. No asterixis. Extremities no edema. Results Reviewed Results Reviewed: Jan 2023: RIGHT KIDNEY: 9.6 x 4.9 x 5.2 cm (SAG x AP x TRV). The kidney is normal in size, contour, and echogenicity. Renal cortical thickness is normal. No calculi or focal parenchymal lesions. No hydronephrosis. LEFT KIDNEY: 10.4 x 5.5 x 5.8 cm (SAG x AP x TRV). The kidney is normal in size, contour, and echogenicity. Renal cortical thickness is normal. No calculi or focal parenchymal lesions. No hydronephrosis. US/US renal BI IMPRESSION: Normal renal ultrasound. Nephrology Results: Hgb, (12.0-16.0) 11.6 g/dl L 10/06/24 WBC, (4.8-10.8) 8.2 X10*3/uL 10/06/24 Plt Count, (160-400) 301 X10*3/uL 10/06/24 Sodium, (135-145) 140 mmol/L 10/31/24 Potassium, (3.3-5.1) 4.0 mmol/L 10/31/24 Chloride, (96-108) 107 mmol/L 10/31/24 Carbon Dioxide, (22-29) 25 mmol/L 10/31/24 BUN, (9-16) 37 mg/dL H 10/31/24 Creatinine, (0.5-1.4) 1.90 mg/dL H 10/31/24 Calcium, (8.4-10.2) 9.2 mg/dL 10/31/24 Urine Protein, (Neg-Trace) 30 (1+) mg/dL H 10/31/24 Renal US 02/16/23 Assessment & Plan Assessment & Plan (1) CKD (chronic kidney disease): Code(s): N18.9 - Chronic kidney disease, unspecified Category: Medical Plan: Middle-aged woman with longstanding diabetes mellitus hypertension with mild CKD. She has stage III CKD most likely due to hypertensive diabetic kidney disease. Goal also slow the progression of renal disease. Continue with Dominick inhibition. She will benefit from SGLT-2 inhibitor. on Farxiga Cr is up to 1.48 as of May _ this may be related ot hypoperfusion vs due to SGLT-2 inh STOP Indapamide - due to low BP And CHANTALE Increase PO fluid intake Avoid hypotension and NSAIDS Shall follow closely . (2) Microalbuminuria: Code(s): R80.9 - Proteinuria, unspecified Category: Medical Plan: Due to underlying diabetic kidney disease. Continue with ARB . (3) Hypertension: Code(s): I10 - Essential (primary) hypertension Category: Medical Plan: blood pressure is low Goal is to maintain blood pressure less than 130/80. Stop indapamide She should stay on low-sodium diet and she requires weight loss which we had discussed . Orders: Orders Basic Metabolic Panel 3 Weeks I10 - Essential (primary) hypertension, N18.9 - Chronic kidney disease, unspecified Uric Acid 3 Weeks I10 - Essential (primary) hypertension, N18.9 - Chronic kidney disease, unspecified Coding Level of Care Code Est Pt Level 4 (33001) Diagnoses CKD (chronic kidney disease) N18.9 Microalbuminuria R80.9 Hypertension I10
--- OUTSIDE RECORDS SUMMARY | 2024-11-17 11:25 | XMS_ITS | Clinical Summary ---
Author Organization [facility] Address [address] [place] [address] Phone Care Team Providers Care Contestant Coordinator Name Role Phone Charity Hughes MD Primary Care Provider [phone] Allergies No known active allergies Medications metFORMIN (GLUCOPHAGE) 500 mg tablet TAKE 1 TABLET BY MOUTH TWICE A DAY 10/16/2023 Active pen needle, diabetic 32 gauge x 5/32 needle USE UP TO 4 TIMES A DAY WITH INSULIN PEN. 10/03/2023 Active flash glucose scanning reader (FreeStyle Griffin 2 [place]) misc by Does not apply route. Active [...] nephropathy, with long-term current use of insulin ([facility] V24, [facility] V28) 01/30/2024 Surgical History Surgery Date Site/Laterality Comments TUBAL LIGATION PROCEDURE: HISTORICAL TUBAL LIGATION CHOLECYSTECTOMY PROCEDURE: ID CHOLECYSTECTOMY Medical History Medical History Date Comments DM (diabetes mellitus) ([facility] V24, [facility] V28) DX:DM (diabetes mellitus) (H [...] Cervical Cancer Screening: HPV abstracted, no interpretation [facility] Provider HEALTH MAINTENANCE Final Result * HIV Screening (12/19/2021) Pathologist [facility] HIV Screening abstracted [facility] Provider HEALTH MAINTENANCE Final Result * Hepatitis C Screening (12/19/2021) Pathologist [facility] Hepatitis C Screening abstracted [facility] Provider HEALTH MAINTENANCE Final Result from Last 3 Months or Most Recently Relevant to Health Maintenance Insurance [facility] Care Teams Contestant Coordinator Relationship Specialty Start Date End Date Charity Hughes MD [address] [place] [address] , [address] [facility] D[facility]B/A: [facility] [place], [place] PCP - General Internal Medicine 10/12/21
== END 2024-11-17 10:31 | disposition home or self-care (01) ==
LOC: HO.HKA 10:16
PROVIDERS: PCP Internal Medicine; Visit Provider Internal Medicine Hypertension Specialist
DX: I12.9 Hypertensive chronic kidney disease with stage 1 through stage 4 chronic kidney disease, or unspecified chronic kidney disease (principal); N18.9 Chronic kidney disease, unspecified; R80.9 Proteinuria, unspecified
CPT/HCPCS: 99214

== ENCOUNTER → 2024-11-17 10:15 | Outpatient (BNVA) | payer OTHER, SELFPAY | PROVIDERS: PCP Internal Medicine; Visit Provider Internal Medicine Hypertension Specialist | DX: I10 Essential (primary) hypertension (principal); N18.30 Chronic kidney disease, stage 3 unspecified; R80.9 Proteinuria, unspecified | CPT/HCPCS: 99212 ==

== ENCOUNTER 2024-11-25 09:06 | Outpatient (AMB) | payer OTHER, SELFPAY ==
--- NOTE | 2024-11-25 09:22 | A.OFFVIS_ITS ---
Vital Signs 11/25/24 09:25 Height 5 ft 5 in Weight 191 lb 12.835 oz BMI 31.9 BP 122/70 Blood Pressure Location Rt brachial Position Sitting Pulse 60 Pulse Source Pulse Oximeter Pulse Oximetry (%) 98 Oxygen Delivery Method Room Air Intake Visit Reasons: Dm2 F/U Intake Note: Patient present today to follow up on Type 2 Diabetes Mellitus. Last Diabetic Eye exam: Patient has an ophthalmology, needs to call to make an appt, missed last appt. Last Podiatry Visit: Does not see a blueprint engineer Random Glucose: 199 mg/dL HgA1C: 10.1%, 10/21/2024 Sap Solutions Architect Required: Yes Sap Solutions Architect Language: Refinery Operator Helper Services: Sap Solutions Architect Offered & Declined Sap Solutions Architect Name: Daughter Accompanied by: Daughter Allergies Seasonal Allergies Allergy (Verified 11/25/24 09:29) Sneezing Medication List - Last Reconciled 11/25/24 by NARCISA Whelan albuterol sulfate 90 mcg/actuation 1 inh inhalation QID PRN apixaban (Eliquis) 5 mg PO BID atorvastatin 10 mg PO DAILY blood sugar diagnostic (FreeStyle Lite Strips) As directed to check glucose 3 times daily. blood-glucose meter (FreeStyle Lite Meter kit) As directed to check blood glucose 3 times daily. blood-glucose sensor (FreeStyle Griffin 3 Plus Sensor device) Apply 1 new sensor every 15 days as directed to monitor blood glucose continuously. blood-glucose,gear grinding machine operator,cont (FreeStyle Griffin 3 [place]) Use daily to monitor blood glucose levels continuously. dapagliflozin propanediol (Farxiga) 10 mg PO DAILY dextrose (TRUEplus Glucose) 15 grams (32 mL) PO Q15M PRN dulaglutide (Trulicity) 3 mg (0.5 mL) subcut GAGNON@0900 ezetimibe 10 mg PO DAILY folic acid 1 mg PO DAILY glucose (Dex4 Glucose Quick Dissolve) 16 grams (4 x 4 gram) PO Q15M PRN insulin degludec (Tresiba FlexTouch U-200 insulin) 10 units subcut BEDTIME insulin lispro subcutaneously 3 times a day before meals; insulin syringe-needle U-100 (BD Insulin Syringe Ultra-Fine) Use 1 needle four times a day lancets (FreeStyle Lancets) Use to monitor blood glucose 3 times daily. levothyroxine 50 mcg PO DAILY@0600 losartan (Cozaar) 100 mg PO DAILY pen needle, diabetic (Comfort EZ Pen [place]) As directed pen needle, diabetic (BD Ultra-Fine Chen Pen Needle) As directed HPI Comments Details: This is a 63-year-old female with a past medical history of type 2 diabetes, hyperlipidemia, hypertension, CKD III, depression with anxiety, hypothyroidism and obesity presenting for diabetic management. She is here with her daughter, Estelle, who interprets. She declined an bilingual interpreter. She was diagnosed with diabetes approximately 15 years ago. Her mother and sister had type 2 diabetes. Hemoglobin A1c was up to 10.1% 10/21/2024. She returned recently from a trip to [place]. She had also been on prednisone and antibiotics for an infection. She was not compliant with her medications. Reviewed [facility] 3 data for the past 2 weeks: CGM active 69% Average glucose 167 G IA 7.3% Glucose variability 36.2% Very high 11% High 23% Target range 65% 1% hypoglycemia Patient has blood sugars within target range overnight and plating operator with some postprandial hyperglycemia after lunch and dinner and some low blood sugars between 9 pm and midnight. Patient says she has only had 1 or 2 episodes when her CGM alerted her to low blood sugar and her fingerstick confirmed the low. She treated with glucose tablets or juice. She felt shaky. Upon further questioning she is still administering Humalog after she eats when she forgets to take it before the meal. Her daughter reports they did not grain picker the most recent prescription for 3 mg, and she is using 1.5 mg weekly. Current medications: Tresiba 10 units nightly. Trulicity 3 mg weekly. Farxiga 10 mg daily. Humalog three times a day 15 minutes before meals per sliding scale: Blood sugar under 150: do not give humalog blood sugar 150-199- give 2 units blood sugar 200-249- give 4 units blood sugar 250-299 - give 6 units blood sugar 300-349- give 8 units blood sugar 350-399- give 10 units blood sugar >400 give 12 units Past medication: Metformin discontinued due to side effects. Lantus change to Tresiba due to propensity for hypoglycemia. Eye exam: [facility] Microvascular complications: neuropathy in both feet (pins and needles), nephropathy (CKD microalbuminuria followed by Dr. Robbins), retinopathy (OU nonproliferative retinopathy) Macrovascular complications: none ROS: Constitutional: No unexplained weight loss, fever, chills, fatigue or night sweats. Respiratory: Denies shortness of breath Cardiovascular: No chest pain, chest pressure or chest discomfort. No palpitations or pedal edema. Gastrointestinal: No anorexia, nausea, vomiting or diarrhea. No abdominal pain or blood in stool. Neurologic: +neuropathy in her feet. No headache, dizziness or syncope. Skin: No rash or wounds. Endocrine: No cold or heat intolerance. No polyuria or polydipsia. Physical exam: Constitutional: Alert, in no distress. Neck: Supple, Full range of motion. No lymphadenopathy. No palpable masses. Respiratory: Clear to auscultation. Cardiovascular: S1 S2 regular. No murmurs Neurologic: No focal neurological deficits. Extremities: Warm and well perfused. No clubbing or cyanosis or erythema. No edema. Intact DP pulses. No open wounds. Psychiatric: Normal mood and affect [facility] Medical History Acute gout Hospital discharge follow-up Pulmonary emboli Anticoagulated on Eliquis Pneumonia Hypoglycemia At risk for foot problem Type II diabetes with mcc use of insulin CKD (chronic kidney disease) Diabetes mellitus High cholesterol Anxiety Depression History of carpal tunnel syndrome Hypertension Surgical History History of cholecystectomy H/O tubal ligation Family History Mother Diabetes mellitus Arthritis Hypertension Other Esophageal abnormality Mental health disorder Social History Household Members: Family Housing: Apartment Do you presently have visiting nurse or other home services: No Alcohol intake: never Patient Tobacco Use Status: Former Tobacco user Tobacco use type: Cigarette e-Cigarette/Vaping Use: Never Used Second Hand Smoke Exposure: Yes service: No Current occupational status: unemployed Cognitive needs: No Hearing needs: No Vision needs: No Physical Exam Vital Signs: Last Vital Signs Pulse 60 11/25/24 09:25 BP 122/70 11/25/24 09:25 Pulse Ox 98 11/25/24 09:25 Oxygen Delivery Method Room Air 11/25/24 09:25 BMI result Body Mass Index 31.9 Office Procedures Glucose Monitoring Details Details: See [facility] [address] - Glucose monitoring, continuous-physician I&R Procedure code (CPT) selection complete Results Reviewed Results Reviewed: Laboratory Last Values Glucose (Clinic) 199 mg/dL (60-115) H 11/25/24 09:30 Laboratory Tests 10/07/24 10/21/24 08:53 10:32 Creatinine 1.57 H Estimated GFR 33 Hgb A1c (Clinic) 10.1 H Assessment & Plan Assessment & Plan (1) Type II diabetes with mcc use of insulin: Code(s): E11.9 - Type 2 diabetes mellitus without complications; Z79.4 - intermodal dispatcher (current) use of insulin Category: Medical Qualifiers: Diabetes mellitus complication detail: with diabetic microalbuminuria Diabetes mellitus complication status: with kidney complications Qualified Code(s): E11.29 - Type 2 diabetes mellitus with other diabetic kidney complication; R80.9 - Proteinuria, unspecified; Z79.4 - intermodal dispatcher (current) use of insulin Plan: In summary this is a 63-year-old female with a past medical history of uncontrolled type 2 diabetes with complications with improved compliance and better glycemic control per recent CGM data. Patient seen by conservation educator and dietitian. We reviewed the complications of type 2 diabetes. I stressed the importance of compliance with her medication and proper administration of insulin. Humalog should be taken 15 minutes before her meals. I explained that if she is taking it without eating a meal or after meals she may have low blood sugar. Continue Tresiba 10 units nightly. Represcribed Trulicity 3 mg weekly. They will call if they do not get it from the pharmacy. Continue Farxiga 10 mg daily. Administer Humalog three times a day 15 minutes before meals Follow Humalog sliding scale: Blood sugar under 150: do not give humalog blood sugar 150-199- give 2 units blood sugar 200-249- give 4 units blood sugar 250-299 - give 6 units blood sugar 300-349- give 8 units blood sugar 350-399- give 10 units blood sugar >400 give 12 units Reviewed treatment of hypo/hyperglycemia. She has written instructions in Canadian and Luxembourgish. Plan I requested a follow up in 1 month, but her daughter says she is traveling to [place] and will not be back until after the holidays. They will schedule a tentative follow up in 3 months. Orders: Orders AMB Glucose Monitoring Today E11.9 - Type 2 diabetes mellitus without complications Medications: New dulaglutide (Trulicity) 3 mg (0.5 mL) subcut GAGNON@0900 2 mL 5RF Changed From insulin degludec (Tresiba FlexTouch U-200 insulin) Replaces Lantus. 16 units (0.08 mL) subcut BEDTIME 9 mL 5RF To insulin degludec (Tresiba FlexTouch U-200 insulin) Replaces Lantus. 10 units subcut BEDTIME Patient Instructions: Continue Tresiba 10 units nightly. Take Trulicity 3 mg weekly. Continue Farxiga 10 mg daily. Administer Humalog three times a day 15 minutes before meals Follow Humalog sliding scale: Blood sugar under 150: do not give humalog blood sugar 150-199- give 2 units blood sugar 200-249- give 4 units blood sugar 250-299 - give 6 units blood sugar 300-349- give 8 units blood sugar 350-399- give 10 units blood sugar >400 give 12 units Contin?e con Tresiba 10 unidades por la noche. [place] Trulicity 3 mg semanalmente. Contin?e con Farxiga 10 mg al d?a. Administre Humalog david veces al d?a, 15 minutos antes de las comidas. Siga la escala m?ariana de Humalog: Glucemia inferior a 150: no administre Humalog. Glucemia de 150 a 199: administre 2 unidades. Glucemia de 200 a 249: administre 4 unidades. Glucemia de 250 a 299: administre 6 unidades. Glucemia de 300 a 349: administre 8 unidades. Glucemia de 350 a 399: administre 10 unidades. Glucemia >400: administre 12 unidades. Coding Level of Care Code Est Pt Level 4 (84235) Diagnoses Type 2 diabetes mellitus with diabetic microalbuminuria, with long-term current use of insulin E11.29; R80.9; Z79.4 Diabetes mellitus complication detail: with diabetic microalbuminuria Diabetes mellitus complication status: with kidney complications CPT Codes Details - CPT: 75327 - Glucose monitoring, continuous-physician I&R ([id number])
[2024-11-25 09:25] VITALS: BP 122/70; PULSE 60; O2SAT 98; BMI 31.9
[2024-11-25 09:34] LABS: Glucose, Whole Blood 199 mg/dL (60-115)
--- OUTSIDE RECORDS SUMMARY | 2024-11-25 10:00 | XMS_ITS | Clinical Summary ---
Author Organization [facility] Address [address] [place] [address] Phone Care Team Providers Care Corporate Legal Intern Name Role Phone Charity Hughes MD Primary Care Provider [phone] Allergies No known active allergies Medications metFORMIN (GLUCOPHAGE) 500 mg tablet TAKE 1 TABLET BY MOUTH TWICE A DAY 10/16/2023 Active pen needle, diabetic 32 gauge x 5/32 needle USE UP TO 4 TIMES A DAY WITH INSULIN PEN. 10/03/2023 Active flash glucose scanning reader (FreeStyle Griffin 2 [place]) misc by Does not apply route. Active [...] nephropathy, with long-term current use of insulin ([facility] V24, [facility] V28) 01/30/2024 Surgical History Surgery Date Site/Laterality Comments TUBAL LIGATION PROCEDURE: HISTORICAL TUBAL LIGATION CHOLECYSTECTOMY PROCEDURE: ME CHOLECYSTECTOMY Medical History Medical History Date Comments DM (diabetes mellitus) ([facility] V24, [facility] V28) DX:DM (diabetes mellitus) (H [facility]) [...] Last Done Comments Breast Cancer Screening 1961 Colorectal Cancer Screening: Colonoscopy 1961 Diabetes: Annual GFR (Glomer ular Filtration Rate) 1961 Diabetes: Annual Foot Exam 12/27/1971 Diabetes: Annual Retina Eye Exam 12/27/1971 DTaP,Tdap,and Td Vaccines (1 - Tdap) 1980 Pneumococcal Vaccine: 50+ Ye ars (1 of 2 - PCV) 1980 Zoster Vaccines (1 of 2) 12/27/2011 RSV Immunization Adult Patie nts (1 - Risk 60-74 years 1-dose series) 2021 Cholesterol Screening (Lipid Panel) 01/22/2022 Social Influencers of Health Screening 01/22/2022 [...] (12/19/2021) Pathologist [facility] HIV Screening abstracted [facility] Provider HEALTH MAINTENANCE Final Result * Hepatitis C Screening (12/19/2021) Pathologist [facility] Hepatitis C Screening abstracted [facility] Provider HEALTH MAINTENANCE Final Result from Last 3 Months or Most Recently Relevant to Health Maintenance Insurance [facility] Care Teams Corporate Legal Intern Relationship Specialty Start Date End Date Charity Hughes MD [address] [place] [address] , [address] [facility] [place], [place] PCP - General Internal Medicine 10/12/21
== END 2024-11-25 10:05 | disposition home or self-care (01) ==
LOC: HO.ENCR 09:07
PROVIDERS: PCP Internal Medicine; Visit Provider Physician Assistant Medical
DX: E11.29 Type 2 diabetes mellitus with other diabetic kidney complication (principal); R80.9 Proteinuria, unspecified; Z79.4 Long term (current) use of insulin

== ENCOUNTER → 2024-11-25 09:06 | Outpatient (BNVA) | payer OTHER, SELFPAY | PROVIDERS: PCP Internal Medicine; Visit Provider Physician Assistant Medical | DX: E11.9 Type 2 diabetes mellitus without complications (principal) | CPT/HCPCS: 82947; 99212 ==

== ENCOUNTER 2024-12-10 12:03 | Outpatient (REF) | payer OTHER, SELFPAY ==
[2024-12-10 12:43] LABS: Appearance Urine Clear; Glucose Urine UA >=1000 mg/dL (Negative); PH 5.5 (5.0-9.0); Specific Gravity - Urine >= 1.030 (1.005-1.025); UMIC TRIGGER UA YES
[2024-12-10 13:09] LABS: Anion Gap 10 (12-20); Blood Urea Nitrogen 16 mg/dL (9-16); Calcium 9.0 mg/dL (8.4-10.2); Carbon Dioxide 27 mmol/L (22-29); Chloride 109 mmol/L (96-108); Estimated Glomerular Filt Rate 42; Potassium 3.9 mmol/L (3.3-5.1); Sodium 142 mmol/L (135-145)
--- OUTSIDE RECORDS SUMMARY | 2024-12-10 17:02 | XMS_ITS | Clinical Summary ---
Author Organization [facility] Address [address] [place] [address] Phone Care Team Providers Care Explosives Worker Name Role Phone Charity Hughes MD Primary Care Provider [phone] Allergies No known active allergies Medications metFORMIN (GLUCOPHAGE) 500 mg tablet TAKE 1 TABLET BY MOUTH TWICE A DAY 10/16/2023 Active pen needle, diabetic 32 gauge x 5/32 needle USE UP TO 4 TIMES A DAY WITH INSULIN PEN. 10/03/2023 Active flash glucose scanning reader (FreeStyle Griffin 2 [place]) misc by Does not apply route. Active [...] nephropathy, with long-term current use of insulin ([facility] V24, [facility] V28) 01/30/2024 Surgical History Surgery Date Site/Laterality Comments TUBAL LIGATION PROCEDURE: HISTORICAL TUBAL LIGATION CHOLECYSTECTOMY PROCEDURE: [place] CHOLECYSTECTOMY Medical History Medical History Date Comments DM (diabetes mellitus) ([facility] V24, [facility] V28) DX:DM (diabetes mellitus) (H [...] ars (1 of 2 - PCV) 1980 RSV Immunization Adult Patie nts (1 - Risk 50-74 years 1-dose series) 12/27/2011 Zoster Vaccines (1 of 2) 12/27/2011 Cholesterol Screening (Lipid Panel) 01/22/2022 Social Influencers [...] Cervical Cancer Screening: HPV abstracted, no interpretation [facility] Provider HEALTH MAINTENANCE Final Result * HIV Screening (12/19/2021) HIV Screening abstracted [facility] Provider HEALTH MAINTENANCE Final Result * Hepatitis C Screening (12/19/2021) Pathologist [facility] Hepatitis C Screening abstracted [facility] Provider HEALTH MAINTENANCE Final Result from Last 3 Months or Most Recently Relevant to Health Maintenance Insurance [facility] [employer] Care Teams Explosives Worker Relationship Specialty Start Date End Date Charity Hughes MD [address] [place] [address] , [address] [facility] D[facility] [place], [place] PCP - General Internal Medicine 10/12/21
[2024-12-10 17:10] LABS: Uric Acid 6.2 mg/dL (2.4-5.7)
== END 2024-12-10 12:04 | disposition home or self-care (01) ==
LOC: HO.LAB 12:03
PROVIDERS: Visit Provider Internal Medicine Hypertension Specialist
DX: I12.9 Hypertensive chronic kidney disease with stage 1 through stage 4 chronic kidney disease, or unspecified chronic kidney disease (principal); N18.9 Chronic kidney disease, unspecified
CPT/HCPCS: 36415; 80048; 81001; 84550

== ENCOUNTER 2024-12-15 10:17 | Outpatient (AMB) | payer OTHER, SELFPAY ==
[2024-12-15 10:18] VITALS: BP 150/62; PULSE 63; O2SAT 97; BMI 31.8
--- NOTE | 2024-12-15 10:18 | HO.NEPHOV_ITS ---
Vital Signs 12/15/24 10:18 12/15/24 10:34 Height 5 ft 5 in Weight 191 lb BMI 31.8 BP 150/62 H 140/60 H Blood Pressure Location Lt brachial Rt brachial Position Sitting Sitting Pulse 63 Pulse Source Pulse Oximeter Pulse Oximetry (%) 97 Oxygen Delivery Method Room Air Intake Visit Reasons: 4wks f/u w/labs lvm Vice President Of Instruction Required: No Vice President Of Instruction Services: Vice President Of Instruction Offered & Declined (Daughter will translate) Accompanied by: Daughter Allergies Seasonal Allergies Allergy (Verified 12/15/24 10:21) Sneezing Medication List - Last Reconciled 12/15/24 by Leonardo Robbins MD albuterol sulfate 90 mcg/actuation 1 inh inhalation QID PRN apixaban (Eliquis) 5 mg PO BID atorvastatin 10 mg PO DAILY blood sugar diagnostic (FreeStyle Lite Strips) As directed to check glucose 3 times daily. blood-glucose meter (FreeStyle Lite Meter kit) As directed to check blood glucose 3 times daily. blood-glucose sensor ([employer] Griffin 3 Plus Sensor device) Apply 1 new sensor every 15 days as directed to monitor blood glucose continuously. blood-glucose,finance business manager,cont (FreeStyle Griffin 3 [place]) Use daily to monitor blood glucose levels continuously. dapagliflozin propanediol (Farxiga) 10 mg PO DAILY dextrose (TRUEplus Glucose) 15 grams (32 mL) PO Q15M PRN dulaglutide (Trulicity) 3 mg (0.5 mL) subcut GAGNON@0900 ezetimibe 10 mg PO DAILY folic acid 1 mg PO DAILY glucose (Dex4 Glucose Quick Dissolve) 16 grams (4 x 4 gram) PO Q15M PRN insulin degludec (Tresiba FlexTouch U-200 insulin) 10 units subcut BEDTIME insulin lispro subcutaneously 3 times a day before meals; insulin syringe-needle U-100 (BD Insulin Syringe Ultra-Fine) Use 1 needle four times a day lancets (FreeStyle Lancets) Use to monitor blood glucose 3 times daily. levothyroxine 50 mcg PO DAILY@0600 losartan (Cozaar) 100 mg PO DAILY pen needle, diabetic (Comfort EZ Pen [place]) As directed pen needle, diabetic (BD Ultra-Fine [place] Pen Needle) As directed HPI Comments Details: Middle-aged woman with a history of longstanding diabetes mellitus hypertension has been referred for evaluation of CKD and proteinuria. Charlee was accompanied by her daughter was able to translate. She has longstanding history of diabetes mellitus blood sugar has been poorly controlled. She has been noncompliant with her diet according to her daughter. Patient does not exercise. Doing better today. She does not drink soda anymore. Metformin has been discontinued. No new issues today 03/10/24 Doing well. Farxiga was added - but she has not started it yet- ? why She ran out of losartan for the past 1 month 06/12/24 REcently in ER with dyspnea VQ scan showed VQ mismatch- NOw on Eliquis Still has cough NO urinary sypmtoms. NO edema 07/24/24 63-year-old female presenting with chronic kidney disease, diabetes, and hypertension management. She reports that her kidney function remains low based on recent bloodwork, with no noted changes in urinary output or medication alterations. Her diabetes management, involving an insulin pump, is stable with reported blood glucose levels ranging from 120-180 mg/dL. Hypertension is managed with losartan without recent modifications to the treatment regimen. There are no new or worsening symptoms related to her chronic conditions reported at this time. 11/17/24 History of Present Illness Follow up for CKD - Gout in the left leg for about a month, with intermittent pain. - Low blood pressure noted today; patient on diuretics. - No leg or facial swelling; continues water pills at night. - Cough with clear phlegm, worsens with exertion. - Decreased kidney function noted in recent labs, possibly due to diuretics. 12/15/24 - The patient is a 63-year-old female presenting for management of chronic kidney disease and diabetes mellitus. - Diabetes Mellitus: Blood glucose levels stable at 150 mg/dL. - Hypertension: Slightly elevated blood pressure, possibly due to medication timing. She did not take her meds today - Chronic Kidney Disease: Improved kidney function in recent labs. Indapamide was stopped last visit due to low BP and [facility] Medical History Acute gout Hospital discharge follow-up Pulmonary emboli Anticoagulated on Eliquis Pneumonia Hypoglycemia At risk for foot problem Type II diabetes with [facility] use of insulin CKD (chronic kidney disease) Diabetes mellitus High cholesterol Anxiety Depression History of carpal tunnel syndrome Hypertension Surgical History History of cholecystectomy H/O tubal ligation Family History Mother Diabetes mellitus Arthritis Hypertension Other Esophageal abnormality Mental health disorder Social History Household Members: Family Housing: Apartment Do you presently have visiting nurse or other home services: No Alcohol intake: never Patient Tobacco Use Status: Former Tobacco user Tobacco use type: Cigarette e-Cigarette/Vaping Use: Never Used Second Hand Smoke Exposure: Yes service: No Current occupational status: unemployed Cognitive needs: No Hearing needs: No Vision needs: No Physical Exam Vital Signs: Last Vital Signs Pulse 63 12/15/24 10:18 BP 150/62 H 12/15/24 10:18 Pulse Ox 97 12/15/24 10:18 Oxygen Delivery Method Room Air 12/15/24 10:18 BMI result Body Mass Index 31.8 Results Reviewed Nephrology Results: Sodium, (135-145) 142 mmol/L 12/10/24 Potassium, (3.3-5.1) 3.9 mmol/L 12/10/24 Chloride, (96-108) 109 mmol/L H 12/10/24 Carbon Dioxide, (22-29) 27 mmol/L 12/10/24 BUN, (9-16) 16 mg/dL 12/10/24 Creatinine, (0.5-1.4) 1.28 mg/dL 12/10/24 Calcium, (8.4-10.2) 9.0 mg/dL 12/10/24 Urine Protein, (Neg-Trace) 100 (2+) mg/dL H 12/10/24 Renal US 02/16/23 Assessment & Plan Assessment & Plan (1) CKD (chronic kidney disease): Code(s): N18.9 - Chronic kidney disease, unspecified Category: Medical Plan: Middle-aged woman with longstanding diabetes mellitus hypertension with mild CKD. She has stage III CKD most likely due to hypertensive diabetic kidney disease. Goal also slow the progression of renal disease. Continue with Dominick inhibition. She will benefit from SGLT-2 inhibitor. on Cr is up to 1.48 as of May _ this may be related ot hypoperfusion vs due to diuretics and SGLT-2 inh Currently down to < 1.2 with eGFR of 42 ml/mt after stopping Indapamide Continue to hold Indapamide since she is euvolemic Increase PO fluid intake Avoid hypotension and NSAIDS . (2) Microalbuminuria: Code(s): R80.9 - Proteinuria, unspecified Category: Medical Plan: Due to underlying diabetic kidney disease. Continue with ARB . (3) Hypertension: Code(s): I10 - Essential (primary) hypertension Category: Medical Plan: blood pressure is low Goal is to maintain blood pressure less than 130/80. Stop indapamide She should stay on low-sodium diet and she requires weight loss which we had discussed . Orders: Orders Complete Blood Count no Diff 3 Months N18.9 - Chronic kidney disease, unspecified Creatinine Urine 3 Months N18.9 - Chronic kidney disease, unspecified Total Protein Urine Random 3 Months N18.9 - Chronic kidney disease, unspecified Basic Metabolic Panel 3 Months N18.9 - Chronic kidney disease, unspecified Coding Level of Care Code Est Pt Level 4 (32388) Diagnoses CKD (chronic kidney disease) N18.9 Microalbuminuria R80.9 Hypertension I10
[2024-12-15 10:34] VITALS: BP 140/60
--- OUTSIDE RECORDS SUMMARY | 2024-12-15 12:26 | XMS_ITS | Clinical Summary ---
Author Organization [facility] Address [address] [place] [address] Phone Care Team Providers Care Unit Reactor Operator Name Role Phone Charity Hughes MD Primary Care Provider [phone] Allergies No known active allergies Medications metFORMIN (GLUCOPHAGE) 500 mg tablet TAKE 1 TABLET BY MOUTH TWICE A DAY 10/16/2023 Active pen needle, diabetic 32 gauge x 5/32 needle USE UP TO 4 TIMES A DAY WITH INSULIN PEN. 10/03/2023 Active flash glucose scanning reader (FreeStyle Griffin 2 [place]) misc by Does not apply route. Active [...] nephropathy, with long-term current use of insulin ([facility] V24, [facility] V28) 01/30/2024 Surgical History Surgery Date Site/Laterality Comments TUBAL LIGATION PROCEDURE: HISTORICAL TUBAL LIGATION CHOLECYSTECTOMY PROCEDURE: [place] CHOLECYSTECTOMY Medical History Medical History Date Comments DM (diabetes mellitus) ([facility] V24, [facility] V28) DX:DM (diabetes mellitus) [...] Cervical Cancer Screening: HPV abstracted, no interpretation [facility] Provider HEALTH MAINTENANCE Final Result * HIV Screening (12/19/2021) HIV Screening abstracted [facility] Provider HEALTH MAINTENANCE Final Result * Hepatitis C Screening (12/19/2021) Pathologist [facility] Hepatitis C Screening abstracted [facility] Provider HEALTH MAINTENANCE Final Result from Last 3 Months or Most Recently Relevant to Health Maintenance Insurance [facility] Care Teams Unit Reactor Operator Relationship Specialty Start Date End Date Charity Hughes MD [address] [place] [address] , [address] [facility] D/B/A: [facility] [place], [place] PCP - General Internal Medicine 10/12/21
== END 2024-12-15 10:32 | disposition home or self-care (01) ==
LOC: HO.HKA 10:18
PROVIDERS: PCP Internal Medicine; Visit Provider Internal Medicine Hypertension Specialist
DX: I12.9 Hypertensive chronic kidney disease with stage 1 through stage 4 chronic kidney disease, or unspecified chronic kidney disease (principal); N18.9 Chronic kidney disease, unspecified; R80.9 Proteinuria, unspecified
CPT/HCPCS: 99214

== ENCOUNTER → 2024-12-15 10:17 | Outpatient (BNVA) | payer OTHER, SELFPAY | PROVIDERS: PCP Internal Medicine; Visit Provider Internal Medicine Hypertension Specialist | DX: E11.22 Type 2 diabetes mellitus with diabetic chronic kidney disease (principal); N18.30 Chronic kidney disease, stage 3 unspecified; I10 Essential (primary) hypertension; R80.9 Proteinuria, unspecified | CPT/HCPCS: 99212 ==

== ENCOUNTER 2025-01-21 09:26 | Outpatient (AMB) | payer OTHER, SELFPAY ==
--- NOTE | 2025-01-21 09:30 | A.OFFPC_ITS ---
Vital Signs 01/21/25 09:32 Height 5 ft 5 in Weight 188 lb 2 oz BMI 31.3 BP 130/66 Blood Pressure Location Lt brachial Position Sitting Pulse 55 Pulse Source Pulse Oximeter Temp 97.1 F Temp Source Temporal Artery Scan Pulse Oximetry (%) 96 Oxygen Delivery Method Room Air Intake Visit Reasons: 3 month- REPEAT A1C Intake Note: Patient is here today for a physical. Shank Threader Required: Yes Shank Threader Language: [place] Machine Operator Name: Estelle (daughter) Information Interpreted: non-clinical & clinical (pt decline negative developer service prefer daughter to translate) Sewing Demonstrator: Present Accompanied by: Daughter Allergies Seasonal Allergies Allergy (Verified 01/21/25 09:32) Sneezing Medication List - Last Reconciled 01/21/25 by Rodriguez Christensen MD albuterol sulfate 90 mcg/actuation 1 inh inhalation QID PRN apixaban (Eliquis) 5 mg PO BID atorvastatin 10 mg PO DAILY blood sugar diagnostic (FreeStyle Lite Strips) As directed to check glucose 3 times daily. blood-glucose meter (FreeStyle Lite Meter kit) As directed to check blood glucose 3 times daily. blood-glucose sensor (FreeStyle Griffin 3 Plus Sensor device) Apply 1 new sensor every 15 days as directed to monitor blood glucose continuously. blood-glucose,staff cytotechnologist,cont (FreeStyle Griffin 3 [place]) Use daily to monitor blood glucose levels continuously. dapagliflozin propanediol (Farxiga) 10 mg PO DAILY dextrose (TRUEplus Glucose) 15 grams (32 mL) PO Q15M PRN dulaglutide (Trulicity) 3 mg (0.5 mL) subcut GAGNON@0900 ezetimibe 10 mg PO DAILY folic acid 1 mg PO DAILY glucose (Dex4 Glucose Quick Dissolve) 16 grams (4 x 4 gram) PO Q15M PRN insulin degludec (Tresiba FlexTouch U-200 insulin) 10 units subcut BEDTIME insulin lispro subcutaneously 3 times a day before meals; insulin syringe-needle U-100 (BD Insulin Syringe Ultra-Fine) Use 1 needle four times a day lancets (FreeStyle Lancets) Use to monitor blood glucose 3 times daily. levothyroxine 50 mcg PO DAILY@0600 losartan (Cozaar) 100 mg PO DAILY pen needle, diabetic (Comfort EZ Pen [place]) As directed pen needle, diabetic (BD Ultra-Fine Chen Pen Needle) As directed Tobacco use date assessed: 01/21/25 Dental Screening Dental Screen Date: 06/12/24 HPI HPI Comments History of Present Illness Details History of Present Illness - The patient is a 64 year old individua l presenting for an annual physical exam and to complete home care paperwork. - The patient has been complaining of ba ck pain, but a recent evaluation by an oncologist showed everything was fine. - Medication history includes adherence to a blood thinner; a water pill was previously stopped. - For diabetes management, the patient u ses a blood glucose sensor but had removed it the day prior to the visit and did not bring the device. - The patient is up to date on breast ca ncer screening; a recent mammogram showed a finding that prompted a follow-up ultrasound, and another follow-up is scheduled in approximately four months. - The last colonoscopy was performed 6-7 years ago. - The patient declines the seasonal infl uenza vaccine due to fear of getting sick from it. - The patient received a vaccine for the lungs years ago, but it was not the pneumonia vaccine. Social History - The patient's family is arranging for home care services through [facility]. - The patient currently lives [facility] the [facility], which presents a mobility challenge, and an application has been submitted for a better apartment. - A family member is currently providing care for the patient. Results - Imaging: - A [facility] Medical History Acute gout Hospital discharge follow-up Pulmonary emboli Anticoagulated on Eliquis Pneumonia Hypoglycemia At risk for foot problem Type II diabetes with supervisor ovens use of insulin CKD (chronic kidney disease) Diabetes mellitus High cholesterol Anxiety Depression History of carpal tunnel syndrome Hypertension Surgical History History of cholecystectomy H/O tubal ligation Family History Mother Diabetes mellitus Arthritis Hypertension Other Esophageal abnormality Mental health disorder Social History Household Members: Family Housing: Apartment Do you presently have visiting nurse or other home services: No Alcohol intake: never Patient Tobacco Use Status: Former Tobacco user Tobacco use type: Cigarette e-Cigarette/Vaping Use: Never Used Second Hand Smoke Exposure: Yes service: No Current occupational status: unemployed Cognitive needs: No Hearing needs: No Vision needs: No Questionnaire Thrive Questionnaire Date Thrive assessed: 07/24/24 I am a: Patient What is your living situation today?: I choose not to answer this question Within the past 12 months, did the food you bought not last and you didn't have the money to get more?: Never true Within the past 12 months, did you worry whether your food would run out before you got money to buy more?: Never true Do you have trouble paying for medicines?: I choose not to answer this question Do you have trouble getting transportation to medical appointments?: No Do you have trouble paying your heating and electricity bill?: I choose not to answer this question Do you have trouble taking care of your child, family member or friend?: I choose not to answer this question Do you have trouble with day-to-day activities such as bathing, preparing meals, shopping, managing finances, etc.?: I choose not to answer this question Are you currently unemployed and looking for a job?: No Are you interested in more education?: No Please select the resources that you would like help with: None Currently or been in a relationship where the following occur: I choose not to answer THRIVE Score: 0 YENI-7 AMB Questionnaire YENI-7 Date YENI - 7 assessed: 07/24/24 Source: Developed by Drs. Giles Magallanes, Maye Mcfarlane, Jose M Trejo and colleagues, with an educational natacha from [employer]. Review of Systems Narrative Review of Systems - Musculoskeletal: Reports back pain. - All other systems reviewed and are negative. Physical exam (Primary Care) Vital Signs: Last Vital Signs Temp 97.1 F 01/21/25 09:32 Pulse 55 01/21/25 09:32 BP 130/66 01/21/25 09:32 Pulse Ox 96 01/21/25 09:32 Oxygen Delivery Method Room Air 01/21/25 09:32 BMI result Body Mass Index 31.3 Tobacco/Smoking Status: Tobacco use Status Tobacco use date assessed 01/21/25 01/21/25 09:42 Patient Tobacco Use Status Former Tobacco user 01/21/25 09:42 Tobacco use type Cigarette 01/21/25 09:42 e-Cigarette/Vaping Use Never Used 01/21/25 09:42 Thrive Assessment: Date of Thrive Assessment Date Thrive assessed 07/24/24 01/21/25 09:42 Currently or been in a relationship where the following occur: I choose not to answer Narrative Physical Exam General: Cooperative and healthy appearing Nutritional Appearance: Well nourished Orientation/consciousness: Patient oriented x3 Limitations: No limitations Head: Normal to inspection General: Appearance normal, both eyes and all related structures Neck: Normal visual inspection Chest: Normal palpation of entire chest wall Respiratory: Normal respiratory effort Neurology: Patient oriented x3 Office Procedures Flu Questionnaire Does the patient have a severe egg allergy?: No Does the patient have severe life threatening allergies?: No Does the patient have a fever or illness today?: No Has the patient ever had Guillain-[place] Syndrome?: No Has the patient ever had any past reaction to a flu shot?: No Results AMB Hemoglobin A1c AMB Hemoglobin A1c 7.8 % Last Edit by RADHIKA Swartz on 01/21/25 09:50 Immunizations Fluarix [id number] (PF) 45 mcg (15 mcg x 3)/0.5 mL IM syringe Performing Provider: Rodriguez Christensen MD [facility] Administered by: Donna Baxter LPN on 01/21/25 10:13 Dose Route Admin Location Dispensed Lot Number Expiration Date [facility] Top Hat Body Maker 0.5 mL IM Left Deltoid 0.5 mL [id number] 08/18/25 [id number] GLAXO SMITHKLINE VIS Given Date VIS Provided VIS Publication Date 01/21/25 Single Vaccine 24 Eligibility Eligibility Date Funding Source Not [facility] Eligible 01/21/25 Private Results Reviewed Results Reviewed: Laboratory Last Values Hgb A1c (Clinic) 7.8 % (4.0-6.0) H 01/21/25 09:29 Coding Level of Care Code Est Pt Prev Care 40-64y(69387) Diagnoses Encounter for general adult medical examination without abnormal findings Z00.00 Assessment & Plan Assessment & Plan (1) Encounter for general adult medical examination without abnormal findings: Code(s): Z00.00 - Encounter for general adult medical examination without abnormal findings Plan Plan - Will order a Cologuard test for colon cancer screening. - The patient declined the influenza vaccine at this visit. - The patient will continue with the scheduled follow-up in approximately four months for the recent mammogram and ultrasound findings. - Will complete the required forms for the patient to receive home care services. - The patient to continue current medications as prescribed. - The patient should continue to monitor blood glucose with the sensor and follow up with the [place] specialist. Discussion Notes I discussed the need for colon cancer screening and will order a Cologuard test, which I explained is a stool-based test that can be completed at home. We discussed the influenza vaccine, but the patient expressed fear of getting sick and ultimately declined it. I advised the patient to continue with the scheduled follow-up in approximately four months for the breast imaging finding. I will fill out the necessary forms to facilitate the patient's application for home care services. Patient Instructions - A Cologuard kit for colon cancer screening will be sent to your home. - Please follow the instructions in the kit to provide a stool sample and mail it back. - Continue taking your medications as prescribed, including your blood thinner. - Keep your follow-up appointment in about four months to recheck the finding on your mammogram. - We will complete the paperwork for you to get home care services. Orders: Orders AMB Hemoglobin A1c Today E11.29 - Type 2 diabetes mellitus with other diabetic kidney complication, E11.9 - Type 2 diabetes mellitus without complications, R80.9 - Proteinuria, unspecified, Z79.4 - supervisor frame assembly (current) use of insulin Influenza [id number] Immunization Today Z23 - Encounter for immunization Referrals Cologuard Test Z12.11 - Encounter for screening for malignant neoplasm of colon Medications: Refilled ezetimibe 10 mg PO DAILY 90 tabs 1RF E78.00 - Pure hypercholesterolemia, unspecified glucose (Dex4 Glucose Quick Dissolve) until symptoms of low blood sugar are controlled 16 grams (4 x 4 gram) PO Q15M PRN 10 tabs 3RF hypoglycemia albuterol sulfate 90 mcg/actuation 1 inh inhalation QID PRN 6.7 grams 0RF shortness of breath or wheezing apixaban (Eliquis) 5 mg PO BID 180 tabs 1RF dapagliflozin propanediol (Farxiga) 10 mg PO DAILY 90 tabs 1RF dextrose (TRUEplus Glucose) until symptoms of low blood sugar are controlled 15 grams (32 mL) PO Q15M PRN 128 mL 3RF hypoglycemia folic acid 1 mg PO DAILY 90 tabs 3RF losartan (Cozaar) 100 mg PO DAILY 90 tabs 3RF I10 - Essential (primary) hypertension
[2025-01-21 09:32] VITALS: BP 130/66; PULSE 55; TEMP 36.2; O2SAT 96; BMI 31.3
--- OUTSIDE RECORDS SUMMARY | 2025-01-21 10:17 | XMS_ITS | Clinical Summary ---
Author Organization [facility] Address [address] [place] [address] Phone Care Team Providers Care Quality Assurance Monitor Name Role Phone Charity Hughes MD Primary Care Provider [phone] Allergies No known active allergies Medications metFORMIN (GLUCOPHAGE) 500 mg tablet TAKE 1 TABLET BY MOUTH TWICE A DAY 10/16/2023 Active pen needle, diabetic 32 gauge x 5/32 needle USE UP TO 4 TIMES A DAY WITH INSULIN PEN. 10/03/2023 Active flash glucose scanning reader (FreeStyle Griffin 2 [place]) misc by Does not apply route. Active [...] nephropathy, with long-term current use of insulin ([facility] V24, [facility] V28) 01/30/2024 Surgical History Surgery Date Site/Laterality Comments TUBAL LIGATION PROCEDURE: HISTORICAL TUBAL LIGATION CHOLECYSTECTOMY PROCEDURE: MT CHOLECYSTECTOMY Medical History Medical History Date Comments DM (diabetes mellitus) ([facility] V24, [facility] V28) DX:DM (diabetes mellitus) (H [facility]) [...] (HGBA1C) 12/03/2023 Depression Screening 02/20/2024 COVID-19 Vaccine (1 - 2024-2 6 season) 2024 Influenza Vaccine (#1) 2024 Cervical [...] Cervical Cancer Screening: HPV abstracted, no interpretation [facility] Provider HEALTH MAINTENANCE Final Result * HIV Screening (12/19/2021) HIV Screening abstracted [facility] Provider HEALTH MAINTENANCE Final Result * Hepatitis C Screening (12/19/2021) Pathologist [facility] Hepatitis C Screening abstracted [facility] Provider HEALTH MAINTENANCE Final Result from Last 3 Months or Most Recently Relevant to Health Maintenance Insurance [facility] [employer] Care Teams Quality Assurance Monitor Relationship Specialty Start Date End Date Charity Hughes MD [address] [place] [address] , [address] [facility] D[facility]A: [facility] [place], [place] PCP - General Internal Medicine 10/12/21
== END 2025-01-21 10:20 | disposition home or self-care (01) ==
PROVIDERS: PCP Internal Medicine; Visit Provider Internal Medicine
DX: Z00.00 Encounter for general adult medical examination without abnormal findings (principal); E11.29 Type 2 diabetes mellitus with other diabetic kidney complication; R80.9 Proteinuria, unspecified; Z79.4 Long term (current) use of insulin; Z23 Encounter for immunization

== ENCOUNTER → 2025-01-21 09:26 | Outpatient (BNVA) | payer OTHER, SELFPAY | PROVIDERS: PCP Internal Medicine; Visit Provider Internal Medicine | DX: Z00.00 Encounter for general adult medical examination without abnormal findings (principal); Z23 Encounter for immunization | CPT/HCPCS: 83036; 90471; 90656; 99396 ==